=== PATIENT | female | born 1980 | race Caucasian/White ===

== ENCOUNTER 2016-08-05 11:19 | Emergency (ER) | payer OTHER ==
[2016-08-05 11:39] VITALS: BP 109/79; PULSE 95; TEMP 97.8; BMI 34.8
[2016-08-05] MEDS ORDERED: FLUORESCEIN NA 1 EA STRIP ONE (11:47)
[2016-08-05] MEDS ORDERED: TETRACAINE 0.5% OPHTH SOLN 2 ML BOTTLE ONE (11:47)
[2016-08-05] MEDS ORDERED: TETRACAINE 0.5% HCL 0.6ML DROPPER.BOTTLE OS ONE (11:48)
[2016-08-05] MEDS ORDERED: FLUORESCEIN NA 1 EA STRIP OS ONE (11:48)
--- NOTE | 2016-08-05 12:04 | PDOC ---
History of Present Illness - General Chief Complaint: Eye Problem Stated Complaint: LEFT EYELID SWELLING Time Seen by Provider: 08/05/16 11:25 History Source: Patient, Old Records Exam Limitations: No Limitations - History of Present Illness Initial Comments: 08/05/16 11:59 36 year F c/ hx of obesity and asthma presents with left eye redness since this morning The patient was recently seen for URI and asthma and started on azithromycin and steroids. Yesterday, she woke up with eye discharge, redness, photophobia, itchiness, eye grittiness sensation. Denies fevers. 08/05/16 12:01 Does not wear contacts or glasses. Past History - Past Medical History Allergies/Adverse Reactions: Allergies Allergy/AdvReac Type Severity Reaction Status Date / Time omalizumab Allergy Severe Difficulty Verified 07/31/16 10:08 Breathing Penicillins Allergy Severe Difficulty Verified 07/31/16 10:08 Breathing Home Medications: Ambulatory Orders Albuterol Sulfate Inhaler - [Ventolin HFA Inhaler -] 1 - 2 inh PO QID 07/31/16 Azithromycin 250 mg PO DAILY #7 tablet 07/31/16 Budesonide [Pulmicort 0.5 mg Nebulizer -] 1 neb NEB ONCE 07/31/16 Formoterol Fumarate [Perforomist] 20 mcg IH BID 07/31/16 Guaifenesin AC [Robitussin AC -] 1 - 2 tsp PO TID PRN #90 ml MDD 6 07/31/16 Montelukast Na [Singulair -] 10 mg PO HS 07/31/16 Prednisone [Deltasone -] 40 mg PO DAILY #40 tablet 07/31/16 Erythromycin 0.5% Eye Ointment [Erythromycin 0.5% Eye Ointment -] 1 applic OS Q4H #1 tube 08/05/16 Anemia: No Asthma: Yes (1991) Cancer: No Cardiac Disorders: No CVA: No COPD: No CHF: No Dementia: No Diabetes: No GI Disorders: Yes (GERD) Disorders: No HTN: No Hypercholesterolemia: No Liver Disease: No Psychiatric Problems: Yes (bipolar) Suicide Attempt (Hx): No Seizures: No Thyroid Disease: No - Surgical History Abdominal Surgery: Yes (TUBAL LIGATION 2007) Appendectomy: Yes (2000) Cardiac Surgery: No Cholecystectomy: Yes (2012) Lung Surgery: Yes (BRONCHIAL THERMOPLASTY 2013) Neurologic Surgery: No Orthopedic Surgery: No - Immunization History Td Vaccination: No TDAP Vaccination: No Immunization Up to Date: No - Psycho/Social/Smoking Cessation Hx Anxiety: No Suicidal Ideation: No Smoking Status: No Smoking History: Never smoked Have you smoked in the past 12 months: No Number of Cigarettes Smoked Daily: 0 Hx Alcohol Use: No Drug/Substance Use Hx: No Substance Use Type: Alcohol Hx Substance Use Treatment: No Review of Systems - Review of Systems Able to Perform ROS?: Yes Comments:: 08/05/16 12:00 GENERAL/CONSTITUTIONAL: No fever, weakness. HEAD, EYES, EARS, NOSE AND THROAT: Left eye redness and discharge. No change in vision. No ear pain or discharge. No sore throat. CARDIOVASCULAR: No chest pain or shortness of breath. RESPIRATORY: +cough from previous ED visit. No wheezing, or hemoptysis. GASTROINTESTINAL: No abdominal pain, nausea, vomiting, diarrhea, or decreased PO intolerance. GENITOURINARY: No dysuria, frequency, or change in urination. MUSCULOSKELETAL: No joint or muscle swelling or pain. No neck or back pain. SKIN: No rash NEUROLOGIC: No headache, vertigo, loss of consciousness, or change in strength/ sensation. ENDOCRINE: No increased thirst. No abnormal weight change. HEMATOLOGIC/LYMPHATIC: No anemia, easy bleeding, or history of blood clots. ALLERGIC/IMMUNOLOGIC: No hives or skin allergy. *Physical Exam - Vital Signs Last Vital Signs Temp Pulse Resp BP Pulse Ox 97.8 F 95 H 17 109/79 100 08/05/16 11:21 08/05/16 11:21 08/05/16 11:21 08/05/16 11:21 08/05/16 11:21 - Physical Exam Comments: 08/05/16 12:01 GENERAL: Awake, alert, and fully oriented, in no acute distress. HEAD: No signs of trauma EYES: PERRLA, EOMI OD: 20/50 VA OS: 20/70 VA Injected left conjunctiva. +mild discharge. fluorescein stain with NO uptake ENT: Auricles normal inspection, hearing grossly normal, nares patent, oropharynx clear without exudates. NECK: Normal ROM, supple, no lymphadenopathy, JVD, or masses LUNGS: Breath sounds equal, clear to auscultation bilaterally. No wheezes, and no crackles HEART: Regular rate and rhythm, normal S1 and S2, no murmurs, rubs or gallops ABDOMEN: Soft, nontender, normoactive bowel sounds. No guarding, no rebound. No masses EXTREMITIES: Normal range of motion, no edema. No clubbing or cyanosis. No cords, erythema, or tenderness NEUROLOGICAL: Cranial nerves II through XII grossly intact. Normal speech, normal gait SKIN: Warm, Dry, normal turgor, no rashes or lesions noted. Medical Decision Making - Medical Decision Making 08/05/16 12:03 Vital Signs Temp Pulse Resp BP Pulse Ox 97.8 F 95 H 17 109/79 100 08/05/16 11:21 08/05/16 11:21 08/05/16 11:21 08/05/16 11:21 08/05/16 11:21 Imp: conjunctivitis Erythromycin ointment Supportive care Follow up with optho. Hygiene precautions. I discussed the physical exam findings, ancillary test results and final diagnoses with the patient. I answered all of the patient's questions. The patient was satisfied with the care received and felt comfortable with the discharge plan and treatment plan. The patient will call their primary care physician within 24 hours to arrange follow-up and will return to the Emergency Department with any new, persistant or worsening symptoms. *DC/Admit/Observation/Transfer Diagnosis at time of Disposition: Conjunctivitis Qualifiers: Conjunctivitis type: unspecified Laterality: left Qualified Code(s): H10.9 - Unspecified conjunctivitis - Discharge Dispostion Disposition: HOME Condition at time of disposition: Good Admit: No - Prescriptions Prescriptions: Erythromycin 0.5% Eye Ointment [Erythromycin 0.5% Eye Ointment -] 1 applic OS Q4H #1 tube - Referrals Referrals: Christie Perez [Primary Care Provider] - Tyson Bravo MD [Staff Physician] - - Patient Instructions Printed Discharge Instructions: DI for Conjunctivitis Additional Instructions: Please use the erythromycin as prescribed 6 times a day for a week. Make an appointment and follow up with your doctor as well as an eye doctor.
== END 2016-08-05 12:18 | disposition home or self-care (01) ==
LOC: FER 11:19
DX: H10.9 Unspecified conjunctivitis (principal); J45.909 Unspecified asthma, uncomplicated; K21.9 Gastro-esophageal reflux disease without esophagitis; F31.9 Bipolar disorder, unspecified
CPT/HCPCS: 99282-25

== ENCOUNTER 2016-08-14 12:31 | Emergency (ER) | payer OTHER ==
[2016-08-14 13:04] VITALS: BP 148/90; PULSE 97; TEMP 98; BMI 34.9
--- NOTE | 2016-08-14 13:10 | PDOC ---
History of Present Illness - General Chief Complaint: Back Pain Stated Complaint: COUGH,PT RT BACK Time Seen by Provider: 08/14/16 12:38 History Source: Patient Exam Limitations: No Limitations - History of Present Illness Initial Comments: 08/14/16 13:11 Chief complaint: Cough and wheezing and shortness of breath History of present illness: This is a 36 yo F, steroid dependent asthmatic who presents to the ER with a complaint of severe cough and wheezing Pt was diagnosed at the age of 12 with asthma Her symtoms worsened over the past 3 years Over the past year, she has become steroid dependent Her current symptoms began 3 weeks ago she was seen at an urgent care 05/24 which started Azithromycin and Prednisone 40mg daily Pt then came to the ER on 05/31 where she was given another course of Azithromycin and Prednisone (in total, pt had 14 days prednisone) She states she contacted her pulmonary team at [facility] yesterday, she was instructed to increase her Dexamethasone from 1mg tid to 4mg tid Pt has done this Pt states she has had intermittent subjective fevers She feels short of breath Now has right upper back pain No recent travel Children are her ill contacts Past medical history: Severe asthma, steroid dependent. Did not take a flu shot Past surgical history: Social history: No tobacco alcohol or nonprescription drugs. Stable home and family. Others in the family with similar illness Family history: Reviewed and noncontributory GENERAL/CONSTITUTIONAL: YEs: fever, chills No: weakness, loss of appetite. HEAD, EYES, EARS, NOSE AND THROAT: No: change in vision, ear pain, discharge, sore throat, throat swelling. CARDIOVASCULAR: No: chest pain, lightheadedness, palpitations, syncope RESPIRATORY: Yes: cough, shortness of breath, wheezing, No: hemoptysis, stridor. GASTROINTESTINAL: No: nausea, vomiting, diarrhea, abdominal cramping, rectal bleeding, constipation. GENITOURINARY: No: dysuria, hematuria, frequency, urgency, flank pain. MUSCULOSKELETAL: No: back pain, neck pain, joint pain, muscle swelling or pain SKIN: No: lesions, pallor, rash or easy bruising. NEUROLOGIC: No: headache, vertigo, paresthesias, weakness ENDOCRINE: No: unexplained weight gain or loss HEMATOLOGIC/LYMPHATIC: No: anemia, easy bleeding, swelling nodes. GENERAL: The patient is in no acute distress. HEAD: Normal with no signs of trauma. EYES: PERRLA, EOMI, sclera anicteric, conjunctiva clear. ENT: Ears normal, nares patent, oropharynx clear without exudates. Moist mucous membranes. NECK: Normal range of motion, supple without lymphadenopathy, JVD, or masses. LUNGS: Diffuse inspiratory and expiratory wheezing in all lung beth HEART:Regular rate and rhythm, normal S1 and S2 without murmur, rub or gallop. ABDOMEN: Soft, nontender, normoactive bowel sounds. No guarding, no rebound. No masses palpable. EXTREMITIES: Normal range of motion, no edema. No clubbing or cyanosis. No erythema, or tenderness. NEUROLOGICAL: Cranial nerves II through XII grossly intact. Normal speech. No focal neurological deficits. MUSCULOSKELETAL: Back non-tender to palpation, no CVA tenderness SKIN: Warm, Dry, normal turgor, no rashes or lesions noted. Past History - Past Medical History Allergies/Adverse Reactions: Allergies Allergy/AdvReac Type Severity Reaction Status Date / Time omalizumab Allergy Severe Difficulty Verified 08/14/16 12:32 Breathing Penicillins Allergy Severe Difficulty Verified 08/14/16 12:32 Breathing Home Medications: Ambulatory Orders Albuterol Sulfate Inhaler - [Ventolin HFA Inhaler -] 1 - 2 inh PO QID 07/31/16 Budesonide [Pulmicort 0.5 mg Nebulizer -] 1 neb NEB ONCE 07/31/16 Formoterol Fumarate [Perforomist] 20 mcg IH BID 07/31/16 Guaifenesin AC [Robitussin AC -] 1 - 2 tsp PO TID PRN #90 ml MDD 6 07/31/16 Montelukast Na [Singulair -] 10 mg PO HS 07/31/16 Dexamethasone 4 mg PO TID 08/14/16 Anemia: No Asthma: Yes (1991) Cancer: No Cardiac Disorders: No CVA: No COPD: No CHF: No Dementia: No Diabetes: No GI Disorders: Yes (GERD) Disorders: No HTN: No Hypercholesterolemia: No Liver Disease: No Psychiatric Problems: Yes (bipolar) Suicide Attempt (Hx): No Seizures: No Thyroid Disease: No - Surgical History Abdominal Surgery: Yes (TUBAL LIGATION 2007) Appendectomy: Yes (2000) Cardiac Surgery: No Cholecystectomy: Yes (2012) Lung Surgery: Yes (BRONCHIAL THERMOPLASTY 2013) Neurologic Surgery: No Orthopedic Surgery: No - Immunization History Td Vaccination: No TDAP Vaccination: No Immunization Up to Date: No - Psycho/Social/Smoking Cessation Hx Anxiety: No Suicidal Ideation: No Smoking Status: No Smoking History: Never smoked Have you smoked in the past 12 months: No Number of Cigarettes Smoked Daily: 0 Information on smoking cessation initiated: No Hx Alcohol Use: No Drug/Substance Use Hx: No Substance Use Type: Alcohol Hx Substance Use Treatment: No *Physical Exam - Vital Signs Last Vital Signs Temp Pulse Resp BP Pulse Ox 98 F 97 H 21 148/90 96 08/14/16 12:32 08/14/16 12:32 08/14/16 12:32 08/14/16 12:32 08/14/16 12:32 Medical Decision Making - Medical Decision Making DD: Severe persistent asthma, Pneumonia, Bronchitis 08/14/16 13:27 PT would rather not be admitted despite her repeated use of abx and steroids Is interested only in obtaining CXR to see if she has pneumonia will re assess 08/14/16 14:49 CXR: nml Will Give duo nebs Will ask pt to try to get a closer follow up appointment with her Shrimp Picker Clinical Impression: severe asthma exacerbation *DC/Admit/Observation/Transfer Diagnosis at time of Disposition: Asthma exacerbation - Discharge Dispostion Disposition: HOME Condition at time of disposition: Improved Admit: No - Patient Instructions Printed Discharge Instructions: DI for Asthma -- Adult Additional Instructions: Sherri Please please call your casino host to see if they can possibly get you in to the office sooner Please take your temperature Return to the ER if your wheezing worsens OR if you are willing to stay in the hospital - Post Discharge Activity Work/School Note: Back to Work
== END 2016-08-14 14:57 | disposition home or self-care (01) ==
LOC: FER 12:31
DX: J45.901 Unspecified asthma with (acute) exacerbation (principal); K21.9 Gastro-esophageal reflux disease without esophagitis; F31.9 Bipolar disorder, unspecified
CPT/HCPCS: 71020-TC; 99282-25

== ENCOUNTER 2016-08-31 09:18 | Emergency (ER) | payer OTHER ==
[2016-08-31 09:32] VITALS: BP 126/84; PULSE 122; TEMP 99; BMI 34.9
--- NOTE | 2016-08-31 09:35 | PDOC ---
History of Present Illness - General Chief Complaint: Respiratory Stated Complaint: COUGH Time Seen by Provider: 08/31/16 09:20 History Source: Patient Exam Limitations: No Limitations - History of Present Illness Initial Comments: 08/31/16 09:32 The patient is a 36 year old female witha significant past medical history of moderate persistent asthma who presents withy 1 month of cough, which has worsened in the past three days. She has been in the ED several times in the past month. Komal cough is productive of a green sputum. She reports chest tightness, only with cough or deep inspiration. She reports intermittent subjective fever. She denies rhinorrhea, dysphagia, myalgia, arthralgia. She did receive an influenza vaccination. She has not seen her furniture cleaner and is not on her usual inhaled steroid medications. She has been using her She completed steroids 1 week ago. She denies episodic rash, episodic focal paresthesias/weakness. She did not have an influenza vaccination or a pneumonia vaccination. She has a cat in her home. The patient denies recent travel/surgeries/immobility, lower extremity edema, calf pain or tenderness, tobacco use, hormone use, personal or family history of thrombosis. 08/31/16 09:40 08/31/16 11:36 08/31/16 11:37 Past History - Past Medical History Allergies/Adverse Reactions: Allergies Allergy/AdvReac Type Severity Reaction Status Date / Time omalizumab Allergy Severe Difficulty Verified 08/14/16 12:32 Breathing Penicillins Allergy Severe Difficulty Verified 08/14/16 12:32 Breathing Home Medications: Ambulatory Orders Albuterol Sulfate Inhaler - [Ventolin HFA Inhaler -] 1 - 2 inh PO QID 07/31/16 Budesonide [Pulmicort 0.5 mg Nebulizer -] 1 neb NEB ONCE 07/31/16 Formoterol Fumarate [Perforomist] 20 mcg IH BID 07/31/16 Montelukast Na [Singulair -] 10 mg PO HS 07/31/16 Albuterol 2.5/Ipratropium 0.5 [Duoneb -] 1 neb NEB Q6H PRN #30 vial 08/14/16 Dexamethasone 4 mg PO TID 08/14/16 Benzonatate [Tessalon Pearls -] 100 mg PO TID PRN #21 capsule 08/31/16 Prednisone [Deltasone -] 20 mg PO DAILY #18 tablet 08/31/16 Anemia: No Asthma: Yes (1991) Cancer: No Cardiac Disorders: No CVA: No COPD: No CHF: No Dementia: No Diabetes: No GI Disorders: Yes (GERD) Disorders: No HTN: No Hypercholesterolemia: No Liver Disease: No Psychiatric Problems: Yes (bipolar) Suicide Attempt (Hx): No Seizures: No Thyroid Disease: No - Surgical History Abdominal Surgery: Yes (TUBAL LIGATION 2007) Appendectomy: Yes (2000) Cardiac Surgery: No Cholecystectomy: Yes (2012) Lung Surgery: Yes (BRONCHIAL THERMOPLASTY 2012) Neurologic Surgery: No Orthopedic Surgery: No - Immunization History Td Vaccination: No TDAP Vaccination: No Immunization Up to Date: No - Psycho/Social/Smoking Cessation Hx Anxiety: No Suicidal Ideation: No Smoking Status: No Smoking History: Never smoked Have you smoked in the past 12 months: No Number of Cigarettes Smoked Daily: 0 Hx Alcohol Use: No Drug/Substance Use Hx: No Substance Use Type: Alcohol Hx Substance Use Treatment: No Review of Systems - Review of Systems Comments:: 08/31/16 09:35 CONSTITUTIONAL: Absent: fever, chills, diaphoresis, generalized weakness, malaise, loss of appetite HEENT: Absent: rhinorrhea, nasal congestion, throat pain, throat swelling, difficulty swallowing, mouth swelling, ear pain, eye pain, visual Changes CARDIOVASCULAR: Absent: chest pain, loss of consciousness, palpitations, irregular heart rate, peripheral edema RESPIRATORY: Absent: cough, shortness of breath, dyspnea with exertion, orthopnea, wheezing, stridor, hemoptysis GASTROINTESTINAL: Absent: abdominal pain, abdominal distension, nausea, vomiting, diarrhea, constipation, melena, hematochezia GENITOURINARY: Absent: dysuria, frequency, urgency, hesitancy, hematuria, flank pain, genital pain MUSCULOSKELETAL: Absent: myalgia, arthralgia, joint swelling SKIN: Absent: rash, itching, pallor HEMATOLOGIC/IMMUNOLOGIC: Absent: easy bleeding, easy bruising, lymphadenopathy, frequent infections ENDOCRINE: Absent: unexplained weight gain, unexplained weight loss, heat intolerance, cold intolerance NEUROLOGIC: Absent: headache, focal weakness or paresthesias, dizziness, unsteady gait, seizure, mental status changes, bladder or bowel incontinence PSYCHIATRIC: Absent: anxiety, depression, suicidal or homicidal ideation, hallucinations. *Physical Exam - Physical Exam Comments: 08/31/16 09:36 GENERAL: The patient is coughing and is in mild respiratory distress Well developed, well nourished. Awake and alert. HEENT: Normocephalic, atraumatic. PERRLA, EOMI. No conjunctival pallor. Sclera are non- icteric. Moist mucous membranes. Oropharynx is clear. NECK: Supple. Full ROM. No JVD. Carotid pulses 2+ and symmetric, without bruits. No thyromegaly. No lymphadenopathy. CARDIOVASCULAR: Tachycardic rate and regular rhythm. No murmurs, rubs, or gallops. Distal pulses are 2+ and symmetric. PULMONARY: She is in mild respiratory distress. She has diffuse inspiratory and expiratory wheezes bilaterally. There are no focal crackles or rhonchi. ABDOMINAL: Soft. Non-tender. Non-distended. No rebound or guarding. No organomegaly. Normoactive bowel sounds. MUSCULOSKELETAL Normal range of motion at all joints. No bony deformities or tenderness. No CVA tenderness. EXTREMITIES: No cyanosis. No clubbing. No edema. No calf tenderness. SKIN: Warm and dry. Normal capillary refill. No rashes. No jaundice. NEUROLOGICAL: Alert, awake, appropriate. Cranial nerves 2-12 intact. No deficits to light touch and temperature in face, upper extremities and lower extremities. No motor deficits in the in face, upper extremities and lower extremities. Normoreflexic in the upper and lower extremities. Normal speech. Toes are down- going bilaterally. Gait is normal without ataxia. PSYCHIATRIC: Cooperative. Good eye contact. Appropriate mood and affect. ED Treatment Course - LABORATORY CBC & Chemistry Diagram: 08/31/16 10:05 08/31/16 10:05 Medical Decision Making - Medical Decision Making 08/31/16 09:37 The patient is well-appearing but in mild respiratory distress Will begin DuoNeb treatment Will administer IV Solu-Medrol and IV magnesium Will obtain PA and lateral chest x-ray Will obtain basic labs 08/31/16 10:15 Symptoms have improved, though she continues to wheeze Lung exam slightly improved Chest x-ray emergency Department interpretation: No acute cardiopulmonary disease Labs pending 08/31/16 11:33 Labs noted The patient has continued to improve, and she states that she feels "much better " and would like to go home Her significant other also feels that she is now at her baseline Lung exam with only very minimal expiratory wheezes I counseled her regarding the importance of removing the cat from her home She understands the absolute necessity of returning if she has any recurrent symptoms She also understands the absolute necessity of following up with her furniture cleaner or primary care physician tomorrow Clinical impression: Asthma exacerbation; resolved I discussed the physical exam findings, ancillary test results and final diagnoses with the patient. I answered all of the patient's questions. The patient was satisfied with the care received and felt comfortable with the discharge plan and treatment plan. The patient will call their primary care physician within 24 hours to arrange follow-up and will return to the Emergency Department with any new, persistent or worsening symptoms. *DC/Admit/Observation/Transfer Diagnosis at time of Disposition: Asthma exacerbation - Discharge Dispostion Disposition: HOME Condition at time of disposition: Good - Prescriptions Prescriptions: Prednisone [Deltasone -] 20 mg PO DAILY #18 tablet Benzonatate [Tessalon Pearls -] 100 mg PO TID PRN #21 capsule PRN Reason: Cough - Referrals Referrals: Christie Perez [Primary Care Provider] - - Patient Instructions Printed Discharge Instructions: DI for Asthma -- Adult Additional Instructions: Return to the emergency department immediately with ANY new, persistent or worsening symptoms. You MUST call and follow up with your doctor tomorrow. Please make sure your doctor reviews the results of your emergency department evaluation. - Post Discharge Activity Work/School Note: Back to Work
[2016-08-31] MEDS ORDERED: methylPREDNISolone NA SUCC 125 MG/2 ML VIAL IVPB ONE (09:37)
[2016-08-31] MEDS ORDERED: SODIUM CHLORIDE 1,000 ML IV STA (09:37)
[2016-08-31] MEDS ORDERED: ALBUTEROL SO4 2.5/IPRATROPIUM 0.5 INH SOL 3 ML VIAL.NEB. NEB ONE (09:37)
[2016-08-31] MEDS ORDERED: MAGNESIUM SULF 50% (8.12 MEQ/2 ML-1 GM VIAL) IVPB ONE (09:37)
[2016-08-31] MEDS ORDERED: methylPREDNISolone NA SUCC 125 MG/2 ML VIAL ONE (09:40)
[2016-08-31] MEDS ORDERED: ALBUTEROL SO4 0.083% IH SOL 2.5 MG/3 ML VIAL.NEB. NEB ONE ×5 (09:40→11:00)
[2016-08-31] MEDS ORDERED: MAGNESIUM SULF 50% (8.12 MEQ/2 ML-1 GM VIAL) ONE (09:40)
[2016-08-31] MEDS ORDERED: ACETAMINOPHEN 325 MG TABLET (FP) PO ONE (10:15)
[2016-08-31] MEDS ORDERED: ACETAMINOPHEN 325 MG TABLET (FP) ONE (10:17)
[2016-08-31 10:29] LABS: MCH 22.7 pg (25.7-33.7); MEAN CELL VOLUME 73.2 fl (80-96); MEAN PLT VOLUME 8.5 fl (7.5-11.1); PLATELET COUNT 199 K/MM3 (134-434); RDW 16.6 % (11.6-15.6); WHITE BLOOD COUNT 2.9 K/mm3 (4.0-10.0)
[2016-08-31 10:34] LABS: ALBUMIN 3.8 g/dl (3.5-5.0); ALK PHOS 76 U/L (32-92); ANION GAP 9 (8-16); BILIRUBIN,TOTAL 0.4 mg/dl (0.2-1.0); CALCIUM 8.6 mg/dl (8.4-10.2); CO2 27 mmol/L (22-28); CREATININE 0.8 mg/dl (0.6-1.3); GLUCOSE,RANDOM 101 mg/dl (74-106); SGOT/AST 37 U/L (10-42); SGPT/ALT 28 U/L (10-40); TOT PROT 7.4 g/dl (6.4-8.3)
[2016-08-31 11:30] LABS: HYPOCHROMIA 1+; MICROCYTOSIS FEW
== END 2016-08-31 12:13 | disposition home or self-care (01) ==
LOC: FER 09:18
PROC: 3E0F7GC Introduction of Other Therapeutic Substance into Respiratory Tract, Via Natural or Artificial Opening (ICD-10-PCS; principal; 2016-08-31)
PROC: 3E033GC Introduction of Other Therapeutic Substance into Peripheral Vein, Percutaneous Approach (ICD-10-PCS; 2016-08-31)
PROC: 3E0337Z Introduction of Electrolytic and Water Balance Substance into Peripheral Vein, Percutaneous Approach (ICD-10-PCS; 2016-08-31)
DX: J45.901 Unspecified asthma with (acute) exacerbation (principal); K21.9 Gastro-esophageal reflux disease without esophagitis; F31.9 Bipolar disorder, unspecified
CPT/HCPCS: 36415; 71020-TC; 80053; 85025; 99282-25

== ENCOUNTER 2016-12-09 20:59 | Emergency (ER) | payer OTHER ==
[2016-12-09] MEDS ORDERED: AZITHROMYCIN 250 MG TABLET (FP) PO ONE (21:02)
[2016-12-09] MEDS ORDERED: ACETAMINOPHEN 500 MG TABLET (FP) PO ONE (21:02)
--- NOTE | 2016-12-09 21:02 | PDOC ---
History of Present Illness <Rafael Denton - Last Filed: 12/09/16 21:04> - General History Source: Patient Exam Limitations: No Limitations - History of Present Illness Initial Comments: 12/09/16 21:07 The patient is a 35 year old female, with a significant past medical history of Kienbck's disease, migraines, asthma, hypothyroidism, and bipolar disorder, who presents to the emergency department with sore throat and fever. Patient states that she is steroid dependent and is taking bactrim while tapering off the steroids. Patient reports taking advil for the fever. She denies chest pain, shortness of breath, headache and dizziness. She denies nausea, vomit, diarrhea and constipation. She denies dysuria, frequency, urgency and hematuria. Allergy - omalizumab, penicillin <Maddie Mendez - Last Filed: 12/09/16 21:11> - General Chief Complaint: Pain, Acute Stated Complaint: I THINK I HAVE STREPT THROAT Past History - Past Medical History Anemia: No Asthma: Yes (1991) Cancer: No Cardiac Disorders: No CVA: No COPD: No CHF: No Dementia: No Diabetes: No GI Disorders: Yes (GERD) Disorders: No HTN: No Hypercholesterolemia: No Liver Disease: No Psychiatric Problems: Yes (bipolar) Suicide Attempt (Hx): No Seizures: No Thyroid Disease: No - Surgical History Abdominal Surgery: Yes (TUBAL LIGATION 2007) Appendectomy: Yes (2000) Cardiac Surgery: No Cholecystectomy: Yes (2012) Lung Surgery: Yes (BRONCHIAL THERMOPLASTY 2012) Neurologic Surgery: No Orthopedic Surgery: No - Immunization History Td Vaccination: No TDAP Vaccination: No Immunization Up to Date: No - Psycho/Social/Smoking Cessation Hx Anxiety: No Suicidal Ideation: No Smoking Status: No Smoking History: Never smoked Have you smoked in the past 12 months: No Number of Cigarettes Smoked Daily: 0 Hx Alcohol Use: No Drug/Substance Use Hx: No Substance Use Type: Alcohol Hx Substance Use Treatment: No <Rafael Denton - Last Filed: 12/09/16 21:04> <Maddie Mendez - Last Filed: 12/09/16 21:11> - Past Medical History Allergies/Adverse Reactions: Allergies Allergy/AdvReac Type Severity Reaction Status Date / Time omalizumab Allergy Severe Difficulty Verified 12/09/16 21:01 Breathing Penicillins Allergy Severe Difficulty Verified 12/09/16 21:01 Breathing Home Medications: Ambulatory Orders Albuterol Sulfate Inhaler - [Ventolin HFA Inhaler -] 1 - 2 inh PO QID 07/31/16 Budesonide [Pulmicort 0.5 mg Nebulizer -] 1 neb NEB ONCE 07/31/16 Formoterol Fumarate [Perforomist] 20 mcg IH BID 07/31/16 Montelukast Na [Singulair -] 10 mg PO HS 07/31/16 Albuterol 2.5/Ipratropium 0.5 [Duoneb -] 1 neb NEB Q6H PRN #30 vial 08/14/16 Dexamethasone 4 mg PO TID 08/14/16 Benzonatate [Tessalon Pearls -] 100 mg PO TID PRN #21 capsule 08/31/16 Guaifenesin AC [Robitussin AC -] 5 ml PO TID PRN #150 ml MDD 15 08/31/16 Prednisone [Deltasone -] 20 mg PO DAILY #18 tablet 08/31/16 Azithromycin [Zithromax -] 250 mg PO DAILY #5 tab 12/09/16 Review of Systems - Review of Systems Able to Perform ROS?: Yes Comments:: 12/09/16 21:08 GENERAL/CONSTITUTIONAL: (+)fever (+)chills. No weakness. HEAD, EYES, EARS, NOSE AND THROAT: (+)sore throat. No change in vision. No ear pain or discharge. CARDIOVASCULAR: No chest pain or shortness of breath. RESPIRATORY: No cough, wheezing, or hemoptysis. GASTROINTESTINAL: No nausea, vomiting, diarrhea or constipation. GENITOURINARY: No dysuria, frequency, or change in urination. MUSCULOSKELETAL: No joint or muscle swelling or pain. No neck or back pain. SKIN: No rash NEUROLOGIC: No headache, vertigo, loss of consciousness, or change in strength/ sensation. ENDOCRINE: No increased thirst. No abnormal weight change. HEMATOLOGIC/LYMPHATIC: No anemia, easy bleeding, or history of blood clots. ALLERGIC/IMMUNOLOGIC: No hives or skin allergy. <Maddie Mendez - Last Filed: 12/09/16 21:11> *Physical Exam - Vital Signs Last Vital Signs Temp Pulse Resp BP Pulse Ox 101.4 F H 133 H 16 126/82 96 12/09/16 21:02 12/09/16 21:02 12/09/16 21:02 12/09/16 21:02 12/09/16 21:02 - Physical Exam Comments: 12/09/16 21:09 GENERAL: Awake, alert, and fully oriented, in no acute distress HEAD: No signs of trauma EYES: PERRLA, EOMI, sclera anicteric, conjunctiva clear ENT: (+)oropharynx is erythematous with exudates. Auricles normal inspection, hearing grossly normal, nares patent, Moist mucosa NECK: (+)cervical lymphadenopathy. Normal ROM, supple, JVD, or masses LUNGS: Breath sounds equal, clear to auscultation bilaterally. No wheezes, and no crackles HEART: Regular rate and rhythm, normal S1 and S2, no murmurs, rubs or gallops ABDOMEN: Soft, nontender, normoactive bowel sounds. No guarding, no rebound. No masses EXTREMITIES: Normal range of motion, no edema. No clubbing or cyanosis. No cords, erythema, or tenderness NEUROLOGICAL: Cranial nerves II through XII grossly intact. Normal speech, normal gait SKIN: Warm, Dry, normal turgor, no rashes or lesions noted. <Maddie Mendez - Last Filed: 12/09/16 21:11> Medical Decision Making - Medical Decision Making 12/09/16 21:10 35 yo F with with a significant past medical history of Kienbck's disease, migraines, asthma, hypothyroidism, and bipolar disorder, who presents to the emergency department with sore throat and fever. Will prescribe a Z pack. <Maddie Mendez - Last Filed: 12/09/16 21:11> *DC/Admit/Observation/Transfer - Discharge Dispostion Admit: No - Attestations Physician Attestion: 12/09/16 21:02 I, Dr. Rafael Denton, attest that this document has been prepared under my direction and personally reviewed by me in its entirety. I further attest, that it accurately reflects all work, treatment, procedures and medical decision -making performed by me. <Rafael Denton - Last Filed: 12/09/16 21:04> - Attestations Scribe Attestion: 12/09/16 21:10 Documentation prepared by MIGUELANGEL Black, acting as medical supervisor for Rafael Denton DO. <Maddie Mendez - Last Filed: 12/09/16 21:11> Diagnosis at time of Disposition: Exudative pharyngitis - Discharge Dispostion Disposition: HOME Condition at time of disposition: Good - Prescriptions Prescriptions: Azithromycin [Zithromax -] 250 mg PO DAILY #5 tab - Patient Instructions Printed Discharge Instructions: DI for Strep Throat Additional Instructions: Sherri- Call your payroll assistant to find out about continuing bactrim three times a week. Gargle with salt water. Tylenol and Motrin for fever. Return to us if worse. Follow up with your doctor later this week. Best- Dr. Rafael Denton
[2016-12-09 21:06] VITALS: BP 126/82; PULSE 133; TEMP 101.4; BMI 33.3
[2016-12-09] MEDS ORDERED: ACETAMINOPHEN 325 MG TABLET (FP) ONE (21:07)
[2016-12-09] MEDS ORDERED: AZITHROMYCIN 250 MG TABLET (FP) ONE (21:08)
== END 2016-12-09 21:14 | disposition home or self-care (01) ==
LOC: FER 20:59
DX: J02.9 Acute pharyngitis, unspecified (principal); J45.909 Unspecified asthma, uncomplicated; E03.9 Hypothyroidism, unspecified; F31.9 Bipolar disorder, unspecified; K21.9 Gastro-esophageal reflux disease without esophagitis; M93.1 Kienbock's disease of adults
CPT/HCPCS: 99281-25

== ENCOUNTER 2017-01-18 18:15 | Emergency (ER) | payer OTHER ==
[2017-01-18 18:37] VITALS: BP 120/99; PULSE 98; TEMP 98.3; BMI 33.3
[2017-01-18] MEDS ORDERED: SODIUM CHLORIDE 1,000 ML IV STA (18:43)
--- NOTE | 2017-01-18 18:43 | PDOC ---
History of Present Illness - General Chief Complaint: Pain, Acute Stated Complaint: LEFT LOWER QUADRANT PAIN ON AND OFF FOR 1 WEEK WI Time Seen by Provider: 01/18/17 18:20 History Source: Patient Exam Limitations: No Limitations - History of Present Illness Initial Comments: 01/18/17 18:45 The patient is a 36-year-old female with a significant past medical history of moderate persistent asthma, morbid obesity, who presents to the emergency department complaining of one week of left lower quadrant pain and diarrhea. She rates the pain as moderate in intensity. It is constant. It is a dull ache. She has had nausea but no vomiting. She has had 15-20 episodes of watery/yellow stool per day. She denies seeing mucus or blood in it. No recent ingestion of river, stream or doe water. No recent ingestion of raw meat. No recent ingestion of shellfish. No antibiotic use in the past 6 months. No recent travel outside of the [facility]. No sick contacts with similar symptoms. No blood or mucous noted in the stools. She has had IV contrast before without adverse reaction. Past History - Past Medical History Allergies/Adverse Reactions: Allergies Allergy/AdvReac Type Severity Reaction Status Date / Time omalizumab Allergy Severe Difficulty Verified 01/18/17 18:17 Breathing Penicillins Allergy Severe Difficulty Verified 12/09/16 21:01 Breathing Home Medications: Ambulatory Orders Albuterol Sulfate Inhaler - [Ventolin HFA Inhaler -] 1 - 2 inh PO QID 07/31/16 Budesonide [Pulmicort 0.5 mg Nebulizer -] 1 neb NEB ONCE 07/31/16 Formoterol Fumarate [Perforomist] 20 mcg IH BID 07/31/16 Albuterol 2.5/Ipratropium 0.5 [Duoneb -] 1 neb NEB Q6H PRN #30 vial 08/14/16 Dexamethasone 4 mg PO BID 08/14/16 Anemia: No Asthma: Yes (1991) Cancer: No Cardiac Disorders: No CVA: No COPD: No CHF: No Dementia: No Diabetes: No GI Disorders: Yes (GERD) Disorders: No HTN: No Hypercholesterolemia: No Liver Disease: No Psychiatric Problems: Yes (bipolar) Suicide Attempt (Hx): No Seizures: No Thyroid Disease: No - Surgical History Abdominal Surgery: Yes (TUBAL LIGATION 2007) Appendectomy: Yes (2000) Cardiac Surgery: No Cholecystectomy: Yes (2012) Lung Surgery: Yes (BRONCHIAL THERMOPLASTY 2012) Neurologic Surgery: No Orthopedic Surgery: No - Immunization History Td Vaccination: No TDAP Vaccination: No Immunization Up to Date: No - Psycho/Social/Smoking Cessation Hx Anxiety: Yes (BIPOLAR) Suicidal Ideation: No Smoking Status: No Smoking History: Never smoked Have you smoked in the past 12 months: No Number of Cigarettes Smoked Daily: 0 Information on smoking cessation initiated: No Hx Alcohol Use: Yes Drug/Substance Use Hx: No Substance Use Type: Alcohol Hx Substance Use Treatment: No Review of Systems - Review of Systems Comments:: 01/18/17 18:47 CONSTITUTIONAL: Present: Chills, generalized weakness, malaise, loss of appetite Absent: fever, diaphoresis HEENT: Absent: rhinorrhea, nasal congestion, throat pain, throat swelling, difficulty swallowing, mouth swelling, ear pain, eye pain, visual Changes CARDIOVASCULAR: Absent: chest pain, loss of consciousness, palpitations, irregular heart rate, peripheral edema RESPIRATORY: Absent: cough, shortness of breath, dyspnea with exertion, orthopnea, wheezing, stridor, hemoptysis GASTROINTESTINAL: Present: See history of present illness Absent: abdominal distension, nausea, constipation, melena, hematochezia GENITOURINARY: Absent: dysuria, frequency, urgency, hesitancy, hematuria, flank pain, genital pain MUSCULOSKELETAL: Absent: myalgia, arthralgia, joint swelling SKIN: Absent: rash, itching, pallor HEMATOLOGIC/IMMUNOLOGIC: Absent: easy bleeding, easy bruising, lymphadenopathy, frequent infections ENDOCRINE: Absent: unexplained weight gain, unexplained weight loss, heat intolerance, cold intolerance NEUROLOGIC: Absent: headache, focal weakness or paresthesias, dizziness, unsteady gait, seizure, mental status changes, bladder or bowel incontinence PSYCHIATRIC: Absent: anxiety, depression, suicidal or homicidal ideation, hallucinations. *Physical Exam - Vital Signs Last Vital Signs Temp Pulse Resp BP Pulse Ox 98.3 F 98 H 20 120/99 96 01/18/17 18:16 01/18/17 18:16 01/18/17 18:16 01/18/17 18:16 01/18/17 18:16 - Physical Exam Comments: 01/18/17 18:47 GENERAL: Well developed, well nourished. Awake and alert. No acute distress. HEENT: Dry mucous membranes Normocephalic, atraumatic. PERRLA, EOMI. No conjunctival pallor. Sclera are non- icteric. Oropharynx is clear. NECK: Supple. Full ROM. No JVD. Carotid pulses 2+ and symmetric, without bruits. No thyromegaly. No lymphadenopathy. CARDIOVASCULAR: Regular rate and rhythm. No murmurs, rubs, or gallops. Distal pulses are 2+ and symmetric. PULMONARY: No evidence of respiratory distress. Lungs clear to auscultation bilaterally. No wheezing, rales or rhonchi. ABDOMINAL: She has mild tenderness to deep palpation in the left lower quadrant Soft. Non-distended. No rebound or guarding. No organomegaly. Normoactive bowel sounds. MUSCULOSKELETAL Normal range of motion at all joints. No bony deformities or tenderness. No CVA tenderness. EXTREMITIES: No cyanosis. No clubbing. No edema. No calf tenderness. SKIN: Warm and dry. Normal capillary refill. No rashes. No jaundice. NEUROLOGICAL: Alert, awake, appropriate. Cranial nerves 2-12 intact. No deficits to light touch and temperature in face, upper extremities and lower extremities. No motor deficits in the in face, upper extremities and lower extremities. Normoreflexic in the upper and lower extremities. Normal speech. Toes are down- going bilaterally. Gait is normal without ataxia. PSYCHIATRIC: Cooperative. Good eye contact. Appropriate mood and affect. 01/18/17 18:48 Medical Decision Making - Medical Decision Making 01/18/17 18:48 The patient is well-appearing and in no acute distress She does appear mildly dehydrated Will obtain labs Will obtain CT of the abdomen and pelvis with oral and IV contrast to rule out colitis Clinical impression: Abdominal pain with diarrhea Case discussed in detail with oncoming Emergency Physician including history, physical exam and ancillary studies. Oncoming Emergency Physician has assumed care for the patient and will complete the evaluation and treatment. *DC/Admit/Observation/Transfer Diagnosis at time of Disposition: Abdominal pain - Discharge Dispostion Condition at time of disposition: Stable
[2017-01-18] MEDS ORDERED: methylPREDNISolone NA SUCC 125 MG/2 ML VIAL IVPB ONE (18:45)
[2017-01-18] MEDS ORDERED: methylPREDNISolone NA SUCC 125 MG/2 ML VIAL ONE (19:04)
[2017-01-18 19:24] LABS: BASOPHIL 1.2 % (0-2.0); EOSINOPHIL 8.8 % (0-4.5); MCHC 32.8 g/dl (32.0-36.0); MEAN CELL VOLUME 73.2 fl (80-96); NEUTROPHILS 59.3 % (42.8-82.8); PLATELET COUNT 271 K/MM3 (134-434); RDW 16.2 % (11.6-15.6); WHITE BLOOD COUNT 6.9 K/mm3 (4.0-10.8)
--- NOTE | 2017-01-18 19:28 | PDOC ---
*Physical Exam - Vital Signs Last Vital Signs Temp Pulse Resp BP Pulse Ox 98.3 F 98 H 20 120/99 96 01/18/17 18:16 01/18/17 18:16 01/18/17 18:16 01/18/17 18:16 01/18/17 18:16 ED Treatment Course - LABORATORY CBC & Chemistry Diagram: 01/18/17 19:02 01/18/17 19:00 - Medications Given in the ED: ED Medications Discontinued Medications Generic Name Dose Route Start Last Admin Trade Name John PRN Reason Stop Dose Admin Methylprednisolone Sodium Succinate 125 mg 01/18/17 18:45 01/18/17 19:06 Solu-Medrol - IVPB 01/18/17 18:46 125 mg ONCE ONE Administration Progress Note - Progress Note Progress Note: Care of this patient received from Dr. Hunter. Abdominal/pelvic CT with IV and oral contrast showed questionable mild thickening of the transverse and descending colon interpreted by Imaging media/instructional designer as could be incidentally related to under distention versus mild colitis. Otherwise, no acute abnormalities were visualized. Results discussed with the patient. Patient states that she has been taking multiple antidiarrheal medications without significant change in her symptoms of multiple loose stools per day. She has had no nausea/vomiting and can continue to rehydrate by mouth. The patient states that she does not have a [place] studies director but will follow-up with her PMD, Dr. Perez for gastroenterology follow-up. Meanwhile, she will be started on Cipro 500 mg twice a day for 5 days. First dose given here in the emergency room. The patient should return to the emergency room if she has worsening pain/ lightheadedness/fever/black or bloody stools or develops vomiting *DC/Admit/Observation/Transfer Diagnosis at time of Disposition: Abdominal pain Qualifiers: Abdominal location: left lower quadrant Qualified Code(s): R10.32 - Left lower quadrant pain Diarrhea Qualifiers: Diarrhea type: presumed infectious Qualified Code(s): A09 - Infectious gastroenteritis and colitis, unspecified - Discharge Dispostion Disposition: HOME Condition at time of disposition: Stable - Prescriptions Prescriptions: Ciprofloxacin [Cipro (Restricted To Id)] 500 mg PO Q12H #10 tablet - Referrals Referrals: Luis Eduardo Patino MD [Staff Physician] - - Patient Instructions Printed Discharge Instructions: Diarrhea Additional Instructions: Continue drinking plenty of fluids Continue Imodium as needed after loose stools Cipro 500 mg twice a day for 5 days Return to ER if you have increasing pain/fever/bloody stools Follow-up with Dr. Patino (latin american studies director) within the next week Follow-up with your general medical doctor within 48 hours
[2017-01-18 19:34] LABS: ALBUMIN 3.6 g/dl (3.5-5.0); ALK PHOS 77 U/L (32-92); ANION GAP 8 (8-16); BILIRUBIN,TOTAL 0.7 mg/dl (0.2-1.0); CALCIUM 8.7 mg/dl (8.4-10.2); CO2 25 mmol/L (22-28); CREATININE 0.7 mg/dl (0.6-1.3); GLUCOSE,RANDOM 81 mg/dl (74-106); SGOT/AST 23 U/L (10-42); SGPT/ALT 24 U/L (10-40); TOT PROT 6.8 g/dl (6.4-8.3)
[2017-01-18 20:20] LABS: PH,URINE 5.5 (4.5-8); URINE APPEARANCE Clear; URINE BILIRUBIN Negative (NEGATIVE); URINE BLOOD Negative (NEGATIVE); URINE GLUCOSE (UA) Negative (NEGATIVE); URINE KETONE Negative (NEGATIVE); URINE LEUK ESTERASE Negative (NEGATIVE); URINE NITRITE Negative (NEGATIVE); URINE PROTEIN Negative (NEGATIVE); URINE UROBILINOGEN 0.2 E.U/dl (0.2-1.0)
[2017-01-18 20:21] LABS: URINE COLOR YELLOW
[2017-01-18] MEDS ORDERED: CIPROFLOXACIN 500 MG TABLET (RESTRICTED TO ID) PO ONE (23:20)
[2017-01-18] MEDS ORDERED: CIPROFLOXACIN 250 MG TABLET (RESTRICTED TO ID) PO ONE (23:22)
[2017-01-20 21:58] LABS: ANISOCYTOSIS 1+; MICROCYTOSIS 1+; OVALOCYTES 1+
== END 2017-01-18 23:31 | disposition home or self-care (01) ==
LOC: FER 18:15
PROC: 3E033GC Introduction of Other Therapeutic Substance into Peripheral Vein, Percutaneous Approach (ICD-10-PCS; principal; 2017-01-18)
PROC: 3E0337Z Introduction of Electrolytic and Water Balance Substance into Peripheral Vein, Percutaneous Approach (ICD-10-PCS; 2017-01-18)
DX: R10.9 Unspecified abdominal pain (principal)
CPT/HCPCS: 36415; 74177-TC; 80053; 81003; 83690; 84703; 85025; 86140; 87045; 87046; 87205; 87324; 87449; 99283-25

== ENCOUNTER 2017-01-29 19:49 | Emergency (ER) | payer OTHER ==
[2017-01-29] MEDS ORDERED: methylPREDNISolone NA SUCC 125 MG/2 ML VIAL IVPB ONE (19:52)
[2017-01-29] MEDS ORDERED: ALBUTEROL SO4 2.5/IPRATROPIUM 0.5 INH SOL 3 ML VIAL.NEB. NEB ONE ×6 (19:53→21:58)
--- NOTE | 2017-01-29 19:54 | PDOC ---
History of Present Illness - General History Source: Patient Exam Limitations: No Limitations - History of Present Illness Initial Comments: 01/29/17 20:36 The patient is a 36 year old female, with a significant past medical history of asthma, chronic coughing, GERD, anxiety, and bipolar disorder, who presents to the emergency department complaining of a cough and shortness of breath for approximately 2 days. The patient reports her symptoms began with a cough, subjective fever, headache, nasal congestion, nasal drip, and nasal discharge green in color. The patient reports her cough is productive of yellow sputum. Patient states she has a history of a chronic cough and is steroid dependent. However, her cough is usually dry. Today the patient reports associated shortness of breath with her cough. She admits using 2 nebulizer treatments for her symptoms with minimal relief. She states she typically can get her cough and shortness of breath in control, but today she experienced dyspnea on exertion even after her treatment. Patient states she has a history of recurring bronchitis and sinus infections. Patient follows up with her Iphone Developer Dr. Olivares, at [facility]; her last visit was 4 months ago. The patient reports a sore throat, but denies any ear pain, chills, or dizziness. She denies any recent travel or sick contacts. Allergies: Omalizumab, Penicillins Past Surgical History: Tubal Ligation(2007), Appendectomy(2000), Cholecystectomy (2012), Bronchial Thermoplasty(2012) Social History: Social ETOH use. Non smoker. No recreational drug use. Iphone Developer: Dr. Olivares <Andrés Corado - Last Filed: 01/29/17 20:35> <Jody Connors - Last Filed: 01/30/17 00:36> - General Chief Complaint: Asthma Stated Complaint: ASTHMA ATTACK Time Seen by Provider: 01/29/17 19:52 Past History <Andrés Corado - Last Filed: 01/29/17 20:35> - Past Medical History Anemia: No Asthma: Yes (1992) Cancer: No Cardiac Disorders: No CVA: No COPD: No CHF: No Dementia: No Diabetes: No GI Disorders: Yes (GERD) Disorders: No HTN: No Hypercholesterolemia: No Liver Disease: No Psychiatric Problems: Yes (bipolar) Suicide Attempt (Hx): No Seizures: No Thyroid Disease: No - Surgical History Abdominal Surgery: Yes (TUBAL LIGATION 2007) Appendectomy: Yes (2000) Cardiac Surgery: No Cholecystectomy: Yes (2012) Lung Surgery: Yes (BRONCHIAL THERMOPLASTY 2012) Neurologic Surgery: No Orthopedic Surgery: No - Immunization History Td Vaccination: No TDAP Vaccination: No Immunization Up to Date: No - Psycho/Social/Smoking Cessation Hx Anxiety: Yes (BIPOLAR) Suicidal Ideation: No Smoking Status: No Smoking History: Never smoked Have you smoked in the past 12 months: No Number of Cigarettes Smoked Daily: 0 Hx Alcohol Use: Yes Drug/Substance Use Hx: No Substance Use Type: Alcohol Hx Substance Use Treatment: No <Jody Connors - Last Filed: 01/30/17 00:36> - Past Medical History Allergies/Adverse Reactions: Allergies Allergy/AdvReac Type Severity Reaction Status Date / Time omalizumab Allergy Severe Difficulty Verified 01/18/17 18:17 Breathing Penicillins Allergy Severe Difficulty Verified 12/09/16 21:01 Breathing Home Medications: Ambulatory Orders Albuterol Sulfate Inhaler - [Ventolin HFA Inhaler -] 1 - 2 inh PO QID 07/31/16 Budesonide [Pulmicort 0.5 mg Nebulizer -] 1 neb NEB ONCE 07/31/16 Formoterol Fumarate [Perforomist] 20 mcg IH BID 07/31/16 Albuterol 2.5/Ipratropium 0.5 [Duoneb -] 1 neb NEB Q6H PRN #30 vial 08/14/16 Dexamethasone 4 mg PO BID 08/14/16 Ciprofloxacin [Cipro (Restricted To Id)] 500 mg PO Q12H #10 tablet 01/18/17 Albuterol 2.5/Ipratropium 0.5 [Duoneb -] 1 neb NEB Q4H PRN #30 vial 01/29/17 Azithromycin [Zithromax 250mg Tablets -] 250 mg PO UTDICT #6 tab 01/29/17 Hydrocodone Bit/Homatrop Me-Br [Hydrocodone-Homatropine Syrup] 5 ml PO QID PRN # 90 ml MDD 20 ml 01/29/17 Review of Systems - Review of Systems Able to Perform ROS?: Yes Comments:: 01/29/17 20:36 CONSTITUTIONAL: Present: +fever Absent: no chills, no fatigue EYES: Absent: visual changes ENT: Present: +sinus congestion, +sore throat. Absent: ear pain CARDIOVASCULAR: Absent: chest pain, no palpitations RESPIRATORY: Present: +cough, +SOB, +SOB with exertion Absent: Orthopnea GI: Absent: abdominal pain, no nausea, no vomiting, no constipation, no diarrhea GENITOURINARY: Absent: dysuria, no frequency, no hematuria MUSCULOSKELETAL: Absent: back pain, no arthralgia, no myalgia SKIN: Absent: rash NEURO: Present: +headache <Andrés Corado - Last Filed: 01/29/17 20:35> *Physical Exam - Vital Signs Last Vital Signs Temp Pulse Resp BP Pulse Ox 98.3 F 115 H 22 119/92 98 01/29/17 19:53 01/29/17 19:53 01/29/17 19:53 01/29/17 19:53 01/29/17 19:53 - Physical Exam Comments: 01/29/17 20:36 GENERAL: The patient is awake, alert, and fully oriented. Patient is speaking in full sentences, with mild respiratory distress HEAD: Normal with no signs of trauma. EYES: Pupils equal, round and reactive to light, extraocular movements intact, sclera anicteric, conjunctiva clear with no pallor. ENT: Mild erythema in the left TM. Otherwise ear exam was normal. Oropharnyx is nonerythematous and without exudates. Moist mucous membranes. Mild right maxillary sinus tenderness. Ears normal, nares patent. NECK: Normal range of motion, supple without lymphadenopathy, JVD, or masses. LUNGS: Diffuse expiratory wheezes with fair air exchange. No ronchi, rales, or crackles were heard. HEART: Regular rate and rhythm, normal S1 and S2 without murmur or rub. ABDOMEN: Soft/nontender/nondistended. BS wnl. No guarding or rebound. No palpable masses. No hepatosplenomegaly. EXTREMITIES: Normal range of motion, no edema. No clubbing or cyanosis. No cords, erythema, or tenderness. NEUROLOGICAL: Cranial nerves II through XII grossly intact. Normal speech, normal gait. PSYCH: Normal mood, normal affect. SKIN: Warm, Dry, normal turgor, no rashes or lesions noted. <Andrés Corado - Last Filed: 06/28/17 20:35> ED Treatment Course - Medications Given in the ED: ED Medications Discontinued Medications Generic Name Dose Route Start Last Admin Trade Name John PRN Reason Stop Dose Admin Albuterol/Ipratropium 1 amp 01/29/17 19:53 01/29/17 20:03 Duoneb - NEB 01/29/17 19:54 1 amp ONCE ONE Administration Albuterol/Ipratropium 1 amp 01/29/17 19:58 01/29/17 20:03 Duoneb - NEB 01/29/17 19:59 1 amp ONCE ONE Administration Albuterol/Ipratropium 1 amp 01/29/17 20:24 01/29/17 20:31 Duoneb - NEB 01/29/17 20:25 1 amp ONCE ONE Administration Methylprednisolone Sodium Succinate 125 mg 01/29/17 19:52 01/29/17 20:03 Solu-Medrol - IVPB 01/29/17 19:53 125 mg ONCE ONE Administration <Andrés Corado - Last Filed: 01/29/17 20:35> - LABORATORY CBC & Chemistry Diagram: 01/29/17 20:33 01/29/17 20:33 <Jody Connors - Last Filed: 01/30/17 00:36> Progress Note - Progress Note Progress Note: Documentation has been prepared under my direction and personally reviewed by me in its entirety. I attest that this documented accurately reflects all work, treatment, procedures and medical decision making performed by me. <Jody Connors - Last Filed: 01/30/17 00:36> Medical Decision Making - Medical Decision Making As noted above, this 36-year-old woman with a lifelong history of asthma presents with a several day history of persistent wheezing, productive cough and subjective fever. Patient is currently followed by pulmonologists at [facility]; states that she is not able to get an appointment with them for a few weeks. She has not been able to be weaned off of daily dexamethasone for several months.. Current exacerbation episode began as upper airway congestion with purulent nasal discharge and facial pressure/ pain. Patient states that she has acute sinusitis uncommonly. Cough productive of yellowish sputum began a few days later with subjective fever. Exam as noted. Solu-Medrol 125 mg IV/liter of normal saline administered CBC/chemistry profile performed. Other than mildly decreased potassium of 3.4, no significant abnormality seen. White blood cell count is normal at 7200 Chest x-ray, PA and lateral performed. My interpretation, comparing to previous chest x-ray performed 08/20, shows no infiltrate/effusion or other acute pathology. 3 nebulizer treatments of albuterol/ipratropium given over 90 minutes. Reassessment of lung exam showed incremental improvement in air exchange and decreased expiratory wheezing. Patient states that she feels significantly better and wants to go home. 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 Meanwhile, she should return to the ER if she has persistent wheezing or shortness of breath <Jody Connors - Last Filed: 01/30/17 00:36> *DC/Admit/Observation/Transfer - Attestations Scribe Attestion: 01/29/17 20:37 Documentation prepared by Andrés Corado, acting as medical logistics specialist for Jody Connors MD. <Andrés Corado - Last Filed: 01/29/17 20:35> <Jody Connors - Last Filed: 01/30/17 00:36> Diagnosis at time of Disposition: Asthma with acute exacerbation Qualifiers: Asthma severity: moderate persistent Qualified Code(s): J45.41 - Moderate persistent asthma with (acute) exacerbation - Discharge Dispostion Disposition: HOME Condition at time of disposition: Stable - Prescriptions Prescriptions: Albuterol 2.5/Ipratropium 0.5 [Duoneb -] 1 neb NEB Q4H PRN #30 vial PRN Reason: Wheezing Hydrocodone Bit/Homatrop Me-Br [Hydrocodone-Homatropine Syrup] 5 ml PO QID PRN # 90 ml MDD 20 ml PRN Reason: Cough Azithromycin [Zithromax 250mg Tablets -] 250 mg PO UTDICT #6 tab - Patient Instructions Printed Discharge Instructions: Asthma -- Adult Additional Instructions: drink plenty of fluids continue medications as prescribed start Azithromycin(Zpak) as directed Duoneb nebulizer treatments as needed every 4 hours Hycodan syrup, 5 ml up to 4 times a day as needed for severe cough return to ER if you have persistent severe cough/wheezing/shortness of breath Follow-up with your general doctor within 1 week Follow-up with your leather worker as scheduled
[2017-01-29] MEDS ORDERED: methylPREDNISolone NA SUCC 125 MG/2 ML VIAL ONE (19:59)
[2017-01-29 20:03] VITALS: BP 119/92; PULSE 115; TEMP 98.3; BMI 30.7
[2017-01-29 20:47] LABS: BASOPHIL 0.3 % (0-2.0); EOSINOPHIL 5.8 % (0-4.5); MCH 23.9 pg (25.7-33.7); MCHC 32.2 g/dl (32.0-36.0); MEAN CELL VOLUME 74.3 fl (80-96); NEUTROPHILS 73.1 % (42.8-82.8); PLATELET COUNT 259 K/MM3 (134-434); RDW 16.9 % (11.6-15.6); WHITE BLOOD COUNT 7.2 K/mm3 (4.0-10.8)
[2017-01-29 20:55] LABS: ALBUMIN 3.8 g/dl (3.5-5.0); ALK PHOS 76 U/L (32-92); ANION GAP 8 (8-16); BILIRUBIN,TOTAL 0.4 mg/dl (0.2-1.0); CALCIUM 8.7 mg/dl (8.4-10.2); CO2 25 mmol/L (22-28); CREATININE 0.8 mg/dl (0.6-1.3); GLUCOSE,RANDOM 111 mg/dl (74-106); SGOT/AST 20 U/L (10-42); SGPT/ALT 19 U/L (10-40)
[2017-01-29] MEDS ORDERED: POTASSIUM CHLORIDE TABS 20 MEQ TABLET.ER (FP) PO ONE (21:58)
== END 2017-01-29 22:42 | disposition home or self-care (01) ==
LOC: FER 19:49
PROC: 3E0F7GC Introduction of Other Therapeutic Substance into Respiratory Tract, Via Natural or Artificial Opening (ICD-10-PCS; principal; 2017-01-29)
PROC: 3E033GC Introduction of Other Therapeutic Substance into Peripheral Vein, Percutaneous Approach (ICD-10-PCS; 2017-01-29)
DX: J45.41 Moderate persistent asthma with (acute) exacerbation (principal); K21.9 Gastro-esophageal reflux disease without esophagitis; F31.9 Bipolar disorder, unspecified; F41.9 Anxiety disorder, unspecified
CPT/HCPCS: 36415; 71020-TC; 80053; 85025; 94640; 96374; 99282-25

== ENCOUNTER 2017-02-01 17:15 | Inpatient (IN) | payer OTHER ==
--- NOTE | 2017-02-01 17:16 | PDOC ---
History of Present Illness - General History Source: Patient, Old Records Exam Limitations: No Limitations - History of Present Illness Initial Comments: 02/01/17 17:33 The patient is a 36 year old female with a significant past medical history of moderate persistent asthma,who was seen in the emergency department on 01/29/17 for asthma exacerbation and was discharged with a prescription for Z-elena, who presents to the emergency department with cough for 2 days. The patient states that she has been completely compliant with medications but her symptoms have worsened. She has been taking 4 mg of Dexamethasone daily and reports taking azithromycin today with no relief of symptoms. The patient appears wheezy and short of breath during interview. She notes that she does not have any pets or carpets at home and denies a history of smoking. PCP: Dr. Christie Perze [phone] PAST MEDICAL HISTORY: Moderate persistent asthma, morbid obesity SOCIAL HISTORY: Denies history of smoking. Does not have carpets or pets at home ALLERGIES: Omalizumab, penicillin MEDICATIONS: Dethomexicone, Albuterol, Formoterol Fumarate, Budesonide. Z-elena ( from last visit) <Alejo Amanda - Last Filed: 02/01/17 18:07> <Gilberto Hunter - Last Filed: 02/01/17 18:37> - General Chief Complaint: Asthma Stated Complaint: COUGH & WHEEZE Time Seen by Provider: 02/01/17 17:16 Past History <Alejo Amanda - Last Filed: 02/01/17 18:07> - Past Medical History Anemia: No Asthma: Yes (1991) Cancer: No Cardiac Disorders: No CVA: No COPD: No CHF: No Dementia: No Diabetes: No GI Disorders: Yes (GERD) Disorders: No HTN: No Hypercholesterolemia: No Liver Disease: No Psychiatric Problems: Yes (bipolar) Suicide Attempt (Hx): No Seizures: No Thyroid Disease: No - Surgical History Abdominal Surgery: Yes (TUBAL LIGATION 2007) Appendectomy: Yes (2000) Cardiac Surgery: No Cholecystectomy: Yes (2012) Lung Surgery: Yes (BRONCHIAL THERMOPLASTY 2012) Neurologic Surgery: No Orthopedic Surgery: No - Immunization History Td Vaccination: No TDAP Vaccination: No Immunization Up to Date: No - Psycho/Social/Smoking Cessation Hx Anxiety: Yes (BIPOLAR) Suicidal Ideation: No Smoking Status: No Smoking History: Never smoked Have you smoked in the past 12 months: No Number of Cigarettes Smoked Daily: 0 Hx Alcohol Use: Yes Drug/Substance Use Hx: No Substance Use Type: Alcohol Hx Substance Use Treatment: No <Gilberto Hunter - Last Filed: 02/01/17 18:37> - Past Medical History Allergies/Adverse Reactions: Allergies Allergy/AdvReac Type Severity Reaction Status Date / Time omalizumab Allergy Severe Difficulty Verified 01/18/17 18:17 Breathing Penicillins Allergy Severe Difficulty Verified 12/09/16 21:01 Breathing Home Medications: Ambulatory Orders Albuterol Sulfate Inhaler - [Ventolin HFA Inhaler -] 1 - 2 inh PO QID 07/31/16 Budesonide [Pulmicort 0.5 mg Nebulizer -] 1 neb NEB ONCE 07/31/16 Formoterol Fumarate [Perforomist] 20 mcg IH BID 07/31/16 Dexamethasone 4 mg PO BID 08/14/16 Albuterol 2.5/Ipratropium 0.5 [Duoneb -] 1 neb NEB Q4H PRN #30 vial 01/29/17 Azithromycin [Zithromax 250mg Tablets -] 250 mg PO UTDICT #6 tab 01/29/17 Hydrocodone Bit/Homatrop Me-Br [Hydrocodone-Homatropine Syrup] 5 ml PO QID PRN # 90 ml MDD 20 ml 01/29/17 Review of Systems - Review of Systems Able to Perform ROS?: Yes Comments:: 02/01/17 17:34 CONSTITUTIONAL: Absent: fever, chills, diaphoresis, generalized weakness, malaise, loss of appetite HEENT: Absent: rhinorrhea, nasal congestion, throat pain, throat swelling, difficulty swallowing, mouth swelling, ear pain, eye pain, visual Changes CARDIOVASCULAR: Absent: chest pain, syncope, palpitations, irregular heart rate, lightheadedness , peripheral edema RESPIRATORY: Present: Cough, shortness of breath Absent: hemoptysis, orthopnea GASTROINTESTINAL: Absent: abdominal pain, abdominal distension, nausea, vomiting, diarrhea, constipation, melena, hematochezia GENITOURINARY: Absent: dysuria, frequency, urgency, hesitancy, hematuria, flank pain, genital pain MUSCULOSKELETAL: Absent: myalgia, arthralgia, joint swelling SKIN: Absent: rash, itching, pallor HEMATOLOGIC/IMMUNOLOGIC: Absent: easy bleeding, easy bruising, lymphadenopathy, frequent infections ENDOCRINE: Absent: unexplained weight gain, unexplained weight loss, heat intolerance, cold intolerance NEUROLOGIC: Absent: headache, focal weakness or paresthesias, dizziness, unsteady gait, seizure, mental status changes, bladder or bowel incontinence PSYCHIATRIC: Absent: anxiety, depression, suicidal or homicidal ideation, hallucinations. <Alejo Amanda - Last Filed: 02/01/17 18:07> *Physical Exam - Vital Signs Last Vital Signs Temp Pulse Resp BP Pulse Ox 98.1 F 130 H 32 H 135/96 95 02/01/17 17:16 02/01/17 17:16 02/01/17 17:16 02/01/17 17:16 02/01/17 17:16 - Physical Exam Comments: 02/01/17 17:34 GENERAL: Well developed, well nourished. Awake and alert. In no acute distress. HEENT: Normocephalic, atraumatic. PERRLA, EOMI. No conjunctival pallor. Sclera are non- icteric. Moist mucous membranes. Oropharynx is clear. NECK: Supple. Full ROM. No JVD. Carotid pulses 2+ and symmetric, without bruits. No thyromegaly. No lymphadenopathy. CARDIOVASCULAR: Regular rate and rhythm. No murmurs, rubs, or gallops. Distal pulses are 2+ and symmetric. PULMONARY: (+) Diffuse inspiratory and expiratory wheezing. Prolonged expiratory phase. Scattered rhonchi. Tachypneic. ABDOMINAL: Soft. Non-tender. Non-distended. No rebound or guarding. No organomegaly. Normoactive bowel sounds. MUSCULOSKELETAL Normal range of motion at all joints. No bony deformities or tenderness. No CVA tenderness. EXTREMITIES: No cyanosis. No clubbing. No edema. No calf tenderness. SKIN: Warm and dry. Normal capillary refill. No rashes. No jaundice. NEUROLOGICAL: Alert, awake, appropriate. Cranial nerves 2-12 intact. No deficits to light touch and temperature in face, upper extremities and lower extremities. No motor deficits in the in face, upper extremities and lower extremities. Normoreflexic in the upper and lower extremities. Normal speech. Toes are downgoing bilaterally. Gait is normal without ataxia. PSYCHIATRIC: Cooperative. Good eye contact. Appropriate mood and affect. <Alejo Amanda - Last Filed: 02/01/17 18:07> ED Treatment Course - LABORATORY CBC & Chemistry Diagram: 02/01/17 17:33 02/01/17 17:45 - Medications Given in the ED: ED Medications Discontinued Medications Generic Name Dose Route Start Last Admin Trade Name John PRN Reason Stop Dose Admin Albuterol/Ipratropium 1 amp 02/01/17 17:17 02/01/17 17:32 Duoneb - NEB 02/01/17 17:18 1 amp ONCE ONE Administration <Alejo Amanda - Last Filed: 02/01/17 18:07> - LABORATORY CBC & Chemistry Diagram: 02/01/17 17:33 02/01/17 17:45 <Gilberto Hunter - Last Filed: 02/01/17 18:37> Medical Decision Making - Medical Decision Making 02/01/17 17:24 The patient is well-appearing but in mild respiratory distress Tachycardia and tachypnea noted, meeting diagnostic criteria for SIRS She is afebrile I do not suspect infection I suspect that the tachycardia is secondary to her respiratory distress and persistent cough Lungs with diffuse wheezing, inspiratory and expiratory, diffuse rhonchi Will obtain chest x-ray, labs Will treat with Solu-Medrol, magnesium, bronchodilators I anticipate admission 02/01/17 18:29 Chemistries noted CBC pending 02/01/17 18:37 Chest x-ray emergency Department interpretation: No interval change Of note, she did take her azithromycin today Clinical impression: Status asthmaticus Case discussed in detail with admitting provider including history, physical exam and ancillary studies. Admitting physician has assumed care for the patient, will follow all pending diagnostics and will complete the evaluation and treatment. <Gilberto Hunter - Last Filed: 02/01/17 18:37> *DC/Admit/Observation/Transfer - Attestations Scribe Attestion: 02/01/17 17:34 Documentation prepared by Alejo Amanda, acting as medical screener for Gilberto Hunter MD. <Alejo Amanda - Last Filed: 02/01/17 18:07> - Discharge Dispostion Admit: Yes <Gilberto Hunter - Last Filed: 02/01/17 18:37> Diagnosis at time of Disposition: Asthma exacerbation, Asthmatic bronchitis - Discharge Dispostion Condition at time of disposition: Good - Referrals Referrals: Christie Perez [Primary Care Provider] -
[2017-02-01] MEDS ORDERED: MAGNESIUM SULFATE 2 GM in SODIUM CHLORIDE 100 ML IVPB ONE (17:17)
[2017-02-01] MEDS ORDERED: ALBUTEROL SO4 2.5/IPRATROPIUM 0.5 INH SOL 3 ML VIAL.NEB. NEB ONE ×2 (17:17→20:34)
[2017-02-01] MEDS ORDERED: ALBUTEROL SO4 0.083% IH SOL 2.5 MG/3 ML VIAL.NEB. NEB ONE ×3 (17:17→17:35)
[2017-02-01] MEDS ORDERED: methylPREDNISolone NA SUCC 125 MG/2 ML VIAL IVPB ONE (17:17)
[2017-02-01 17:29] VITALS: BMI 31.1
[2017-02-01] MEDS ORDERED: methylPREDNISolone NA SUCC 125 MG/2 ML VIAL ONE (17:35)
[2017-02-01] MEDS ORDERED: MAGNESIUM SULF 50% (8.12 MEQ/2 ML-1 GM VIAL) ONE (17:39)
[2017-02-01 18:06] LABS: MCH 23.8 pg (25.7-33.7); WHITE BLOOD COUNT 10.3 K/mm3 (4.0-10.8)
[2017-02-01 18:13] LABS: MAGNESIUM 1.9 mg/dL (1.8-2.4); PHOSPHOROUS 3.1 mg/dl (2.5-4.6)
[2017-02-01 18:17] LABS: BASOPHIL 3.6 % (0-2.0); EOSINOPHIL 5.2 % (0-4.5); MCHC 31.9 g/dl (32.0-36.0); MEAN CELL VOLUME 74.4 fl (80-96); MEAN PLT VOLUME 9.5 fl (7.5-11.1); NEUTROPHILS 70.6 % (42.8-82.8); PLATELET COUNT 303 K/MM3 (134-434); RDW 17.1 % (11.6-15.6)
[2017-02-01 18:20] LABS: ANION GAP 7 (8-16); CALCIUM 8.7 mg/dl (8.4-10.2); CO2 27 mmol/L (22-28); CREATININE 0.8 mg/dl (0.6-1.3); GLUCOSE,RANDOM 76 mg/dl (74-106)
[2017-02-01] MEDS: ALBUTEROL SO4 2.5/IPRATROPIUM 0.5 INH SOL 3 ML VIAL.NEB. NEB SCH ×2 (19:36→20:35)
--- NOTE | 2017-02-01 21:03 | HP ---
Admitting History and Physical - Admission Chief Complaint: sob, cough History of Present Illness: 36 yo f w hx of asthma on chronic steroids (Dexamethasone), DVT x 2, who presents to the er for evaluation of sob, cough. she reports she developed a cold 5 days ago which triggered her asthma flare. She reports having dark green sputum for a few days accompanied by subj fever. She reports increased use of her Nebs at home. She also reports cough associated rib, back and chest soreness. She reports increased WOB. She was seen in the ER 3 days ago and reports getting Azithromycin and cough medicine which she has been taking with little improvement. She reports her peak flow at home was less than 100. She denies sick contact, recent travel, nausea, vomiting, diarrhea, sneezing, body aches, runny nose, HERRERA. She denies syncope (true or near), heart palps, dizziness , chest pain, numbness, abdominal pain, calf pain, hormonal Rx. She reports she was in the ICU about 8months ago for a severe asthma attack. She denies prior intubations PSH/PMH- DVT, asthma, Appy, cholecystectomy, x 4, left wrist surgery, tubal ligation Social- Denies tobacco, alcohol, rec drugs. , 4 children Famhx- Dad- Heart disease, DM. 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 Physical: Gen- obese, mild distress hent- at/nc, vilma, neck supple, trachea mid-line, no lymphadenopathy, no pharyngeal erythema Resp- ronchi diffusely upper/lower lobes, no cyanosis, +cough, no accessory muscle use, no rales Cards- S1S2 heard, tachy, no JVD, no leg edema, Reg rhythm Skin- dry, no erythema, no lesions Psych- no agitation, cooperative Neuro- cn 2-12 grossly intact, no facial droop, no seizures, speech clear Musk- normal arom bue/ble Gi- soft non-tender, no guarding, no rebound, no rigidity, no masses Prob list Asthma exc PCN allergy- anaphylaxis Imaging CXR reviewed: appears clear by my eye a/p-36 yo f w hx of asthma on chronic steroids (Dexamethasone), DVT x 2, who presents to the er for evaluation of sob, cough found to be in asthma exc. 1. 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 one year ago after vomiting). No: Alzheimer's , Seizure Pulmonary: Yes: Asthma ...LMP: 05/05/13 Psych: Yes: Bipolar - Past Surgical History Past Surgical History: Yes: Appendectomy, Cholecystectomy - Smoking History Smoking history: Never smoked Have you smoked in the past 12 months: No Aproximately how many cigarettes per day: 0 - Alcohol/Substance Use Hx Alcohol Use: Yes Home Medications - Allergies Allergies/Adverse Reactions: Allergies Allergy/AdvReac Type Severity Reaction Status Date / Time omalizumab Allergy Severe Difficulty Verified 01/18/17 18:17 Breathing Penicillins Allergy Severe Difficulty Verified 12/09/16 21:01 Breathing - Home Medications Home Medications: Ambulatory Orders Albuterol Sulfate Inhaler - [Ventolin HFA Inhaler -] 1 - 2 inh PO QID 07/31/16 Budesonide [Pulmicort 0.5 mg Nebulizer -] 1 neb NEB ONCE 07/31/16 Formoterol Fumarate [Perforomist] 20 mcg IH BID 07/31/16 Dexamethasone 4 mg PO BID 08/14/16 Albuterol 2.5/Ipratropium 0.5 [Duoneb -] 1 neb NEB Q4H PRN #30 vial 01/29/17 Azithromycin [Zithromax 250mg Tablets -] 250 mg PO UTDICT #6 tab 01/29/17 Hydrocodone Bit/Homatrop Me-Br [Hydrocodone-Homatropine Syrup] 5 ml PO QID PRN # 90 ml MDD 20 ml 01/29/17 Family Disease History - Family Disease History Family Disease History: Diabetes: Mother Physical Examination Vital Signs: Vital Signs Temperature 98.1 F 02/01/17 17:16 Pulse Rate 86 02/01/17 19:30 Respiratory Rate 28 H 02/01/17 19:30 Blood Pressure 100/65 02/01/17 19:10 O2 Sat by Pulse Oximetry (%) 95 02/01/17 19:30 Visit type - Emergency Visit Emergency Visit: Yes ED Registration Date: 02/01/17 Care time: The patient presented to the Emergency Department on the above date and was hospitalized for further evaluation of their emergent condition. - New Patient This patient is new to me today: Yes Date on this admission: 02/02/17 - Critical Care Critical Care patient: No
[2017-02-01] MEDS: guaiFENesin/CODEINE 10 ML UNIT-DOSE CUPS PO PRN (21:12)
[2017-02-01] MEDS: MONTELUKAST NA 10 MG TABLET PO SCH (21:12)
[2017-02-01] MEDS: LEVOFLOXACIN 750 MG IVPB 150 ML IVPB SCH (21:13)
[2017-02-01 21:59] LABS: ANISOCYTOSIS 1+; HYPOCHROMIA 1+; MICROCYTOSIS 1+; OVALOCYTES OCC
[2017-02-01 22:37] LABS: URINE APPEARANCE CLEAR; URINE BILIRUBIN NEGATIVE (NEGATIVE); URINE BLOOD 2+ (NEGATIVE); URINE COLOR YELLOW; URINE GLUCOSE (UA) NEGATIVE (NEGATIVE); URINE KETONE NEGATIVE (NEGATIVE)
[2017-02-01 22:38] LABS: PH,URINE 7.5 (4.5-8); URINE LEUK ESTERASE NEGATIVE (NEGATIVE); URINE NITRITE NEGATIVE (NEGATIVE); URINE PROTEIN NEGATIVE (NEGATIVE); URINE UROBILINOGEN 0.2 E.U/dl (0.2-1.0)
[2017-02-01] MEDS: SODIUM CHLORIDE 1,000 ML IV SCH (23:03)
[2017-02-01 23:17] LABS: URINE WBC NONE SEEN (3-5)
[2017-02-02] MEDS: methylPREDNISolone NA SUCC 40 MG/1 ML VIAL IVPB SCH ×5 (02:13→21:31)
[2017-02-02] MEDS: ALBUTEROL SO4 2.5/IPRATROPIUM 0.5 INH SOL 3 ML VIAL.NEB. NEB SCH ×5 (02:13→23:47)
[2017-02-02 08:27] LABS: BASOPHIL 0.1 % (0-2.0); EOSINOPHIL 0.1 % (0-4.5); MCH 24.3 pg (25.7-33.7); MCHC 32.6 g/dl (32.0-36.0); MEAN CELL VOLUME 74.4 fl (80-96); MEAN PLT VOLUME 9.3 fl (7.5-11.1); NEUTROPHILS 88.5 % (42.8-82.8); PLATELET COUNT 249 K/MM3 (134-434); RDW 16.7 % (11.6-15.6); WHITE BLOOD COUNT 5.5 K/mm3 (4.0-10.8)
[2017-02-02 08:30] LABS: ALBUMIN 3.4 g/dl (3.5-5.0); ALK PHOS 62 U/L (32-92); ANION GAP 3 (8-16); BILIRUBIN,TOTAL 0.4 mg/dl (0.2-1.0); CALCIUM 8.4 mg/dl (8.4-10.2); CO2 24 mmol/L (22-28); CREATININE 0.7 mg/dl (0.6-1.3); GLUCOSE,RANDOM 139 mg/dl (74-106); SGOT/AST 15 U/L (10-42); SGPT/ALT 19 U/L (10-40)
[2017-02-02 09:15] LABS: TOT PROT 6.7 g/dl (6.4-8.3)
[2017-02-02] MEDS: LEVOFLOXACIN 750 MG IVPB 150 ML IVPB SCH (09:35)
[2017-02-02] MEDS: LACTOBACILLUS ACIDOPHILUS 1 EACH TAB (FP) PO SCH (09:35)
[2017-02-02] MEDS: HEPARIN NA (PORCINE) 5,000 UNITS/ML 1ML VIAL SQ SCH ×3 (09:35→21:31)
[2017-02-02] MEDS: guaiFENesin/CODEINE 10 ML UNIT-DOSE CUPS PO PRN (09:35)
--- NOTE | 2017-02-02 11:01 | PN ---
Physical Exam: SUBJECTIVE: Patient seen and examined at the bedside. She remains with wheezing but states she is more comfortable then yesterday. OBJECTIVE: Vital Signs Period Temp Pulse Resp BP Sys/Pate Pulse Ox Last 24 Hr 98.4 F-98.6 F 77-100 18-36 99-124/65-93 93-100 GENERAL: The patient is awake, alert, and fully oriented, in no acute distress. HEAD: Normal with no signs of trauma. NECK: Trachea midline, full range of motion, supple. LUNGS: Breath sounds equal, +wheezing throughout but in no accessory muscles. with +cough nonproductive HEART: Regular rate and rhythm, S1, S2 without murmur, rub or gallop. ABDOMEN: Soft, nontender, nondistended, normoactive bowel sounds, no guarding, no rebound, no hepatosplenomegaly, no masses. EXTREMITIES: 2+ pulses, warm, well-perfused, no edema. NEUROLOGICAL: Cranial nerves II through XII grossly intact. Normal speech, gait not observed. PSYCH: Normal mood, normal affect. SKIN: Warm, dry, normal turgor, no rashes or lesions noted Laboratory Results - last 24 hr 02/01/17 02/02/17 02/02/17 20:17 06:13 06:13 WBC 5.5 D RBC 4.71 Hgb 11.4 Hct 35.1 MCV 74.4 L MCHC 32.6 RDW 16.7 H Plt Count 249 MPV 9.3 Neutrophils % 88.5 H D Lymphocytes % 10.7 D Monocytes % 0.6 L D Eosinophils % 0.1 D Basophils % 0.1 Sodium 134 L Potassium 4.3 Chloride 107 Carbon Dioxide 24 Anion Gap 3 L BUN 11 Creatinine 0.7 Creat Clearance w eGFR > 60 Random Glucose 139 H D Calcium 8.4 Total Bilirubin 0.4 AST 15 D ALT 19 Alkaline Phosphatase 62 Total Protein 6.7 Albumin 3.4 L Urine Color Yellow Urine Appearance Clear Urine pH 7.5 D Ur Specific [place] 1.015 Urine Protein Negative Urine Glucose (UA) Negative Urine Ketones Negative Urine Blood 2+ H Urine Nitrite Negative Urine Bilirubin Negative Urine Urobilinogen 0.2 e.u/dl Ur Leukocyte Esterase Negative Urine RBC 10-15 Urine WBC None seen Ur Epithelial Cells 0-3 Active Medications Generic Name Dose Route Start Last Admin Trade Name Freq PRN Reason Stop Dose Admin Albuterol/Ipratropium 1 amp 02/02/17 00:00 02/02/17 06:26 Duoneb - NEB 1 amp QIDR CARMEN Administration Guaifenesin/Codeine Phosphate 10 ml 02/01/17 20:39 02/02/17 09:35 Robitussin Ac - PO 10 ml Q8H PRN Administration COUGH Heparin Sodium (Porcine) 5,000 unit 02/02/17 10:00 02/02/17 09:35 Heparin - SQ 5,000 unit TID CARMEN Administration Levofloxacin 150 mls @ 100 mls/hr 02/01/17 20:45 02/02/17 09:35 Levaquin 750 Mg Premixed Ivpb - IVPB 100 mls/hr DAILY CARMEN Administration Sodium Chloride 1,000 mls @ 100 mls/hr 02/01/17 22:45 02/01/17 23:03 Normal Saline - IV 100 mls/hr ASDIR CARMEN Administration Lactobacillus Acidophilus 1 tab 02/02/17 10:00 02/02/17 09:35 Bacid - PO 1 tab DAILY CARMEN Administration Methylprednisolone Sodium Succinate 40 mg 02/02/17 02:00 02/02/17 09:35 Solu-Medrol - IVPB 40 mg Q6H-IV CARMEN Administration Montelukast Sodium 10 mg 02/01/17 22:00 02/01/17 21:12 Singulair - PO 10 mg HS CARMEN Administration ASSESSMENT/PLAN: a/p-36 yo f w hx of asthma on chronic steroids (Dexamethasone), DVT x 2, who presents to the er for evaluation of sob, cough found to be in asthma exc. 1. SOB and cough likely related to Asthma exc, Ddx: Bronchitis, PNA -Tachypneic and tachycardic in ER -Given steroids, Magnesium, and nebs in the ER -continue IV steroids -CXR official neg for infiltrate -FU respiratory viral cx, urine legionella, sputum cx -Peak flow measurement -Supp O2 -Pulmn consult 2. SCD, OOB, Hep SQ --DVT prophy 3. FEN -Reg diet Dispo- Requires >2mn stay for acute asthma flare inpatient med surg admission Problem List - Problems (1) Asthma exacerbation Code(s): J45.901 - UNSPECIFIED ASTHMA WITH (ACUTE) EXACERBATION (2) Asthmatic bronchitis Code(s): J45.909 - UNSPECIFIED ASTHMA, UNCOMPLICATED Visit type - Emergency Visit Emergency Visit: Yes ED Registration Date: 02/01/17 Care time: The patient presented to the Emergency Department on the above date and was hospitalized for further evaluation of their emergent condition. - New Patient This patient is new to me today: Yes Date on this admission: 02/02/17 - Critical Care Critical Care patient: No - Discharge Referral [facility]erred to [facility] Med P.C.: No
--- NOTE | 2017-02-02 13:28 | EKG ---
Test Reason : Blood Pressure : / mmHG Vent. Rate : 104 BPM Atrial Rate : 104 BPM P-R Int : 140 ms QRS Dur : 074 ms QT Int : 346 ms P-R-T Axes : 064 076 070 degrees QTc Int : 454 ms SINUS TACHYCARDIA OTHERWISE NORMAL ECG NO PREVIOUS ECGS AVAILABLE Confirmed by PAOLA LANE MD ([id number]) on 02/02/2017 1:28:08 PM Referred By: NIKOLAY Confirmed By:PAOLA LANE MD
[2017-02-02] MEDS ORDERED: guaiFENesin/CODEINE 10 ML UNIT-DOSE CUPS PO PRN (14:56)
--- NOTE | 2017-02-02 16:30 | CON.PULM ---
Consult Consult Specialty:: PULMONARY Referred by:: ISIDRA Reason for Consultation:: ASTHMA - History of Present Illness Chief Complaint: SOB/COUGH/WHEEZE History of Present Illness: 36 B[employer]OLAR NONSMOKING STEROID DEPENDANT ASTHMATIC WITH CHRONIC PERSISTENT SYMPTOMS OVER PAST 4 YEARS. SHE ALSO HAS MULTIPLE ALLERGIES AND SEVERE GERD HAS RECENTLY HAD BRONCHIAL THERMOPLASTY WITHOUT ANY BENEFIT. SHE DOES NOT HAVE PETS OR ANY RUGS IN HER HOME. SHE WAS ADMITTED WITH WORSENING OF HER CHRONIC SYMPTOMS. - History Source History Provided By: Patient, Medical Record Limitations to Obtaining History: No Limitations - Past Medical History PIE CHEF: Yes: Syncope (one episode ? one year ago after vomiting). No: Alzheimer's , Seizure Pulmonary: Yes: Asthma Gastrointestinal: Yes: GERD ...LMP: 05/05/13 Psych: Yes: Bipolar Additional Medical History: insomnia-->Ambien 5 mg qhs - Past Surgical History Past Surgical History: Yes: Appendectomy, Cholecystectomy - Alcohol/Substance Use Hx Alcohol Use: Yes - Smoking History Smoking history: Never smoked Have you smoked in the past 12 months: No Aproximately how many cigarettes per day: 0 - Social History Usual Living Arrangement: With Child Place of : [facility] History of Recent Travel: No Home Medications - Allergies Allergies/Adverse Reactions: Allergies Allergy/AdvReac Type Severity Reaction Status Date / Time omalizumab Allergy Severe Difficulty Verified 01/18/17 18:17 Breathing Penicillins Allergy Severe Difficulty Verified 12/09/16 21:01 Breathing - Home Medications Home Medications: Ambulatory Orders Albuterol Sulfate Inhaler - [Ventolin HFA Inhaler -] 1 - 2 inh PO QID 07/31/16 Budesonide [Pulmicort 0.5 mg Nebulizer -] 1 neb NEB ONCE 07/31/16 Formoterol Fumarate [Perforomist] 20 mcg IH BID 07/31/16 Dexamethasone 4 mg PO BID 08/14/16 Albuterol 2.5/Ipratropium 0.5 [Duoneb -] 1 neb NEB Q4H PRN #30 vial 01/29/17 Azithromycin [Zithromax 250mg Tablets -] 250 mg PO UTDICT #6 tab 01/29/17 Hydrocodone Bit/Homatrop Me-Br [Hydrocodone-Homatropine Syrup] 5 ml PO QID PRN # 90 ml MDD 20 ml 01/29/17 Family Disease History - Family Disease History Family Disease History: Diabetes: Mother Review of Systems - Review of Systems Cardiovascular: reports: No Symptoms Respiratory: reports: Cough, Exercise Intolerance, SOB, Wheezing Gastrointestinal: reports: No Symptoms Physical Exam Vital Sings: Vital Signs Temperature 98.6 F 02/02/17 14:06 Pulse Rate 97 H 02/02/17 14:06 Respiratory Rate 18 02/02/17 14:06 Blood Pressure 138/90 02/02/17 14:06 O2 Sat by Pulse Oximetry (%) 94 L 02/02/17 14:05 Constitutional: Yes: Anxious Eyes: Yes: EOM Intact HENT: Yes: Normocephalic Neck: Yes: Trachea Midline Cardiovascular: Yes: Regular Rate and Rhythm Respiratory: Yes: Wheezes (BILATERALLY DIFFUSE) Gastrointestinal: Yes: Normal Bowel Sounds Renal/: Yes: WNL Musculoskeletal: Yes: WNL Extremities: Yes: WNL Edema: No Neurological: Yes: Alert ...Motor Strength: WNL Psychiatric: Yes: WNL Labs: CBC, BMP 02/02/17 06:13 02/02/17 06:13 REST REVIEWED Imaging - Results Chest X-ray: Report Reviewed, Image Reviewed Problem List - Problems (1) Asthma exacerbation Code(s): J45.901 - UNSPECIFIED ASTHMA WITH (ACUTE) EXACERBATION (2) Asthma with acute exacerbation Code(s): J45.901 - UNSPECIFIED ASTHMA WITH (ACUTE) EXACERBATION Qualifiers: Asthma severity: moderate persistent Qualified Code(s): J45.41 - Moderate persistent asthma with (acute) exacerbation (3) Bronchial asthma Code(s): J45.909 - UNSPECIFIED ASTHMA, UNCOMPLICATED Assessment/Plan STEROIDS/ANTIBIOTICS/BRONCHODILATORS/O2 SUPPLEMENTATION CHECK IGE LEVEL WILL NEED DAILY PEAK FLOW CLOSE F/U UPON DISCHARGE Sowmya DE LEON MD
[2017-02-02] MEDS: MONTELUKAST NA 10 MG TABLET PO SCH (21:31)
[2017-02-02] MEDS: SODIUM CHLORIDE 1,000 ML IV SCH (22:45)
[2017-02-03] MEDS: methylPREDNISolone NA SUCC 40 MG/1 ML VIAL IVPB SCH ×2 (02:15→08:45)
[2017-02-03 06:02] VITALS: BP 110/71; TEMP 98.6
[2017-02-03] MEDS: HEPARIN NA (PORCINE) 5,000 UNITS/ML 1ML VIAL SQ SCH (06:24)
[2017-02-03] MEDS: ALBUTEROL SO4 2.5/IPRATROPIUM 0.5 INH SOL 3 ML VIAL.NEB. NEB SCH ×2 (06:24→11:22)
--- NOTE | 2017-02-03 08:30 | PN ---
Progress Note, Physician History of Present Illness: PULMONARY FEELING BETTER,LESS DYSPNEIC - Current Medication List Current Medications: Active Medications Albuterol/Ipratropium (Duoneb -) 1 amp NEB QIDR [facility] Last Admin: 02/03/17 06:24 Dose: 1 amp Budesonide (Pulmicort 0.5 Mg Nebulizer -) 1 amp NEB BID [facility] Guaifenesin/Codeine Phosphate (Robitussin Ac -) 10 ml PO Q6H PRN PRN Reason: COUGH Last Admin: 02/03/17 01:11 Dose: 10 ml Heparin Sodium (Porcine) (Heparin -) 5,000 unit SQ TID [facility] Last Admin: 02/03/17 06:24 Dose: 5,000 unit Levofloxacin (Levaquin 750 Mg Premixed Ivpb -) 150 mls @ 100 mls/hr IVPB DAILY [facility] Last Admin: 02/02/17 09:35 Dose: 100 mls/hr Lactobacillus Acidophilus (Bacid -) 1 tab PO DAILY [facility] Last Admin: 02/02/17 09:35 Dose: 1 tab Methylprednisolone Sodium Succinate (Solu-Medrol -) 40 mg IVPB Q6H-IV [facility] Last Admin: 02/03/17 02:15 Dose: 40 mg Montelukast Sodium (Singulair -) 10 mg PO HS [facility] Last Admin: 02/02/17 21:31 Dose: 10 mg - Objective Vital Signs: Vital Signs Temperature 98.6 F 02/03/17 06:00 Pulse Rate 78 02/03/17 06:00 Respiratory Rate 18 02/03/17 06:00 Blood Pressure 110/71 02/03/17 06:00 O2 Sat by Pulse Oximetry (%) 95 02/03/17 06:00 Constitutional: Yes: Well Nourished, Calm Eyes: Yes: WNL HENT: Yes: WNL Neck: Yes: WNL Cardiovascular: Yes: Regular Rate and Rhythm, S1, S2 Respiratory: Yes: Wheezes (MG WHEEZES) Gastrointestinal: Yes: Normal Bowel Sounds, Soft Extremities: Yes: WNL Edema: No Labs: CBC, BMP 02/02/17 06:13 02/02/17 06:13 Assessment/Plan Problem List - Problems (1) Asthma exacerbation Code(s): J45.901 - UNSPECIFIED ASTHMA WITH (ACUTE) EXACERBATION (2) Asthma with acute exacerbation Code(s): J45.901 - UNSPECIFIED ASTHMA WITH (ACUTE) EXACERBATION Qualifiers: Asthma severity: moderate persistent Qualified Code(s): J45.41 - Moderate persistent asthma with (acute) exacerbation (3) Bronchial asthma Code(s): J45.909 - UNSPECIFIED ASTHMA, UNCOMPLICATED Assessment/Plan STEROIDS SAME DOSE ANTIBIOTICS BRONCHODILATORS O2 SUPPLEMENTATION IGE LEVEL WILL NEED DAILY PEAK FLOW DR ZAVALETA
[2017-02-03] MEDS: LACTOBACILLUS ACIDOPHILUS 1 EACH TAB (FP) PO SCH (09:22)
[2017-02-03] MEDS: LEVOFLOXACIN 750 MG IVPB 150 ML IVPB SCH (09:22)
[2017-02-03 09:29] LABS: MCHC 32.1 g/dl (32.0-36.0); MEAN CELL VOLUME 74.8 fl (80-96); MEAN PLT VOLUME 9.6 fl (7.5-11.1); PLATELET COUNT 262 K/MM3 (134-434); RDW 17.1 % (11.6-15.6); WHITE BLOOD COUNT 10.6 K/mm3 (4.0-10.8)
[2017-02-03 09:32] LABS: ALBUMIN 3.3 g/dl (3.5-5.0); ALK PHOS 57 U/L (32-92); CALCIUM 8.7 mg/dl (8.4-10.2); CREATININE 0.6 mg/dl (0.6-1.3); GLUCOSE,RANDOM 140 mg/dl (74-106); SGOT/AST 13 U/L (10-42); SGPT/ALT 16 U/L (10-40); TOT PROT 6.5 g/dl (6.4-8.3)
[2017-02-03] MEDS ORDERED: BUDESONIDE 0.5 MG/2 ML INH SUSP VIAL NEB SCH (10:00)
[2017-02-03 11:23] VITALS: PULSE 94
[2017-02-03 11:33] LABS: ANION GAP 9 (8-16); CO2 20 mmol/L (22-28)
[2017-02-03 11:51] LABS: BILIRUBIN,TOTAL < 0.3 mg/dl (0.2-1.0)
--- NOTE | 2017-02-03 12:41 | PN ---
Physical Exam: SUBJECTIVE: Patient seen and examined OBJECTIVE: Vital Signs Period Temp Pulse Resp BP Sys/Pate Pulse Ox Last 24 Hr 98.6 F-98.7 F 78-97 18-19 95-138/53-90 94-98 GENERAL: The patient is awake, alert, and fully oriented, in no acute distress. HEAD: Normal with no signs of trauma. EYES: PERRL, extraocular movements intact, sclera anicteric, conjunctiva clear. No ptosis. ENT: Ears normal, nares patent, oropharynx clear without exudates, moist mucous membranes. NECK: Trachea midline, full range of motion, supple. LUNGS: Breath sounds equal, clear to auscultation bilaterally, no wheezes, no crackles, no accessory muscle use. HEART: Regular rate and rhythm, S1, S2 without murmur, rub or gallop. ABDOMEN: Soft, nontender, nondistended, normoactive bowel sounds, no guarding, no rebound, no hepatosplenomegaly, no masses. EXTREMITIES: 2+ pulses, warm, well-perfused, no edema. NEUROLOGICAL: Cranial nerves II through XII grossly intact. Normal speech, gait not observed. PSYCH: Normal mood, normal affect. SKIN: Warm, dry, normal turgor, no rashes or lesions noted Laboratory Results - last 24 hr 02/02/17 02/03/17 02/03/17 16:30 07:00 07:00 WBC 10.6 D RBC 4.61 Hgb 11.0 Hct 34.4 MCV 74.8 L MCHC 32.1 RDW 17.1 H Plt Count 262 MPV 9.6 Neutrophils % Y Lymphocytes % Y Sodium 137 Potassium 4.3 Chloride 108 H Carbon Dioxide 20 L Anion Gap 9 BUN 15 D Creatinine 0.6 Creat Clearance w eGFR > 60 POC Glucometer 165 Random Glucose 140 H Calcium 8.7 Total Bilirubin < 0.3 D AST 13 ALT 16 Alkaline Phosphatase 57 Total Protein 6.5 Albumin 3.3 L Active Medications Generic Name Dose Route Start Last Admin Trade Name Freq PRN Reason Stop Dose Admin Albuterol/Ipratropium 1 amp 02/02/17 00:00 02/03/17 11:22 Duoneb - NEB 1 amp QIDR CARMEN Administration Budesonide 1 amp 02/03/17 10:00 02/03/17 09:22 Pulmicort 0.5 Mg Nebulizer - NEB 1 amp BID CARMEN Administration Guaifenesin/Codeine Phosphate 10 ml 02/02/17 14:56 02/03/17 01:11 Robitussin Ac - PO 10 ml Q6H PRN Administration COUGH Heparin Sodium (Porcine) 5,000 unit 02/02/17 10:00 02/03/17 06:24 Heparin - SQ 5,000 unit TID CARMEN Administration Levofloxacin 150 mls @ 100 mls/hr 02/01/17 20:45 02/03/17 09:22 Levaquin 750 Mg Premixed Ivpb - IVPB 100 mls/hr DAILY CARMEN Administration Lactobacillus Acidophilus 1 tab 02/02/17 10:00 02/03/17 09:22 Bacid - PO 1 tab DAILY CARMEN Administration Methylprednisolone Sodium Succinate 40 mg 02/02/17 02:00 02/03/17 08:45 Solu-Medrol - IVPB 40 mg Q6H-IV CARMEN Administration Montelukast Sodium 10 mg 02/01/17 22:00 02/02/17 21:31 Singulair - PO 10 mg HS CARMEN Administration ASSESSMENT/PLAN:
--- NOTE | 2017-02-03 13:49 | DS ---
Physical Exam: SUBJECTIVE: Patient seen and examined OBJECTIVE: 36 yo f w hx of asthma on chronic steroids (Dexamethasone), DVT x 2, who presents to the er for evaluation of sob, cough. she reports she developed a cold 5 days ago which triggered her asthma flare. She reports having dark green sputum for a few days accompanied by subj fever. She reports increased use of her Nebs at home. She also reports cough associated rib, back and chest soreness. She reports increased WOB. She was seen in the ER 3 days ago and reports getting Azithromycin and cough medicine which she has been taking with little improvement. She reports her peak flow at home was less than 100. She denies sick contact, recent travel, nausea, vomiting, diarrhea, sneezing, body aches, runny nose, HERRERA. She denies syncope (true or near), heart palps, dizziness , chest pain, numbness, abdominal pain, calf pain, hormonal Rx. She reports she was in the ICU about 8months ago for a severe asthma attack. She denies prior intubations Vital Signs Period Temp Pulse Resp BP Sys/Pate Pulse Ox Last 24 Hr 98.6 F-98.7 F 78-97 18-19 95-138/53-90 94-98 PHYSICAL EXAM GENERAL: The patient is awake, alert, and fully oriented, in no acute distress. HEAD: Normal with no signs of trauma. EYES: PERRL, extraocular movements intact, sclera anicteric, conjunctiva clear. ENT: Ears normal, nares patent, oropharynx clear without exudates, moist mucous membranes. NECK: Trachea midline, full range of motion, supple. LUNGS: Breath sounds equal, clear to auscultation bilaterally, no wheezes, no crackles, no accessory muscle use. HEART: Regular rate and rhythm, S1, S2 without murmur, rub or gallop. ABDOMEN: Soft, nontender, nondistended, normoactive bowel sounds, no guarding, no rebound, no hepatosplenomegaly, no masses. EXTREMITIES: 2+ pulses, warm, well-perfused, no edema. NEUROLOGICAL: Cranial nerves II through XII grossly intact. Normal speech, gait not observed. PSYCH: Normal mood, normal affect. SKIN: Warm, dry, normal turgor, no rashes or lesions noted. LABS Laboratory Results - last 24 hr 02/02/17 02/03/17 02/03/17 16:30 07:00 07:00 WBC 10.6 D RBC 4.61 Hgb 11.0 Hct 34.4 MCV 74.8 L MCHC 32.1 RDW 17.1 H Plt Count 262 MPV 9.6 Neutrophils % Y Lymphocytes % Y Sodium 137 Potassium 4.3 Chloride 108 H Carbon Dioxide 20 L Anion Gap 9 BUN 15 D Creatinine 0.6 Creat Clearance w eGFR > 60 POC Glucometer 165 Random Glucose 140 H Calcium 8.7 Magnesium Total Bilirubin < 0.3 D AST 13 ALT 16 Alkaline Phosphatase 57 Total Protein 6.5 Albumin 3.3 L 02/03/17 07:20 WBC RBC Hgb Hct MCV MCHC RDW Plt Count MPV Neutrophils % Lymphocytes % Sodium Potassium Chloride Carbon Dioxide Anion Gap BUN Creatinine Creat Clearance w eGFR POC Glucometer Random Glucose Calcium Magnesium 2.1 Total Bilirubin AST ALT Alkaline Phosphatase Total Protein Albumin HOSPITAL COURSE: Patient was admitted for asthma excerbation and acute bronchitis, athelactasis noted on chest xray. patient was noted to have shortness of breath, wheezing and cough. She was treated with IV solumedrol , magnesium and albuterol nebulizer. patient was noted to be on zithromax prior to arrival, she was started on levaquin due to plate like athelactasis noted on chest xray. Pulmonary, Dr Bryant and Dr [place] was consulted and followed. Patient requesting discharge home because she needs to care for her children. The patient insists on leaving the Hospital and is signing out against medical advice. The patient understands the risks and complications that may result from the refusal of medical care which may include and permanent disability. The patient has the mental capacity of understanding the risks of refusing care and is capable of making an informed decision. The patient was instructed to return to the Emergency Department should she change his/her mind regarding medical care or should his/her condition worsen. The patient signed the Against Medical Advice form. Date of Admission:02/01/17 Date of Discharge: 02/03/17 Minutes to complete discharge: 45 Discharge Summary Reason For Visit: EXACERBATION OF ASTHMA Current Active Problems Asthma exacerbation (Acute) Asthmatic bronchitis (Acute) Condition: Good - Instructions Diet, Activity, Other Instructions: . Referrals: Noel Bryant MD [Staff Physician] - Christie Perez [Primary Care Provider] - Disposition: AGAINST MEDICAL ADVICE - Home Medications Comprehensive Discharge Medication List: Ambulatory Orders Albuterol Sulfate Inhaler - [Ventolin HFA Inhaler -] 1 - 2 inh PO QID 07/31/16 Budesonide [Pulmicort 0.5 mg Nebulizer -] 1 neb NEB ONCE 07/31/16 Formoterol Fumarate [Perforomist] 20 mcg IH BID 07/31/16 Dexamethasone 4 mg PO BID 08/14/16 Albuterol 2.5/Ipratropium 0.5 [Duoneb -] 1 neb NEB Q4H PRN #30 vial 01/29/17 Azithromycin [Zithromax 250mg Tablets -] 250 mg PO UTDICT #6 tab 01/29/17 Hydrocodone Bit/Homatrop Me-Br [Hydrocodone-Homatropine Syrup] 5 ml PO QID PRN # 90 ml MDD 20 ml 01/29/17 Problem List - Problems (1) Asthma exacerbation Code(s): J45.901 - UNSPECIFIED ASTHMA WITH (ACUTE) EXACERBATION (2) Asthmatic bronchitis Code(s): J45.909 - UNSPECIFIED ASTHMA, UNCOMPLICATED (3) Asthma with acute exacerbation Code(s): J45.901 - UNSPECIFIED ASTHMA WITH (ACUTE) EXACERBATION Qualifiers: Asthma severity: moderate persistent Qualified Code(s): J45.41 - Moderate persistent asthma with (acute) exacerbation This patient is new to me today: Yes Date on this admission: 02/03/17 Emergency Visit: Yes ED Registration Date: 02/01/17 Care time: The patient presented to the Emergency Department on the above date and was hospitalized for further evaluation of their emergent condition. Critical Care patient: No - Discharge Referral Referred to [facility] Med P.C.: No
== END 2017-02-03 13:10 | disposition left against medical advice (07) | DRG 202 ==
LOC: SUPCPDRO 17:15 → FER 17:15 → FM/S 18:00 → OBSVTOIN 18:00 → INTOOBSV 19:04 → FM/S 19:04 → UNDOADMOB 19:04
PROVIDERS: ADMIT Internal Medicine; ATTEND Nurse Practitioner Family
DX: J45.41 Moderate persistent asthma with (acute) exacerbation (principal); J98.11 Atelectasis; E66.01 Morbid (severe) obesity due to excess calories; Z86.718 Personal history of other venous thrombosis and embolism; F31.9 Bipolar disorder, unspecified; Z68.31 Body mass index [BMI] 31.0-31.9, adult
CPT/HCPCS: 36415; 71010-TC; 71020-TC; 80048; 80053; 81003; 81015; 83735; 84100; 84703; 85025; 86352; 87254; 87899; 93005; 94640; 99283-25; J1644

== ENCOUNTER 2017-04-27 21:23 | Inpatient (IN) | payer OTHER ==
[2017-04-27] MEDS: ALBUTEROL SO4 2.5/IPRATROPIUM 0.5 INH SOL 3 ML VIAL.NEB. NEB SCH ×6 (21:15→22:10)
[2017-04-27] MEDS ORDERED: MAGNESIUM SULF 50% (8.12 MEQ/2 ML-1 GM VIAL) IVPB ONE (21:36)
[2017-04-27] MEDS ORDERED: methylPREDNISolone NA SUCC 125 MG/2 ML VIAL IVPB ONE (21:38)
[2017-04-27] MEDS ORDERED: ALBUTEROL SO4 2.5/IPRATROPIUM 0.5 INH SOL 3 ML VIAL.NEB. NEB ONE (21:38)
--- NOTE | 2017-04-27 21:39 | PDOC ---
History of Present Illness - General History Source: Patient Exam Limitations: Clinical Condition - History of Present Illness Initial Comments: 04/27/17 21:52 The patient is a 36 year old female, with a significant past medical history of moderate persistent asthma, morbid obesity, GERD, anxiety, and bipolar disorder who presents to the emergency room for difficulty breathing s/p asthma exacerbation. The patient reports dyspnea secondary to asthma exacerbation that began prior to arrival at the emergency room. She reports no past intubations but reports she has been admitted to the ICU s/p previous asthma exacerbations. PAST MEDICAL HISTORY: moderate persistent asthma, morbid obesity, GERD, anxiety , and bipolar disorder. PAST SURGICAL HISTORY: Tubal ligation 2007. Bronchial thermoplasty 2012. FAMILY HISTORY: no pertinent history SOCIAL HISTORY: Pt lives with family and is employed. MEDICATIONS: reviewed ALLERGIES: As per nursing notes ROS General: +Diaphoresis. No fevers or chills, no weight loss HEENT: No change in vision. No sore throat,. No ear pain CardioVascular: +Shortness of breath. No chest pain Respiratory: No cough, or wheezing. Gastrointestinal: no nausea, vomiting, diarrhea or constipation, No rectal bleeding Genitourinary: No dysuria, hematuria, or frequency Musculoskeletal: No joint or muscle pain or swelling Neurologic: No headache, vertigo, dizziness or loss of consciousness Psychiatric: nor depression Skin: No rashes or easy bruising Endocrine: no increased thirst or abnormal weight change Allergic: no skin or latex allergy All other systems reviewed and normal P/E General: +Moderately severe respiratory distress. +Diaphoretic. +Tripoding. HEENT: Throat: Normal, tonsils normal, no erythema or exudate Neck: Supple, no meningeal signs, no lymphadenopathy Eyes:Pupils equal reactive and round, extraocular motion intact Chest: +Diffuse wheezing all lung beth, however, moving a moderate amount of air. Nontender to palpation. Cardiac: +Tachycardia. S1-S2 normal, no murmurs rubs or gallops Respiratory: +Decreased air entry bilateral with expiratory phase greater than inspiratory phase. Abdomen: +Accessory use of muscle. Soft, nondistended, normal bowel sounds, nontender to palpation diffusely Extremities: No cyanosis, clubbing, or edema Skin: No rashes Neuro: Alert and oriented x3, nonfocal exam, grossly intact, normal gait Psych: Normal mood and affect <Rowdy Vásquez - Last Filed: 04/27/17 22:02> - General History Source: Patient Exam Limitations: Clinical Condition - History of Present Illness Initial Comments: 04/27/17 on arrival Patient walked into the emergency room in severe respiratory distress. Patient's O2 sat was 88 on arrival and patient was unable to speak more than one or 2 words, patient was tachypnea and profusely diaphoretic. Patient started on continuous DuoNeb's, given IV Solu-Medrol 125 mg and to 2 g of mag sulfate IV. Patient was continuously monitored. 21:45 Reevaluation patient is more comfortable at this point respiratory rate is improved air movement is improved. Patient is no longer tripoding and the able to speak in short sentences. 22:30 Patient continues to improve however still is tachypnea and diffuse wheezing with expiratory rate greater than inspiratory rate. Patient will need to be admitted to an ICU bed. Discussed admission with the ICU nurse practitioner who has agreed to the admission [place] Palacio/ <Jesus Castillo I - Last Filed: 04/27/17 23:21> - General Chief Complaint: Asthma Stated Complaint: ASTHMA Time Seen by Provider: 04/27/17 21:35 Past History <Rowdy Váqsuez - Last Filed: 04/27/17 22:02> - Past Medical History Anemia: No Asthma: Yes (1991) Cancer: No Cardiac Disorders: No CVA: No COPD: No CHF: No Dementia: No Diabetes: No GI Disorders: Yes (GERD) Disorders: No HTN: No Hypercholesterolemia: No Liver Disease: No Psychiatric Problems: Yes (bipolar) Seizures: No Thyroid Disease: No - Surgical History Abdominal Surgery: Yes (TUBAL LIGATION 2007) Appendectomy: Yes (2000) Cardiac Surgery: No Cholecystectomy: Yes (2012) Lung Surgery: Yes (BRONCHIAL THERMOPLASTY 2012) Neurologic Surgery: No Orthopedic Surgery: No - Immunization History Td Vaccination: No TDAP Vaccination: No Immunization Up to Date: No - Suicide/Smoking/Psychosocial Hx Smoking Status: No Smoking History: Never smoked Have you smoked in the past 12 months: No Number of Cigarettes Smoked Daily: 0 Hx Alcohol Use: Yes Drug/Substance Use Hx: No Substance Use Type: Alcohol Hx Substance Use Treatment: No <Jesus Castillo I - Last Filed: 04/27/17 23:21> - Past Medical History Allergies/Adverse Reactions: Allergies Allergy/AdvReac Type Severity Reaction Status Date / Time omalizumab Allergy Severe Difficulty Verified 04/27/17 21:31 Breathing Penicillins Allergy Severe Difficulty Verified 04/27/17 21:31 Breathing Home Medications: Ambulatory Orders Albuterol Sulfate Inhaler - [Ventolin HFA Inhaler -] 1 - 2 inh PO QID 07/31/16 Budesonide [Pulmicort 0.5 mg Nebulizer -] 1 neb NEB ONCE 07/31/16 Formoterol Fumarate [Perforomist] 20 mcg IH BID 07/31/16 Dexamethasone 4 mg PO BID 08/14/16 Albuterol 2.5/Ipratropium 0.5 [Duoneb -] 1 neb NEB Q4H PRN #30 vial 01/29/17 Azithromycin [Zithromax 250mg Tablets -] 250 mg PO UTDICT #6 tab 01/29/17 Hydrocodone Bit/Homatrop Me-Br [Hydrocodone-Homatropine Syrup] 5 ml PO QID PRN # 90 ml MDD 20 ml 01/29/17 ED Treatment Course - LABORATORY CBC & Chemistry Diagram: 04/27/17 21:50 04/27/17 21:50 <Rowdy Vásquez - Last Filed: 04/27/17 22:02> - LABORATORY CBC & Chemistry Diagram: 04/27/17 21:50 04/27/17 21:50 <Jesus Castillo I - Last Filed: 04/27/17 23:21> Medical Decision Making - Critical Care Time Total Critical Care Time (minutes): 60 Critical Care Statement: The care of this patient involved high complexity decision making to prevent further life threatening deterioration of the patient 's condition and/or to evaluate & treat vital organ system(s) failure or risk of failure. <Jesus Castillo I - Last Filed: 04/27/17 23:21> *DC/Admit/Observation/Transfer - Attestations Scribe Attestion: 04/27/17 21:53 Documentation prepared by Rowdy Vásquez, acting as territory sales manager medical for Jesus Castillo MD. <Rowdy Vásquez - Last Filed: 04/27/17 22:02> - Discharge Dispostion Admit: Yes <Jesus Castillo I - Last Filed: 04/27/17 23:21> Diagnosis at time of Disposition: Asthma with status asthmaticus - Referrals Referrals: Noel Bryant MD [Primary Care Provider] -
[2017-04-27 22:12] LABS: BASOPHIL 0.8 % (0-2.0); MCH 24.3 pg (25.7-33.7); MEAN PLT VOLUME 9.1 fl (7.5-11.1); NEUTROPHILS 87.7 % (42.8-82.8); PLATELET COUNT 347 K/MM3 (134-434); WHITE BLOOD COUNT 15.5 K/mm3 (4.0-10.8)
[2017-04-27 22:19] LABS: ALBUMIN 4.1 g/dl (3.5-5.0); ALK PHOS 72 U/L (32-92); ANION GAP 10 (8-16); BILIRUBIN,TOTAL 0.6 mg/dl (0.2-1.0); CALCIUM 8.7 mg/dl (8.4-10.2); CO2 22 mmol/L (22-28); CREATININE 0.8 mg/dl (0.6-1.3); GLUCOSE,RANDOM 137 mg/dl (74-106); SGOT/AST 25 U/L (10-42); SGPT/ALT 21 U/L (10-40); TOT PROT 7.4 g/dl (6.4-8.3)
[2017-04-27 22:44] LABS: PH,URINE 5.5 (4.5-8); URINE APPEARANCE Clear; URINE BILIRUBIN Negative (NEGATIVE); URINE BLOOD Negative (NEGATIVE); URINE COLOR YELLOW; URINE GLUCOSE (UA) Negative (NEGATIVE); URINE KETONE Negative (NEGATIVE); URINE LEUK ESTERASE Negative (NEGATIVE); URINE NITRITE Negative (NEGATIVE); URINE PROTEIN Trace (NEGATIVE); URINE UROBILINOGEN 0.2 (0.2-1.0)
[2017-04-27 22:48] LABS: ARTERIAL BLD GAS O2 SATURATION 98.3 % (90-98.9); ARTERIAL BLOOD GAS BASE EXCESS -3.3 meq/l (-2-2); ARTERIAL BLOOD GAS HCO3 20.2 meq/L (22-26); ARTERIAL BLOOD GAS PO2 103 mmHg (80-100); ARTERIAL BLOOD GAS pH 7.41 (7.35-7.45); METHEMOGLOBIN 0.6 % (0.4-1.5)
[2017-04-27 22:49] LABS: PT. ON O2? no
[2017-04-27] MEDS ORDERED: ACETAMINOPHEN 325 MG TABLET (FP) ONE (23:28)
[2017-04-27] MEDS ORDERED: ACETAMINOPHEN 500 MG TABLET (FP) PO ONE (23:28)
[2017-04-28] MEDS ORDERED: ALBUTEROL SO4 2.5/IPRATROPIUM 0.5 INH SOL 3 ML VIAL.NEB. NEB ONE ×2 (00:19→07:38)
--- NOTE | 2017-04-28 00:36 | HP ---
CHIEF COMPLAINT: Shortness of Breath PCP/Pulmn - Dr. Bryant HISTORY OF PRESENT ILLNESS: Pt is a 36yo F w/ PMhx of asthma (on chronic oral steroids) w/ numerous exacerbations in past (never intubated) who presented to [facility] ED w/ SOB and chest tightness. States that children just started school and have been sick recently with cold. Pt has recently felt congested with productive cough w / clear sputum. No fevers, no chills, endorses diaphoresis. Denies CP. She used 6 Duoneb treatments at home and took oral prednisone with no relief. States "everything" exacerbates her asthma, and is allergic to "everything". Denies smoking, denies new pets, denies new furniture or new habits. States all of her children also have asthma. Is a new patient of Dr. Bryant. Has been admitted to ICU for prior exacerbations ER Course: In ER, she was in moderate to severe respiratory distress w/ accessory muscle use, diaphoretic, tripoding. Unable to speak more than 1-2 words. O2 sat 88 on arrival. Started on nonrebreather, given Duonebs x2, IV solumedrol 125mg x1, and IV Mg Sulfate 2g x1 with some improvement. 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, due to chronic steroids) Social History: Lives w/ 4 children Smoking: Denies Alcohol: Denies Drugs: Denies Family History: Family hx of Asthma Allergies: omalizumab Allergy (Severe, Verified 04/27/17 21:31) Difficulty Breathing Penicillins Allergy (Severe, Verified 04/27/17 21:31) Difficulty Breathing HOME MEDICATIONS: Home Medications Medication Instructions Recorded Albuterol Sulfate Inhaler - 1 - 2 inh PO QID 07/31/16 [Ventolin HFA Inhaler -] Budesonide [Pulmicort 0.5 mg 1 neb NEB ONCE 07/31/16 Nebulizer -] Formoterol Fumarate [Perforomist] 20 mcg IH BID 07/31/16 Dexamethasone 4 mg PO BID 08/14/16 Albuterol 2.5/Ipratropium 0.5 1 neb NEB Q4H PRN #30 vial 01/29/17 [Duoneb -] Azithromycin [Zithromax 250mg 250 mg PO UTDICT #6 tab 01/29/17 Tablets -] Hydrocodone Bit/Homatrop Me-Br 5 ml PO QID PRN #90 ml MDD 20 ml 01/29/17 [Hydrocodone-Homatropine Syrup] REVIEW OF SYSTEMS CONSTITUTIONAL: Absent: fever, chills, diaphoresis, generalized weakness, malaise, loss of appetite, weight change HEENT: Absent: rhinorrhea, nasal congestion, throat pain, throat swelling, difficulty swallowing, mouth swelling, ear pain, eye pain, visual changes CARDIOVASCULAR: Absent: chest pain, syncope, palpitations, irregular heart rate, lightheadedness , peripheral edema RESPIRATORY: Absent: cough, shortness of breath, dyspnea with exertion, orthopnea, wheezing, stridor, hemoptysis Present: cough, SOB, wheezing GASTROINTESTINAL: Absent: abdominal pain, abdominal distension, nausea, vomiting, diarrhea, constipation, melena, hematochezia GENITOURINARY: Absent: dysuria, frequency, urgency, hesitancy, hematuria, flank pain, genital pain MUSCULOSKELETAL: Absent: myalgia, arthralgia, joint swelling, back pain, neck pain SKIN: Absent: rash, itching, pallor HEMATOLOGIC/IMMUNOLOGIC: Absent: easy bleeding, easy bruising, lymphadenopathy, frequent infections ENDOCRINE: Absent: unexplained weight gain, unexplained weight loss, heat intolerance, cold intolerance NEUROLOGIC: Absent: headache, focal weakness or paresthesias, dizziness, unsteady gait, seizure, mental status changes, bladder or bowel incontinence PSYCHIATRIC: Absent: anxiety, depression, suicidal or homicidal ideation, hallucinations. PHYSICAL EXAMINATION Vital Signs Temperature 98.5 F 04/28/17 01:19 Pulse Rate 117 H 04/28/17 01:19 Respiratory Rate 30 - 50s Blood Pressure 126/79 04/28/17 01:19 O2 Sat by Pulse Oximetry (%) 96 04/28/17 01:19 GEN: AAOx3, NAD, visibly tachypneic but able to speak in full sentences, pale HEENT: PERRLA, EOMi, No cervical LAD CV: S1, S2, tachycardic rate, regular rhythm LUNG: Fine inspiratory wheezes and coarse expiratory wheezes throughout ABD: Soft, NT, ND, normoactive BS MSK: No edema, no erythema NEURO: CN 2-12 intact, no sensation deficits, MSK 5/5, reflexes 2+ Laboratory Last Values WBC 15.5 K/mm3 (4.0-10.8) H D 04/27/17 21:50 RBC 5.81 M/mm3 (3.60-5.2) H D 04/27/17 21:50 Hgb 14.1 GM/dl (10.7-15.3) D 04/27/17 21:50 Hct 44.1 % (32.4-45.2) D 04/27/17 21:50 MCV 76.0 fl (80-96) L 04/27/17 21:50 MCH 24.3 pg (25.7-33.7) L 04/27/17 21:50 MCHC 32.0 g/dl (32.0-36.0) 04/27/17 21:50 RDW 16.0 % (11.6-15.6) H 04/27/17 21:50 Plt Count 347 K/MM3 (134-434) D 04/27/17 21:50 MPV 9.1 fl (7.5-11.1) 04/27/17 21:50 Neutrophils % 87.7 % (42.8-82.8) H 04/27/17 21:50 Lymphocytes % 8.7 % (8-40) D 04/27/17 21:50 Monocytes % 2.8 % (3.8-10.2) L D 04/27/17 21:50 Eosinophils % 0.0 % (0-4.5) D 04/27/17 21:50 Basophils % 0.8 % (0-2.0) D 04/27/17 21:50 Anticoagulation Therapy Y 04/27/17 21:50 Puncture Site Md puncture 04/27/17 21:50 ABG pH 7.41 (7.35-7.45) 04/27/17 21:50 ABG pCO2 at Pt Temp 32.8 mmHg (35-45) L 04/27/17 21:50 ABG pO2 at Pt Temp 103 mmHg (80-100) H 04/27/17 21:50 ABG HCO3 20.2 meq/L (22-26) L 04/27/17 21:50 ABG O2 Sat (Measured) 98.3 % (90-98.9) 04/27/17 21:50 ABG O2 Content 16.3 % vol (15-22) 04/27/17 21:50 ABG Base Excess -3.3 meq/l (-2-2) L 04/27/17 21:50 Steve Test Not applicable 04/27/17 21:50 Carboxyhemoglobin 1.4 gm% (0.5-2.0) 04/27/17 21:50 Methemoglobin 0.6 % (0.4-1.5) 04/27/17 21:50 O2 Delivery Device Y 04/27/17 21:50 Oxygen Flow Rate no 04/27/17 21:50 Vent Mode Y 04/27/17 21:50 Vent Rate Y 04/27/17 21:50 Mechanical Rate Y 04/27/17 21:50 Pressure Support Vent Y 04/27/17 21:50 Sodium 136 mmol/L (136-145) 04/27/17 21:50 Potassium 3.7 mmol/L (3.5-5.1) 04/27/17 21:50 Chloride 104 mmol/L (98-107) 04/27/17 21:50 Carbon Dioxide 22 mmol/L (22-28) 04/27/17 21:50 Anion Gap 10 (8-16) 04/27/17 21:50 BUN 14 mg/dl (7-18) 04/27/17 21:50 Creatinine 0.8 mg/dl (0.6-1.3) D 04/27/17 21:50 Creat Clearance w eGFR > 60 (>60) 04/27/17 21:50 Random Glucose 137 mg/dl (74-106) H 04/27/17 21:50 Lactic Acid 2.8 mmol/L (0.4-2.0) H* 04/27/17 21:50 Calcium 8.7 mg/dl (8.4-10.2) 04/27/17 21:50 Total Bilirubin 0.6 mg/dl (0.2-1.0) D 04/27/17 21:50 AST 25 U/L (10-42) D 04/27/17 21:50 ALT 21 U/L (10-40) D 04/27/17 21:50 Alkaline Phosphatase 72 U/L (32-92) D 04/27/17 21:50 Total Protein 7.4 g/dl (6.4-8.3) 04/27/17 21:50 Albumin 4.1 g/dl (3.5-5.0) D 04/27/17 21:50 Urine Color Yellow 04/27/17 22:30 Urine Appearance Clear 04/27/17 22:30 Urine pH 5.5 (4.5-8) D 04/27/17 22:30 Ur Specific [place] >= 1.030 (1.005-1.025) H 04/27/17 22:30 Urine Protein Trace (NEGATIVE) 04/27/17 22:30 Urine Glucose (UA) Negative (NEGATIVE) 04/27/17 22:30 Urine Ketones Negative (NEGATIVE) 04/27/17 22:30 Urine Blood Negative (NEGATIVE) 04/27/17 22:30 Urine Nitrite Negative (NEGATIVE) 04/27/17 22:30 Urine Bilirubin Negative (NEGATIVE) 04/27/17 22:30 Urine Urobilinogen 0.2 (0.2-1.0) 04/27/17 22:30 Urine HCG, Qual Negative 04/27/17 22:30 Home Medication List Medication Instructions Recorded Confirmed Type Albuterol Sulfate Inhaler - 1 - 2 inh PO QID 07/31/16 04/27/17 History [Ventolin HFA Inhaler -] Budesonide [Pulmicort 0.5 mg 1 neb NEB ONCE 07/31/16 04/27/17 History Nebulizer -] Formoterol Fumarate [Perforomist] 20 mcg IH BID 07/31/16 04/27/17 History Dexamethasone 4 mg PO BID 08/14/16 04/27/17 History Active Medications Generic Name Dose Route Start Last Admin Trade Name Freq PRN Reason Stop Dose Admin Albuterol/Ipratropium 1 amp 04/28/17 01:50 Duoneb - NEB Q4H PRN SHORTNESS OF BREATH Albuterol/Ipratropium 1 amp 04/28/17 06:00 Duoneb - NEB QIDR CARMEN Budesonide 1 amp 04/28/17 09:00 Pulmicort 0.5 Mg Nebulizer - NEB 04/28/17 09:01 ONCE ONE Chlorhexidine Gluconate 1 applic 04/28/17 22:00 Hibiclens For Decolonization - TP HS [facility] Heparin Sodium (Porcine) 5,000 unit 04/28/17 06:00 Heparin - SQ TID [facility] Methylprednisolone Sodium Succinate 40 mg 04/28/17 09:00 Solu-Medrol - IVPB Q8H-IV CARMEN Mupirocin 1 applic 04/28/17 10:00 Bactroban Ointment (For Decolonization) - NS 05/03/17 09:59 BID [facility] Non-Formulary Medication 20 mcg 04/28/17 02:00 Formoterol Fumarate [Perforomist] IH BID [facility]AG[facility] - CXR (my read) - No acute CP pathology, hyperinflation ASSESSMENT/PLAN: Pt is a 36yo F w/ PMHx of asthma (oral steroid dependent) who presented with SOB and chest tightness, admitted for acute resp failure due to asthma exacerbation # Acute Respiratory Failure - secondary to asthma exacerbation - Now on 3L NC, O2 sat 94-96 - s/p IV Solumedrol 125mg x1, Duonebs x3, IV Mg 2g x1 - Continue IV Solumedrol 40mg Q8H - Continue Duonebs standing + PRN - Continue home Budesonide + Performist - Respiratory viral panel + Flu swab - O2 as needed - Peak flow daily # Tachycardia + Tachypnea - likely 2/2 asthma exac + multiple duoneb tx - +SIRS, infectious is less likely, but will r/o infectious process with Blood Cx, Urine Cx, Urine Ag # Lactic Acidosis - rising, likely 2/2 hypoxia, less likely infectious - 2.8 --> 5.1 --> continue to trend - Continue O2 PRN # FEN - Fluids: Not needed - Electrolytes: WNL - Nutrition: Regular Diet # Prophylaxis - DVT: Heparin SQ TID - GI: Not indicated - Deconditioning: PT not needed, patient is ambulatory # Dispo - ICU admission for HLOC Case d/w Dr. Pena and Dr. Kervin Fraser MD - PGY1 Internal Medicine Visit type - Emergency Visit Emergency Visit: No - New Patient This patient is new to me today: Yes Date on this admission: 04/28/17 - Critical Care Critical Care patient: Yes Total Critical Care Time (in minutes): 55 Critical Care Statement: The care of this patient involved high complexity decision making to prevent further life threatening deterioration of the patient 's condition and/or to evaluate & treat vital organ system(s) failure or risk of failure.
--- NOTE | 2017-04-28 01:07 | PN ---
Teaching Attending Note Name of Resident: Abdirashid Fraser ATTENDING PHYSICIAN STATEMENT I saw and evaluated the patient. I reviewed the resident's note and discussed the case with the resident. I agree with the resident's findings and plan as documented. SUBJECTIVE: 36 yo F with pmhx of mod-persistant asthma, morbid obesity, GERD, anxiety, Bipolar Do, who presents with shortness of breath. States she has never been intubated in the past. States her child had a upper respiratory virus earlier. Denies any fevers or chills. OBJECTIVE: Physical Exam: VS: Initial Vital Signs Pulse Resp BP Pulse Ox 138 H 28 H 138/100 88 L 04/27/17 21:28 04/27/17 21:28 04/27/17 21:28 04/27/17 21:28 GEN: Nad, able to speak full sentences HEENT: NCAT, PERRL, Throat without erythema or exudates CARD: RRR S1, S2 RESP: Coarse Expiratory Wheezing all beth, ronchi ABD: BSx4, NTD to palpation EXT: - C/C/E CBCD WBC 15.5 K/mm3 (4.0-10.8) H D 04/27/17 21:50 RBC 5.81 M/mm3 (3.60-5.2) H D 04/27/17 21:50 Hgb 14.1 GM/dl (10.7-15.3) D 04/27/17 21:50 Hct 44.1 % (32.4-45.2) D 04/27/17 21:50 MCV 76.0 fl (80-96) L 04/27/17 21:50 MCHC 32.0 g/dl (32.0-36.0) 04/27/17 21:50 RDW 16.0 % (11.6-15.6) H 04/27/17 21:50 Plt Count 347 K/MM3 (134-434) D 04/27/17 21:50 MPV 9.1 fl (7.5-11.1) 04/27/17 21:50 CMP Sodium 136 mmol/L (136-145) 04/27/17 21:50 Potassium 3.7 mmol/L (3.5-5.1) 04/27/17 21:50 Chloride 104 mmol/L (98-107) 04/27/17 21:50 Carbon Dioxide 22 mmol/L (22-28) 04/27/17 21:50 Anion Gap 10 (8-16) 04/27/17 21:50 BUN 14 mg/dl (7-18) 04/27/17 21:50 Creatinine 0.8 mg/dl (0.6-1.3) D 04/27/17 21:50 Creat Clearance w eGFR > 60 (>60) 04/27/17 21:50 Random Glucose 137 mg/dl (74-106) H 04/27/17 21:50 Calcium 8.7 mg/dl (8.4-10.2) 04/27/17 21:50 Total Bilirubin 0.6 mg/dl (0.2-1.0) D 04/27/17 21:50 AST 25 U/L (10-42) D 04/27/17 21:50 ALT 21 U/L (10-40) D 04/27/17 21:50 Alkaline Phosphatase 72 U/L (32-92) D 04/27/17 21:50 Total Protein 7.4 g/dl (6.4-8.3) 04/27/17 21:50 Albumin 4.1 g/dl (3.5-5.0) D 04/27/17 21:50 Home Medications Medication Instructions Recorded Albuterol Sulfate Inhaler - 1 - 2 inh PO QID 07/31/16 [Ventolin HFA Inhaler -] Budesonide [Pulmicort 0.5 mg 1 neb NEB ONCE 07/31/16 Nebulizer -] Formoterol Fumarate [Perforomist] 20 mcg IH BID 07/31/16 Dexamethasone 4 mg PO BID 08/14/16 Albuterol 2.5/Ipratropium 0.5 1 neb NEB Q4H PRN #30 vial 01/29/17 [Duoneb -] Azithromycin [Zithromax 250mg 250 mg PO UTDICT #6 tab 01/29/17 Tablets -] Hydrocodone Bit/Homatrop Me-Br 5 ml PO QID PRN #90 ml MDD 20 ml 01/29/17 [Hydrocodone-Homatropine Syrup] EKG: S tach CXR: No acute process ASSESSMENT AND PLAN: 36 yo F with pmhx of mod-persitant asthma, morbid obesity, GERD, anxiety and bipolar Do who presents with asthma Exacerbation 1.) Sepsis (Tachy/Inc. RR) - Lactic Acidosis could be from Hypoxia- Repeat - Jensen Cx - IVF - Resp. Viral Panel - Urine Ag - Abx- currently on Azithro, can consider broadening as pt. is on chronic steriods 2.) Acute respiratory failure due to Acute Exacerbation of Asthma - Nebs prn/atc - c/w Solumedrol - s/p Mg2+ in ED - STAT ABG - Peak Flow - C/W Budesonide/Performist - Flu Swab - Resp. viral panel - Abx 3.) Dvt PPx - Low Risk - Heparin 5000 q8 Admit to ICU CC Time: 40 Minutes
--- NOTE | 2017-04-28 01:21 | CONSULT ---
Consult - text type - Consultation Consultation Note: PULM/CCM Pt seen and examined in the ICU CC: shortness of breath HPI:Briefly Ms Waddell is a 36 year old woman with past medical history significant for moderate persistent asthma, morbid obesity, GERD, anxiety, and bipolar disorder who presented to the ER last evening for difficulty breathing c /w previous asthma exacerbations. States no intubations but multiple hospital/ including ICU admissions. She relates this is not her worst exacerbation. Most recently she is seeing Dr Bryant here in [place]. She states she has numerous triggers but today feels may be 2/2 URI symptoms that may be due to exposure to sick kids. She has not had seasonal flu shot. In ED at [facility] pt was aferbrile, normotensive, tachypneic, significant WOB, with tripoding and accessory muscle use. Peak flow meter was not recorded. She received medrol 125, stacked nebs, and mag. She improved with above therapy. She was transferred to [facility] for further care. On arrival here she relates significant improvement. Able to sit back, dyspnea lessening, Saturations 93 on 2Lpm PAST MEDICAL HISTORY: moderate persistent asthma, morbid obesity, GERD, anxiety , and bipolar disorder. PAST SURGICAL HISTORY: Tubal ligation 2007. Bronchial thermoplasty 2012. FAMILY HISTORY: no pertinent history SOCIAL HISTORY: Pt lives with family and is employed. MEDICATIONS: reviewed ALLERGIES: omalizmab, PCN ROS General: +Diaphoresis. No fevers or chills, no weight loss HEENT: No change in vision. No sore throat,. No ear pain CardioVascular: +Shortness of breath. No chest pain Respiratory: No cough, or wheezing. Gastrointestinal: no nausea, vomiting, diarrhea or constipation, No rectal bleeding Genitourinary: No dysuria, hematuria, or frequency Musculoskeletal: No joint or muscle pain or swelling Neurologic: No headache, vertigo, dizziness or loss of consciousness Psychiatric: nor depression Skin: No rashes or easy bruising Endocrine: no increased thirst or abnormal weight change Allergic: no skin or latex allergy All other systems reviewed and normal P/E General:Non toxic, mildly dyspneic, coughing young woman HEENT: Throat: Normal, tonsils normal, no erythema or exudate Neck: Supple, trach midline, no LAD Eyes:PERRL, EOMI Chest: diffuse wheezing, non-productive cough Cardiac: +Tachycardia. S1-S2 normal, no murmurs rubs or gallops Abdomen: soft, obese, NT Extremities: No cyanosis, clubbing, or edema Skin: No rashes Neuro: awake, Psych: Normal mood and affect Past History - Past Medical History Anemia: No Asthma: Yes (1991) Cancer: No Cardiac Disorders: No CVA: No COPD: No CHF: No Dementia: No Diabetes: No GI Disorders: Yes (GERD) Disorders: No HTN: No Hypercholesterolemia: No Liver Disease: No Psychiatric Problems: Yes (bipolar) Seizures: No Thyroid Disease: No - Surgical History Abdominal Surgery: Yes (TUBAL LIGATION 2007) Appendectomy: Yes (2000) Cardiac Surgery: No Cholecystectomy: Yes (2012) Lung Surgery: Yes (BRONCHIAL THERMOPLASTY 2012) Neurologic Surgery: No Orthopedic Surgery: No - Immunization History Td Vaccination: No TDAP Vaccination: No Immunization Up to Date: No - Suicide/Smoking/Psychosocial Hx Smoking Status: No Smoking History: Never smoked Have you smoked in the past 12 months: No Number of Cigarettes Smoked Daily: 0 Hx Alcohol Use: Yes Drug/Substance Use Hx: No Substance Use Type: Alcohol Hx Substance Use Treatment: No - Past Medical History Allergies/Adverse Reactions: Allergies Allergy/AdvReac Type Severity Reaction Status Date / Time omalizumab Allergy Severe Difficulty Verified 04/27/17 21:31 Breathing Penicillins Allergy Severe Difficulty Verified 04/27/17 21:31 Breathing Home Medications: Ambulatory Orders Albuterol Sulfate Inhaler - [Ventolin HFA Inhaler -] 1 - 2 inh PO QID 07/31/16 Budesonide [Pulmicort 0.5 mg Nebulizer -] 1 neb NEB ONCE 07/31/16 Formoterol Fumarate [Perforomist] 20 mcg IH BID 07/31/16 Dexamethasone 4 mg PO BID 08/14/16 Albuterol 2.5/Ipratropium 0.5 [Duoneb -] 1 neb NEB Q4H PRN #30 vial 01/29/17 Azithromycin [Zithromax 250mg Tablets -] 250 mg PO UTDICT #6 tab 01/29/17 Hydrocodone Bit/Homatrop Me-Br [Hydrocodone-Homatropine Syrup] 5 ml PO QID PRN # 90 ml MDD 20 ml 01/29/17 CBC, BMP 04/27/17 21:50 04/27/17 21:50 ABG Results ABG pH 7.41 (7.35-7.45) 04/27/17 21:50 ABG pCO2 at Pt Temp 32.8 mmHg (35-45) L 04/27/17 21:50 ABG pO2 at Pt Temp 103 mmHg (80-100) H 04/27/17 21:50 ABG HCO3 20.2 meq/L (22-26) L 04/27/17 21:50 ABG O2 Sat (Measured) 98.3 % (90-98.9) 04/27/17 21:50 ABG O2 Content 16.3 % vol (15-22) 04/27/17 21:50 ABG Base Excess -3.3 meq/l (-2-2) L 04/27/17 21:50 CXR: some hyperinflation, no discrete consolidation A/ 36 yo woman with moderate persistent asthma now with exacerbation possibly due to viral (less likely bacteria) URI P/ -duo nebs q2 -cont steroids, can decrease to 60 of medrol with quick taper if cont to improve -Z-pack -check viral resp swab -follow peak flow -hydration -fio2 as need, wean as tolerated - regular diet -OOB to chair -monitor in ICU -if not ambulatory in am then SQH, no indication for GI prophy -flu shot on D/c [place] Palacio ACNP [id number] 35cct
[2017-04-28 01:29] VITALS: BMI 32.2
[2017-04-28] MEDS ORDERED: AZITHROMYCIN 250 MG TABLET PO SCH (02:00)
[2017-04-28] MEDS ORDERED: FORMOTEROL FUMARATE 20 MCG IH SCH (02:00)
[2017-04-28] MEDS: HEPARIN NA (PORCINE) 5,000 UNITS/ML 1ML VIAL SQ SCH ×3 (06:05→22:06)
[2017-04-28 06:06] LABS: MCH 23.7 pg (25.7-33.7); MCHC 31.8 g/dl (32.0-36.0); MEAN CELL VOLUME 74.7 fl (80-96); MEAN PLT VOLUME 8.6 fl (7.5-11.1); PLATELET COUNT 280 K/MM3 (134-434); RDW 17.2 % (11.6-15.6); WHITE BLOOD COUNT 12.4 K/mm3 (4.0-10.0)
[2017-04-28] MEDS: ALBUTEROL SO4 2.5/IPRATROPIUM 0.5 INH SOL 3 ML VIAL.NEB. NEB SCH ×2 (06:25→11:09)
[2017-04-28 06:47] LABS: ANION GAP 14 (8-16); CALCIUM 8.9 mg/dL (8.5-10.1); CO2 22 mmol/L (21-32); CREATININE 0.9 mg/dL (0.55-1.02); GLUCOSE,RANDOM 148 mg/dL (74-106)
[2017-04-28] MEDS ORDERED: methylPREDNISolone NA SUCC 125 MG/2 ML VIAL ONE (07:23)
--- NOTE | 2017-04-28 08:14 | PN ---
Physical Exam: SUBJECTIVE: Pt is a 36yo F w/ PMhx of asthma (on chronic oral steroids) w/ multiple acute exacerbations in past (never intubated) who presented to [place] ED w/ SOB and chest tightness. States that had a cold recently associated with productive cough and clear sputum. No fevers, no chills, endorses diaphoresis. Denies CP. She used 6 Duoneb treatments at home and took oral prednisone with no relief. States "everything" exacerbates her asthma, and is allergic to multiple substances. Denies smoking, denies new pets, denies new furniture or new habits. States all of her children also have asthma. Is a new patient of Dr. Bryant. Has been admitted to ICU for prior exacerbations. OBJECTIVE: Vital Signs Period Temp Pulse Resp BP Sys/Pate Pulse Ox Last 24 Hr 98.5 F-98.6 F 101-117 18-32 96-126/59-79 94-96 GENERAL: The patient is awake, alert, and fully oriented, in moderate respiratory distress distress. not able to speak with full sentences without being dyspneic HEAD: Normal with no signs of trauma. EYES: sclera anicteric, conjunctiva clear. ENT: moist mucous membranes. LUNGS: diffuse inspiratory and expiratory wheeze, accessory muscle use. HEART: tachycardia, S1, S2 without murmur, rub or gallop. ABDOMEN: Soft, nontender, nondistended, normoactive bowel sounds, no guarding, no rebound tenderness. EXTREMITIES: 2+ pulses, warm, well-perfused, no edema. NEUROLOGICAL: with good mentation PSYCH: Normal mood, normal affect. SKIN: Warm, dry, no rashes or lesions noted Laboratory Results - last 24 hr 04/28/17 04/28/17 04/28/17 02:45 02:45 05:40 WBC 12.4 H D RBC 5.19 Hgb 12.3 D Hct 38.8 D MCV 74.7 L MCH 23.7 L MCHC 31.8 L RDW 17.2 H Plt Count 280 D MPV 8.6 Sodium Potassium Chloride Carbon Dioxide Anion Gap BUN Creatinine Random Glucose Lactic Acid 5.1 H* Calcium Urine HCG, Qual Negative 04/28/17 04/28/17 05:40 05:40 WBC RBC Hgb Hct MCV MCH MCHC RDW Plt Count MPV Sodium 140 Potassium 3.8 Chloride 104 Carbon Dioxide 22 Anion Gap 14 BUN 12 D Creatinine 0.9 D Random Glucose 148 H D Lactic Acid 5.3 H* Calcium 8.9 Urine HCG, Qual Active Medications Generic Name Dose Route Start Last Admin Trade Name Freq PRN Reason Stop Dose Admin Albuterol/Ipratropium 1 amp 04/28/17 01:50 Duoneb - NEB Q4H PRN SHORTNESS OF BREATH Albuterol/Ipratropium 1 amp 04/28/17 06:00 04/28/17 06:25 Duoneb - NEB 1 amp QIDR CARMEN Administration Budesonide 1 amp 04/28/17 09:00 Pulmicort 0.5 Mg Nebulizer - NEB 04/28/17 09:01 ONCE ONE Chlorhexidine Gluconate 1 applic 04/28/17 22:00 Hibiclens For Decolonization - TP HS [facility] Heparin Sodium (Porcine) 5,000 unit 04/28/17 06:00 Heparin - SQ TID [facility] Methylprednisolone Sodium Succinate 40 mg 04/28/17 09:00 Solu-Medrol - IVPB Q8H-IV [facility] Mupirocin 1 applic 04/28/17 10:00 Bactroban Ointment (For Decolonization) - NS 05/03/17 09:59 BID [facility] Non-Formulary Medication 20 mcg 04/28/17 02:00 04/28/17 03:13 Formoterol Fumarate [Perforomist] IH Not Given BID [facility] CBC, BMP 04/28/17 05:40 04/28/17 05:40 Hepatic Panel Total Bilirubin 0.6 mg/dl (0.2-1.0) D 04/27/17 21:50 AST 25 U/L (10-42) D 04/27/17 21:50 ALT 21 U/L (10-40) D 04/27/17 21:50 Alkaline Phosphatase 72 U/L (32-92) D 04/27/17 21:50 Albumin 4.1 g/dl (3.5-5.0) D 04/27/17 21:50 Microbiology 04/28/17 02:45 Legionella Antigen - Final Urine For Antigen Detection Streptococcus pneumoniae Antigen (M - Final 04/28/17 01:30 Respiratory Virus (PCR) - Preliminary Nasopharyngeal Swab 04/28/17 01:30 Influenza Types A,B Antigen (PHILLIP) - Final Nasopharyngeal Swab - Final IMAGING 04/28/2017 CXR : No acute pathology ASSESSMENT/PLAN: Pt is a 36yo F w/ PMHx of asthma (oral steroid dependent) who presented with SOB and chest tightness, admitted for acute respiratory distress due to acute asthma exacerbation # Acute Respiratory distress likely 2/2 to acute asthma exacerbation - Tachypneic , tachycardic with accessory muscle use - Now on 3L NC, O2 sat 94-96 - s/p IV Solumedrol 125mg x1, Duonebs x3, IV Mg 2g x1 - Continue IV Solumedrol 40mg Q8H - Continue Duonebs standing + PRN - Continue home Budesonide + Performist - Respiratory viral panel - Flu swab is negative - O2 as needed - Peak flow daily - started BIPAP, explained risk of intubation - has failed omalizumab therapy and bronchial thermoplasty. # Sinus Tachycardia / Tachypnea - likely 2/2 asthma exac + multiple duoneb tx - +SIRS, infectious is less likely, but will r/o infectious process with Blood Cx, Urine Cx, Urine Ag -switch duonebs to ipatroprium. -cardiac monitoring # Lactic Acidosis, resolved - rising, likely 2/2 hypoxia, less likely infectious - 2.8 --> 5.3 --> 2.2 ...1.5 - Continue O2 PRN #Hyperglycemia -BGM ACHS - ISS ACHS while on steroids #GERD -40mg protonix PO BID # H/O Bipolar, - not on any medication , confirmed with pharmacy # FEN - Fluids: on no fluids - Electrolytes: WNL - Nutrition: Regular Diet # Prophylaxis - DVT: Heparin SQ TID - GI: Not indicated - Deconditioning: PT not needed, patient is ambulatory # Dispo - ICU admission due to tenuous respiratory status - Full code Visit type - Emergency Visit Emergency Visit: Yes ED Registration Date: 04/28/17 Care time: The patient presented to the Emergency Department on the above date and was hospitalized for further evaluation of their emergent condition. - New Patient This patient is new to me today: Yes Date on this admission: 04/29/17 - Critical Care Critical Care patient: Yes Total Critical Care Time (in minutes): 40 Critical Care Statement: The care of this patient involved high complexity decision making to prevent further life threatening deterioration of the patient 's condition and/or to evaluate & treat vital organ system(s) failure or risk of failure.
[2017-04-28] MEDS: methylPREDNISolone NA SUCC 40 MG/1 ML VIAL IVPB SCH ×3 (08:38→17:03)
--- NOTE | 2017-04-28 08:46 | PN ---
Physical Exam: SUBJECTIVE: Patient seen and examined in ICU. Continues to feel SOB and chest tightness with non-productive cough. No fever or chills. OBJECTIVE: Vital Signs Period Temp Pulse Resp BP Sys/Pate Pulse Ox Last 24 Hr 98.5 F-98.6 F 101-117 18-32 96-126/59-79 94-96 Intake & Output 04/25/17 04/26/17 04/27/17 04/28/17 23:59 23:59 23:59 23:59 Intake Total 400 Balance 400 Weight 90.718 kg 87.798 kg GENERAL: AAOx3, difficulty completing full sentence without becoming dyspneic EYES: sclera anicteric, conjunctiva clear ENT: moist mucous membranes LUNGS: Bilateral expiratory wheezing, +accessory muscle use HEART: tachycardic, regular rhythm, normal S1/S2, no murmur, rub or gallop ABDOMEN: obese, soft, ntnd LOWER EXTREMITIES: 2+ pulses, warm, well-perfused, no edema. CBC, BMP 04/28/17 05:40 04/28/17 05:40 Ca- 8.9 04/27/17 04/28/17 04/28/17 21:50 02:45 05:40 Lactic Acid 2.8 H* 5.1 H* 5.3 H* Hepatic Panel Total Bilirubin 0.6 mg/dl (0.2-1.0) D 04/27/17 21:50 AST 25 U/L (10-42) D 04/27/17 21:50 ALT 21 U/L (10-40) D 04/27/17 21:50 Alkaline Phosphatase 72 U/L (32-92) D 04/27/17 21:50 Albumin 4.1 g/dl (3.5-5.0) D 04/27/17 21:50 Microbiology -Influenza Types A,B Antigen (PHILLIP) - Negative -Respiratory viral panel pending Active Medications Albuterol/Ipratropium (Duoneb -) 1 amp NEB Q4H PRN PRN Reason: SHORTNESS OF BREATH Albuterol/Ipratropium (Duoneb -) 1 amp NEB QIDR CARMEN Last Admin: 04/28/17 06:25 Dose: 1 amp Budesonide (Pulmicort 0.5 Mg Nebulizer -) 1 amp NEB ONCE ONE Stop: 04/28/17 09:01 Chlorhexidine Gluconate (Hibiclens For Decolonization -) 1 applic TP HS [facility] Heparin Sodium (Porcine) (Heparin -) 5,000 unit SQ TID [facility] Methylprednisolone Sodium Succinate (Solu-Medrol -) 40 mg IVPB Q8H-IV [facility] Last Admin: 04/28/17 08:38 Dose: 40 mg Mupirocin (Bactroban Ointment (For Decolonization) -) 1 applic NS BID [facility] Stop: 05/03/17 09:59 Non-Formulary Medication (Formoterol Fumarate [Perforomist]) 20 mcg IH BID [facility] Last Admin: 04/28/17 03:13 Dose: Not Given ASSESSMENT/PLAN: 36yo obese woman with PMH of moderate persistent asthma s/p bronchial thermoplasty (2012), on chronic home steroids, and GERD who presented to ED last night with asthma exacerbation. Questionable recent URI sympoms as child at home recently had "sniffles". She is negative for flu, pending respiratory viral PCR panel. #asthma exacerbation -O2 therapy to maintain pSaO2 > 90% -duo nebs q4h PRN + QIDR CARMEN -Budesonide -Solumedrol 40mg IVPB q8h -respiratory viral PCR pending #Hyperglycemia -BGM ACHS and ISS ACHS while on steroids #GERD -40mg protonix PO BID #Lactic acidosis A: likely 2/2 from beta-2 agonists -Trend lactate #FEN -Hold IVF -Electrolytes wnl -Regular diet #DVT ppx -scd's -Heparin 5000U sq tid #GI ppx -On protonix bid #Dispo: continue ICU monitoring FULL code d/w Dr. Javi Humphries MD PGY-1 Visit type - Emergency Visit Emergency Visit: No - New Patient This patient is new to me today: Yes Date on this admission: 04/28/17 - Critical Care Critical Care patient: Yes Total Critical Care Time (in minutes): 35 Critical Care Statement: The care of this patient involved high complexity decision making to prevent further life threatening deterioration of the patient 's condition and/or to evaluate & treat vital organ system(s) failure or risk of failure.
[2017-04-28] MEDS ORDERED: BUDESONIDE 0.5 MG/2 ML INH SUSP VIAL NEB ONE ×3 (09:00→18:19)
[2017-04-28] MEDS ORDERED: FLU VACCINE QUAD 60 MCG/0.5 ML (MDV 17-18) IM ONE (09:00)
[2017-04-28] MEDS: ALBUTEROL SO4 2.5/IPRATROPIUM 0.5 INH SOL 3 ML VIAL.NEB. NEB PRN ×3 (09:30→21:42)
[2017-04-28] MEDS: PANTOPRAZOLE 40 MG TABLET (FP) PO SCH ×2 (09:49→22:05)
[2017-04-28] MEDS: MUPIROCIN 2% TOPICAL OINTMENT FOR DECOLONIZATION NS SCH ×2 (09:51→22:00)
[2017-04-28] MEDS ORDERED: ACETAMINOPHEN 325 MG TABLET (FP) PO ONE (11:55)
--- NOTE | 2017-04-28 13:00 | PN ---
Teaching Attending Note Name of Resident: Norm Kaufman ATTENDING PHYSICIAN STATEMENT I saw and evaluated the patient. I reviewed the resident's note and discussed the case with the resident. I agree with the resident's findings and plan as documented. SUBJECTIVE: states her breathing is slightly improved. however pt is unable to speak more than 3-4 words at a time and is tachpynic and using accessory muscles. + non-productive cough. several weeks ago decreased dexamethasone dose to 4mg BID from 8mg. denies CP, fever, chills, N/V/C/D. has had multiple hospitalizations and ER visit but never been intubated. OBJECTIVE: Last Vital Signs Temp Pulse Resp BP Pulse Ox 98.6 F 112 H 20 131/82 99 04/28/17 08:41 04/28/17 10:05 04/28/17 10:05 04/28/17 10:05 04/28/17 11:42 General +tachypnic, +accessory muscle use CV S1 S2 tachycardic Lungs diffuse wheezing Extremities no pedal edema ASSESSMENT AND PLAN: 36yo F with PMH asthma, bipolar, obesity presented to the ER with acute hypoxic respiratory distress 1. Acute hypoxic respiratory distress- likely due to acute asthma exacerbation currently using accessory muscles and tachypnic. place on bipap. pt hesitant but explained risks that high risk of intubation. cont steroids for now. may increase, will defer to pulmonary who knows this pt very well. currently on medrol 40mg Q8h. has failed omalizumab therapy and bronchial thermoplasty. nebs RTC, supplemental oxygen as needed. low threshold for intubation. F/u cx. flu is negative. 2. Lactic acidosis- improved without hydration 3. Sinus tachycardia- likely due to difficulty breathing vs neb treatment. switch duonebs to ipatroprium. cardiac monitoring 4. bipolar- not on medications. call pharmacy to confirm medication list 5. DVT ppx- Hep sq 6. MICU monitoring due to tenuous respiratory status The care of this patient involved high complexity decision making to prevent further life threatening deterioration of the patient's condition and/or to evaluate & treat vital organ system(s) failure or risk of failure. 45 minutes
[2017-04-28] MEDS: INSULIN SLIDING SCALE (NOVOLOG) 1 VIAL SQ SCH ×2 (16:09→21:58)
[2017-04-28] MEDS ORDERED: MONTELUKAST NA 5 MG TAB.CHEW PO ONE ×2 (17:30→17:50)
[2017-04-28] MEDS ORDERED: methylPREDNISolone NA SUCC 40 MG/1 ML VIAL IVPB ONE (17:31)
[2017-04-28] MEDS ORDERED: methylPREDNISolone NA SUCC 40 MG/1 ML VIAL IVPB SCH ×3 (17:32→21:00)
[2017-04-28] MEDS ORDERED: BUDESONIDE/FORMETEROL FUMARATE 80/4.5 mcg INHALER IH ONE ×2 (17:36→18:16)
[2017-04-28] MEDS ORDERED: ALBUTEROL SO4 0.083% IH SOL 2.5 MG/3 ML VIAL.NEB. NEB PRN (17:38)
[2017-04-28] MEDS ORDERED: ACETYLCYSTEINE 20% 200MG/ML 30 ML VIAL *FOR ORAL / INH USE ONLY PO SCH (17:45)
[2017-04-28] MEDS ORDERED: IPRATROPIUM BR 0.02% 0.5 MG/2.5 ML VIAL.NEB. NEB SCH (18:00)
[2017-04-28] MEDS ORDERED: ACETYLCYSTEINE 20% 200MG/ML 30 ML VIAL *FOR ORAL / INH USE ONLY NEB SCH (18:00)
[2017-04-28] MEDS ORDERED: ALBUTEROL SO4 0.083% IH SOL 2.5 MG/3 ML VIAL.NEB. NEB ONE (18:21)
[2017-04-28] MEDS ORDERED: ACETYLCYSTEINE 20% 200MG/ML 30 ML VIAL *FOR ORAL / INH USE ONLY NEB ONE (18:22)
[2017-04-28] MEDS ORDERED: ACETYLCYSTEINE 20% 200MG/ML 30 ML VIAL *FOR ORAL / INH USE ONLY PO ONE (18:22)
[2017-04-28] MEDS ORDERED: ACETYLCYSTEINE 20% 200MG/ML 4 ML VIAL *FOR ORAL / INH USE ONLY ONE (18:24)
[2017-04-28] MEDS ORDERED: PT OWN MED DRAWER 7, Y5N ONE (18:35)
[2017-04-28] MEDS ORDERED: ALBUTEROL SO4 2.5/IPRATROPIUM 0.5 INH SOL 3 ML VIAL.NEB. NEB PRN (18:39)
--- NOTE | 2017-04-28 20:30 | HOSP ---
Subjective - Review of Symptoms Events since last encounter: Attempted to start mucomyst w/ ventolin neb in PM given pt complaints of chest congestion. Pt unable to tolerate w/ N/V. Mucomyst/ventolin d/c'ed. Pt given pulmicort/singulair once. Solumedrol increased to 60mg Q8h. Now back on duonebs. Atrovent d/c'ed given desiccant effect on pulmonary mucous. Physical Examination Vital Signs: Vital Signs Temperature 98.2 F 04/28/17 14:15 Pulse Rate 115 H 04/28/17 20:00 Respiratory Rate 22 04/28/17 20:15 Blood Pressure 112/84 04/28/17 20:00 O2 Sat by Pulse Oximetry (%) 98 04/28/17 20:15 Labs: CBC, BMP 04/28/17 05:40 04/28/17 05:40 Visit type - Emergency Visit Emergency Visit: No - New Patient This patient is new to me today: Yes Date on this admission: 04/28/17 - Critical Care Critical Care patient: Yes Total Critical Care Time (in minutes): 25
[2017-04-28] MEDS ORDERED: guaiFENesin/CODEINE 10 ML UNIT-DOSE CUPS PO PRN (21:27)
[2017-04-28] MEDS: CHLORHEXIDINE GLUCONATE 4% CLEANSER FOR DECOLONIZATION TP SCH (21:59)
[2017-04-28] MEDS ORDERED: HEMOQUE TEST 1 EACH EACH ONE (22:02)
[2017-04-28] MEDS ORDERED: ALBUTEROL SO4 2.5/IPRATROPIUM 0.5 INH SOL 3 ML VIAL.NEB. NEB SCH (23:00)
[2017-04-29] MEDS ORDERED: ACETAMINOPHEN 325 MG TABLET (FP) PO ONE (01:02)
[2017-04-29] MEDS ORDERED: PT OWN MED DRAWER 7, Y5N ONE ×3 (01:09→21:39)
[2017-04-29] MEDS: methylPREDNISolone NA SUCC 125 MG/2 ML VIAL IVPB SCH ×3 (01:13→17:09)
[2017-04-29] MEDS: ALBUTEROL SO4 2.5/IPRATROPIUM 0.5 INH SOL 3 ML VIAL.NEB. NEB PRN ×3 (02:00→10:09)
[2017-04-29 06:04] LABS: MCHC 31.8 g/dl (32.0-36.0); MEAN CELL VOLUME 75.5 fl (80-96); MEAN PLT VOLUME 8.8 fl (7.5-11.1); PLATELET COUNT 304 K/MM3 (134-434); RDW 17.4 % (11.6-15.6); WHITE BLOOD COUNT 20.1 K/mm3 (4.0-10.0)
[2017-04-29] MEDS: HEPARIN NA (PORCINE) 5,000 UNITS/ML 1ML VIAL SQ SCH ×3 (06:28→21:33)
[2017-04-29] MEDS: INSULIN SLIDING SCALE (NOVOLOG) 1 VIAL SQ SCH ×4 (06:36→21:47)
--- NOTE | 2017-04-29 06:44 | PN ---
Physical Exam: SUBJECTIVE: Patient seen and examined at bedside. Patient on Bipap. C/o of HERRERA and sinus pressure. Continues to have cough, now with sputum. No fever or chills. yesterday was given mucomyst, Solumedrol increased 40 to 60mg q8h. Could not tolerated Bipap 2/2 coughing. OBJECTIVE: Vital Signs Period Temp Pulse Resp BP Sys/Pate Pulse Ox Last 24 Hr 97.6 F-98.6 F 71-116 16-32 102-131/67-92 94-100 GENERAL: The patient is awake, alert, and fully oriented, in moderate respiratory distress distress. not able to speak with full sentences without being dyspneic HEAD: Normal with no signs of trauma. EYES: sclera anicteric, conjunctiva clear. ENT: moist mucous membranes. LUNGS: diffuse inspiratory and expiratory wheeze, accessory muscle use. HEART: tachycardia, S1, S2 without murmur, rub or gallop. ABDOMEN: Soft, nontender, nondistended, normoactive bowel sounds, no guarding, no rebound tenderness. EXTREMITIES: 2+ pulses, warm, well-perfused, no edema. NEUROLOGICAL: with good mentation PSYCH: Normal mood, normal affect. SKIN: Warm, dry, no rashes or lesions noted Laboratory Results - last 24 hr 04/28/17 04/28/17 04/28/17 05:40 05:40 10:38 WBC RBC Hgb Hct MCV MCH MCHC RDW Plt Count MPV Neutrophils % Lymphocytes % Sodium 140 Potassium 3.8 Chloride 104 Carbon Dioxide 22 Anion Gap 14 BUN 12 D Creatinine 0.9 D POC Glucometer Random Glucose 148 H D Lactic Acid 5.3 H* 2.7 H* Calcium 8.9 04/28/17 04/28/17 04/28/17 11:57 14:20 16:04 WBC RBC Hgb Hct MCV MCH MCHC RDW Plt Count MPV Neutrophils % Lymphocytes % Sodium Potassium Chloride Carbon Dioxide Anion Gap BUN Creatinine POC Glucometer 145.49190 167.22518 Random Glucose Lactic Acid 2.2 H* Calcium 04/28/17 04/29/17 17:30 05:00 WBC 20.1 H D RBC 5.19 Hgb 12.5 Hct 39.2 MCV 75.5 L MCH 24.0 L MCHC 31.8 L RDW 17.4 H Plt Count 304 MPV 8.8 Neutrophils % No Result Required. Lymphocytes % No Result Required. Sodium Potassium Chloride Carbon Dioxide Anion Gap BUN Creatinine POC Glucometer Random Glucose Lactic Acid 1.5 Calcium Active Medications Generic Name Dose Route Start Last Admin Trade Name Freq PRN Reason Stop Dose Admin Acetaminophen 650 mg 04/29/17 06:37 Tylenol - PO Q6H PRN FEVER OR PAIN Albuterol Sulfate 1 amp 04/28/17 20:42 Ventolin 0.083% Nebulizer Soln - NEB Q6H PRN SHORT OF BREATH/WHEEZING Albuterol/Ipratropium 1 amp 04/28/17 21:06 04/29/17 05:42 Duoneb - NEB 1 amp Q4H PRN Administration ASTHMA Budesonide 1 amp 04/29/17 10:00 Pulmicort 0.5 Mg Nebulizer - NEB BID [facility] Chlorhexidine Gluconate 1 applic 04/28/17 22:00 04/28/17 21:59 Hibiclens For Decolonization - TP 1 applic HS [facility] Administration Guaifenesin/Codeine Phosphate 10 ml 04/28/17 21:27 Robitussin Ac - PO Q8H PRN COUGH Heparin Sodium (Porcine) 5,000 unit 04/28/17 06:00 04/29/17 06:28 Heparin - SQ 5,000 unit TID CARMEN Administration Insulin Aspart 1 vial 04/28/17 16:30 04/29/17 06:36 Novolog Vial Sliding Scale - SQ Not Given ACHS [facility] Protocol Methylprednisolone Sodium Succinate 60 mg 04/28/17 18:40 04/29/17 01:13 Solu-Medrol - IVPB 60 mg Q8H-IV [facility] Administration Montelukast Sodium 10 mg 04/29/17 22:00 Singulair - PO HS [facility] Mupirocin 1 applic 04/28/17 10:00 04/28/17 22:00 Bactroban Ointment (For Decolonization) - NS 05/03/17 09:59 1 applic BID [facility] Administration Pantoprazole Sodium 40 mg 04/28/17 10:00 04/28/17 22:05 Protonix - PO 40 mg BID CAR[facility] Administration CBC, BMP 04/29/17 05:00 04/29/17 05:00 ASSESSMENT/PLAN: Pt is a 36yo F w/ PMHx of asthma (oral steroid dependent) who presented with SOB and chest tightness, admitted for acute respiratory distress due to acute asthma exacerbation # Acute hypoxic Respiratory distress likely 2/2 to acute asthma exacerbation - Tachypneic , tachycardic with accessory muscle use - Now on 3L NC, O2 sat 94-96 - s/p IV Solumedrol 125mg x1, Duonebs x3, IV Mg 2g x1 - Continue IV Solumedrol 40mg Q8H - Continue Duonebs standing + PRN - Continue home Budesonide + Performist - Respiratory viral panel - Flu swab is negative - O2 as needed - Peak flow daily - started BIPAP, explained risk of intubation - has failed omalizumab therapy and bronchial thermoplasty. - F/U chest X-ray is negative - # Sinus Tachycardia / Tachypnea - likely 2/2 asthma exac + multiple duoneb tx - +SIRS, infectious is less likely, but will r/o infectious process with Blood Cx, Urine Cx, Urine Ag -switch duonebs to ipatroprium. -cardiac monitoring # Lactic Acidosis, resolved - rising, likely 2/2 hypoxia, less likely infectious - 2.8 --> 5.3 --> 2.2 ...1.5 - Continue O2 PRN #Hyperglycemia -BGM ACHS - ISS ACHS while on steroids #GERD -40mg protonix PO BID # H/O Bipolar, - not on any medication , confirmed with pharmacy # FEN - Fluids: on no fluids - Electrolytes: WNL - Nutrition: Regular Diet # Prophylaxis - DVT: Heparin SQ TID - GI: Not indicated - Deconditioning: PT not needed, patient is ambulatory # Dispo - ICU admission due to tenuous respiratory status - Full code Visit type - Emergency Visit Emergency Visit: Yes ED Registration Date: 04/28/17 Care time: The patient presented to the Emergency Department on the above date and was hospitalized for further evaluation of their emergent condition. - New Patient This patient is new to me today: Yes Date on this admission: 04/29/17 - Critical Care Critical Care patient: Yes Total Critical Care Time (in minutes): 40 Critical Care Statement: The care of this patient involved high complexity decision making to prevent further life threatening deterioration of the patient 's condition and/or to evaluate & treat vital organ system(s) failure or risk of failure.
[2017-04-29 06:49] LABS: PLATELET ESTIMATE ADEQUATE (NORMAL); TOTAL CELLS COUNTED 100
[2017-04-29 07:44] LABS: ANION GAP 10 (8-16); CALCIUM 9.4 mg/dL (8.5-10.1); CO2 26 mmol/L (21-32); CREATININE 0.8 mg/dL (0.55-1.02); GLUCOSE,RANDOM 139 mg/dL (74-106); MAGNESIUM 2.3 mg/dL (1.8-2.4)
--- NOTE | 2017-04-29 08:22 | PN ---
Physical Exam: 24H Events: yesterday - given mucomyst, Solumedrol increased 40 to 60mg q8h O/N: could not tolerated Bipap 2/2 coughing SUBJECTIVE: Patient seen and examined in ICU. Patient on Bipap. C/o of HERRERA and sinus pressure. Continues to have cough, now with sputum. No fever or chills. OBJECTIVE: Vital Signs Period Temp Pulse Resp BP Sys/Pate Pulse Ox Last 24 Hr 97.6 F-98.6 F 71-116 16-28 102-131/69-92 96-100 Intake & Output 04/26/17 04/27/17 04/28/17 04/29/17 23:59 23:59 23:59 23:59 Intake Total 400 300 Balance 400 300 Weight 90.718 kg 87.798 kg GENERAL: AAOx3, becomes dyspneic after speaking a few words EYES: sclera anicteric, conjunctiva clear ENT: moist mucous membranes LUNGS: Bilateral expiratory wheezing, +accessory muscle use HEART: tachycardic, regular rhythm, normal S1/S2, no murmur, rub or gallop ABDOMEN: obese, soft, ntnd LOWER EXTREMITIES: 2+ pulses, warm, well-perfused, no edema. CBC, BMP 04/29/17 05:00 04/29/17 05:00 04/28/17 02:45 Urine - Urine Clean Catch Urine Culture - Final 04/28/17 05:45 Blood - Peripheral Venous Blood Culture - Preliminary NO GROWTH OBTAINED AFTER 24 HOURS, INCUBATION TO CONTINUE FOR 4 DAYS. 04/28/17 05:40 Blood - Peripheral Venous Blood Culture - Preliminary NO GROWTH OBTAINED AFTER 24 HOURS, INCUBATION TO CONTINUE FOR 4 DAYS. Current Medications Acetaminophen (Tylenol -) 650 mg PO Q6H PRN PRN Reason: FEVER OR PAIN Last Admin: 04/29/17 13:13 Dose: 650 mg Albuterol Sulfate (Ventolin 0.083% Nebulizer Soln -) 1 amp NEB Q6H PRN PRN Reason: SHORT OF BREATH/WHEEZING Albuterol/Ipratropium (Duoneb -) 1 amp NEB Q4HWA [facility] Last Admin: 04/29/17 14:49 Dose: Not Given Budesonide (Pulmicort 0.5 Mg Nebulizer -) 1 amp NEB BID [facility] Last Admin: 09/26/17 10:16 Dose: 1 amp Chlorhexidine Gluconate (Hibiclens For Decolonization -) 1 applic TP HS [facility] Last Admin: 04/28/17 21:59 Dose: 1 applic Guaifenesin/Codeine Phosphate (Robitussin Ac -) 10 ml PO Q6H PRN PRN Reason: COUGH Last Admin: 04/29/17 15:24 Dose: 10 ml Heparin Sodium (Porcine) (Heparin -) 5,000 unit SQ TID [facility] Last Admin: 04/29/17 14:00 Dose: 5,000 unit Azithromycin 500 mg/ Dextrose 250 mls @ 250 mls/hr IVPB DAILY [facility] Last Admin: 04/29/17 16:28 Dose: 250 mls/hr Insulin Aspart (Novolog Vial Sliding Scale -) 1 vial SQ ACHS [facility] PRN Reason: Protocol Last Admin: 04/29/17 16:49 Dose: Not Given Methylprednisolone Sodium Succinate (Solu-Medrol -) 60 mg IVPB Q8H-IV [facility] Last Admin: 04/29/17 17:09 Dose: 60 mg Montelukast Sodium (Singulair -) 10 mg PO [facility] Mupirocin (Bactroban Ointment (For Decolonization) -) 1 applic NS BID [facility] Stop: 05/03/17 09:59 Last Admin: 04/29/17 10:20 Dose: 1 applic Pantoprazole Sodium (Protonix -) 40 mg PO BID [facility] Last Admin: 04/29/17 10:19 Dose: 40 mg ASSESSMENT/PLAN: 36yo obese woman with PMH of moderate persistent asthma s/p bronchial thermoplasty (2012), on chronic home steroids, and GERD who has asthma exacerbation and possible URI. No improvement with breathing today, worsening cough and congestion. Treated with 0.5mg SQ terbutaline and 0.3mg IM epinephrine today. Restarted Azithromycin 500mg IVPB daily. #status asthmaticus s/p -O2 therapy to maintain pSaO2 > 90% -duo nebs QIDR CARMEN -Albuterol neb q6h prn -Budesonide bid -Montelukast 10mg PO HS -Methylprednisolone 60 mg IVPB Q8H-IV [facility] -Guaifenesin/Codeine 10ml PO q6h PRN -respiratory viral PCR pending - #Hyperglycemia -BGM ACHS and ISS ACHS while on steroids #GERD -40mg protonix PO BID #Lactic acidosis #FEN -Hold IVF -Electrolytes wnl -Regular diet #DVT ppx -scd's -Heparin 5000U sq tid #GI ppx -On protonix bid #Dispo: continue ICU monitoring FULL code d/w Dr. Javi Humphreis MD PGY-1 Visit type - Emergency Visit Emergency Visit: No - New Patient This patient is new to me today: No - Critical Care Critical Care patient: Yes Total Critical Care Time (in minutes): 35 Critical Care Statement: The care of this patient involved high complexity decision making to prevent further life threatening deterioration of the patient 's condition and/or to evaluate & treat vital organ system(s) failure or risk of failure.
[2017-04-29] MEDS: BUDESONIDE 0.5 MG/2 ML INH SUSP VIAL NEB SCH ×2 (10:16→22:00)
[2017-04-29] MEDS: PANTOPRAZOLE 40 MG TABLET (FP) PO SCH ×2 (10:19→21:33)
[2017-04-29] MEDS: MUPIROCIN 2% TOPICAL OINTMENT FOR DECOLONIZATION NS SCH ×2 (10:20→21:33)
[2017-04-29] MEDS ORDERED: TERBUTALINE SULFATE 1 MG/1 ML VIAL SQ ONE (11:47)
[2017-04-29] MEDS: ACETAMINOPHEN 325 MG TABLET (FP) PO PRN (13:13)
--- NOTE | 2017-04-29 13:15 | PN ---
Teaching Attending Note Name of Resident: Cee Humphries ATTENDING PHYSICIAN STATEMENT I saw and evaluated the patient. I reviewed the resident's note and discussed the case with the resident. I agree with the resident's findings and plan as documented. SUBJECTIVE: Pt seen and examined in the ICU. Remains tight, dependent on BiPAP. Does not feel like her exacerbation is breaking. OBJECTIVE: Last Vital Signs Temp Pulse Resp BP Pulse Ox 98.2 F 103 H 26 H 126/86 97 04/29/17 12:00 04/29/17 12:51 04/29/17 12:00 04/29/17 12:00 04/29/17 10:00 Intake & Output 04/26/17 04/27/17 04/28/17 04/29/17 23:59 23:59 23:59 23:59 Intake Total 400 300 Balance 400 300 Weight 200 lb 193 lb 9 oz Gen: tachypneic on BiPAP Heart: tachycardic, regular Lung: diffuse wheezes, rhonchi Abd: soft, nontender Ext: no edema CBC, BMP 04/29/17 05:00 04/29/17 05:00 Active Medications Acetaminophen (Tylenol -) 650 mg PO Q6H PRN PRN Reason: FEVER OR PAIN Albuterol Sulfate (Ventolin 0.083% Nebulizer Soln -) 1 amp NEB Q6H PRN PRN Reason: SHORT OF BREATH/WHEEZING Albuterol/Ipratropium (Duoneb -) 1 amp NEB Q4HWA [facility] Budesonide (Pulmicort 0.5 Mg Nebulizer -) 1 amp NEB BID [facility] Last Admin: 04/29/17 10:16 Dose: 1 amp Chlorhexidine Gluconate (Hibiclens For Decolonization -) 1 applic TP HS [facility] Last Admin: 04/28/17 21:59 Dose: 1 applic Guaifenesin/Codeine Phosphate (Robitussin Ac -) 10 ml PO Q6H PRN PRN Reason: COUGH Heparin Sodium (Porcine) (Heparin -) 5,000 unit SQ TID [facility] Last Admin: 04/29/17 06:28 Dose: 5,000 unit Insulin Aspart (Novolog Vial Sliding Scale -) 1 vial SQ ACHS [facility] PRN Reason: Protocol Last Admin: 04/29/17 06:36 Dose: Not Given Methylprednisolone Sodium Succinate (Solu-Medrol -) 60 mg IVPB Q8H-IV [facility] Last Admin: 04/29/17 10:19 Dose: 60 mg Montelukast Sodium (Singulair -) 10 mg PO HS [facility] Mupirocin (Bactroban Ointment (For Decolonization) -) 1 applic NS BID [facility] Stop: 05/03/17 09:59 Last Admin: 04/29/17 10:20 Dose: 1 applic Pantoprazole Sodium (Protonix -) 40 mg PO BID [facility] Last Admin: 04/29/17 10:19 Dose: 40 mg ASSESSMENT AND PLAN: Status Asthmaticus URI - continue medrol - inhaled bronchodilators standing and PRN - subcutaneous terbutaline, epinephrine as needed - cough suppressants - BiPAP to assist in work of breathing - DVT prophylaxis - continue ICU monitoring for tenuous respiratory status
[2017-04-29] MEDS: ALBUTEROL SO4 2.5/IPRATROPIUM 0.5 INH SOL 3 ML VIAL.NEB. NEB SCH ×4 (14:00→22:00)
[2017-04-29] MEDS: guaiFENesin/CODEINE 10 ML UNIT-DOSE CUPS PO PRN ×2 (15:24→23:25)
[2017-04-29] MEDS ORDERED: EPINEPHrine 1:1,000 0.3 MG/0.3 ML SYR IM ONE (15:28)
[2017-04-29] MEDS ORDERED: DEXTROSE 5% IVPB SCH (15:30)
[2017-04-29] MEDS ORDERED: WATER IVPB SCH (15:30)
[2017-04-29] MEDS ORDERED: AZITHROMYCIN IVPB SCH (15:30)
[2017-04-29] MEDS ORDERED: EPINEPHrine/PF 1 MG/1 ML (1:1,000) AMPULE ONE (15:58)
[2017-04-29] MEDS ORDERED: EPINEPHrine/PF 1 MG/1 ML (1:1,000) AMPULE IM ONE (16:00)
[2017-04-29] MEDS: AZITHROMYCIN IVPB 500 MG in DEXTROSE 5%-WATER - 250 ML IVPB SCH (16:28)
--- NOTE | 2017-04-29 17:28 | PN ---
Teaching Attending Note Name of Resident: Norm Kaufman ATTENDING PHYSICIAN STATEMENT I saw and evaluated the patient. I reviewed the resident's note and discussed the case with the resident. I agree with the resident's findings and plan as documented. SUBJECTIVE: Patient felt more SOB this morning and was placed on BiPAP with improvement. OBJECTIVE: Vital Signs Period Temp Pulse Resp BP Sys/Pate Pulse Ox Last 24 Hr 97.6 F-98.2 F 71-126 16-28 102-129/63-92 96-100 HEART: S1S2, tachycardic LUNGS: Bilateral rhonchi and wheezes ABDOMEN: Obese, soft, non-tender, non-distended, normal BS EXTREMITIES: No edema Current Medications Generic Name Dose Route Start Last Admin Trade Name Freq PRN Reason Stop Dose Admin Acetaminophen 650 mg 04/29/17 06:37 04/29/17 13:13 Tylenol - PO 650 mg Q6H PRN Administration FEVER OR PAIN Albuterol Sulfate 1 amp 04/28/17 20:42 Ventolin 0.083% Nebulizer Soln - NEB Q6H PRN SHORT OF BREATH/WHEEZING Albuterol/Ipratropium 1 amp 04/29/17 12:00 04/29/17 14:49 Duoneb - NEB Not Given Q4HWA [facility] Budesonide 1 amp 04/29/17 10:00 04/29/17 10:16 Pulmicort 0.5 Mg Nebulizer - NEB 1 amp BID [facility] Administration Chlorhexidine Gluconate 1 applic 04/28/17 22:00 04/28/17 21:59 Hibiclens For Decolonization - TP 1 applic HS [facility] Administration Guaifenesin/Codeine Phosphate 10 ml 04/29/17 11:49 04/29/17 15:24 Robitussin Ac - PO 10 ml Q6H PRN Administration COUGH Heparin Sodium (Porcine) 5,000 unit 04/28/17 06:00 04/29/17 14:00 Heparin - SQ 5,000 unit TID [facility] Administration Azithromycin 500 mg/ Dextrose 250 mls @ 250 mls/hr 04/29/17 16:00 04/29/17 16: 28 IVPB 250 mls/hr DAILY [facility] Administration Insulin Aspart 1 vial 04/28/17 16:30 04/29/17 16:49 Novolog Vial Sliding Scale - SQ Not Given ACHS [facility] Protocol Methylprednisolone Sodium Succinate 60 mg 04/28/17 18:40 04/29/17 17:09 Solu-Medrol - IVPB 60 mg Q8H-IV [facility] Administration Montelukast Sodium 10 mg 04/29/17 22:00 Singulair - PO HS [facility] Mupirocin 1 applic 04/28/17 10:00 04/29/17 10:20 Bactroban Ointment (For Decolonization) - NS 05/03/17 09:59 1 applic BID [facility] Administration Pantoprazole Sodium 40 mg 04/28/17 10:00 04/29/17 10:19 Protonix - PO 40 mg BID [facility] Administration ASSESSMENT AND PLAN: This is a 36 year old woman with a history of asthma, bipolar disorder, obesity who presented to the ER with SOB. 1. Acute hypoxic respiratory failure secondary to status asthmaticus with URI - Continue oxygen, BiPAP as needed - Continue SoluMedrol, Singulair, albuterol as needed - DuoNeb, Pulmicort, Zithromax started - Robitussin AC as needed - Failed Xolair and bronchial thermoplasty 2. Lactic acidosis - Resolved 3. Bipolar disorder - Not on medication 4. DVT prophylaxis - Continue heparin subq 5. Stress ulcer prophylaxis - Continue Protonix
--- NOTE | 2017-04-29 20:45 | EKG ---
Test Reason : Blood Pressure : / mmHG Vent. Rate : 115 BPM Atrial Rate : 115 BPM P-R Int : 140 ms QRS Dur : 078 ms QT Int : 334 ms P-R-T Axes : 059 068 038 degrees QTc Int : 462 ms SINUS TACHYCARDIA LOW VOLTAGE QRS RSR' INV1-V2 ATRIAL ABNORMALITY BORDERLINE ECG WHEN COMPARED WITH ECG OF 01-FEB-2017 18:43, NO SIGNIFICANT CHANGE WAS FOUND NO CLINICAL INFORMATION IS AVAILABLE REPEAT EKG IF CLINICALLY INDICATED Confirmed by VASYL DEXTER MD ([id number]) on 04/29/2017 8:44:45 PM Referred By: MD QUARLES Confirmed By:VASYL DEXTER MD
[2017-04-29] MEDS: CHLORHEXIDINE GLUCONATE 4% CLEANSER FOR DECOLONIZATION TP SCH (21:33)
[2017-04-29] MEDS: MONTELUKAST NA 10 MG TABLET PO SCH (21:33)
[2017-04-30] MEDS: methylPREDNISolone NA SUCC 125 MG/2 ML VIAL IVPB SCH ×3 (01:43→19:02)
[2017-04-30] MEDS ORDERED: HEMOQUE CONTROL SOLUTION ONE ×2 (02:17→02:24)
[2017-04-30] MEDS: ALBUTEROL SO4 0.083% IH SOL 2.5 MG/3 ML VIAL.NEB. NEB PRN (03:42)
[2017-04-30] MEDS: INSULIN SLIDING SCALE (NOVOLOG) 1 VIAL SQ SCH ×3 (06:19→19:02)
[2017-04-30] MEDS: HEPARIN NA (PORCINE) 5,000 UNITS/ML 1ML VIAL SQ SCH ×3 (06:19→21:18)
[2017-04-30 06:23] LABS: BASOPHIL 0.1 % (0-2.0); MCH 23.8 pg (25.7-33.7); MCHC 31.8 g/dl (32.0-36.0); MEAN PLT VOLUME 8.8 fl (7.5-11.1); NEUTROPHILS 93.8 % (42.8-82.8); PLATELET COUNT 261 K/MM3 (134-434); RDW 17.3 % (11.6-15.6); WHITE BLOOD COUNT 16.7 K/mm3 (4.0-10.0)
[2017-04-30 06:53] LABS: ANION GAP 8 (8-16); CALCIUM 8.7 mg/dL (8.5-10.1); CO2 30 mmol/L (21-32); CREATININE 0.7 mg/dL (0.55-1.02); GLUCOSE,RANDOM 138 mg/dL (74-106); MAGNESIUM 2.2 mg/dL (1.8-2.4); PHOSPHOROUS 2.8 mg/dL (2.5-4.9)
[2017-04-30] MEDS: ALBUTEROL SO4 2.5/IPRATROPIUM 0.5 INH SOL 3 ML VIAL.NEB. NEB SCH ×5 (07:10→22:40)
[2017-04-30] MEDS ORDERED: PT OWN MED DRAWER 7, Y5N ONE ×4 (08:19→21:17)
[2017-04-30] MEDS: PANTOPRAZOLE 40 MG TABLET (FP) PO SCH ×2 (09:09→21:18)
[2017-04-30] MEDS: guaiFENesin/CODEINE 10 ML UNIT-DOSE CUPS PO PRN ×3 (09:12→23:48)
--- NOTE | 2017-04-30 09:30 | PN ---
Physical Exam: 24H Events: yesterday - started azithromycin, received 1xdose each of epi and terbutaline with some improvement AM - +Rhinovirus culture, CXR stable SUBJECTIVE: Patient seen and examined in ICU. Feels slightly better. Continues to have wheezing and productive cough with greenish sputum. C/o of odynophagia. Denies fever, chills, nausea or vomiting. OBJECTIVE: Vital Signs Period Temp Pulse Resp BP Sys/Pate Pulse Ox Last 24 Hr 97 F-98.8 F 87-126 20-26 90-134/59-89 93-100 Intake & Output 04/27/17 04/28/17 04/29/17 04/30/17 23:59 23:59 23:59 23:59 Intake Total 400 1190 200 Balance 400 1190 200 Weight 90.718 kg 87.798 kg 88.133 kg GENERAL: AAOx3, completing full sentences w/o dyspnea EYES: sclera anicteric, conjunctiva clear ENT: moist mucous membranes LUNGS: Bilateral expiratory wheezing HEART: tachycardic, regular rhythm, normal S1/S2, no murmur, rub or gallop ABDOMEN: obese, soft, ntnd LOWER EXTREMITIES: 2+ pulses, warm, well-perfused, no edema. CBC, BMP 04/30/17 05:10 04/30/17 05:10 Hepatic Panel Total Bilirubin 0.6 mg/dl (0.2-1.0) D 04/27/17 21:50 AST 25 U/L (10-42) D 04/27/17 21:50 ALT 21 U/L (10-40) D 04/27/17 21:50 Alkaline Phosphatase 72 U/L (32-92) D 04/27/17 21:50 Albumin 4.1 g/dl (3.5-5.0) D 04/27/17 21:50 Microbiology 04/28/17 01:30 Nasopharyngeal Swab Respiratory Virus (PCR) - Preliminary 04/28/17 05:45 Blood - Peripheral Venous Blood Culture - Preliminary NO GROWTH OBTAINED AFTER 48 HOURS, INCUBATION TO CONTINUE FOR 3 DAYS. 04/28/17 05:40 Blood - Peripheral Venous Blood Culture - Preliminary NO GROWTH OBTAINED AFTER 48 HOURS, INCUBATION TO CONTINUE FOR 3 DAYS. 04/28/17 02:45 Urine - Urine Clean Catch Urine Culture - Final 04/28/17 02:45 Urine For Antigen Detection Legionella Antigen - Final 04/28/17 02:45 Urine For Antigen Detection Streptococcus pneumoniae Antigen (M - Final 04/28/17 01:30 Nasopharyngeal Swab Influenza Types A,B Antigen ([facility]) - Final 04/28/17 01:30 Nasopharyngeal Swab - Final Active Medications Acetaminophen (Tylenol -) 650 mg PO Q6H PRN PRN Reason: FEVER OR PAIN Last Admin: 04/29/17 13:13 Dose: 650 mg Albuterol Sulfate (Ventolin 0.083% Nebulizer Soln -) 1 amp NEB Q6H PRN PRN Reason: SHORT OF BREATH/WHEEZING Last Admin: 04/30/17 03:42 Dose: 1 amp Albuterol/Ipratropium (Duoneb -) 1 amp NEB Q4HWA [facility] Last Admin: 04/30/17 14:00 Dose: 1 amp Budesonide (Pulmicort 0.5 Mg Nebulizer -) 1 amp NEB BID [facility] Last Admin: 04/30/17 10:15 Dose: 1 amp Chlorhexidine Gluconate (Hibiclens For Decolonization -) 1 applic TP HS [facility] Last Admin: 04/29/17 21:33 Dose: 1 applic Epinephrine HCl (Epinephrine 1:1000 P/F -) 300 mcg IM Q6HPO [facility] Stop: 05/01/17 06:01 Last Admin: 04/30/17 12:04 Dose: 300 mcg Guaifenesin/Codeine Phosphate (Robitussin Ac -) 10 ml PO Q6H PRN PRN Reason: COUGH Last Admin: 04/30/17 09:12 Dose: 10 ml Heparin Sodium (Porcine) (Heparin -) 5,000 unit SQ TID [facility] Last Admin: 04/30/17 14:09 Dose: 5,000 unit Azithromycin 500 mg/ Dextrose 250 mls @ 250 mls/hr IVPB DAILY [facility] Last Admin: 04/30/17 11:39 Dose: 250 mls/hr Insulin Aspart (Novolog Vial Sliding Scale -) 1 vial SQ ACHS [facility] PRN Reason: Protocol Last Admin: 04/30/17 11:40 Dose: Not Given Methylprednisolone Sodium Succinate (Solu-Medrol -) 60 mg IVPB Q8H-IV [facility] Last Admin: 04/30/17 09:08 Dose: 60 mg Montelukast Sodium (Singulair -) 10 mg PO HS [facility] Last Admin: 04/29/17 21:33 Dose: 10 mg Mupirocin (Bactroban Ointment (For Decolonization) -) 1 applic NS BID [facility] Stop: 05/03/17 09:59 Last Admin: 04/30/17 11:39 Dose: 1 applic Pantoprazole Sodium (Protonix -) 40 mg PO BID [facility] Last Admin: 04/30/17 09:09 Dose: 40 mg Terbutaline Sulfate (Brethine Injection -) 0.5 mg SQ Q4HPO [facility] Stop: 05/01/17 10:01 Last Admin: 04/30/17 12:05 Dose: 0.5 mg ASSESSMENT/PLAN: 36yo obese woman with PMH of moderate persistent asthma s/p bronchial thermoplasty (2012), on chronic home steroids, and GERD who is status asthamaticus with URI (+Rhinovirus culture) #asthma exacerbation -O2 therapy to maintain pSaO2 > 90% -duo nebs q4h PRN + QIDR CARMEN -Budesonide -Solumedrol 40mg IVPB q8h -Epinephrine 0.3mg IM Q6H standing -Terbutaline 0.5mg SQ Q4H standing #Hyperglycemia -BGM ACHS and ISS ACHS while on steroids #GERD -40mg protonix PO BID #Lactic acidosis, resolved #FEN -Hold IVF -Electrolytes wnl -Regular diet #DVT ppx -Heparin 5000U sq tid #GI ppx -On protonix bid #Dispo: continue ICU monitoring FULL code d/w Dr. Caldwell Visit type - Emergency Visit Emergency Visit: No - New Patient This patient is new to me today: No - Critical Care Critical Care patient: Yes Total Critical Care Time (in minutes): 35 Critical Care Statement: The care of this patient involved high complexity decision making to prevent further life threatening deterioration of the patient 's condition and/or to evaluate & treat vital organ system(s) failure or risk of failure.
--- NOTE | 2017-04-30 10:10 | PN ---
Physical Exam: SUBJECTIVE: Patient seen and examined at bedside. Patient on Bipap. C/o of HERRERA and sinus pressure. Continues to have cough, now with greenish sputum. No fever or chills. Could not tolerated Bipap 2/2 coughing. She was given Azithromycin, Terbutaline and epi last night. OBJECTIVE: Vital Signs Period Temp Pulse Resp BP Sys/Pate Pulse Ox Last 24 Hr 97 F-98.8 F 87-126 20-26 90-134/59-89 93-100 GENERAL: The patient is awake, alert, and fully oriented, in moderate respiratory distress distress. not able to speak with full sentences without being dyspneic HEAD: Normal with no signs of trauma. EYES: sclera anicteric, conjunctiva clear. ENT: moist mucous membranes. LUNGS: diffuse expiratory wheeze, accessory muscle use. HEART: tachycardia, S1, S2 without murmur, rub or gallop. ABDOMEN: Soft, nontender, nondistended, normoactive bowel sounds, no guarding, no rebound tenderness. EXTREMITIES: 2+ pulses, warm, well-perfused, no edema. NEUROLOGICAL: with good mentation PSYCH: Normal mood, normal affect. SKIN: Warm, dry, no rashes or lesions noted Laboratory Results - last 24 hr 04/28/17 04/29/17 04/29/17 21:54 06:33 11:00 WBC RBC Hgb Hct MCV MCH MCHC RDW Plt Count MPV Neutrophils % Lymphocytes % Monocytes % Eosinophils % Basophils % Sodium Potassium Chloride Carbon Dioxide Anion Gap BUN Creatinine POC Glucometer 134.56810 162.35924 144.29219 Random Glucose Calcium Phosphorus Magnesium 04/29/17 04/29/17 04/30/17 16:48 21:46 05:10 WBC 16.7 H RBC 4.87 Hgb 11.6 Hct 36.5 MCV 75.0 L MCH 23.8 L MCHC 31.8 L RDW 17.3 H Plt Count 261 MPV 8.8 Neutrophils % 93.8 H Lymphocytes % 4.2 L Monocytes % 1.9 L Eosinophils % 0.0 Basophils % 0.1 Sodium Potassium Chloride Carbon Dioxide Anion Gap BUN Creatinine POC Glucometer 163.06327 [phone] Random Glucose Calcium Phosphorus Magnesium 04/30/17 04/30/17 05:10 05:54 WBC RBC Hgb Hct MCV MCH MCHC RDW Plt Count MPV Neutrophils % Lymphocytes % Monocytes % Eosinophils % Basophils % Sodium 138 Potassium 4.6 Chloride 100 Carbon Dioxide 30 Anion Gap 8 BUN 17 Creatinine 0.7 POC Glucometer [phone] Random Glucose 138 H Calcium 8.7 Phosphorus 2.8 Magnesium 2.2 Active Medications Generic Name Dose Route Start Last Admin Trade Name Freq PRN Reason Stop Dose Admin Acetaminophen 650 mg 04/29/17 06:37 04/29/17 13:13 Tylenol - PO 650 mg Q6H PRN Administration FEVER OR PAIN Albuterol Sulfate 1 amp 04/28/17 20:42 04/30/17 03:42 Ventolin 0.083% Nebulizer Soln - NEB 1 amp Q6H PRN Administration SHORT OF BREATH/WHEEZING Albuterol/Ipratropium 1 amp 04/29/17 12:00 04/30/17 07:10 Duoneb - NEB 1 amp Q4HWA [facility] Administration Budesonide 1 amp 04/29/17 10:00 04/29/17 22:00 Pulmicort 0.5 Mg Nebulizer - NEB 1 amp BID [facility] Administration Chlorhexidine Gluconate 1 applic 04/28/17 22:00 04/29/17 21:33 Hibiclens For Decolonization - TP 1 applic HS [facility] Administration Guaifenesin/Codeine Phosphate 10 ml 04/29/17 11:49 04/30/17 09:12 Robitussin Ac - PO 10 ml Q6H PRN Administration COUGH Heparin Sodium (Porcine) 5,000 unit 04/28/17 06:00 04/30/17 06:19 Heparin - SQ 5,000 unit TID [facility] Administration Azithromycin 500 mg/ Dextrose 250 mls @ 250 mls/hr 04/29/17 16:00 04/29/17 16: 28 IVPB 250 mls/hr DAILY [facility] Administration Insulin Aspart 1 vial 04/28/17 16:30 04/30/17 06:19 Novolog Vial Sliding Scale - SQ Not Given ACHS [facility] Protocol Methylprednisolone Sodium Succinate 60 mg 04/28/17 18:40 04/30/17 09:08 Solu-Medrol - IVPB 60 mg Q8H-IV [facility] Administration Montelukast Sodium 10 mg 04/29/17 22:00 04/29/17 21:33 Singulair - PO 10 mg HS [facility] Administration Mupirocin 1 applic 04/28/17 10:00 04/29/17 21:33 Bactroban Ointment (For Decolonization) - NS 05/03/17 09:59 1 applic BID [facility] Administration Pantoprazole Sodium 40 mg 04/28/17 10:00 04/30/17 09:09 Protonix - PO 40 mg BID [facility] Administration Microbiology 04/28/17 01:30 Nasopharyngeal Swab Respiratory Virus (PCR) - Preliminary 04/28/17 05:45 Blood - Peripheral Venous Blood Culture - Preliminary NO GROWTH OBTAINED AFTER 48 HOURS, INCUBATION TO CONTINUE FOR 3 DAYS. 04/28/17 05:40 Blood - Peripheral Venous Blood Culture - Preliminary NO GROWTH OBTAINED AFTER 48 HOURS, INCUBATION TO CONTINUE FOR 3 DAYS. 04/28/17 02:45 Urine - Urine Clean Catch Urine Culture - Final 04/28/17 02:45 Urine For Antigen Detection Legionella Antigen - Final 04/28/17 02:45 Urine For Antigen Detection Streptococcus pneumoniae Antigen (M - Final 04/28/17 01:30 Nasopharyngeal Swab Influenza Types A,B Antigen ([facility]) - Final 04/28/17 01:30 Nasopharyngeal Swab - Final CBC, BMP 04/30/17 05:10 04/30/17 05:10 ASSESSMENT/PLAN: Pt is a 36yo F w/ PMHx of asthma (oral steroid dependent) who presented with SOB and chest tightness, admitted for acute respiratory distress due to acute asthma exacerbation # Acute hypoxic Respiratory distress likely 2/2 to acute asthma exacerbation- Status Asmaticus - Tachypneic , tachycardic with accessory muscle use - Now on 3L NC, O2 sat 94-96 - s/p IV Solumedrol 125mg x1, Duonebs x3, IV Mg 2g x1 - Continue IV Solumedrol 60mg Q8H - switch Duonebs to Ipratropium PRN - Continue home Budesonide + Performist - Respiratory viral panel - Flu swab is negative - O2 as needed - Peak flow daily -cardiac monitoring - started BIPAP to help with work of breathing, explained risk of intubation - has failed omalizumab therapy and bronchial thermoplasty. - F/U chest X-ray is negative - started on Azithromcine 500 mg PO daily - Terbutaline 0.5 mg SQ and Epi 300 micg IM, PRN - cough suppressant #URI , Rhinovirus , -continue same treatment # Sinus Tachycardia / Tachypnea - likely 2/2 asthma exac + multiple duoneb tx - +SIRS, infectious is less likely, but will r/o infectious process with Blood Cx, Urine Cx, Urine Ag -switch duonebs to ipatroprium. -cardiac monitoring # Lactic Acidosis, resolved - rising, likely 2/2 hypoxia, less likely infectious - 2.8 --> 5.3 --> 2.2 ...1.5 - Continue O2 PRN # Leukocytosis, Likely 2/2 steroid use vs viral infection - continue monitoring - will taper steroid when stable #Hyperglycemia -BGM ACHS - ISS ACHS while on steroids #GERD -40mg protonix PO BID # H/O Bipolar, - not on any medication , confirmed with pharmacy # FEN - Fluids: on no fluids - Electrolytes: WNL - Nutrition: Regular Diet # Prophylaxis - DVT: Heparin SQ TID - GI: Not indicated - Deconditioning: PT not needed, patient is ambulatory # Dispo - ICU admission due to tenuous respiratory status - Full code Visit type - Emergency Visit Emergency Visit: Yes ED Registration Date: 04/28/17 Care time: The patient presented to the Emergency Department on the above date and was hospitalized for further evaluation of their emergent condition. - New Patient This patient is new to me today: No - Critical Care Critical Care patient: Yes Total Critical Care Time (in minutes): 40 Critical Care Statement: The care of this patient involved high complexity decision making to prevent further life threatening deterioration of the patient 's condition and/or to evaluate & treat vital organ system(s) failure or risk of failure. - Discharge Referral Referred to [facility] Med [facility].C[facility] No
[2017-04-30] MEDS: BUDESONIDE 0.5 MG/2 ML INH SUSP VIAL NEB SCH ×2 (10:15→22:40)
[2017-04-30] MEDS: MUPIROCIN 2% TOPICAL OINTMENT FOR DECOLONIZATION NS SCH ×2 (11:39→21:07)
[2017-04-30] MEDS: AZITHROMYCIN IVPB 500 MG in DEXTROSE 5%-WATER - 250 ML IVPB SCH (11:39)
[2017-04-30] MEDS ORDERED: EPINEPHrine/PF 1 MG/1 ML (1:1,000) AMPULE ONE (11:48)
[2017-04-30] MEDS: EPINEPHrine/PF 1 MG/1 ML (1:1,000) AMPULE IM SCH ×3 (12:04→23:43)
[2017-04-30] MEDS: TERBUTALINE SULFATE 1 MG/1 ML VIAL SQ SCH ×3 (12:05→21:55)
--- NOTE | 2017-04-30 13:36 | PN ---
Teaching Attending Note Name of Resident: Cee Humphries ATTENDING PHYSICIAN STATEMENT I saw and evaluated the patient. I reviewed the resident's note and discussed the case with the resident. I agree with the resident's findings and plan as documented. SUBJECTIVE: Pt seen and examined in the ICU. Feels minimally improved. Still with chest tightness, cough and wheezing. OBJECTIVE: Last Vital Signs Temp Pulse Resp BP Pulse Ox 98.5 F 101 H 20 114/83 94 L 04/30/17 10:00 04/30/17 12:05 04/30/17 12:00 04/30/17 12:00 04/30/17 12:19 Intake & Output 04/27/17 04/28/17 04/29/17 04/30/17 23:59 23:59 23:59 23:59 Intake Total 400 1190 200 Balance 400 1190 200 Weight 200 lb 193 lb 9 oz 194 lb 4.8 oz Gen: tachypneic at rest Heart: tachycardic, regular Lung: diffuse rhonchi, wheezes Abd: soft, nontender Ext: no edema CBC, BMP 04/30/17 05:10 04/30/17 05:10 Active Medications Acetaminophen (Tylenol -) 650 mg PO Q6H PRN PRN Reason: FEVER OR PAIN Last Admin: 04/29/17 13:13 Dose: 650 mg Albuterol Sulfate (Ventolin 0.083% Nebulizer Soln -) 1 amp NEB Q6H PRN PRN Reason: SHORT OF BREATH/WHEEZING Last Admin: 04/30/17 03:42 Dose: 1 amp Albuterol/Ipratropium (Duoneb -) 1 amp NEB Q4HWA [facility] Last Admin: 04/30/17 10:00 Dose: 1 amp Budesonide (Pulmicort 0.5 Mg Nebulizer -) 1 amp NEB BID [facility] Last Admin: 04/30/17 10:15 Dose: 1 amp Chlorhexidine Gluconate (Hibiclens For Decolonization -) 1 applic TP HS [facility] Last Admin: 04/29/17 21:33 Dose: 1 applic Epinephrine HCl (Epinephrine 1:1000 P/F -) 300 mcg IM Q6HPO [facility] Stop: 05/01/17 06:01 Last Admin: 04/30/17 12:04 Dose: 300 mcg Guaifenesin/Codeine Phosphate (Robitussin Ac -) 10 ml PO Q6H PRN PRN Reason: COUGH Last Admin: 04/30/17 09:12 Dose: 10 ml Heparin Sodium (Porcine) (Heparin -) 5,000 unit SQ TID [facility] Last Admin: 04/30/17 06:19 Dose: 5,000 unit Azithromycin 500 mg/ Dextrose 250 mls @ 250 mls/hr IVPB DAILY [facility] Last Admin: 04/30/17 11:39 Dose: 250 mls/hr Insulin Aspart (Novolog Vial Sliding Scale -) 1 vial SQ ACHS [facility] PRN Reason: Protocol Last Admin: 04/30/17 11:40 Dose: Not Given Methylprednisolone Sodium Succinate (Solu-Medrol -) 60 mg IVPB Q8H-IV [facility] Last Admin: 04/30/17 09:08 Dose: 60 mg Montelukast Sodium (Singulair -) 10 mg PO HS [facility] Last Admin: 04/29/17 21:33 Dose: 10 mg Mupirocin (Bactroban Ointment (For Decolonization) -) 1 applic NS BID [facility] Stop: 05/03/17 09:59 Last Admin: 04/30/17 11:39 Dose: 1 applic Pantoprazole Sodium (Protonix -) 40 mg PO BID [facility] Last Admin: 04/30/17 09:09 Dose: 40 mg Terbutaline Sulfate (Brethine Injection -) 0.5 mg SQ Q4HPO [facility] Stop: 05/01/17 10:01 Last Admin: 04/30/17 12:05 Dose: 0.5 mg ASSESSMENT AND PLAN: Status Asthmaticus URI +Rhinovirus - continue medrol - inhaled bronchodilators standing and PRN - subcutaneous terbutaline, epinephrine - cough suppressants - BiPAP to assist in work of breathing - DVT prophylaxis - continue ICU monitoring for tenuous respiratory status critical care time spent in reviewing chart, evaluating patient and formulating plan 35 min
[2017-04-30] MEDS: ACETAMINOPHEN 325 MG TABLET (FP) PO PRN (15:39)
--- NOTE | 2017-04-30 18:03 | PN ---
Teaching Attending Note Name of Resident: Norm Kaufman ATTENDING PHYSICIAN STATEMENT I saw and evaluated the patient. I reviewed the resident's note and discussed the case with the resident. I agree with the resident's findings and plan as documented. SUBJECTIVE: Patient feels only slightly better. No new complaints. OBJECTIVE: Vital Signs Period Temp Pulse Resp BP Sys/Pate Pulse Ox Last 24 Hr 97 F-98.8 F 87-118 20-24 90-134/59-89 93-100 HEART: S1S2, tachycardic LUNGS: Bilateral rhonchi and wheezes ABDOMEN: Obese, soft, non-tender, non-distended, normal BS EXTREMITIES: No edema Current Medications Generic Name Dose Route Start Last Admin Trade Name Freq PRN Reason Stop Dose Admin Acetaminophen 650 mg 04/29/17 06:37 04/30/17 15:39 Tylenol - PO 650 mg Q6H PRN Administration FEVER OR PAIN Albuterol Sulfate 1 amp 04/28/17 20:42 04/30/17 03:42 Ventolin 0.083% Nebulizer Soln - NEB 1 amp Q6H PRN Administration SHORT OF BREATH/WHEEZING Albuterol/Ipratropium 1 amp 04/29/17 12:00 04/30/17 14:00 Duoneb - NEB 1 amp Q4HWA [facility] Administration Budesonide 1 amp 04/29/17 10:00 04/30/17 10:15 Pulmicort 0.5 Mg Nebulizer - NEB 1 amp BID [facility] Administration Chlorhexidine Gluconate 1 applic 04/28/17 22:00 04/29/17 21:33 Hibiclens For Decolonization - TP 1 applic HS [facility] Administration Epinephrine HCl 300 mcg 04/30/17 12:15 04/30/17 12:04 Epinephrine 1:1000 P/F - IM 05/01/17 06:01 300 mcg Q6HPO [facility] Administration Guaifenesin/Codeine Phosphate 10 ml 04/29/17 11:49 04/30/17 15:37 Robitussin Ac - PO 10 ml Q6H PRN Administration COUGH Heparin Sodium (Porcine) 5,000 unit 04/28/17 06:00 04/30/17 14:09 Heparin - SQ 5,000 unit TID [facility] Administration Azithromycin 500 mg/ Dextrose 250 mls @ 250 mls/hr 04/29/17 16:00 04/30/17 11: 39 IVPB 250 mls/hr DAILY [facility] Administration Insulin Aspart 1 vial 04/28/17 16:30 04/30/17 11:40 Novolog Vial Sliding Scale - SQ Not Given [facility]CHS [facility] Protocol Methylprednisolone Sodium Succinate 60 mg 04/28/17 18:40 04/30/17 09:08 Solu-Medrol - IVPB 60 mg Q8H-IV [facility] Administration Montelukast Sodium 10 mg 04/29/17 22:00 04/29/17 21:33 Singulair - PO 10 mg HS [facility] Administration Mupirocin 1 applic 04/28/17 10:00 04/30/17 11:39 Bactroban Ointment (For Decolonization) - NS 05/03/17 09:59 1 applic BID [facility] Administration Pantoprazole Sodium 40 mg 04/28/17 10:00 04/30/17 09:09 Protonix - PO 40 mg BID [facility] Administration Terbutaline Sulfate 0.5 mg 04/30/17 12:00 04/30/17 12:05 Brethine Injection - SQ 05/01/17 10:01 0.5 mg Q4HPO [facility] Administration ASSESSMENT AND PLAN: This is a 36 year old woman with a history of asthma, bipolar disorder, obesity who presented to the ER with SOB. 1. Acute hypoxic respiratory failure secondary to status asthmaticus with URI - Continue oxygen, BiPAP as needed - Continue SoluMedrol, Singulair, Pulmicort, DuoNeb, Zithromax, Robitussin AC as needed, albuterol as needed - IM epinephrine, SQ Terbutaline started - Failed Xolair and bronchial thermoplasty 2. Lactic acidosis - Resolved 3. Bipolar disorder - Not on medication 4. DVT prophylaxis - Continue heparin subq 5. Stress ulcer prophylaxis - Continue Protonix
[2017-04-30] MEDS: CHLORHEXIDINE GLUCONATE 4% CLEANSER FOR DECOLONIZATION TP SCH (21:07)
[2017-04-30] MEDS: MONTELUKAST NA 10 MG TABLET PO SCH (21:18)
[2017-05-01] MEDS: TERBUTALINE SULFATE 1 MG/1 ML VIAL SQ SCH ×3 (01:38→11:58)
[2017-05-01] MEDS: methylPREDNISolone NA SUCC 125 MG/2 ML VIAL IVPB SCH ×3 (01:47→17:56)
[2017-05-01] MEDS: ALBUTEROL SO4 0.083% IH SOL 2.5 MG/3 ML VIAL.NEB. NEB PRN (04:47)
[2017-05-01 06:21] LABS: BASOPHIL 0.1 % (0-2.0); MCHC 31.8 g/dl (32.0-36.0); MEAN CELL VOLUME 75.3 fl (80-96); NEUTROPHILS 91.6 % (42.8-82.8); PLATELET COUNT 283 K/MM3 (134-434); RDW 17.4 % (11.6-15.6)
[2017-05-01] MEDS: EPINEPHrine/PF 1 MG/1 ML (1:1,000) AMPULE IM SCH (06:30)
[2017-05-01] MEDS: HEPARIN NA (PORCINE) 5,000 UNITS/ML 1ML VIAL SQ SCH ×3 (06:30→22:17)
[2017-05-01] MEDS: ALBUTEROL SO4 2.5/IPRATROPIUM 0.5 INH SOL 3 ML VIAL.NEB. NEB SCH ×5 (06:38→21:24)
[2017-05-01] MEDS: INSULIN SLIDING SCALE (NOVOLOG) 1 VIAL SQ SCH ×2 (06:43→16:41)
[2017-05-01] MEDS ORDERED: INSULIN SLIDING SCALE (NOVOLOG) 1 VIAL SQ SCH (07:00)
[2017-05-01 07:09] LABS: ALBUMIN 3.2 g/dl (3.4-5.0); ANION GAP 10 (8-16); CALCIUM 8.8 mg/dL (8.5-10.1); CO2 29 mmol/L (21-32); GLUCOSE,RANDOM 145 mg/dL (74-106); MAGNESIUM 2.3 mg/dL (1.8-2.4); SGOT/AST 15 U/L (15-37)
[2017-05-01 07:11] LABS: ALK PHOS 68 U/L (45-117); BILIRUBIN,TOTAL 0.3 mg/dL (0.2-1.0); CREATININE 0.7 mg/dL (0.55-1.02); PHOSPHOROUS 3.3 mg/dL (2.5-4.9); SGPT/ALT 34 U/L (12-78); TOT PROT 6.4 g/dl (6.4-8.2)
--- NOTE | 2017-05-01 08:22 | PN ---
Physical Exam: 24H Events: yesterday - epi q6h + terbutaline q4h standing ON and AM: no events, intermittently using BiPAP SUBJECTIVE: Patient seen and examined in ICU. Feels breathing slightly improved. Continues wheezing and having productive cough. Some flushing and chest palpitations from epinephrine yesterday. Denies fever or chills. No BM, but +flatus. OBJECTIVE: Vital Signs Period Temp Pulse Resp BP Sys/Pate Pulse Ox Last 24 Hr 98.5 F-98.8 F 82-122 20-30 103-131/58-85 93-97 Intake & Output 04/28/17 04/29/17 04/30/17 05/01/17 23:59 23:59 23:59 23:59 Intake Total 400 1190 700 260 Balance 400 1190 700 260 Weight 87.798 kg 88.133 kg GENERAL: AAOx3, completing full sentences w/o dyspnea EYES: sclera anicteric, conjunctiva clear ENT: moist mucous membranes LUNGS: Bilateral expiratory wheezing HEART: rrr normal S1/S2, no murmur, rub or gallop ABDOMEN: obese, soft, ntnd LOWER EXTREMITIES: 2+ pulses, warm, well-perfused, no edema. CBC, BMP 05/01/17 05:10 05/01/17 05:10 Ca - 8.8 Phos - 3.3 Mg 2.3 Hepatic Panel Total Bilirubin 0.3 mg/dL (0.2-1.0) D 05/01/17 05:10 AST 15 U/L (15-37) D 05/01/17 05:10 ALT 34 U/L (12-78) D 05/01/17 05:10 Alkaline Phosphatase 68 U/L (45-117) 05/01/17 05:10 Albumin 3.2 g/dl (3.4-5.0) L 05/01/17 05:10 Active Medications Acetaminophen (Tylenol -) 650 mg PO Q6H PRN PRN Reason: FEVER OR PAIN Last Admin: 04/30/17 15:39 Dose: 650 mg Albuterol Sulfate (Ventolin 0.083% Nebulizer Soln -) 1 amp NEB Q6H PRN PRN Reason: SHORT OF BREATH/WHEEZING Last Admin: 05/01/17 04:47 Dose: 1 amp Albuterol/Ipratropium (Duoneb -) 1 amp NEB Q4HWA [facility] Last Admin: 05/01/17 14:13 Dose: 1 amp Budesonide (Pulmicort 0.5 Mg Nebulizer -) 1 amp NEB BID [facility] Last Admin: 05/01/17 10:09 Dose: 1 amp Chlorhexidine Gluconate (Hibiclens For Decolonization -) 1 applic TP HS [facility] Last Admin: 04/30/17 21:07 Dose: 1 applic Guaifenesin/Codeine Phosphate (Robitussin Ac -) 10 ml PO Q6H PRN PRN Reason: COUGH Last Admin: 05/01/17 10:31 Dose: 10 ml Heparin Sodium (Porcine) (Heparin -) 5,000 unit SQ TID [facility] Last Admin: 05/01/17 14:51 Dose: 5,000 unit Azithromycin 500 mg/ Dextrose 250 mls @ 250 mls/hr IVPB DAILY [facility] Last Admin: 05/01/17 10:29 Dose: 250 mls/hr Insulin Aspart (Novolog Vial Sliding Scale -) 1 vial SQ BIDAC [facility] PRN Reason: Protocol Last Admin: 05/01/17 06:43 Dose: Not Given Methylprednisolone Sodium Succinate (Solu-Medrol -) 60 mg IVPB Q8H-IV [facility] Last Admin: 05/01/17 10:30 Dose: 60 mg Montelukast Sodium (Singulair -) 10 mg PO HS [facility] Last Admin: 04/30/17 21:18 Dose: 10 mg Mupirocin (Bactroban Ointment (For Decolonization) -) 1 applic NS BID [facility] Stop: 05/03/17 09:59 Last Admin: 05/01/17 10:23 Dose: 1 applic Pantoprazole Sodium (Protonix -) 40 mg PO BID [facility] Last Admin: 05/01/17 10:30 Dose: 40 mg Terbutaline Sulfate (Brethine Injection -) 0.5 mg SQ Q4H PRN PRN Reason: ASTHMA ASSESSMENT/PLAN: 36yo obese woman with PMH of moderate persistent asthma s/p bronchial thermoplasty (2012), on chronic home steroids, and GERD who is status asthamaticus with URI (+Rhinovirus culture). #asthma exacerbation -O2 therapy to maintain pSaO2 > 90% -duo nebs q4h PRN + QIDR [facility] -Budesonide -Solumedrol 40mg IVPB q8h -Terbutaline 0.5mg SQ Q4H PRN #Hyperglycemia -BGM ACHS and ISS ACHS while on steroids #GERD -40mg protonix PO BID #Lactic acidosis, resolved #FEN -Hold IVF -Electrolytes wnl -Regular diet #DVT ppx -Heparin 5000U sq tid #GI ppx -On protonix 40mg PO BID #Dispo: continue ICU monitoring FULL code d/w Dr. Javi Humphries MD PGY-1 Visit type - Emergency Visit Emergency Visit: No - New Patient This patient is new to me today: No - Critical Care Critical Care patient: Yes Total Critical Care Time (in minutes): 35 Critical Care Statement: The care of this patient involved high complexity decision making to prevent further life threatening deterioration of the patient 's condition and/or to evaluate & treat vital organ system(s) failure or risk of failure.
[2017-05-01] MEDS: BUDESONIDE 0.5 MG/2 ML INH SUSP VIAL NEB SCH ×2 (10:09→21:38)
[2017-05-01] MEDS: MUPIROCIN 2% TOPICAL OINTMENT FOR DECOLONIZATION NS SCH ×2 (10:23→22:18)
[2017-05-01] MEDS ORDERED: PT OWN MED DRAWER 7, Y5N ONE (10:28)
[2017-05-01] MEDS: AZITHROMYCIN IVPB 500 MG in DEXTROSE 5%-WATER - 250 ML IVPB SCH (10:29)
[2017-05-01] MEDS: PANTOPRAZOLE 40 MG TABLET (FP) PO SCH ×2 (10:30→22:18)
[2017-05-01] MEDS: guaiFENesin/CODEINE 10 ML UNIT-DOSE CUPS PO PRN ×2 (10:31→22:18)
--- NOTE | 2017-05-01 11:26 | PN ---
Teaching Attending Note Name of Resident: Norm Kaufman ATTENDING PHYSICIAN STATEMENT I saw and evaluated the patient. I reviewed the resident's note and discussed the case with the resident. I agree with the resident's findings and plan as documented. SUBJECTIVE: Patient is coughing. She feels like she is improving. Off BiPAP. OBJECTIVE: Vital Signs Period Temp Pulse Resp BP Sys/Pate Pulse Ox Last 24 Hr 98.6 F-98.8 F 82-122 20-30 103-129/58-85 93-97 HEART: S1S2, tachycardic LUNGS: Bilateral rhonchi ABDOMEN: Obese, soft, non-tender, non-distended, normal BS EXTREMITIES: No edema Current Medications Generic Name Dose Route Start Last Admin Trade Name Freq PRN Reason Stop Dose Admin Acetaminophen 650 mg 04/29/17 06:37 04/30/17 15:39 Tylenol - PO 650 mg Q6H PRN Administration FEVER OR PAIN Albuterol Sulfate 1 amp 04/28/17 20:42 05/01/17 04:47 Ventolin 0.083% Nebulizer Soln - NEB 1 amp Q6H PRN Administration SHORT OF BREATH/WHEEZING Albuterol/Ipratropium 1 amp 04/29/17 12:00 05/01/17 10:10 Duoneb - NEB 1 amp Q4HWA [facility] Administration Budesonide 1 amp 04/29/17 10:00 05/01/17 10:09 Pulmicort 0.5 Mg Nebulizer - NEB 1 amp BID [facility] Administration Chlorhexidine Gluconate 1 applic 04/28/17 22:00 04/30/17 21:07 Hibiclens For Decolonization - TP 1 applic HS [facility] Administration Guaifenesin/Codeine Phosphate 10 ml 04/29/17 11:49 05/01/17 10:31 Robitussin Ac - PO 10 ml Q6H PRN Administration COUGH Heparin Sodium (Porcine) 5,000 unit 04/28/17 06:00 05/01/17 06:30 Heparin - SQ 5,000 unit TID [facility] Administration Azithromycin 500 mg/ Dextrose 250 mls @ 250 mls/hr 04/29/17 16:00 05/01/17 10: 29 IVPB 250 mls/hr DAILY [facility] Administration Insulin Aspart 1 vial 05/01/17 07:00 05/01/17 06:43 Novolog Vial Sliding Scale - SQ Not Given BIDAC [facility] Protocol Methylprednisolone Sodium Succinate 60 mg 04/28/17 18:40 05/01/17 10:30 Solu-Medrol - IVPB 60 mg Q8H-IV [facility] Administration Montelukast Sodium 10 mg 04/29/17 22:00 04/30/17 21:18 Singulair - PO 10 mg HS [facility] Administration Mupirocin 1 applic 04/28/17 10:00 05/01/17 10:23 Bactroban Ointment (For Decolonization) - NS 05/03/17 09:59 1 applic BID [facility] Administration Pantoprazole Sodium 40 mg 04/28/17 10:00 05/01/17 10:30 Protonix - PO 40 mg BID [facility] Administration ASSESSMENT AND PLAN: This is a 36 year old woman with a history of asthma, bipolar disorder, obesity who presented to the ER with SOB. 1. Acute hypoxic respiratory failure secondary to status asthmaticus with URI - Continue oxygen, BiPAP as needed - Continue SoluMedrol, Singulair, Pulmicort, DuoNeb, Zithromax, Robitussin AC as needed, albuterol as needed - Failed Xolair and bronchial thermoplasty 2. Lactic acidosis - Resolved 3. Bipolar disorder - Not on medication 4. DVT prophylaxis - Continue heparin subq 5. Stress ulcer prophylaxis - Continue Protonix
[2017-05-01] MEDS ORDERED: TERBUTALINE SULFATE 1 MG/1 ML VIAL SQ PRN (11:58)
--- NOTE | 2017-05-01 12:48 | PN ---
Teaching Attending Note Name of Resident: Cee Humphries ATTENDING PHYSICIAN STATEMENT I saw and evaluated the patient. I reviewed the resident's note and discussed the case with the resident. I agree with the resident's findings and plan as documented. SUBJECTIVE: Pt seen and examined in the ICU. Slightly better today. Still with cough, wheezing, intermittent BiPAP. OBJECTIVE: Last Vital Signs Temp Pulse Resp BP Pulse Ox 98.6 F 112 H 24 122/75 94 L 05/01/17 09:57 05/01/17 11:58 05/01/17 09:57 05/01/17 09:57 05/01/17 10:09 Intake & Output 04/28/17 04/29/17 04/30/17 05/01/17 23:59 23:59 23:59 23:59 Intake Total 400 1190 700 260 Balance 400 1190 700 260 Weight 193 lb 9 oz 194 lb 4.8 oz Gen: tachypneic at rest Heart: tachycardic, regular Lung: diffuse rhonchi, wheezes Abd: soft, nontender Ext: no edema CBC, BMP 05/01/17 05:10 05/01/17 05:10 Active Medications Acetaminophen (Tylenol -) 650 mg PO Q6H PRN PRN Reason: FEVER OR PAIN Last Admin: 04/30/17 15:39 Dose: 650 mg Albuterol Sulfate (Ventolin 0.083% Nebulizer Soln -) 1 amp NEB Q6H PRN PRN Reason: SHORT OF BREATH/WHEEZING Last Admin: 05/01/17 04:47 Dose: 1 amp Albuterol/Ipratropium (Duoneb -) 1 amp NEB Q4HWA [facility] Last Admin: 05/01/17 10:10 Dose: 1 amp Budesonide (Pulmicort 0.5 Mg Nebulizer -) 1 amp NEB BID [facility] Last Admin: 05/01/17 10:09 Dose: 1 amp Chlorhexidine Gluconate (Hibiclens For Decolonization -) 1 applic TP HS [facility] Last Admin: 04/30/17 21:07 Dose: 1 applic Guaifenesin/Codeine Phosphate (Robitussin Ac -) 10 ml PO Q6H PRN PRN Reason: COUGH Last Admin: 05/01/17 10:31 Dose: 10 ml Heparin Sodium (Porcine) (Heparin -) 5,000 unit SQ TID [facility] Last Admin: 05/01/17 06:30 Dose: 5,000 unit Azithromycin 500 mg/ Dextrose 250 mls @ 250 mls/hr IVPB DAILY [facility] Last Admin: 05/01/17 10:29 Dose: 250 mls/hr Insulin Aspart (Novolog Vial Sliding Scale -) 1 vial SQ BIDAC [facility] PRN Reason: Protocol Last Admin: 05/01/17 06:43 Dose: Not Given Methylprednisolone Sodium Succinate (Solu-Medrol -) 60 mg IVPB Q8H-IV [facility] Last Admin: 05/01/17 10:30 Dose: 60 mg Montelukast Sodium (Singulair -) 10 mg PO HS [facility] Last Admin: 04/30/17 21:18 Dose: 10 mg Mupirocin (Bactroban Ointment (For Decolonization) -) 1 applic NS BID [facility] Stop: 05/03/17 09:59 Last Admin: 05/01/17 10:23 Dose: 1 applic Pantoprazole Sodium (Protonix -) 40 mg PO BID [facility] Last Admin: 05/01/17 10:30 Dose: 40 mg Terbutaline Sulfate (Brethine Injection -) 0.5 mg SQ Q4H PRN PRN Reason: ASTHMA ASSESSMENT AND PLAN: Status Asthmaticus URI +Rhinovirus - continue medrol at same dose - inhaled bronchodilators standing and PRN - subcutaneous terbutaline, epinephrine PRN - cough suppressants - BiPAP to assist in work of breathing - DVT prophylaxis - continue ICU monitoring for tenuous respiratory status critical care time spent in reviewing chart, evaluating patient and formulating plan 35 min
[2017-05-01] MEDS: ACETAMINOPHEN 325 MG TABLET (FP) PO PRN ×2 (14:59→22:18)
--- NOTE | 2017-05-01 15:57 | PN ---
Physical Exam: SUBJECTIVE: Patient seen and examined at bedside. Patient on Bipap. C/o of HERRERA and sinus pressure. Continues to have cough, now with greenish sputum. No fever or chills. Could not tolerated Bipap 2/2 coughing. She was given Azithromycin, Terbutaline and epi last night. OBJECTIVE: Vital Signs Period Temp Pulse Resp BP Sys/Pate Pulse Ox Last 24 Hr 98.6 F-98.8 F 82-122 20-30 103-129/58-85 94-97 GENERAL: The patient is awake, alert, and fully oriented, in moderate respiratory distress distress. not able to speak with full sentences without being dyspneic HEAD: Normal with no signs of trauma. EYES: sclera anicteric, conjunctiva clear. ENT: moist mucous membranes. LUNGS: diffuse expiratory wheeze, accessory muscle use. HEART: tachycardia, S1, S2 without murmur, rub or gallop. ABDOMEN: Soft, nontender, nondistended, normoactive bowel sounds, no guarding, no rebound tenderness. EXTREMITIES: 2+ pulses, warm, well-perfused, no edema. NEUROLOGICAL: with good mentation PSYCH: Normal mood, normal affect. SKIN: Warm, dry, no rashes or lesions noted Laboratory Results - last 24 hr 04/30/17 04/30/17 05/01/17 11:37 16:30 05:10 WBC 12.0 H RBC 4.81 Hgb 11.5 Hct 36.2 MCV 75.3 L MCH 24.0 L MCHC 31.8 L RDW 17.4 H Plt Count 283 MPV 9.0 Neutrophils % 91.6 H Lymphocytes % 6.3 L D Monocytes % 2.0 L Eosinophils % 0.0 Basophils % 0.1 Sodium Potassium Chloride Carbon Dioxide Anion Gap BUN Creatinine Creat Clearance w eGFR POC Glucometer [phone] Random Glucose Calcium Phosphorus Magnesium Total Bilirubin AST ALT Alkaline Phosphatase Total Protein Albumin 05/01/17 05:10 WBC RBC Hgb Hct MCV MCH MCHC RDW Plt Count MPV Neutrophils % Lymphocytes % Monocytes % Eosinophils % Basophils % Sodium 138 Potassium 4.5 Chloride 99 Carbon Dioxide 29 Anion Gap 10 BUN 19 H Creatinine 0.7 Creat Clearance w eGFR > 60 POC Glucometer Random Glucose 145 H Calcium 8.8 Phosphorus 3.3 Magnesium 2.3 Total Bilirubin 0.3 D AST 15 D ALT 34 D Alkaline Phosphatase 68 Total Protein 6.4 Albumin 3.2 L Active Medications Generic Name Dose Route Start Last Admin Trade Name Freq PRN Reason Stop Dose Admin Acetaminophen 650 mg 04/29/17 06:37 05/01/17 14:59 Tylenol - PO 650 mg Q6H PRN Administration FEVER OR PAIN Albuterol Sulfate 1 amp 04/28/17 20:42 05/01/17 04:47 Ventolin 0.083% Nebulizer Soln - NEB 1 amp Q6H PRN Administration SHORT OF BREATH/WHEEZING Albuterol/Ipratropium 1 amp 04/29/17 12:00 05/01/17 14:13 Duoneb - NEB 1 amp Q4HWA [facility] Administration Budesonide 1 amp 04/29/17 10:00 05/01/17 10:09 Pulmicort 0.5 Mg Nebulizer - NEB 1 amp BID [facility] Administration Chlorhexidine Gluconate 1 applic 04/28/17 22:00 04/30/17 21:07 Hibiclens For Decolonization - TP 1 applic HS [facility] Administration Guaifenesin/Codeine Phosphate 10 ml 04/29/17 11:49 05/01/17 10:31 Robitussin Ac - PO 10 ml Q6H PRN Administration COUGH Heparin Sodium (Porcine) 5,000 unit 04/28/17 06:00 05/01/17 14:51 Heparin - SQ 5,000 unit TID [facility] Administration Azithromycin 500 mg/ Dextrose 250 mls @ 250 mls/hr 04/29/17 16:00 05/01/17 10: 29 IVPB 250 mls/hr DAILY [facility] Administration Insulin Aspart 1 vial 05/01/17 07:00 05/01/17 06:43 Novolog Vial Sliding Scale - SQ Not Given BIDAC [facility] Protocol Methylprednisolone Sodium Succinate 60 mg 04/28/17 18:40 05/01/17 10:30 Solu-Medrol - IVPB 60 mg Q8H-IV [facility] Administration Montelukast Sodium 10 mg 04/29/17 22:00 04/30/17 21:18 Singulair - PO 10 mg HS [facility] Administration Mupirocin 1 applic 04/28/17 10:00 05/01/17 10:23 Bactroban Ointment (For Decolonization) - NS 05/03/17 09:59 1 applic BID [facility] Administration Pantoprazole Sodium 40 mg 04/28/17 10:00 05/01/17 10:30 Protonix - PO 40 mg BID [facility] Administration Terbutaline Sulfate 0.5 mg 05/01/17 11:58 Brethine Injection - SQ Q4H PRN ASTHMA CBC, BMP 05/01/17 05:10 05/01/17 05:10 ASSESSMENT/PLAN: Pt is a 36yo F w/ PMHx of asthma (oral steroid dependent) who presented with SOB and chest tightness, admitted for acute respiratory distress due to acute asthma exacerbation # Acute hypoxic Respiratory distress likely 2/2 to acute asthma exacerbation- Status Asmaticus - Tachypneic , tachycardic with accessory muscle use - Now on 3L NC, O2 sat 94-96 - s/p IV Solumedrol 125mg x1, Duonebs x3, IV Mg 2g x1 - Continue IV Solumedrol 60mg Q8H - switch Duonebs to Ipratropium PRN - Continue home Budesonide + Performist - Respiratory viral panel - Flu swab is negative - O2 as needed - Peak flow daily -cardiac monitoring - started BIPAP to help with work of breathing, explained risk of intubation - has failed omalizumab therapy and bronchial thermoplasty. - F/U chest X-ray is negative - started on Azithromcine 500 mg PO daily - Terbutaline 0.5 mg SQ and Epi 300 micg IM, PRN - cough suppressant #URI , Rhinovirus , -continue same treatment # Sinus Tachycardia / Tachypnea - likely 2/2 asthma exac + multiple duoneb tx - +SIRS, infectious is less likely, but will r/o infectious process with Blood Cx, Urine Cx, Urine Ag -switch duonebs to ipatroprium. -cardiac monitoring # Lactic Acidosis, resolved - rising, likely 2/2 hypoxia, less likely infectious - 2.8 --> 5.3 --> 2.2 ...1.5 - Continue O2 PRN # Leukocytosis, Likely 2/2 steroid use vs viral infection - continue monitoring - will taper steroid when stable #Hyperglycemia -BGM ACHS - ISS ACHS while on steroids #GERD -40mg protonix PO BID # H/O Bipolar, - not on any medication , confirmed with pharmacy # FEN - Fluids: on no fluids - Electrolytes: WNL - Nutrition: Regular Diet # Prophylaxis - DVT: Heparin SQ TID - GI: Not indicated - Deconditioning: PT not needed, patient is ambulatory # Dispo - ICU admission due to tenuous respiratory status - Full code Visit type - Emergency Visit Emergency Visit: Yes ED Registration Date: 04/28/17 Care time: The patient presented to the Emergency Department on the above date and was hospitalized for further evaluation of their emergent condition. - New Patient This patient is new to me today: No - Critical Care Critical Care patient: Yes Total Critical Care Time (in minutes): 40 Critical Care Statement: The care of this patient involved high complexity decision making to prevent further life threatening deterioration of the patient 's condition and/or to evaluate & treat vital organ system(s) failure or risk of failure.
[2017-05-01] MEDS: MONTELUKAST NA 10 MG TABLET PO SCH (22:18)
[2017-05-01] MEDS: CHLORHEXIDINE GLUCONATE 4% CLEANSER FOR DECOLONIZATION TP SCH (22:18)
[2017-05-02] MEDS: methylPREDNISolone NA SUCC 125 MG/2 ML VIAL IVPB SCH ×4 (01:06→19:23)
[2017-05-02] MEDS: ALBUTEROL SO4 0.083% IH SOL 2.5 MG/3 ML VIAL.NEB. NEB PRN (04:35)
[2017-05-02] MEDS: HEPARIN NA (PORCINE) 5,000 UNITS/ML 1ML VIAL SQ SCH ×3 (06:15→21:25)
[2017-05-02] MEDS: INSULIN SLIDING SCALE (NOVOLOG) 1 VIAL SQ SCH (06:16)
[2017-05-02] MEDS: ALBUTEROL SO4 2.5/IPRATROPIUM 0.5 INH SOL 3 ML VIAL.NEB. NEB SCH ×4 (06:48→22:44)
[2017-05-02 06:58] LABS: BASOPHIL 0.5 % (0-2.0); MCH 23.5 pg (25.7-33.7); MCHC 31.1 g/dl (32.0-36.0); MEAN CELL VOLUME 75.6 fl (80-96); MEAN PLT VOLUME 8.9 fl (7.5-11.1); PLATELET COUNT 264 K/MM3 (134-434); RDW 16.8 % (11.6-15.6); WHITE BLOOD COUNT 9.4 K/mm3 (4.0-10.0)
[2017-05-02 08:00] LABS: ANION GAP 4 (8-16); CALCIUM 8.7 mg/dL (8.5-10.1); CO2 33 mmol/L (21-32); CREATININE 0.7 mg/dL (0.55-1.02); GLUCOSE,RANDOM 139 mg/dL (74-106); MAGNESIUM 2.2 mg/dL (1.8-2.4); PHOSPHOROUS 3.7 mg/dL (2.5-4.9)
--- NOTE | 2017-05-02 09:01 | PN ---
Physical Exam: SUBJECTIVE: Patient seen and examined in ICU. Feeling better. Tolerated BiPAP for most of the evening. Continues to have have wheezing and cough, though less productive. No BM, +flatus. No fever, chills, nausea or vomiting. OBJECTIVE: Vital Signs Period Temp Pulse Resp BP Sys/Pate Pulse Ox Last 24 Hr 97.9 F-98.9 F 72-112 14-24 99-135/71-96 64-96 Intake & Output 04/29/17 04/30/17 05/01/17 05/02/17 23:59 23:59 23:59 23:59 Intake Total 0201 377 6324 50 Balance 9344 280 0871 50 Weight 88.133 kg 88.133 kg 87.362 kg GENERAL: AAOx3, completing full sentences w/o dyspnea EYES: sclera anicteric, conjunctiva clear ENT: moist mucous membranes LUNGS: Bilateral expiratory wheezing HEART: rrr normal S1/S2, no murmur, rub or gallop ABDOMEN: obese, soft, ntnd LOWER EXTREMITIES: 2+ pulses, warm, well-perfused, no edema. CBC, BMP 05/02/17 05:30 05/02/17 05:30 Ca - 8.7 Phos - 3.7 Mg - 2.2 Microbiology 04/28/17 05:45 Blood - Peripheral Venous Blood Culture - Preliminary NO GROWTH OBTAINED AFTER 96 HOURS, INCUBATION TO CONTINUE FOR 1 DAYS. 04/28/17 05:40 Blood - Peripheral Venous Blood Culture - Preliminary NO GROWTH OBTAINED AFTER 96 HOURS, INCUBATION TO CONTINUE FOR 1 DAYS. 04/28/17 19:30 Sputum - Expectorated Gram Stain - Final 04/28/17 19:30 Sputum - Expectorated Sputum Culture - Final NORMAL RESPIRATORY CLAUDIA 04/28/17 01:30 Nasopharyngeal Swab Respiratory Virus (PCR) - Final 04/28/17 02:45 Urine - Urine Clean Catch Urine Culture - Final 04/28/17 02:45 Urine For Antigen Detection Legionella Antigen - Final 04/28/17 02:45 Urine For Antigen Detection Streptococcus pneumoniae Antigen (M - Final 04/28/17 01:30 Nasopharyngeal Swab Influenza Types A,B Antigen (PHILLIP) - Final 04/28/17 01:30 Nasopharyngeal Swab - Final Active Medications Acetaminophen (Tylenol -) 650 mg PO Q6H PRN PRN Reason: FEVER OR PAIN Last Admin: 05/01/17 22:18 Dose: 650 mg Albuterol Sulfate (Ventolin 0.083% Nebulizer Soln -) 1 amp NEB Q6H PRN PRN Reason: SHORT OF BREATH/WHEEZING Last Admin: 05/02/17 04:35 Dose: 1 amp Albuterol/Ipratropium (Duoneb -) 1 amp NEB Q4HWA [facility] Last Admin: 05/02/17 10:40 Dose: 1 amp Budesonide (Pulmicort 0.5 Mg Nebulizer -) 1 amp NEB BID [facility] Last Admin: 05/02/17 10:40 Dose: 1 amp Chlorhexidine Gluconate (Hibiclens For Decolonization -) 1 applic TP HS [facility] Last Admin: 05/01/17 22:18 Dose: 1 applic Guaifenesin/Codeine Phosphate (Robitussin Ac -) 10 ml PO Q6H PRN PRN Reason: COUGH Last Admin: 05/02/17 12:19 Dose: 10 ml Heparin Sodium (Porcine) (Heparin -) 5,000 unit SQ TID [facility] Last Admin: 05/02/17 06:15 Dose: 5,000 unit Azithromycin 500 mg/ Dextrose 250 mls @ 250 mls/hr IVPB DAILY [facility] Last Admin: 05/02/17 11:26 Dose: 250 mls/hr Insulin Aspart (Novolog Vial Sliding Scale -) 1 vial SQ BIDAC [facility] PRN Reason: Protocol Last Admin: 05/02/17 06:16 Dose: Not Given Methylprednisolone Sodium Succinate (Solu-Medrol -) 60 mg IVPB Q8H-IV [facility] Last Admin: 05/02/17 10:14 Dose: 60 mg Montelukast Sodium (Singulair -) 10 mg PO HS [facility] Last Admin: 05/01/17 22:18 Dose: 10 mg Mupirocin (Bactroban Ointment (For Decolonization) -) 1 applic NS BID [facility] Stop: 05/03/17 09:59 Last Admin: 05/02/17 10:16 Dose: 1 applic Pantoprazole Sodium (Protonix -) 40 mg PO BID [facility] Last Admin: 05/02/17 10:14 Dose: 40 mg Terbutaline Sulfate (Brethine Injection -) 0.5 mg SQ Q4H PRN PRN Reason: ASTHMA ASSESSMENT/PLAN: 36yo obese woman with PMH of moderate persistent asthma s/p bronchial thermoplasty (2011), on chronic home steroids, and GERD who is status asthamaticus with URI (+Rhinovirus culture). Improving dyspnea and congestion today. Patient tolerated BIPAP last night, but stated intermittent desaturation possibly 2/2 to LENNIE. Will do in-patient screen for sleep apnea. #asthma exacerbation -O2 therapy to maintain pSaO2 > 90% -duo nebs q4h PRN + QIDR CARMEN -Budesonide 1 amp BID -Solumedrol 40mg IVPB q8h -Terbutaline 0.5mg SQ Q4H PRN -f/u sleep apnea screening #Hyperglycemia -BGM ACHS and ISS ACHS while on steroids #GERD -40mg protonix PO BID #Lactic acidosis, resolved #FEN -Hold IVF -Electrolytes wnl -Regular diet #DVT ppx -Heparin 5000U sq tid #GI ppx -On protonix 40mg PO BID #Dispo: transfer to for continuous oximetry monitoring FULL code d/w Dr. Marian Humphries MD PGY-1 Visit type - Emergency Visit Emergency Visit: No - New Patient This patient is new to me today: No - Critical Care Critical Care patient: Yes Total Critical Care Time (in minutes): 35 Critical Care Statement: The care of this patient involved high complexity decision making to prevent further life threatening deterioration of the patient 's condition and/or to evaluate & treat vital organ system(s) failure or risk of failure.
--- NOTE | 2017-05-02 09:21 | PN ---
Physical Exam: SUBJECTIVE: Patient seen and examined at bedside. She is improving compare to admission but still coughing and wheezing with minimal movement. Still using PIBAB as needed. OBJECTIVE: Vital Signs Period Temp Pulse Resp BP Sys/Pate Pulse Ox Last 24 Hr 97.9 F-98.9 F 72-112 14-24 99-135/71-96 64-96 GENERAL: The patient is awake, alert, and fully oriented, in moderate respiratory distress distress. not able to speak with full sentences without being dyspneic HEAD: Normal with no signs of trauma. EYES: sclera anicteric, conjunctiva clear. ENT: moist mucous membranes. LUNGS: diffuse expiratory wheeze, accessory muscle use. HEART: tachycardia, S1, S2 without murmur, rub or gallop. ABDOMEN: Soft, nontender, nondistended, normoactive bowel sounds, no guarding, no rebound tenderness. EXTREMITIES: 2+ pulses, warm, well-perfused, no edema. NEUROLOGICAL: with good mentation PSYCH: Normal mood, normal affect. SKIN: Warm, dry, no rashes or lesions noted Laboratory Results - last 24 hr 05/02/17 05/02/17 05:30 05:30 WBC 9.4 RBC 4.96 Hgb 11.6 Hct 37.5 MCV 75.6 L MCH 23.5 L MCHC 31.1 L RDW 16.8 H Plt Count 264 MPV 8.9 Neutrophils % 86.0 H Lymphocytes % 11.1 D Monocytes % 2.4 L Eosinophils % 0.0 Basophils % 0.5 D Sodium 136 Potassium 4.5 Chloride 99 Carbon Dioxide 33 H Anion Gap 4 L BUN 19 H Creatinine 0.7 Random Glucose 139 H Calcium 8.7 Phosphorus 3.7 Magnesium 2.2 Active Medications Generic Name Dose Route Start Last Admin Trade Name Freq PRN Reason Stop Dose Admin Acetaminophen 650 mg 04/29/17 06:37 05/01/17 22:18 Tylenol - PO 650 mg Q6H PRN Administration FEVER OR PAIN Albuterol Sulfate 1 amp 04/28/17 20:42 05/02/17 04:35 Ventolin 0.083% Nebulizer Soln - NEB 1 amp Q6H PRN Administration SHORT OF BREATH/WHEEZING Albuterol/Ipratropium 1 amp 04/29/17 12:00 05/02/17 06:48 Duoneb - NEB 1 amp Q4HWA [facility] Administration Budesonide 1 amp 04/29/17 10:00 05/01/17 21:38 Pulmicort 0.5 Mg Nebulizer - NEB 1 amp BID [facility] Administration Chlorhexidine Gluconate 1 applic 04/28/17 22:00 05/01/17 22:18 Hibiclens For Decolonization - TP 1 applic HS [facility] Administration Guaifenesin/Codeine Phosphate 10 ml 04/29/17 11:49 05/01/17 22:18 Robitussin Ac - PO 10 ml Q6H PRN Administration COUGH Heparin Sodium (Porcine) 5,000 unit 04/28/17 06:00 05/02/17 06:15 Heparin - SQ 5,000 unit TID [facility] Administration Azithromycin 500 mg/ Dextrose 250 mls @ 250 mls/hr 04/29/17 16:00 05/01/17 10: 29 IVPB 250 mls/hr DAILY [facility] Administration Insulin Aspart 1 vial 05/01/17 07:00 05/02/17 06:16 Novolog Vial Sliding Scale - SQ Not Given BIDAC [facility] Protocol Methylprednisolone Sodium Succinate 60 mg 04/28/17 18:40 05/02/17 01:06 Solu-Medrol - IVPB 60 mg Q8H-IV [facility] Administration Montelukast Sodium 10 mg 04/29/17 22:00 05/01/17 22:18 Singulair - PO 10 mg HS [facility] Administration Mupirocin 1 applic 04/28/17 10:00 05/01/17 22:18 Bactroban Ointment (For Decolonization) - NS 05/03/17 09:59 1 applic BID [facility] Administration Pantoprazole Sodium 40 mg 04/28/17 10:00 05/01/17 22:18 Protonix - PO 40 mg BID [facility] Administration Terbutaline Sulfate 0.5 mg 05/01/17 11:58 Brethine Injection - SQ Q4H PRN ASTHMA ASSESSMENT/PLAN: Pt is a 36yo F w/ PMHx of asthma (oral steroid dependent) who presented with SOB and chest tightness, admitted for acute respiratory distress due to acute asthma exacerbation # Acute hypoxic Respiratory distress likely 2/2 to acute asthma exacerbation- Status Asmaticus - Tachypneic , tachycardic with accessory muscle use - Now on 3L NC, O2 sat 94-96 - s/p IV Solumedrol 125mg x1, Duonebs x3, IV Mg 2g x1 - Continue IV Solu-medrol 60mg Q8H - switch Duonebs to Ipratropium PRN - Continue home Budesonide + Performist - Respiratory viral panel - Flu swab is negative - O2 as needed - Peak flow daily -cardiac monitoring - started BIPAP to help with work of breathing, explained risk of intubation - has failed omalizumab therapy and bronchial thermoplasty. - F/U chest X-ray is negative - started on Azithromcine 500 mg PO daily - Terbutaline 0.5 mg SQ and Epi 300 micg IM, PRN - cough suppressant #URI , Rhinovirus , -continue same treatment # Sinus Tachycardia / Tachypnea - likely 2/2 asthma exac + multiple duoneb tx - +SIRS, infectious is less likely, but will r/o infectious process with Blood Cx, Urine Cx, Urine Ag -switch duonebs to ipatroprium. -cardiac monitoring # Lactic Acidosis, resolved - rising, likely 2/2 hypoxia, less likely infectious - 2.8 --> 5.3 --> 2.2 ...1.5 - Continue O2 PRN # Leukocytosis, Likely 2/2 steroid use vs viral infection - continue monitoring - will taper steroid when stable #Hyperglycemia -BGM ACHS - ISS ACHS while on steroids #GERD -40mg protonix PO BID # H/O Bipolar, - not on any medication , confirmed with pharmacy # FEN - Fluids: on no fluids - Electrolytes: WNL - Nutrition: Regular Diet # Prophylaxis - DVT: Heparin SQ TID - GI: Not indicated - Deconditioning: PT not needed, patient is ambulatory # Dispo - ICU admission due to tenuous respiratory status - Full code - consider transfer to the floor when stable Visit type - Emergency Visit Emergency Visit: Yes ED Registration Date: 04/28/17 Care time: The patient presented to the Emergency Department on the above date and was hospitalized for further evaluation of their emergent condition. - New Patient This patient is new to me today: No - Critical Care Critical Care patient: Yes Total Critical Care Time (in minutes): 40 Critical Care Statement: The care of this patient involved high complexity decision making to prevent further life threatening deterioration of the patient 's condition and/or to evaluate & treat vital organ system(s) failure or risk of failure. - Discharge Referral Referred to [facility] No
[2017-05-02] MEDS ORDERED: PT OWN MED DRAWER 7, Y5N ONE ×2 (10:00→11:22)
[2017-05-02] MEDS: PANTOPRAZOLE 40 MG TABLET (FP) PO SCH ×2 (10:14→21:25)
[2017-05-02] MEDS: MUPIROCIN 2% TOPICAL OINTMENT FOR DECOLONIZATION NS SCH (10:16)
[2017-05-02] MEDS: BUDESONIDE 0.5 MG/2 ML INH SUSP VIAL NEB SCH ×2 (10:40→22:44)
[2017-05-02] MEDS: AZITHROMYCIN IVPB 500 MG in DEXTROSE 5%-WATER - 250 ML IVPB SCH (11:26)
[2017-05-02] MEDS: guaiFENesin/CODEINE 10 ML UNIT-DOSE CUPS PO PRN (12:19)
--- NOTE | 2017-05-02 15:16 | PN ---
Teaching Attending Note Name of Resident: Norm Kaufman ATTENDING PHYSICIAN STATEMENT I saw and evaluated the patient. I reviewed the resident's note and discussed the case with the resident. I agree with the resident's findings and plan as documented. SUBJECTIVE: Patient starts coughing with movement and when eating. She is using BiPAP overnight and sometimes during the day. OBJECTIVE: Vital Signs Period Temp Pulse Resp BP Sys/Pate Pulse Ox Last 24 Hr 97.9 F-98.9 F 72-100 14-24 99-135/57-96 64-96 HEART: S1S2, tachycardic LUNGS: Bilateral rhonchi and wheezes ABDOMEN: Obese, soft, non-tender, non-distended, normal BS EXTREMITIES: No edema Current Medications Generic Name Dose Route Start Last Admin Trade Name Freq PRN Reason Stop Dose Admin Acetaminophen 650 mg 04/29/17 06:37 05/01/17 22:18 Tylenol - PO 650 mg Q6H PRN Administration FEVER OR PAIN Albuterol Sulfate 1 amp 04/28/17 20:42 05/02/17 04:35 Ventolin 0.083% Nebulizer Soln - NEB 1 amp Q6H PRN Administration SHORT OF BREATH/WHEEZING Albuterol/Ipratropium 1 amp 04/29/17 12:00 05/02/17 10:40 Duoneb - NEB 1 amp Q4HWA [facility] Administration Budesonide 1 amp 04/29/17 10:00 05/02/17 10:40 Pulmicort 0.5 Mg Nebulizer - NEB 1 amp BID [facility] Administration Chlorhexidine Gluconate 1 applic 04/28/17 22:00 05/01/17 22:18 Hibiclens For Decolonization - TP 1 applic HS [facility] Administration Guaifenesin/Codeine Phosphate 10 ml 04/29/17 11:49 05/02/17 12:19 Robitussin Ac - PO 10 ml Q6H PRN Administration COUGH Heparin Sodium (Porcine) 5,000 unit 04/28/17 06:00 05/02/17 06:15 Heparin - SQ 5,000 unit TID [facility] Administration Azithromycin 500 mg/ Dextrose 250 mls @ 250 mls/hr 04/29/17 16:00 05/02/17 11: 26 IVPB 250 mls/hr DAILY [facility] Administration Insulin Aspart 1 vial 05/01/17 07:00 05/02/17 06:16 Novolog Vial Sliding Scale - SQ Not Given BIDAC [facility] Protocol Methylprednisolone Sodium Succinate 60 mg 04/28/17 18:40 05/02/17 10:14 Solu-Medrol - IVPB 60 mg Q8H-IV [facility] Administration Montelukast Sodium 10 mg 04/29/17 22:00 05/01/17 22:18 Singulair - PO 10 mg HS [facility] Administration Mupirocin 1 applic 04/28/17 10:00 05/02/17 10:16 Bactroban Ointment (For Decolonization) - NS 05/03/17 09:59 1 applic BID [facility] Administration Pantoprazole Sodium 40 mg 04/28/17 10:00 05/02/17 10:14 Protonix - PO 40 mg BID [facility] Administration Terbutaline Sulfate 0.5 mg 05/01/17 11:58 Brethine Injection - SQ Q4H PRN ASTHMA ASSESSMENT AND PLAN: This is a 36 year old woman with a history of asthma, bipolar disorder, obesity who presented to the ER with SOB. 1. Acute hypoxic respiratory failure secondary to status asthmaticus with URI - Continue oxygen, BiPAP as needed - Continue SoluMedrol, Singulair, Pulmicort, Terbutaline, DuoNeb, Zithromax, Robitussin AC as needed, albuterol as needed - Failed Xolair and bronchial thermoplasty 2. Lactic acidosis - Resolved 3. Bipolar disorder - Not on medication 4. DVT prophylaxis - Continue heparin subq 5. Stress ulcer prophylaxis - Continue Protonix
--- NOTE | 2017-05-02 15:30 | PN ---
Teaching Attending Note Name of Resident: Cee Humphries ATTENDING PHYSICIAN STATEMENT I saw and evaluated the patient. I reviewed the resident's note and discussed the case with the resident. I agree with the resident's findings and plan as documented. SUBJECTIVE: Patient seen and examined in the ICU. Breathing feels slightly better today. Still with cough, wheezing. Garrett better with NIPPV overnight with good subjective response. CXR : Clear OBJECTIVE: Intake & Output 04/29/17 04/30/17 05/01/17 05/02/17 23:59 23:59 23:59 23:59 Intake Total 6923 808 1623 300 Balance 2354 570 2610 300 Weight 194 lb 4.8 oz 194 lb 4.8 oz 192 lb 9.6 oz Last Vital Signs Temp Pulse Resp BP Pulse Ox 98.7 F 96 H 18 125/81 95 05/02/17 14:30 05/02/17 14:30 05/02/17 14:30 05/02/17 14:30 05/02/17 09:59 Active Medications Acetaminophen (Tylenol -) 650 mg PO Q6H PRN PRN Reason: FEVER OR PAIN Last Admin: 05/01/17 22:18 Dose: 650 mg Albuterol Sulfate (Ventolin 0.083% Nebulizer Soln -) 1 amp NEB Q6H PRN PRN Reason: SHORT OF BREATH/WHEEZING Last Admin: 05/02/17 04:35 Dose: 1 amp Albuterol/Ipratropium (Duoneb -) 1 amp NEB Q4HWA [facility] Last Admin: 05/02/17 10:40 Dose: 1 amp Budesonide (Pulmicort 0.5 Mg Nebulizer -) 1 amp NEB BID [facility] Last Admin: 05/02/17 10:40 Dose: 1 amp Chlorhexidine Gluconate (Hibiclens For Decolonization -) 1 applic TP HS [facility] Last Admin: 05/01/17 22:18 Dose: 1 applic Guaifenesin/Codeine Phosphate (Robitussin Ac -) 10 ml PO Q6H PRN PRN Reason: COUGH Last Admin: 05/02/17 12:19 Dose: 10 ml Heparin Sodium (Porcine) (Heparin -) 5,000 unit SQ TID [facility] Last Admin: 05/02/17 15:12 Dose: 5,000 unit Azithromycin 500 mg/ Dextrose 250 mls @ 250 mls/hr IVPB DAILY [facility] Last Admin: 05/02/17 11:26 Dose: 250 mls/hr Insulin Aspart (Novolog Vial Sliding Scale -) 1 vial SQ BIDAC [facility] PRN Reason: Protocol Last Admin: 05/02/17 06:16 Dose: Not Given Methylprednisolone Sodium Succinate (Solu-Medrol -) 60 mg IVPB Q8H-IV [facility] Last Admin: 05/02/17 10:14 Dose: 60 mg Montelukast Sodium (Singulair -) 10 mg PO HS [facility] Last Admin: 05/01/17 22:18 Dose: 10 mg Mupirocin (Bactroban Ointment (For Decolonization) -) 1 applic NS BID [facility] Stop: 05/03/17 09:59 Last Admin: 05/02/17 10:16 Dose: 1 applic Pantoprazole Sodium (Protonix -) 40 mg PO BID [facility] Last Admin: 05/02/17 10:14 Dose: 40 mg Terbutaline Sulfate (Brethine Injection -) 0.5 mg SQ Q4H PRN PRN Reason: ASTHMA Gen: Mildly tachypneic at rest Heart: tachycardic, regular Lung: diffuse rhonchi, mild expiratory wheeze Abd: soft, nontender Ext: no edema Laboratory Results - last 24 hr 05/02/17 05/02/17 05:30 05:30 WBC 9.4 RBC 4.96 Hgb 11.6 Hct 37.5 MCV 75.6 L MCH 23.5 L MCHC 31.1 L RDW 16.8 H Plt Count 264 MPV 8.9 Neutrophils % 86.0 H Lymphocytes % 11.1 D Monocytes % 2.4 L Eosinophils % 0.0 Basophils % 0.5 D Sodium 136 Potassium 4.5 Chloride 99 Carbon Dioxide 33 H Anion Gap 4 L BUN 19 H Creatinine 0.7 Random Glucose 139 H Calcium 8.7 Phosphorus 3.7 Magnesium 2.2 ASSESSMENT AND PLAN: Status Asthmaticus URI +Rhinovirus - continue medrol at same dose - inhaled bronchodilators standing and PRN - subcutaneous terbutaline, epinephrine PRN - cough suppressants - NIPPV to assist in work of breathing - DVT prophylaxis - continue ICU monitoring for tenuous respiratory status Dr Fonseca critical care time spent in reviewing chart, evaluating patient and formulating plan 35 min
[2017-05-02] MEDS ORDERED: TERBUTALINE SULFATE 1 MG/1 ML VIAL SQ PRN (17:24)
[2017-05-02] MEDS ORDERED: ACETAMINOPHEN 325 MG TABLET (FP) PO PRN (17:24)
[2017-05-02] MEDS ORDERED: ALBUTEROL SO4 0.083% IH SOL 2.5 MG/3 ML VIAL.NEB. NEB PRN (17:24)
[2017-05-02] MEDS: MONTELUKAST NA 10 MG TABLET PO SCH (21:27)
[2017-05-02] MEDS ORDERED: MUPIROCIN 2% TOPICAL OINTMENT FOR DECOLONIZATION NS SCH (22:00)
[2017-05-02] MEDS ORDERED: CHLORHEXIDINE GLUCONATE 4% CLEANSER FOR DECOLONIZATION TP SCH (22:00)
[2017-05-03] MEDS: methylPREDNISolone NA SUCC 125 MG/2 ML VIAL IVPB SCH ×4 (03:40→21:24)
[2017-05-03] MEDS: INSULIN SLIDING SCALE (NOVOLOG) 1 VIAL SQ SCH ×2 (06:40→16:29)
[2017-05-03] MEDS: HEPARIN NA (PORCINE) 5,000 UNITS/ML 1ML VIAL SQ SCH ×3 (06:40→21:25)
[2017-05-03] MEDS: ALBUTEROL SO4 2.5/IPRATROPIUM 0.5 INH SOL 3 ML VIAL.NEB. NEB SCH ×5 (06:57→22:32)
--- NOTE | 2017-05-03 07:32 | PN ---
Physical Exam: SUBJECTIVE: Patient seen and examined at bedside. She is feeling better but still sob with minimal emersion.Still cough and wheezing.asking to go home. OBJECTIVE: Vital Signs Period Temp Pulse Resp BP Sys/Pate Pulse Ox Last 24 Hr 97.9 F-98.8 F 84-100 18-22 105-125/57-84 90-95 GENERAL: The patient is awake, alert, and fully oriented, in no acute distress. HEAD: Normal with no signs of trauma. EYES: sclera anicteric, conjunctiva clear. No ptosis. ENT: moist mucous membranes. NECK: Trachea midline, full range of motion, supple. LUNGS: B/L rhonchi, expiratory wheezing ,no accessory muscle use. HEART: Regular rate and rhythm, S1, S2 without murmur, rub or gallop. ABDOMEN: Obese,Soft, nontender, nondistended, normoactive bowel sounds, no guarding, no rebound. EXTREMITIES: warm, well-perfused, no edema. NEUROLOGICAL: good mentation SKIN: Warm, dry, no rashes or lesions noted Laboratory Results - last 24 hr 05/02/17 05/03/17 05:30 06:11 Sodium 136 Potassium 4.5 Chloride 99 Carbon Dioxide 33 H Anion Gap 4 L BUN 19 H Creatinine 0.7 POC Glucometer 134 Random Glucose 139 H Calcium 8.7 Phosphorus 3.7 Magnesium 2.2 Active Medications Generic Name Dose Route Start Last Admin Trade Name Freq PRN Reason Stop Dose Admin Acetaminophen 650 mg 05/02/17 17:24 Tylenol - PO Q6H PRN FEVER OR PAIN Albuterol Sulfate 1 amp 05/02/17 17:24 Ventolin 0.083% Nebulizer Soln - NEB Q6H PRN SHORT OF BREATH/WHEEZING Albuterol/Ipratropium 1 amp 05/02/17 18:00 05/03/17 06:57 Duoneb - NEB 1 amp Q4HWA [facility] Administration Budesonide 1 amp 05/02/17 22:00 05/02/17 22:44 Pulmicort 0.5 Mg Nebulizer - NEB 1 amp BID [facility] Administration Chlorhexidine Gluconate 1 applic 05/02/17 22:00 05/02/17 21:18 Hibiclens For Decolonization - TP Not Given HS [facility] Guaifenesin/Codeine Phosphate 10 ml 05/02/17 17:24 Robitussin Ac - PO Q6H PRN COUGH Heparin Sodium (Porcine) 5,000 unit 05/02/17 22:00 05/03/17 06:40 Heparin - SQ Not Given TID [facility] Azithromycin 500 mg/ Sodium 250 mls @ 250 mls/hr 05/03/17 10:00 Chloride IVPB DAILY [facility] Insulin Aspart 1 vial 05/03/17 07:00 05/03/17 06:40 Novolog Vial Sliding Scale - SQ Not Given BIDAC [facility] Protocol Methylprednisolone Sodium Succinate 60 mg 05/02/17 18:00 05/03/17 03:40 Solu-Medrol - IVPB 60 mg Q8H-IV [facility] Administration Montelukast Sodium 10 mg 05/02/17 22:00 05/02/17 21:27 Singulair - PO 10 mg HS [facility] Administration Mupirocin 1 applic 05/02/17 22:00 05/02/17 21:18 Bactroban Ointment (For Decolonization) - NS 05/03/17 09:59 Not Given BID [facility] Pantoprazole Sodium 40 mg 05/02/17 22:00 05/02/17 21:25 Protonix - PO 40 mg BID [facility] Administration Terbutaline Sulfate 0.5 mg 05/02/17 17:24 Brethine Injection - SQ Q4H PRN ASTHMA ASSESSMENT/PLAN: Pt is a 36yo F w/ PMHx of asthma (oral steroid dependent) who presented with SOB and chest tightness, admitted for acute respiratory distress due to acute asthma exacerbation # Acute hypoxic Respiratory distress likely 2/2 to acute asthma exacerbation- Status Asmaticus - -continue o2 as needed - Continue IV Solumedrol 60mg Q8H - switch Duonebs to Ipratropium PRN - Continue home Budesonide + Performist - Respiratory viral panel - Flu swab is negative - Peak flow daily -cardiac monitoring - started BIPAP to help with work of breathing, explained risk of intubation - has failed omalizumab therapy and bronchial thermoplasty. - F/U chest X-ray is negative - continue Azithromcine 500 mg PO daily - Terbutaline 0.5 mg SQ and Epi 300 micg IM, PRN - cough suppressant Guaifenesin/Codeine Phosphate 10 ml Po Q 6 hr PRN #URI , Rhinovirus , -continue same treatment # Sinus Tachycardia / Tachypnea - JR up to 150 when walk to the bath room without oxygen - likely 2/2 asthma exac + multiple duoneb tx - +SIRS, infectious is less likely, Blood Cx, Urine Cx, Urine Ag are negative -switch duonebs to ipatroprium. -cardiac monitoring # Lactic Acidosis, resolved - rising, likely 2/2 hypoxia, less likely infectious - 2.8 --> 5.3 --> 2.2 ...1.5 - Continue O2 PRN # Leukocytosis, Likely 2/2 steroid use vs viral infection - continue monitoring - will taper steroid when stable #Hyperglycemia -BGM ACHS - ISS ACHS while on steroids #GERD -40mg protonix PO BID # H/O Bipolar, - not on any medication , confirmed with pharmacy # FEN - Fluids: on no fluids - Electrolytes: WNL - Nutrition: Regular Diet # Prophylaxis - DVT: Heparin 5000,SQ TID - GI: Not indicated - Deconditioning: PT not needed, patient is ambulatory # Dispo - ICU admission due to tenuous respiratory status , transferred to tele 4w - Full code Visit type - Emergency Visit Emergency Visit: Yes ED Registration Date: 04/28/17 Care time: The patient presented to the Emergency Department on the above date and was hospitalized for further evaluation of their emergent condition. - New Patient This patient is new to me today: No - Critical Care Critical Care patient: Yes Total Critical Care Time (in minutes): 40 Critical Care Statement: The care of this patient involved high complexity decision making to prevent further life threatening deterioration of the patient 's condition and/or to evaluate & treat vital organ system(s) failure or risk of failure.
[2017-05-03 07:54] LABS: BASOPHIL 0.6 % (0-2.0); MCH 23.5 pg (25.7-33.7); MCHC 31.3 g/dl (32.0-36.0); MEAN CELL VOLUME 75.2 fl (80-96); MEAN PLT VOLUME 8.8 fl (7.5-11.1); NEUTROPHILS 88.5 % (42.8-82.8); PLATELET COUNT 276 K/MM3 (134-434); RDW 16.9 % (11.6-15.6); WHITE BLOOD COUNT 11.5 K/mm3 (4.0-10.0)
[2017-05-03 08:16] LABS: ANION GAP 7 (8-16); CALCIUM 8.8 mg/dL (8.5-10.1); CO2 29 mmol/L (21-32); CREATININE 0.8 mg/dL (0.55-1.02); GLUCOSE,RANDOM 143 mg/dL (74-106); MAGNESIUM 2.2 mg/dL (1.8-2.4); PHOSPHOROUS 4.1 mg/dL (2.5-4.9)
[2017-05-03] MEDS: PANTOPRAZOLE 40 MG TABLET (FP) PO SCH ×2 (09:29→21:25)
[2017-05-03] MEDS: guaiFENesin/CODEINE 10 ML UNIT-DOSE CUPS PO PRN ×2 (09:30→17:24)
[2017-05-03] MEDS: AZITHROMYCIN IVPB 500 MG in SODIUM CHLORIDE 250 ML IVPB SCH (09:30)
[2017-05-03] MEDS: BUDESONIDE 0.5 MG/2 ML INH SUSP VIAL NEB SCH ×2 (09:55→22:32)
--- NOTE | 2017-05-03 10:53 | PN ---
Teaching Attending Note Name of Resident: Norm Kaufman ATTENDING PHYSICIAN STATEMENT I saw and evaluated the patient. I reviewed the resident's note and discussed the case with the resident. I agree with the resident's findings and plan as documented. SUBJECTIVE: Patient is feeling better. She is coughing less, but still SOB with minimal exertion. She wants to go home. OBJECTIVE: Vital Signs Period Temp Pulse Resp BP Sys/Pate Pulse Ox Last 24 Hr 98.2 F-98.8 F 84-100 18-22 111-160/57-90 88-90 HEART: S1S2, RRR LUNGS: Bilateral rhonchi ABDOMEN: Obese, soft, non-tender, non-distended, normal BS EXTREMITIES: No edema Current Medications Generic Name Dose Route Start Last Admin Trade Name Freq PRN Reason Stop Dose Admin Acetaminophen 650 mg 05/02/17 17:24 Tylenol - PO Q6H PRN FEVER OR PAIN Albuterol Sulfate 1 amp 05/02/17 17:24 Ventolin 0.083% Nebulizer Soln - NEB Q6H PRN SHORT OF BREATH/WHEEZING Albuterol/Ipratropium 1 amp 05/02/17 18:00 05/03/17 06:57 Duoneb - NEB 1 amp Q4HWA CARMEN Administration Budesonide 1 amp 05/02/17 22:00 05/02/17 22:44 Pulmicort 0.5 Mg Nebulizer - NEB 1 amp BID CARMEN Administration Chlorhexidine Gluconate 1 applic 05/02/17 22:00 05/02/17 21:18 Hibiclens For Decolonization - TP Not Given HS CARMEN Guaifenesin/Codeine Phosphate 10 ml 05/02/17 17:24 05/03/17 09:30 Robitussin Ac - PO 10 ml Q6H PRN Administration COUGH Heparin Sodium (Porcine) 5,000 unit 05/02/17 22:00 05/03/17 06:40 Heparin - SQ Not Given TID CARMEN Azithromycin 500 mg/ Sodium 250 mls @ 250 mls/hr 05/03/17 10:00 05/03/17 09:30 Chloride IVPB 250 mls/hr DAILY CARMEN Administration Insulin Aspart 1 vial 05/03/17 07:00 05/03/17 06:40 Novolog Vial Sliding Scale - SQ Not Given BIDAC [facility] Protocol Methylprednisolone Sodium Succinate 60 mg 05/02/17 18:00 05/03/17 09:30 Solu-Medrol - IVPB 60 mg Q8H-IV CARMEN Administration Montelukast Sodium 10 mg 05/02/17 22:00 05/02/17 21:27 Singulair - PO 10 mg HS CARMEN Administration Pantoprazole Sodium 40 mg 05/02/17 22:00 05/03/17 09:29 Protonix - PO 40 mg BID CARMEN Administration Terbutaline Sulfate 0.5 mg 05/02/17 17:24 Brethine Injection - SQ Q4H PRN ASTHMA ASSESSMENT AND PLAN: This is a 36 year old woman with a history of asthma, bipolar disorder, obesity who presented to the ER with SOB. 1. Acute hypoxic respiratory failure secondary to status asthmaticus with URI - Still requiring oxygen - Continue BiPAP as needed - Continue SoluMedrol, Singulair, Pulmicort, DuoNeb, Terbutaline as needed, Zithromax, Robitussin AC as needed, albuterol as needed - Failed Xolair and bronchial thermoplasty 2. Lactic acidosis - Resolved 3. Bipolar disorder - Not on medication 4. DVT prophylaxis - Continue heparin subq 5. Stress ulcer prophylaxis - Continue Protonix
--- NOTE | 2017-05-03 11:06 | PN ---
Progress Note (short form) - Note Progress Note: PULMONARY WANTS TO BE DISCHARGED COUGH/WHEEZE PERSIST HR 150'S OFF O2 WHEN AMBULATING TO BATHROOM SPO2 DROPPED BELOW 90% ANICTERIC B/L ANT/POST DIFFUSE INSP/EXP WHEEZE S1S2 BS+ SOFT NONTENDER NO EDEMA LABS/MEDS/NOTES/IMAGES REVIEWED Status Asthmaticus URI +Rhinovirus - continue medrol at same dose - inhaled bronchodilators standing and PRN - subcutaneous terbutaline, epinephrine PRN - cough suppressants - NIPPV to assist in work of breathing - DVT prophylaxis - close monitoring on tele - can not be discharged Sowmya DE LEON MD
[2017-05-03] MEDS: MONTELUKAST NA 10 MG TABLET PO SCH (21:25)
[2017-05-03] MEDS ORDERED: MELATONIN 1 MG TABLET PO ONE (21:34)
[2017-05-04] MEDS: methylPREDNISolone NA SUCC 125 MG/2 ML VIAL IVPB SCH ×4 (03:39→21:14)
[2017-05-04] MEDS: ALBUTEROL SO4 2.5/IPRATROPIUM 0.5 INH SOL 3 ML VIAL.NEB. NEB SCH ×5 (06:06→22:12)
[2017-05-04] MEDS: HEPARIN NA (PORCINE) 5,000 UNITS/ML 1ML VIAL SQ SCH ×3 (06:28→21:16)
[2017-05-04] MEDS: INSULIN SLIDING SCALE (NOVOLOG) 1 VIAL SQ SCH ×2 (06:28→17:20)
[2017-05-04 07:10] LABS: MCH 23.8 pg (25.7-33.7); MEAN CELL VOLUME 74.5 fl (80-96); MEAN PLT VOLUME 8.5 fl (7.5-11.1); PLATELET COUNT 271 K/MM3 (134-434)
[2017-05-04 07:35] LABS: ALBUMIN 2.9 g/dl (3.4-5.0); ANION GAP 6 (8-16); CALCIUM 8.8 mg/dL (8.5-10.1); CO2 29 mmol/L (21-32); CREATININE 0.7 mg/dL (0.55-1.02); GLUCOSE,RANDOM 138 mg/dL (74-106); MAGNESIUM 2.2 mg/dL (1.8-2.4)
[2017-05-04] MEDS: guaiFENesin/CODEINE 10 ML UNIT-DOSE CUPS PO PRN ×2 (08:05→20:08)
[2017-05-04 08:58] LABS: PLATELET ESTIMATE ADEQUATE (NORMAL)
[2017-05-04] MEDS: PANTOPRAZOLE 40 MG TABLET (FP) PO SCH ×2 (09:15→21:15)
[2017-05-04] MEDS: AZITHROMYCIN IVPB 500 MG in SODIUM CHLORIDE 250 ML IVPB SCH (09:16)
[2017-05-04] MEDS: BUDESONIDE 0.5 MG/2 ML INH SUSP VIAL NEB SCH ×2 (10:42→22:12)
--- NOTE | 2017-05-04 11:09 | PN ---
Progress Note (short form) - Note Progress Note: PULMONARY PEAK FLOW 200L/M COUGH/WHEEZE PERSIST VSS/AFEBRILE ANICTERIC B/L ANT/POST DIFFUSE INSP/EXP WHEEZE IMPROVING S1S2 BS+ SOFT NONTENDER NO EDEMA LABS/MEDS/NOTES/IMAGES REVIEWED Status Asthmaticus URI +Rhinovirus - continue medrol at same dose - inhaled bronchodilators standing and PRN - subcutaneous terbutaline, epinephrine PRN - cough suppressants - NIPPV to assist in work of breathing - DVT prophylaxis - close monitoring on tele - can not be discharged Sowmya DE LEON MD
--- NOTE | 2017-05-04 11:44 | PN ---
Physical Exam: SUBJECTIVE: Patient seen and examined. She still feels SOB with exertion. Cough persists but is less. OBJECTIVE: Vital Signs Period Temp Pulse Resp BP Sys/Pate Pulse Ox Last 24 Hr 98 F-98.7 F 83-104 16-20 120-152/69-81 89-97 GENERAL: The patient is awake, alert, and fully oriented, in mild respiratory distress. LUNGS: Bilateral wheezes, scattered rhonchi. HEART: Tachycardic, S1, S2 without murmur, rub or gallop. ABDOMEN: Obese, soft, nontender, nondistended, normoactive bowel sounds, no guarding, no rebound, no hepatosplenomegaly, no masses. EXTREMITIES: 2+ pulses, warm, well-perfused, no edema. Laboratory Results - last 24 hr 05/03/17 05/04/17 05/04/17 16:28 05:25 05:25 WBC 13.0 H RBC 5.07 Hgb 12.1 Hct 37.8 MCV 74.5 L MCH 23.8 L MCHC 32.0 RDW 17.0 H Plt Count 271 MPV 8.5 Neutrophils % 92.0 H Lymphocytes % 5.0 L D Monocytes % 2.0 L Platelet Estimate Adequate Platelet Comment No clumping noted Sodium 136 Potassium 4.2 Chloride 101 Carbon Dioxide 29 Anion Gap 6 L BUN 25 H Creatinine 0.7 POC Glucometer 198 Random Glucose 138 H Calcium 8.8 Magnesium 2.2 Albumin 2.9 L 05/04/17 06:20 WBC RBC Hgb Hct MCV MCH MCHC RDW Plt Count MPV Neutrophils % Lymphocytes % Monocytes % Platelet Estimate Platelet Comment Sodium Potassium Chloride Carbon Dioxide Anion Gap BUN Creatinine POC Glucometer 141 Random Glucose Calcium Magnesium Albumin Active Medications Generic Name Dose Route Start Last Admin Trade Name Freq PRN Reason Stop Dose Admin Acetaminophen 650 mg 05/02/17 17:24 Tylenol - PO Q6H PRN FEVER OR PAIN Albuterol Sulfate 1 amp 05/02/17 17:24 Ventolin 0.083% Nebulizer Soln - NEB Q6H PRN SHORT OF BREATH/WHEEZING Albuterol/Ipratropium 1 amp 05/02/17 18:00 05/04/17 10:41 Duoneb - NEB 1 amp Q4HWA CARMEN Administration Budesonide 1 amp 05/02/17 22:00 05/04/17 10:42 Pulmicort 0.5 Mg Nebulizer - NEB 1 amp BID CARMEN Administration Guaifenesin/Codeine Phosphate 10 ml 05/02/17 17:24 05/04/17 08:05 Robitussin Ac - PO 10 ml Q6H PRN Administration COUGH Heparin Sodium (Porcine) 5,000 unit 05/02/17 22:00 05/04/17 06:28 Heparin - SQ Not Given TID CARMEN Azithromycin 500 mg/ Sodium 250 mls @ 250 mls/hr 05/03/17 10:00 05/04/17 09:16 Chloride IVPB 250 mls/hr DAILY CARMEN Administration Insulin Aspart 1 vial 05/03/17 07:00 05/04/17 06:28 Novolog Vial Sliding Scale - SQ Not Given BIDAC [facility] Protocol Methylprednisolone Sodium Succinate 60 mg 05/03/17 15:00 05/04/17 09:15 Solu-Medrol - IVPB 60 mg Q6H-IV CARMEN Administration Montelukast Sodium 10 mg 05/02/17 22:00 05/03/17 21:25 Singulair - PO 10 mg HS CARMEN Administration Pantoprazole Sodium 40 mg 05/02/17 22:00 05/04/17 09:15 Protonix - PO 40 mg BID CARMEN Administration Terbutaline Sulfate 0.5 mg 05/02/17 17:24 Brethine Injection - SQ Q4H PRN ASTHMA ASSESSMENT/PLAN: This is a 36 year old woman with a history of asthma, bipolar disorder, obesity who presented to the ER with SOB. 1. Acute hypoxic respiratory failure secondary to status asthmaticus with URI - Still requiring oxygen - Continue BiPAP as needed - Continue SoluMedrol, Singulair, Pulmicort, DuoNeb, Terbutaline as needed, Zithromax, Robitussin AC as needed, albuterol as needed - Failed Xolair and bronchial thermoplasty 2. Lactic acidosis - Resolved 3. Bipolar disorder - Not on medication 4. DVT prophylaxis - Continue heparin subq 5. Stress ulcer prophylaxis - Continue Protonix Visit type - Emergency Visit Emergency Visit: Yes ED Registration Date: 04/28/17 Care time: The patient presented to the Emergency Department on the above date and was hospitalized for further evaluation of their emergent condition. - New Patient This patient is new to me today: No - Critical Care Critical Care patient: No - Discharge Referral Referred to [facility] Med P.C.: No
[2017-05-04] MEDS: MONTELUKAST NA 10 MG TABLET PO SCH (21:15)
[2017-05-04] MEDS ORDERED: PT OWN MED DRAWER 7, Y5N ONE (22:09)
[2017-05-05] MEDS: methylPREDNISolone NA SUCC 125 MG/2 ML VIAL IVPB SCH ×2 (02:27→09:23)
[2017-05-05] MEDS: INSULIN SLIDING SCALE (NOVOLOG) 1 VIAL SQ SCH (06:04)
[2017-05-05] MEDS: HEPARIN NA (PORCINE) 5,000 UNITS/ML 1ML VIAL SQ SCH (06:04)
--- NOTE | 2017-05-05 06:46 | PN ---
Physical Exam: SUBJECTIVE: Patient seen and examined OBJECTIVE: Vital Signs Period Temp Pulse Resp BP Sys/Pate Pulse Ox Last 24 Hr 98 F-98.3 F 77-101 18-22 125-136/73-85 94-97 GENERAL: The patient is awake, alert, and fully oriented, in no acute distress. HEAD: Normal with no signs of trauma. EYES: sclera anicteric, conjunctiva clear. No ptosis. ENT: moist mucous membranes. NECK: Trachea midline, full range of motion, supple. LUNGS: B/L rhonchi, expiratory wheezing ,no accessory muscle use. HEART: Regular rate and rhythm, S1, S2 without murmur, rub or gallop. ABDOMEN: Obese,Soft, nontender, nondistended, normoactive bowel sounds, no guarding, no rebound. EXTREMITIES: warm, well-perfused, no edema. NEUROLOGICAL: good mentation SKIN: Warm, dry, no rashes or lesions noted Laboratory Results - last 24 hr 05/04/17 05/04/17 05/04/17 05:25 05:25 17:20 WBC 13.0 H RBC 5.07 Hgb 12.1 Hct 37.8 MCV 74.5 L MCH 23.8 L MCHC 32.0 RDW 17.0 H Plt Count 271 MPV 8.5 Neutrophils % 92.0 H Lymphocytes % 5.0 L D Monocytes % 2.0 L Platelet Estimate Adequate Platelet Comment No clumping noted Sodium 136 Potassium 4.2 Chloride 101 Carbon Dioxide 29 Anion Gap 6 L BUN 25 H Creatinine 0.7 POC Glucometer 186 Random Glucose 138 H Calcium 8.8 Magnesium 2.2 Albumin 2.9 L 05/05/17 05:40 WBC RBC Hgb Hct MCV MCH MCHC RDW Plt Count MPV Neutrophils % Lymphocytes % Monocytes % Platelet Estimate Platelet Comment Sodium Potassium Chloride Carbon Dioxide Anion Gap BUN Creatinine POC Glucometer 146 Random Glucose Calcium Magnesium Albumin Active Medications Generic Name Dose Route Start Last Admin Trade Name Freq PRN Reason Stop Dose Admin Acetaminophen 650 mg 05/02/17 17:24 Tylenol - PO Q6H PRN FEVER OR PAIN Albuterol Sulfate 1 amp 05/02/17 17:24 Ventolin 0.083% Nebulizer Soln - NEB Q6H PRN SHORT OF BREATH/WHEEZING Albuterol/Ipratropium 1 amp 05/02/17 18:00 05/04/17 22:12 Duoneb - NEB 1 amp Q4HWA CARMEN Administration Budesonide 1 amp 05/02/17 22:00 05/04/17 22:12 Pulmicort 0.5 Mg Nebulizer - NEB 1 amp BID CARMEN Administration Guaifenesin/Codeine Phosphate 10 ml 05/02/17 17:24 05/04/17 20:08 Robitussin Ac - PO 10 ml Q6H PRN Administration COUGH Heparin Sodium (Porcine) 5,000 unit 05/02/17 22:00 05/05/17 06:04 Heparin - SQ Not Given TID CARMEN Azithromycin 500 mg/ Sodium 250 mls @ 250 mls/hr 05/03/17 10:00 05/04/17 09:16 Chloride IVPB 250 mls/hr DAILY CARMEN Administration Insulin Aspart 1 vial 05/03/17 07:00 05/05/17 06:04 Novolog Vial Sliding Scale - SQ Not Given BIDAC [facility] Protocol Methylprednisolone Sodium Succinate 60 mg 05/03/17 15:00 05/05/17 02:27 Solu-Medrol - IVPB 60 mg Q6H-IV CARMEN Administration Montelukast Sodium 10 mg 05/02/17 22:00 05/04/17 21:15 Singulair - PO 10 mg HS CARMEN Administration Pantoprazole Sodium 40 mg 05/02/17 22:00 05/04/17 21:15 Protonix - PO 40 mg BID CARMEN Administration Terbutaline Sulfate 0.5 mg 05/02/17 17:24 Brethine Injection - SQ Q4H PRN ASTHMA ASSESSMENT/PLAN: Pt is a 36yo F w/ PMHx of asthma (oral steroid dependent) who presented with SOB and chest tightness, admitted for acute respiratory distress due to acute asthma exacerbation # Acute hypoxic Respiratory distress likely 2/2 to acute asthma exacerbation- Status Asmaticus - -continue o2 as needed - Continue IV Solumedrol 60mg Q8H - switch Duonebs to Ipratropium PRN - Continue home Budesonide + Performist - Respiratory viral panel - Flu swab is negative - Peak flow daily -cardiac monitoring - started BIPAP to help with work of breathing, explained risk of intubation - has failed omalizumab therapy and bronchial thermoplasty. - F/U chest X-ray is negative - continue Azithromcine 500 mg PO daily - Terbutaline 0.5 mg SQ and Epi 300 micg IM, PRN - cough suppressant Guaifenesin/Codeine Phosphate 10 ml Po Q 6 hr PRN #URI , Rhinovirus , -continue same treatment # Sinus Tachycardia / Tachypnea - JR up to 150 when walk to the bath room without oxygen - likely 2/2 asthma exac + multiple duoneb tx - +SIRS, infectious is less likely, Blood Cx, Urine Cx, Urine Ag are negative -switch duonebs to ipatroprium. -cardiac monitoring # Lactic Acidosis, resolved - rising, likely 2/2 hypoxia, less likely infectious - 2.8 --> 5.3 --> 2.2 ...1.5 - Continue O2 PRN # Leukocytosis, Likely 2/2 steroid use vs viral infection - continue monitoring - will taper steroid when stable #Hyperglycemia -BGM ACHS - ISS ACHS while on steroids #GERD -40mg protonix PO BID # H/O Bipolar, - not on any medication , confirmed with pharmacy # FEN - Fluids: on no fluids - Electrolytes: WNL - Nutrition: Regular Diet # Prophylaxis - DVT: Heparin 5000,SQ TID - GI: Not indicated - Deconditioning: PT not needed, patient is ambulatory # Dispo - ICU admission due to tenuous respiratory status , transferred to tele 4w - Full code
[2017-05-05] MEDS: ALBUTEROL SO4 2.5/IPRATROPIUM 0.5 INH SOL 3 ML VIAL.NEB. NEB SCH ×2 (06:54→10:35)
[2017-05-05] MEDS: guaiFENesin/CODEINE 10 ML UNIT-DOSE CUPS PO PRN (07:03)
[2017-05-05] MEDS: AZITHROMYCIN IVPB 500 MG in SODIUM CHLORIDE 250 ML IVPB SCH (09:24)
[2017-05-05] MEDS: PANTOPRAZOLE 40 MG TABLET (FP) PO SCH (09:24)
[2017-05-05 10:17] VITALS: PULSE 73
[2017-05-05 10:19] VITALS: BP 131/86; TEMP 98.4
[2017-05-05] MEDS: BUDESONIDE 0.5 MG/2 ML INH SUSP VIAL NEB SCH (10:35)
--- NOTE | 2017-05-05 10:37 | PN ---
Progress Note, Physician History of Present Illness: PULMONARY ALERT,STILL DYSPNEIC,+COUGH - Current Medication List Current Medications: Active Medications Acetaminophen (Tylenol -) 650 mg PO Q6H PRN PRN Reason: FEVER OR PAIN Last Admin: 05/05/17 07:05 Dose: 650 mg Albuterol Sulfate (Ventolin 0.083% Nebulizer Soln -) 1 amp NEB Q6H PRN PRN Reason: SHORT OF BREATH/WHEEZING Albuterol/Ipratropium (Duoneb -) 1 amp NEB Q4HWA CARMEN Last Admin: 05/05/17 06:54 Dose: 1 amp Budesonide (Pulmicort 0.5 Mg Nebulizer -) 1 amp NEB BID CARMEN Last Admin: 05/04/17 22:12 Dose: 1 amp Guaifenesin/Codeine Phosphate (Robitussin Ac -) 10 ml PO Q6H PRN PRN Reason: COUGH Last Admin: 05/05/17 07:03 Dose: 10 ml Heparin Sodium (Porcine) (Heparin -) 5,000 unit SQ TID [facility] Last Admin: 05/05/17 06:04 Dose: Not Given Azithromycin 500 mg/ Sodium (Chloride) 250 mls @ 250 mls/hr IVPB DAILY [facility] Last Admin: 05/05/17 09:24 Dose: Not Given Insulin Aspart (Novolog Vial Sliding Scale -) 1 vial SQ BIDAC CARMEN PRN Reason: Protocol Last Admin: 05/05/17 06:04 Dose: Not Given Methylprednisolone Sodium Succinate (Solu-Medrol -) 60 mg IVPB Q6H-IV CARMEN Last Admin: 05/05/17 09:23 Dose: 60 mg Montelukast Sodium (Singulair -) 10 mg PO HS CARMEN Last Admin: 05/04/17 21:15 Dose: 10 mg Pantoprazole Sodium (Protonix -) 40 mg PO BID CARMEN Last Admin: 05/05/17 09:24 Dose: 40 mg Terbutaline Sulfate (Brethine Injection -) 0.5 mg SQ Q4H PRN PRN Reason: ASTHMA - Objective Vital Signs: Vital Signs Temperature 98.4 F 05/05/17 09:00 Pulse Rate 73 05/05/17 10:16 Respiratory Rate 20 05/05/17 09:00 Blood Pressure 131/86 05/05/17 09:00 O2 Sat by Pulse Oximetry (%) 97 05/05/17 10:17 Constitutional: Yes: Well Nourished, Calm, Anxious Eyes: Yes: WNL HENT: Yes: WNL Neck: Yes: WNL Cardiovascular: Yes: Regular Rate and Rhythm, S1, S2 Respiratory: Yes: Wheezes (SCATTERED MG WHEEZES) Gastrointestinal: Yes: Normal Bowel Sounds, Soft Extremities: Yes: WNL Edema: No Labs: Problem List - Problems (1) Status asthmaticus Code(s): J45.902 - UNSPECIFIED ASTHMA WITH STATUS ASTHMATICUS (2) Asthma with acute exacerbation Code(s): J45.901 - UNSPECIFIED ASTHMA WITH (ACUTE) EXACERBATION Qualifiers: Asthma severity: moderate persistent Qualified Code(s): J45.41 - Moderate persistent asthma with (acute) exacerbation; J45.41 - Moderate persistent asthma with (acute) exacerbation; J45.41 - Moderate persistent asthma with (acute) exacerbation (3) URI (upper respiratory infection) Code(s): J06.9 - ACUTE UPPER RESPIRATORY INFECTION, UNSPECIFIED Assessment/Plan ASSESSMENT AND PLAN: Status Asthmaticus URI +Rhinovirus - prednisone if pt refuses iv - inhaled bronchodilators standing and PRN - cough suppressants - NIPPV to assist in work of breathing - DVT prophylaxis DR ZAVALETA
--- NOTE | 2017-05-05 11:34 | PN ---
Teaching Attending Note Name of Resident: Norm Kaufman ATTENDING PHYSICIAN STATEMENT I saw and evaluated the patient. I reviewed the resident's note and discussed the case with the resident. I agree with the resident's findings and plan as documented. SUBJECTIVE: Patient says she feels better and wants to go home. OBJECTIVE: Vital Signs Period Temp Pulse Resp BP Sys/Pate Pulse Ox Last 24 Hr 98.2 F-98.4 F 73-101 18-22 125-136/78-86 94-97 HEART: S1S2, tachycardic LUNGS: Decreased BS with expiratory wheezes bilaterally ABDOMEN: Obese, soft, non-tender, non-distended, normal BS EXTREMITIES: No edema Current Medications Generic Name Dose Route Start Last Admin Trade Name Freq PRN Reason Stop Dose Admin Acetaminophen 650 mg 05/02/17 17:24 05/05/17 07:05 Tylenol - PO 650 mg Q6H PRN Administration FEVER OR PAIN Albuterol Sulfate 1 amp 05/02/17 17:24 Ventolin 0.083% Nebulizer Soln - NEB Q6H PRN SHORT OF BREATH/WHEEZING Albuterol/Ipratropium 1 amp 05/02/17 18:00 05/05/17 06:54 Duoneb - NEB 1 amp Q4HWA CARMEN Administration Budesonide 1 amp 05/02/17 22:00 05/04/17 22:12 Pulmicort 0.5 Mg Nebulizer - NEB 1 amp BID CARMEN Administration Guaifenesin/Codeine Phosphate 10 ml 05/02/17 17:24 05/05/17 07:03 Robitussin Ac - PO 10 ml Q6H PRN Administration COUGH Heparin Sodium (Porcine) 5,000 unit 05/02/17 22:00 05/05/17 06:04 Heparin - SQ Not Given TID CARMEN Azithromycin 500 mg/ Sodium 250 mls @ 250 mls/hr 05/03/17 10:00 05/05/17 09:24 Chloride IVPB Not Given DAILY CARMEN Insulin Aspart 1 vial 05/03/17 07:00 05/05/17 06:04 Novolog Vial Sliding Scale - SQ Not Given BIDAC CARMEN Protocol Methylprednisolone Sodium Succinate 60 mg 05/03/17 15:00 05/05/17 09:23 Solu-Medrol - IVPB 60 mg Q6H-IV CARMEN Administration Montelukast Sodium 10 mg 05/02/17 22:00 05/04/17 21:15 Singulair - PO 10 mg HS CARMEN Administration Pantoprazole Sodium 40 mg 05/02/17 22:00 05/05/17 09:24 Protonix - PO 40 mg BID CARMEN Administration Terbutaline Sulfate 0.5 mg 05/02/17 17:24 Brethine Injection - SQ Q4H PRN ASTHMA ASSESSMENT AND PLAN: This is a 36 year old woman with a history of asthma, bipolar disorder, obesity who presented to the ER with SOB. 1. Acute hypoxic respiratory failure secondary to status asthmaticus with URI - Continue BiPAP as needed - Continue SoluMedrol, Singulair, Pulmicort, DuoNeb, Terbutaline as needed, Zithromax, Robitussin AC as needed, albuterol as needed - Failed Xolair and bronchial thermoplasty - Advised patient against going home on oral steroids at this time. She understands the risks of worsening asthma, intubation, and wishes to sign out against medical advice. 2. Lactic acidosis - Resolved 3. Bipolar disorder - Not on medication 4. DVT prophylaxis - Continue heparin subq 5. Stress ulcer prophylaxis - Continue Protonix
--- NOTE | 2017-05-05 13:52 | DS ---
Physical Exam: SUBJECTIVE: Patient seen and examined at bedside. She is improving but she is still wheezing, coughing with movement. Her prednisone dose has been increased to 60 mg 4 times daily. Patient is asking to go home against medical advice. OBJECTIVE: Vital Signs Period Temp Pulse Resp BP Sys/Pate Pulse Ox Last 24 Hr 98.2 F-98.4 F 73-101 18-22 125-136/78-86 94-97 PHYSICAL EXAM GENERAL: The patient is awake, alert, and fully oriented, in moderate respiratory distress. HEAD: Normal with no signs of trauma. EYES: sclera anicteric, conjunctiva clear. ENT: moist mucous membranes. NECK: Trachea midline, full range of motion, supple. LUNGS: diffuse expirartory wheezing , no crackles, no accessory muscle use. HEART: Regular rate and rhythm, S1, S2 without murmur, rub or gallop. ABDOMEN: Soft, nontender, nondistended, normoactive bowel sounds, no guarding, no rebound. EXTREMITIES: 2+ pulses, warm, well-perfused, no edema. NEUROLOGICAL: good mentation PSYCH: Normal mood, normal affect. SKIN: Warm, dry, normal turgor, no rashes or lesions noted. LABS Laboratory Results - last 24 hr 05/04/17 05/05/17 17:20 05:40 POC Glucometer 186 146 CBC, BMP 05/04/17 05:25 05/04/17 05:25 HOSPITAL COURSE: Date of Admission:04/28/17 Date of Discharge: 05/05/17 This is a 36 year old woman with a history of asthma, bipolar disorder, obesity who presented to the ER with SOB. she had ccute hypoxic respiratory failure secondary to status asthmaticus with URItreated with BiPAP as needed, SoluMedrol, Singulair, Pulmicort, DuoNeb, Terbutaline as needed, Zithromax, Robitussin AC as needed, albuterol as needed she had Lactic acidosis at admission which resolved without fluids. In term of Bipolar disorder she can follow up as out patient . patient was advised against going home on oral steroids at this time. She understands the risks of worsening asthma, intubation, and wishes to sign out against medical advice. Prednison 80 mg PO daily was sent to patient pharmacy and recommend her to follow up with DR.Brill SIMMS. Minutes to complete discharge: 30 Discharge Summary Reason For Visit: ASTHMA Condition: Guarded - Instructions Diet, Activity, Other Instructions: You have been admitted for hospital ICU due to Asthma staticus . You were transferred to telemetry. You still on medications an not ready to be discharged. You decide to leave AMA . I explained to you the risk of leaving without finishing treatment including but not limited to Worsen symptoms, persistent cough, asthma exacerbation , Arrhythmia , and . You can come to the emergency department if you develop fever, chills or your symptoms worsen. Referrals: Noel Bryant MD [Primary Care Provider] - 1 Week Disposition: AGAINST MEDICAL ADVICE - Home Medications Comprehensive Discharge Medication List: Ambulatory Orders Albuterol Sulfate Inhaler - [Ventolin HFA Inhaler -] 1 - 2 inh PO QID 07/31/16 Budesonide [Pulmicort 0.5 mg Nebulizer -] 1 neb NEB ONCE 07/31/16 Formoterol Fumarate [Perforomist] 20 mcg IH BID 07/31/16 Dexamethasone 4 mg PO BID 08/14/16 Albuterol 2.5/Ipratropium 0.5 [Duoneb -] 1 neb NEB Q4H PRN #30 vial 01/29/17 Azithromycin [Zithromax 250mg Tablets -] 250 mg PO UTDICT #6 tab 01/29/17 Hydrocodone Bit/Homatrop Me-Br [Hydrocodone-Homatropine Syrup] 5 ml PO QID PRN # 90 ml MDD 20 ml 01/29/17 Prednisone [Deltasone -] 80 mg PO DAILY #28 tablet 05/05/17 This patient is new to me today: No Emergency Visit: Yes ED Registration Date: 04/28/17 Care time: The patient presented to the Emergency Department on the above date and was hospitalized for further evaluation of their emergent condition. Critical Care patient: Yes Total Critical Care Time (in minutes): 40 Critical Care Statement: The care of this patient involved high complexity decision making to prevent further life threatening deterioration of the patient 's condition and/or to evaluate & treat vital organ system(s) failure or risk of failure. - Discharge Referral Referred to [facility] Med P.C.: No
== END 2017-05-05 13:10 | disposition left against medical advice (07) | DRG 189 ==
LOC: FER 21:23 → JICU 04-28 01:00 → J4W 05-02 17:36
PROVIDERS: ADMIT Internal Medicine; ATTEND Internal Medicine
PROC: 5A09557 Assistance with Respiratory Ventilation, Greater than 96 Consecutive Hours, Continuous Positive Airway Pressure (ICD-10-PCS; principal; 2017-04-28)
DX: J96.01 Acute respiratory failure with hypoxia (principal); J45.42 Moderate persistent asthma with status asthmaticus; E87.2 Acidosis; R00.0 Tachycardia, unspecified; J06.9 Acute upper respiratory infection, unspecified; F31.9 Bipolar disorder, unspecified; K21.9 Gastro-esophageal reflux disease without esophagitis; D72.829 Elevated white blood cell count, unspecified; E66.01 Morbid (severe) obesity due to excess calories; Z68.32 Body mass index [BMI] 32.0-32.9, adult
CPT/HCPCS: 36415; 36600; 71010-TC; 80048; 80053; 81003; 82040; 82375; 82803; 83050; 83605; 83735; 84100; 84703; 85025; 85027; 87040; 87070; 87086; 87205; 87633; 87804; 87899; 90688; 93005; 93010; 94010; 94150; 94640; 94660; 99282-25; G0008; J1644

== ENCOUNTER 2017-12-26 22:09 | Inpatient (IN) | payer OTHER ==
[2017-12-26] MEDS ORDERED: ALBUTEROL SO4 2.5/IPRATROPIUM 0.5 INH SOL 3 ML VIAL.NEB. NEB ONE ×2 (22:59→23:44)
[2017-12-26] MEDS ORDERED: MAGNESIUM SULF 50% (8.12 MEQ/2 ML-1 GM VIAL) IVPB ONE (23:11)
[2017-12-26] MEDS ORDERED: methylPREDNISolone NA SUCC 125 MG/2 ML VIAL IVPB ONE (23:11)
--- NOTE | 2017-12-26 23:15 | PDOC ---
History of Present Illness - General History Source: Patient Exam Limitations: No Limitations - History of Present Illness Initial Comments: 12/27/17 02:02 The patient is a 37 year old female with a significant PMH of moderate persistent asthma, on multiple steroid therapy, numerous admission including admission for asthma exacerbation on 09/21, no prior intubations, anxiety, bipolar, and GERD who presents to the emergency department with an asthma exacerbation today. The patient endorses associated cough and chills. The patient states she is compliant with medications for her asthma but states her asthma exacerbation today is worse than usual. She has been taking 4 mg of Dexamethasone daily, her albuterol, and Xolair injection at home with no relief of her symptoms. The patient is speaking in partial sentences and is in a tripod position during presentation. The patient denies chest pain, headache and dizziness. Denies fever, nausea, vomit, diarrhea and constipation. Denies dysuria, frequency, urgency and hematuria. PAST MEDICAL HISTORY: Moderate persistent asthma, morbid obesity SOCIAL HISTORY: Denies history of smoking. Does not have carpets or pets at home ALLERGIES: Omalizumab, penicillin MEDICATIONS: Dethomexicone, Albuterol, Formoterol Fumarate, Budesonide. Xolair injection <Halie Rasmussen - Last Filed: 12/27/17 05:53> <Michelle Greenberg - Last Filed: 12/27/17 05:56> - General Chief Complaint: Shortness of Breath Stated Complaint: DIFF BREATHING Time Seen by Provider: 12/26/17 22:59 Past History <Halie Rasmussen - Last Filed: 12/27/17 05:53> - Past Medical History Anemia: No Asthma: Yes (1991) Cancer: No Cardiac Disorders: No CVA: No COPD: No CHF: No Dementia: No Diabetes: No GI Disorders: Yes (GERD) Disorders: No HTN: No Hypercholesterolemia: No Liver Disease: No Psychiatric Problems: Yes (bipolar) Seizures: No Thyroid Disease: No - Surgical History Abdominal Surgery: Yes (TUBAL LIGATION 2007) Appendectomy: Yes (2000) Cardiac Surgery: No Cholecystectomy: Yes (2012) Lung Surgery: Yes (BRONCHIAL THERMOPLASTY 2012) Neurologic Surgery: No Orthopedic Surgery: No - Immunization History Td Vaccination: No TDAP Vaccination: No Immunization Up to Date: No - Suicide/Smoking/Psychosocial Hx Smoking Status: No Smoking History: Never smoked Have you smoked in the past 12 months: No Number of Cigarettes Smoked Daily: 0 Information on smoking cessation initiated: No Hx Alcohol Use: No Drug/Substance Use Hx: No Substance Use Type: Alcohol Hx Substance Use Treatment: No <Michelle Greenberg - Last Filed: 12/27/17 05:56> - Past Medical History Allergies/Adverse Reactions: Allergies Allergy/AdvReac Type Severity Reaction Status Date / Time omalizumab Allergy Severe Difficulty Verified 09/19/17 16:04 Breathing Penicillins Allergy Severe Difficulty Verified 09/19/17 16:04 Breathing Home Medications: Ambulatory Orders Albuterol Sulfate Inhaler - [Ventolin HFA Inhaler -] 1 - 2 inh PO QID 07/31/16 Budesonide [Pulmicort 0.5 mg Nebulizer -] 1 neb NEB BID 07/31/16 Formoterol Fumarate [Perforomist] 20 mcg IH BID 07/31/16 Dexamethasone 4 mg PO BID 08/14/16 Albuterol 2.5/Ipratropium 0.5 [Duoneb -] 1 neb NEB Q4H PRN #30 vial 01/29/17 Azithromycin [Zithromax 250mg Tablets -] 250 mg PO UTDICT #6 tab 01/29/17 Montelukast Sodium [Singulair] 10 mg PO HS 09/19/17 Guaifenesin AC [Robitussin AC -] 5 ml PO TID PRN #60 liquid MDD 15 09/21/17 Oseltamivir Phosphate [Tamiflu -] 75 mg PO BID #6 capsule 09/21/17 Theophylline Anhydrous [Imtiaz-24] 200 mg PO BID@0800,1700 #30 cap.er.24h predniSONE [Deltasone -] 60 mg PO DAILY #15 tablet 09/21/17 Review of Systems - Review of Systems Able to Perform ROS?: Yes Comments:: 12/27/17 02:03 See HPI. All other systems reviewed and unremarkable <Halie Rasmussen - Last Filed: 12/27/17 05:53> *Physical Exam - Vital Signs Last Vital Signs Temp Pulse Resp BP Pulse Ox 100.1 F H 145 H 20 116/67 98 12/26/17 22:11 12/26/17 23:12 12/26/17 22:11 12/26/17 22:11 12/27/17 00:11 - Physical Exam Comments: 12/27/17 02:03 " General Physical Exam: (+) Speaking in partial sentences. (+) Tripoding. NAD EOMI, LISANDRO MMM, OP WNL NCAT, no midline cervical tenderness RRR, nl s1/s2, no m/r/g (+) Tachypneic. (+) Diffuse expiratory wheezing but good air movement.. no r/r Soft, NTND No edema, WWP, no rash Neuro grossly intact, gait WNL, moving all 4 A&O x 3, mood/affect WNL. " <Halie Rasmussen - Last Filed: 12/27/17 05:53> - Vital Signs Last Vital Signs Temp Pulse Resp BP Pulse Ox 100.1 F H 150 H 20 116/67 93 L 12/26/17 22:11 12/26/17 22:11 12/26/17 22:11 12/26/17 22:11 12/26/17 22:11 <Michelle Greenberg - Last Filed: 12/27/17 05:56> Procedures - Intubation Time of Intubation: 05:40 Intubation Method: orotracheal Blade used: Mac Tube Size (Fr): 7.5 Medications: Ketamine, Rocuronium Tube position @ lip (cm): 22 Tube position confirmed by: Direct visualization, CO2 detector, Chest x-ray, Breath sounds Breath Sounds after Intubation: equal Intubation Complications: no complications Post Intubation Xray: Yes <Michelle Greenberg - Last Filed: 12/27/17 05:56> ED Treatment Course - LABORATORY CBC & Chemistry Diagram: 12/26/17 23:15 12/26/17 23:15 - ADDITIONAL ORDERS Additional order review: Laboratory Results 12/26/17 12/26/17 12/26/17 23:30 23:15 23:15 VBG pH 7.36 POC VBG pCO2 41.4 POC VBG pO2 27.6 L Mixed VBG HCO3 23.1 Sodium 141 Potassium 4.0 Chloride 105 Carbon Dioxide 24 Anion Gap 12 BUN 12 Creatinine 0.9 Random Glucose 118 H Lactic Acid 2.6 H* Calcium 9.3 12/27/17 00:07 Influenza Types A,B Antigen - Final Nasopharyngeal Swab - Final 12/26/17 23:15 RBC 5.45 H MCV 74.3 L MCHC 31.0 L RDW 17.0 H MPV 8.6 Neutrophils % 91.5 H D Lymphocytes % 4.9 L D Monocytes % 3.1 L Eosinophils % 0.0 D Basophils % 0.5 - Medications Given in the ED: ED Medications Discontinued Medications Generic Name Dose Route Start Last Admin Trade Name Griffinq PRN Reason Stop Dose Admin Albuterol Sulfate 1 amp 12/26/17 23:15 12/27/17 00:45 Ventolin 0.083% Nebulizer Soln - NEB 12/27/17 00:46 1 amp Q10M CARMEN Administration Ipratropium Allison 1 amp 12/26/17 23:15 12/27/17 00:01 Atrovent 0.02% Nebulizer - NEB 12/26/17 23:36 1 amp Q10M CARMEN Administration Magnesium Sulfate 2 gm 12/26/17 23:11 12/27/17 00:01 Magnesium Sulfate IVPB 12/26/17 23:12 2 gm ONCE ONE Administration Methylprednisolone Sodium Succinate 125 mg 12/26/17 23:11 12/27/17 00:01 Solu-Medrol - IVPB 12/26/17 23:12 125 mg ONCE ONE Administration <Halie Rasmussen - Last Filed: 12/27/17 05:53> - LABORATORY CBC & Chemistry Diagram: 12/26/17 23:15 12/26/17 23:15 <Michelle Greenberg - Last Filed: 12/27/17 05:56> Medical Decision Making - Medical Decision Making 12/27/17 01:52 ICU accepted the patient. Hospitalist paged, no response. 12/27/17 03:07 Hospitalist paged a second time. 12/27/17 05:53 Patient has been intubated. <Halie Rasmussen - Last Filed: 12/27/17 05:53> - Critical Care Time Total Critical Care Time (minutes): 60 Critical Care Statement: The care of this patient involved high complexity decision making to prevent further life threatening deterioration of the patient 's condition and/or to evaluate & treat vital organ system(s) failure or risk of failure. - Medical Decision Making 12/27/17 01:52 37yoF w/hx of severe chronic asthma presnets w/ 2d of progressive asthma exacerbation likely in setting of URI. cont nebs bipap mag solu-medrol admit ICU. <Michelle Greenberg - Last Filed: 12/27/17 05:56> *DC/Admit/Observation/Transfer - Attestations Scribe Attestion: 12/27/17 02:03 Documentation prepared by Halie Rasmussen, acting as medical billing and coding specialist for Michelle Greenberg MD. <Halie Rasmussen - Last Filed: 12/27/17 05:53> - Discharge Dispostion Decision to Admit order: Yes <Michelle Greenberg - Last Filed: 12/27/17 05:56> - Discharge Dispostion Condition at time of disposition: Critical
[2017-12-26 23:44] LABS: BASO % 0.5 % (0-2.0); HEMATOCRIT 40.5 % (32.4-45.2); HEMOGLOBIN 12.5 GM/dL (10.7-15.3); LYMPH % 4.9 % (8-40); MEAN CELL VOLUME 74.3 fl (80-96); MEAN PLT VOLUME 8.6 fl (7.5-11.1); MONO % 3.1 % (3.8-10.2); NEUT % 91.5 % (42.8-82.8); PLATELET COUNT 338 K/MM3 (134-434); RBC 5.45 M/mm3 (3.60-5.2); WHITE BLOOD COUNT 15.8 K/mm3 (4.0-10.0)
[2017-12-26 23:45] LABS: VENOUS PH 7.36 (7.32-7.42)
[2017-12-26 23:46] LABS: VENOUS PC02 41.4 mmHg (38-52); VENOUS PO2 27.6 mmHg (28-48)
[2017-12-26] MEDS ORDERED: MAGNESIUM SULF 50% (8.12 MEQ/2 ML-1 GM VIAL) ONE ×2 (23:49→23:50)
[2017-12-26] MEDS ORDERED: methylPREDNISolone NA SUCC 125 MG/2 ML VIAL ONE (23:49)
[2017-12-26] MEDS ORDERED: ALBUTEROL SO4 0.083% IH SOL 2.5 MG/3 ML VIAL.NEB. NEB ONE (23:49)
[2017-12-27] MEDS ORDERED: ACETAMINOPHEN 325 MG TABLET (FP) ONE
[2017-12-27] MEDS: ALBUTEROL SO4 0.083% IH SOL 2.5 MG/3 ML VIAL.NEB. NEB SCH ×17 (00:01→23:55)
[2017-12-27] MEDS: IPRATROPIUM BR 0.02% 0.5 MG/2.5 ML VIAL.NEB. NEB SCH (00:01)
[2017-12-27 00:05] LABS: ANION GAP 12 (8-16); BLOOD UREA NITROGEN 12 mg/dL (7-18); CALCIUM 9.3 mg/dL (8.5-10.1); CHLORIDE 105 mmol/L (98-107); CO2 24 mmol/L (21-32); CREATININE 0.9 mg/dL (0.55-1.02); GLUCOSE,RANDOM 118 mg/dL (74-106); SODIUM 141 mmol/L (136-145)
[2017-12-27 00:58] LABS: ACANTHOCYTES 0; ANISOCYTOSIS 0; HELMET CELLS 0; HOWELL-JOLLY BODIES 0; MACROCYTOSIS 0; OVALOCYTE 0; PLATELET ESTIMATE INCREASED; ROULEAU 0; SICKELED CELLS 0; TARGET CELLS 0; TEAR DROP CELLS 0; TOXIC GRANULATION 0
[2017-12-27] MEDS ORDERED: EPINEPHrine/PF 1 MG/1 ML (1:1,000) AMPULE IM ONE ×2 (01:44→05:05)
[2017-12-27] MEDS ORDERED: MAGNESIUM SULF 50% (8.12 MEQ/2 ML-1 GM VIAL) IVPB ONE (01:44)
[2017-12-27] MEDS ORDERED: AZITHROMYCIN IVPB 500 MG in DEXTROSE 5%-WATER - 250 ML IVPB ONE (01:44)
[2017-12-27] MEDS ORDERED: MAGNESIUM SULF 50% (8.12 MEQ/2 ML-1 GM VIAL) ONE (01:49)
[2017-12-27] MEDS ORDERED: AZITHROMYCIN IVPB 250 ML IVPB ONE (01:49)
[2017-12-27] MEDS ORDERED: EPINEPHrine/PF 1 MG/1 ML (1:1,000) AMPULE ONE (01:49)
[2017-12-27] MEDS ORDERED: ALBUTEROL SO4 0.083% IH SOL 2.5 MG/3 ML VIAL.NEB. NEB ONE ×3 (04:39→06:30)
[2017-12-27] MEDS ORDERED: IPRATROPIUM BR 0.02% 0.5 MG/2.5 ML VIAL.NEB. NEB ONE (04:40)
[2017-12-27] MEDS ORDERED: ROCURONIUM BROMIDE 50 MG/5 ML VIAL IVPUSH ONE (05:05)
[2017-12-27] MEDS ORDERED: KETAMINE HCL 200 MG/20 ML VIAL IVPUSH ONE (05:05)
[2017-12-27] MEDS ORDERED: RAPID SEQUENCE INTUBATION KIT NR ONE ×3 (05:15→05:43)
[2017-12-27] MEDS ORDERED: PROPOFOL 1,000,000 MCG/100 ML VIAL ONE ×3 (05:20→07:40)
[2017-12-27] MEDS ORDERED: KETAMINE HCL 500 MG/10 ML VIAL ONE (05:20)
--- NOTE | 2017-12-27 05:44 | HP ---
CHIEF COMPLAINT: Shortness of breath PCP: Not on staff HISTORY OF PRESENT ILLNESS: Patient is a 37 year old female with a PMHx of Severe persistent asthma (on chronic oral steroids) with several episodes of exacerbations in the past but never intubated who presented for shortness of breath that started yesterday. Patient states she started feeling weak and sick yesterday afternoon with increasing productive cough associated with chills. The cough and shortness of breath became so severe she required Nebulizer treatments Q2H throughout the day with no relief of symptoms, which prompted this hospital visit. Patient denies new habits, new pets, smoking, or sick contacts. Never been intubated before but states she almost did several times. Has had several asthma exacerbations requiring ICU admission the past year. Patient states she has been placed on several medications with failed therapy. She had a bronchial thermoplasty done in he past. Otherwise, patient denies abdominal pain, chest pin, headache, nausea, vomiting, fever, night sweats, dysuria, hematuria, frequency, urgency. ER course was notable for: (1) Resp distress with accessory muscle use requiring over 6 nebulizer treatments and 4mg magnesium, solumedrol x1. Patient unable to speak. Medicine team and ED team decided patient should be intubated and patient gave consent for. 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, due to chronic steroids) Social History: Lives w/ 4 children Smoking: Denies Alcohol: Denies Drugs: Denies Allergies: omalizumab Allergy (Severe, Verified 09/19/17 16:04) Difficulty Breathing Penicillins Allergy (Severe, Verified 09/19/17 16:04) Difficulty Breathing HOME MEDICATIONS: Home Medications Medication Instructions Recorded Albuterol Sulfate Inhaler - 1 - 2 inh PO QID 07/31/16 [Ventolin HFA Inhaler -] Budesonide [Pulmicort 0.5 mg 1 neb NEB BID 07/31/16 Nebulizer -] Formoterol Fumarate [Perforomist] 20 mcg IH BID 07/31/16 Dexamethasone 4 mg PO BID 08/14/16 Albuterol 2.5/Ipratropium 0.5 1 neb NEB Q4H PRN #30 vial 01/29/17 [Duoneb -] Azithromycin [Zithromax 250mg 250 mg PO UTDICT #6 tab 01/29/17 Tablets -] Montelukast Sodium [Singulair] 10 mg PO HS 09/19/17 Guaifenesin AC [Robitussin AC -] 5 ml PO TID PRN #60 liquid MDD 15 09/21/17 Oseltamivir Phosphate [Tamiflu -] 75 mg PO BID #6 capsule 09/21/17 Theophylline Anhydrous [Imtiaz-24] 200 mg PO BID@0800,1700 #30 09/21/17 cap.er.24h predniSONE [Deltasone -] 60 mg PO DAILY #15 tablet 09/21/17 REVIEW OF SYSTEMS CONSTITUTIONAL: Absent: fever, chills, diaphoresis, generalized weakness, malaise, loss of appetite, weight change HEENT: Absent: rhinorrhea, nasal congestion, throat pain, throat swelling, difficulty swallowing, mouth swelling, ear pain, eye pain, visual changes CARDIOVASCULAR: Absent: chest pain, syncope, palpitations, irregular heart rate, lightheadedness , peripheral edema RESPIRATORY: cough, shortness of breath, dyspnea with exertion, orthopnea, wheezing Absent: stridor, hemoptysis GASTROINTESTINAL: Absent: abdominal pain, abdominal distension, nausea, vomiting, diarrhea, constipation, melena, hematochezia GENITOURINARY: Absent: dysuria, frequency, urgency, hesitancy, hematuria, flank pain, genital pain MUSCULOSKELETAL: Absent: myalgia, arthralgia, joint swelling, back pain, neck pain SKIN: Absent: rash, itching, pallor HEMATOLOGIC/IMMUNOLOGIC: Absent: easy bleeding, easy bruising, lymphadenopathy, frequent infections ENDOCRINE: Absent: unexplained weight gain, unexplained weight loss, heat intolerance, cold intolerance NEUROLOGIC: Absent: headache, focal weakness or paresthesias, dizziness, unsteady gait, seizure, mental status changes, bladder or bowel incontinence PSYCHIATRIC: Absent: anxiety, depression, suicidal or homicidal ideation, hallucinations. PHYSICAL EXAMINATION Vital Signs - 24 hr 12/26/17 12/26/17 12/26/17 22:11 23:09 23:12 Temperature 100.1 F H Pulse Rate 150 H 145 H Pulse Rate [ 123 H Apical] Respiratory 20 26 H Rate Blood Pressure 116/67 Blood Pressure 119/61 [Right Arm] O2 Sat by Pulse 93 L 94 L Oximetry (%) 12/27/17 00:11 Temperature Pulse Rate Pulse Rate [ Apical] Respiratory Rate Blood Pressure Blood Pressure [Right Arm] O2 Sat by Pulse 98 Oximetry (%) GENERAL: Awake, alert, and fully oriented. In severe respiratory distress, speaking in partial sentences HEAD: Normal with no signs of trauma. EYES: Pupils equal, round and reactive to light, extraocular movements intact, sclera anicteric, conjunctiva clear. No lid lag. ENT: Nebulizer treatment in place NECK: No JVD LUNGS: Tachypneic, Diffuse audible expiratory wheezing with accessory muscle use HEART: Tachycardic with regular rhythm, normal S1 and S2 without murmur, rub or gallop. ABDOMEN: Soft, nontender, not distended, normoactive bowel sounds EXTREMITIES: No peripheral edema. NEUROLOGICAL: Cranial nerves II-XII intact. Motor strength 5/5 bilaterally with sensory intact PSYCHIATRIC: Cooperative. Good eye contact. Appropriate mood and affect. SKIN: Warm, dry, normal turgor, no rashes or lesions noted, normal capillary refill. Laboratory Results - last 24 hr CBC, BMP 12/26/17 23:15 12/26/17 23:15 12/26/17 12/27/17 23:15 02:10 Lactic Acid 2.6 H* Urine HCG, Qual Negative ASSESSMENT/PLAN: Patient is a 37 year old female who presented for severe dyspnea and was found to be in Acute asthma exacerbation. Patient admitted for further monitoring and management. Acute Hypoxic Respiratory Failure -Secondary to Severe persistent asthma exacerbation -Patient tachypneic, tachycardic, requiring several rounds of Duoneb -Solumedrol 80mg IV TID -Duo-Neb Q4H QID -Albuterol Q2H PRN -IV Abx with Levaqui 750mg daily -Flu swab negative -Chest X-ray to rule out PNA -ICU Admission for intubation. -Protonix 40mg IVP daily -Continue home medications Budesonide and Performist after extubation Lactic Acidosis -2.6 Likely secondary to Hypoxia -Repeat another lactic in the am -Continue to monitor Anxiety/Bipolar -On no medications on chart. Will need med rec F/E/N -On no fluids -Electrolytes wnl -NPO Prophylaxis -Moderate risk. Heparin 5000 units sq TID -Protonix 40mg IVP Disposition -Full code -Intubated in the ICU Visit type - Emergency Visit Emergency Visit: Yes ED Registration Date: 12/27/17 Care time: The patient presented to the Emergency Department on the above date and was hospitalized for further evaluation of their emergent condition. - New Patient This patient is new to me today: Yes Date on this admission: 12/27/17 - Critical Care Critical Care patient: Yes Total Critical Care Time (in minutes): 45 Critical Care Statement: The care of this patient involved high complexity decision making to prevent further life threatening deterioration of the patient 's condition and/or to evaluate & treat vital organ system(s) failure or risk of failure. Hospitalist Screening - Colonoscopy Questionnaire Colonoscopy Questionnaire: Colonoscopy Questionnaire - Patient: 50 - 75 years old and never had a screening colonoscopy: No History of colon or rectal polyps, or CA: No History of IBD, Crohn's disease or UC: No History of abdominal radiation therapy as a child: No - Relative: 1 with colon or rectal CA, or polyps at age 60 or younger: No Colon or rectal CA diagnosed at age 45 or younger: No Multiple relatives with colon or rectal CA: No - Outcome: Screening Result: Negative Screen
[2017-12-27] MEDS ORDERED: ALBUTEROL SO4 0.083% IH SOL 2.5 MG/3 ML VIAL.NEB. NEB PRN (05:58)
[2017-12-27] MEDS ORDERED: EPINEPHrine 1:1,000 - 30,000 MCG in DEXTROSE 5%-WATER - 220 ML IVPB SCH (06:00)
--- NOTE | 2017-12-27 06:04 | PN ---
Teaching Attending Note Name of Resident: Michelle Hankins ATTENDING PHYSICIAN STATEMENT I saw and evaluated the patient. I reviewed the resident's note and discussed the case with the resident. I agree with the resident's findings and plan as documented. SUBJECTIVE: OBJECTIVE: ASSESSMENT AND PLAN: this is a 37 y/o female patient with history severe persistent asthma without any history of intubation, presented to the Hospital for worsening respiratory symptoms, according to the patient her symptoms started yesterday, for which the patient took albuterol, and ipratropium, 4mg of dexamethasone and albuterol HFA without relief, patient decided to come to the ER. plan: admit the patient to the ICU for acute hypoxemic respiratory failure 2/2 to asthma exacerbation - intubate - c/w albuterol - c/w ipratropium bromide - pulmonary evaluation - ABG - CXR - methyprednisone 80mg q8hrs - fentanyl drip - levofloxacin 750mg daily
[2017-12-27] MEDS: PROPOFOL 1,000,000 MCG/100 ML VIAL IVPB SCH ×3 (06:18→17:05)
[2017-12-27] MEDS: methylPREDNISolone NA SUCC 40 MG/1 ML VIAL IVPB SCH ×3 (07:40→21:45)
[2017-12-27] MEDS ORDERED: methylPREDNISolone NA SUCC 40 MG/1 ML VIAL ONE (07:40)
[2017-12-27] MEDS ORDERED: HEPARIN NA (PORCINE) 5,000 UNITS/ML 1ML VIAL ONE (07:40)
[2017-12-27] MEDS: HEPARIN NA (PORCINE) 5,000 UNITS/ML 1ML VIAL SQ SCH ×3 (07:45→21:45)
[2017-12-27] MEDS: INSULIN SLIDING SCALE (NOVOLOG) 1 VIAL SQ SCH ×4 (07:58→22:00)
[2017-12-27] MEDS ORDERED: ALBUTEROL SO4 2.5/IPRATROPIUM 0.5 INH SOL 3 ML VIAL.NEB. NEB SCH (08:00)
[2017-12-27] MEDS ORDERED: ALBUTEROL SO4 2.5/IPRATROPIUM 0.5 INH SOL 3 ML VIAL.NEB. NEB ONE (08:02)
[2017-12-27 08:59] LABS: ARTERIAL BLD GAS O2 SATURATION 96.2 % (90-98.9); ARTERIAL BLOOD GAS BASE EXCESS -8.7 meq/l (-2-2)
[2017-12-27 09:28] LABS: ALLENS TEST POSITIVE
[2017-12-27 09:35] LABS: ARTERIAL BLOOD GAS pH 7.18 (7.35-7.45)
[2017-12-27 10:13] LABS: ALBUMIN 3.5 g/dl (3.4-5.0); ANION GAP 8 (8-16); BILIRUBIN,TOTAL 0.2 mg/dL (0.2-1.0); BLOOD UREA NITROGEN 10 mg/dL (7-18); CALCIUM 7.4 mg/dL (8.5-10.1); CHLORIDE 108 mmol/L (98-107); CO2 25 mmol/L (21-32); CREATININE 1.2 mg/dL (0.55-1.02); GLUCOSE,RANDOM 223 mg/dL (74-106); MAGNESIUM 2.8 mg/dL (1.8-2.4); PHOSPHOROUS 3.6 mg/dL (2.5-4.9); POTASSIUM 4.1 mmol/L (3.5-5.1); SGOT/AST 14 U/L (15-37); SGPT/ALT 20 U/L (12-78); SODIUM 141 mmol/L (136-145); TOT PROT 7.2 g/dl (6.4-8.2)
[2017-12-27 10:14] LABS: ALK PHOS 90 U/L (45-117)
[2017-12-27 10:37] LABS: EOS % 0.1 % (0-4.5); HEMATOCRIT 37.9 % (32.4-45.2); HEMOGLOBIN 11.6 GM/dL (10.7-15.3); LYMPH % 3.5 % (8-40); MCH 23.3 pg (25.7-33.7); MCHC 30.5 g/dl (32.0-36.0); MEAN CELL VOLUME 76.3 fl (80-96); MEAN PLT VOLUME 8.5 fl (7.5-11.1); MONO % 1.1 % (3.8-10.2); NEUT % 95.3 % (42.8-82.8); PLATELET COUNT 292 K/MM3 (134-434); RBC 4.98 M/mm3 (3.60-5.2); RDW 17.4 % (11.6-15.6); WHITE BLOOD COUNT 18.1 K/mm3 (4.0-10.0)
[2017-12-27] MEDS: PANTOPRAZOLE SODIUM 40 MG VIAL IVPUSH SCH (10:46)
[2017-12-27 11:28] LABS: ARTERIAL BLD GAS O2 SATURATION 98.6 % (90-98.9); ARTERIAL BLOOD GAS BASE EXCESS -4.2 meq/l (-2-2); ARTERIAL BLOOD GAS pH 7.34 (7.35-7.45)
[2017-12-27 11:38] LABS: ALLENS TEST POSITIVE
--- NOTE | 2017-12-27 13:44 | CONSULT ---
Consult - text type - Consultation Consultation Note: PULM/CCM Pt seen and examined in ICU CC: asthma exacerbation HPI: (Information obtained from Medical Record/Intubated) Briefly Pt is a 37 y/ o woman with difficult to control severe asthma with numerous exacerbations/ hospital admissions but no intubations, who presented with acute exacerbation that was not responsive to home dosed steroids, nebs, etc. There was no other acute complaints and no significant sick prodrome. In ED pt was in extremis, failed NIV, IV steroids, nebs, mag and SQ epi. She was intubated without incident. ABG 7.2/56/100s. Started on Stacked nebs, and dose of LVQ given. Pt transferred to ICU. On arrival pt vent adjusted. repeat abg improved 7.37/ 41. Pt cont on deep sedation without need for paralysis . Low grade temp noted. Ambulatory Orders Albuterol Sulfate Inhaler - [Ventolin HFA Inhaler -] 1 - 2 inh PO QID 07/31/16 Budesonide [Pulmicort 0.5 mg Nebulizer -] 1 neb NEB BID 07/31/16 Formoterol Fumarate [Perforomist] 20 mcg IH BID 07/31/16 Dexamethasone 4 mg PO BID 08/14/16 Albuterol 2.5/Ipratropium 0.5 [Duoneb -] 1 neb NEB Q4H PRN #30 vial 01/29/17 Azithromycin [Zithromax 250mg Tablets -] 250 mg PO UTDICT #6 tab 01/29/17 Montelukast Sodium [Singulair] 10 mg PO HS 09/19/17 Guaifenesin AC [Robitussin AC -] 5 ml PO TID PRN #60 liquid MDD 15 09/21/17 Oseltamivir Phosphate [Tamiflu -] 75 mg PO BID #6 capsule 09/21/17 Theophylline Anhydrous [Imtiaz-24] 200 mg PO BID@0800,1700 #30 cap.er.24h predniSONE [Deltasone -] 60 mg PO DAILY #15 tablet 09/21/17 Current Medications Albuterol Sulfate (Ventolin 0.083% Nebulizer Soln -) 1 amp NEB Q1H CARMEN Last Admin: 12/27/17 12:21 Dose: 1 amp Chlorhexidine Gluconate (Hibiclens For Decolonization -) 1 applic TP HS CARMEN Heparin Sodium (Porcine) (Heparin -) 5,000 unit SQ TID [facility] Last Admin: 12/27/17 07:45 Dose: 5,000 unit Propofol (Diprivan -) 1,000,000 mcg in 100 mls @ 16.329 mls/hr IVPB TITR [facility]; Protocol Last Admin: 12/27/17 10:00 Dose: 75 mcg/kg/min, 40.823 mls/hr Epinephrine 30,000 mcg/ (Dextrose) 250 mls @ 0.49 mls/hr IVPB TITR [facility]; Protocol Last Admin: 12/27/17 06:25 Dose: 1 mcg/min, 0.49 mls/hr Levofloxacin (Levaquin 750 Mg Premixed Ivpb -) 750 mg in 150 mls @ 150 mls/hr IVPB DAILY [facility]; Protocol Last Admin: 12/27/17 11:23 Dose: 150 mls/hr Insulin Aspart (Novolog Vial Sliding Scale -) 1 vial SQ ACHS [facility]; Protocol Last Admin: 12/27/17 11:28 Dose: 4 units Methylprednisolone Sodium Succinate (Solu-Medrol -) 80 mg IVPB TID [facility] Last Admin: 12/27/17 07:40 Dose: 80 mg Mupirocin (Bactroban Ointment (For Decolonization) -) 1 applic NS BID [facility] Stop: 01/01/18 12:29 Pantoprazole Sodium (Protonix Iv) 40 mg IVPUSH DAILY [facility] Last Admin: 12/27/17 10:46 Dose: 40 mg Past Medical History [employer] Syncope Pulmonary Asthma Gastrointestinal GERD Psych Bipolar Additional Medical History insomnia-->Ambien 5 mg qhs Past Surgical History Past Surgical History Appendectomy,Cholecystectomy Smoking History Smoking history Never smoked Aproximately how many 0 cigarettes per day Alcohol/Substance Use Hx Alcohol Use No Social History Usual Living Arrangement With Child History of Recent Travel No Vital Signs Temp 99.1 F 12/27/17 09:50 Pulse 112 H 12/27/17 09:50 Resp 17 12/27/17 11:10 BP 112/60 12/27/17 09:50 Pulse Ox 100 12/27/17 09:45 Intake & Output 12/26/17 12/27/17 12/27/17 23:59 11:59 23:59 Weight 90.718 kg 94.1 g Other: Voiding Method Indwelling Catheter Height 5 ft 5 in 5 ft 5 in Body Mass Index (BMI) 33.3 0.0 Weight Measurement Method Built in [facility] Weight Measurement Method Est/Stated by Patient EKG: reviewed CXR: Reviewed< Somewhat hyperinflated with flat diaphrams, ETT moved from R mainstem with well above eliana, no obvious infiltrate. ROS: unable due to pt condion PE: Gen:sedated intubated HEENT: NCAT, PERRL PULM: diffuse wheezes, poor air movement CV: tachy, regular. no mr/g/ appreciate ABD: obese, soft, NT EXT: no edema, KLEIN x 4 to noxious stimuli Neuro: deeply sedated A/ 37 y/o acute azthma exacerbation' P/ -full vent support, monitor autoPEEP, keep flow high, low rate -stack nebs, taper to q2 as improves -sedate for vent synchrony, RASS -4 -cont steroids at current level, taper once improved -wean off epi gtt -no sick prodrome, can stop abx if remains afebrile and cxl negative -PPI, SQH -ICU monitoring Pia HOLLAND [id number] 35min CCT Critical Care Total Critical Care Time (in minutes): 35 Critical Care Statement: The care of this patient involved high complexity decision making to prevent further life threatening deterioration of the patient 's condition and/or to evaluate & treat vital organ system(s) failure or risk of failure.
[2017-12-27] MEDS: MUPIROCIN 2% TOPICAL OINTMENT FOR DECOLONIZATION NS SCH ×2 (14:04→22:00)
[2017-12-27] MEDS ORDERED: FENTANYL INJECTION 500 MCG in DEXTROSE 5%-WATER - 90 ML IVPB SCH (20:00)
[2017-12-27] MEDS ORDERED: fentaNYL CITRATE 250 MCG/5 ML VIAL ONE (20:25)
[2017-12-27] MEDS: FENTANYL INJECTION 500 MCG in DEXTROSE 5%-WATER - 90 ML IVPB SCH (20:29)
[2017-12-27] MEDS: CHLORHEXIDINE GLUCONATE 4% CLEANSER FOR DECOLONIZATION TP SCH (21:46)
[2017-12-28] MEDS: ALBUTEROL SO4 0.083% IH SOL 2.5 MG/3 ML VIAL.NEB. NEB SCH ×15 (01:05→22:01)
[2017-12-28] MEDS ORDERED: fentaNYL CITRATE 250 MCG/5 ML VIAL ONE ×2 (03:20→13:02)
[2017-12-28] MEDS: methylPREDNISolone NA SUCC 40 MG/1 ML VIAL IVPB SCH ×3 (05:24→21:55)
[2017-12-28] MEDS: HEPARIN NA (PORCINE) 5,000 UNITS/ML 1ML VIAL SQ SCH ×3 (05:47→21:56)
[2017-12-28 06:30] LABS: HEMATOCRIT 33.8 % (32.4-45.2); HEMOGLOBIN 10.4 GM/dL (10.7-15.3); MCH 23.4 pg (25.7-33.7); MCHC 30.8 g/dl (32.0-36.0); PLATELET COUNT 263 K/MM3 (134-434); RBC 4.44 M/mm3 (3.60-5.2); RDW 17.4 % (11.6-15.6); WHITE BLOOD COUNT 29.4 K/mm3 (4.0-10.0)
[2017-12-28 06:51] LABS: ALBUMIN 3.3 g/dl (3.4-5.0); ANION GAP 6 (8-16); BLOOD UREA NITROGEN 15 mg/dL (7-18); CALCIUM 8.1 mg/dL (8.5-10.1); CHLORIDE 108 mmol/L (98-107); CO2 26 mmol/L (21-32); GLUCOSE,RANDOM 148 mg/dL (74-106); POTASSIUM 4.7 mmol/L (3.5-5.1); SODIUM 140 mmol/L (136-145)
[2017-12-28 06:56] LABS: ALK PHOS 74 U/L (45-117); BILIRUBIN,TOTAL 0.3 mg/dL (0.2-1.0); CREATININE 0.8 mg/dL (0.55-1.02); SGOT/AST 18 U/L (15-37); SGPT/ALT 21 U/L (12-78); TOT PROT 6.6 g/dl (6.4-8.2)
[2017-12-28] MEDS: INSULIN SLIDING SCALE (NOVOLOG) 1 VIAL SQ SCH ×4 (07:18→21:57)
--- NOTE | 2017-12-28 07:48 | PN ---
Teaching Attending Note Name of Resident: Anahi Mark ATTENDING PHYSICIAN STATEMENT I saw and evaluated the patient. I reviewed the resident's note and discussed the case with the resident. I agree with the resident's findings and plan as documented. SUBJECTIVE:intubated/sedated OBJECTIVE: Last Vital Signs Temp Pulse Resp BP Pulse Ox 99.3 F 102 H 16 102/57 99 12/28/17 06:00 12/28/17 06:00 12/28/17 06:07 12/28/17 06:00 12/27/17 22:00 General opens eyes to verbal stimuli CV S1 S2 RRR no murmur/rub/gallop Lungs coarse breath sounds. mild wheezing Abdomen soft NT/ND Extremities no pedal edema ASSESSMENT AND PLAN: 37yo F wtih PMH GERD, anxiety, bipolar disorder and asthma never been intubated in the past presented with dyspnea and cough was found to be hypoxic not improving with medical management and was intubated in the ER 1. Acute hypoxic respiratory failure due to asthma exacerbation- s/p intubated. on medrol 80mg Q8H. cpap trial today. wean vent as tolerated. slow steroid taper. antibiotics, nebs. further vent management pe ICU team 2. Sepsis due to likely acute bronchitis- afebrile. leukocytosis trending up, on levaquin day 2. will continue to monitor, check UA to r/o alternate source of infection 3. Lactic acidosis- can be from sepsis but more likely due to hypoxia. repeat 4. bipolar- will need to confirm home medications 5. anxiety 6. DVT/GI ppx- hep sq and protonix IV The care of this patient involved high complexity decision making to prevent further life threatening deterioration of the patient's condition and/or to evaluate & treat vital organ system(s) failure or risk of failure. Critical care time spent in reviewing chart, evaluating patient and formulating plan - 38 minutes.
--- NOTE | 2017-12-28 09:28 | PN ---
Progress Note (short form) - Note Progress Note: PULMONARY/CCM Pt seen and examined in the ICU. Remains intubated, sedated. Peak pressures high 20s. Off epinephrine gtt. Vital Signs Period Temp Pulse Resp BP Sys/Pate Pulse Ox Last 24 Hr 99.0 F-99.7 F 96-127 11-22 102-124/57-78 99-100 Intake & Output 12/25/17 12/26/17 12/27/17 12/28/17 23:59 23:59 23:59 23:59 Intake Total 712.1 Output Total 1200 Balance -487.9 Weight 90.718 kg 94.1 g 94.9 kg Gen: intubated, sedated Heart: RRR Lung: poor air entry, scattered wheezes Abd: soft, nontender Ext: no edema CBC, BMP 12/28/17 05:30 12/28/17 05:30 ABG Results ABG pH 7.34 (7.35-7.45) L D 12/27/17 11:20 ABG pCO2 at Pt Temp 39.0 mmHg (35-45) D 12/27/17 11:20 ABG pO2 at Pt Temp 117.0 mmHg (80-100) H 12/27/17 11:20 ABG HCO3 20.6 meq/L (22-26) L 12/27/17 11:20 ABG O2 Sat (Measured) 98.6 % (90-98.9) 12/27/17 11:20 ABG O2 Content 15.4 % vol (15-22) 12/27/17 11:20 ABG Base Excess -4.2 meq/l (-2-2) L 12/27/17 11:20 Active Medications Albuterol Sulfate (Ventolin 0.083% Nebulizer Soln -) 1 amp NEB Q1H [facility] Last Admin: 12/28/17 08:57 Dose: 1 amp Chlorhexidine Gluconate (Hibiclens For Decolonization -) 1 applic TP HS [facility] Last Admin: 12/27/17 21:46 Dose: 1 applic Fentanyl (Sublimaze Injection -) 100 mcg IVPUSH Q1H PRN PRN Reason: PAIN Stop: 12/28/17 15:13 Last Admin: 12/27/17 20:15 Dose: 100 mcg Heparin Sodium (Porcine) (Heparin -) 5,000 unit SQ TID [facility] Last Admin: 12/28/17 05:47 Dose: 5,000 unit Propofol (Diprivan -) 1,000,000 mcg in 100 mls @ 16.329 mls/hr IVPB TITR [facility]; Protocol Last Admin: 12/28/17 00:00 Dose: 50 mcg/kg/min, 27.215 mls/hr Levofloxacin (Levaquin 750 Mg Premixed Ivpb -) 750 mg in 150 mls @ 150 mls/hr IVPB DAILY [facility]; Protocol Last Admin: 12/27/17 11:23 Dose: 150 mls/hr Fentanyl 500 mcg/ Dextrose 100 mls @ 5 mls/hr IVPB TITR [facility]; Protocol Last Admin: 12/28/17 00:00 Dose: 10 mls/hr Insulin Aspart (Novolog Vial Sliding Scale -) 1 vial SQ ACHS [facility]; Protocol Last Admin: 12/28/17 07:18 Dose: 2 units Methylprednisolone Sodium Succinate (Solu-Medrol -) 80 mg IVPB TID [facility] Last Admin: 12/28/17 05:24 Dose: 80 mg Mupirocin (Bactroban Ointment (For Decolonization) -) 1 applic NS BID [facility] Stop: 01/01/18 12:29 Last Admin: 12/27/17 22:00 Dose: 1 applic Pantoprazole Sodium (Protonix Iv) 40 mg IVPUSH DAILY [facility] Last Admin: 12/27/17 10:46 Dose: 40 mg A/P Acute Respiratory Failure Status Asthmaticus - continue medrol - inhaled bronchodilators standing and PRN - monitor peak/plateau pressures - sedate for vent synchrony, still with obstructed loops on vent - on empiric antibiotics - lighten sedation in AM for spontaneous breathing trials - DVT/GI prophylaxis critical care time spent in reviewing chart, evaluating patient and formulating plan 35 min
[2017-12-28] MEDS: MUPIROCIN 2% TOPICAL OINTMENT FOR DECOLONIZATION NS SCH ×2 (09:53→22:51)
[2017-12-28] MEDS: PANTOPRAZOLE SODIUM 40 MG VIAL IVPUSH SCH (09:53)
[2017-12-28] MEDS ORDERED: MIDAZOLAM HCL 2 MG/2 ML SINGLE DOSE VIAL ONE (13:03)
--- NOTE | 2017-12-28 13:09 | PN ---
Physical Exam: SUBJECTIVE: Patient seen and examined at bedside. This AM, pt on fentanyl gtt 50 mcg/hr, propofol 50 mcg/hr. As per nursing, has been receiving breathing tx every hour. Upon exam, pt awake but drowsy. When asked if in pain, pt nodding. On A/C TV 450, PEEP 5, 45% Fi02. OBJECTIVE: Vital Signs Period Temp Pulse Resp BP Sys/Pate Pulse Ox Last 24 Hr 99.2 F-99.7 F 96-127 11-23 102-124/57-78 99-100 GENERAL: The patient is sedated and intubated HEAD: Normal with no signs of trauma. EYES: PERRL, extraocular movements intact, sclera anicteric, conjunctiva clear. ENT: Ears normal, nares patent. +ETT in place NECK: Trachea midline, supple. LUNGS: +decreased breath sounds. +coarse, with wheezing. without rhonchi or crackles. HEART: Regular rate and rhythm, S1, S2 without murmur, rub or gallop. ABDOMEN: Soft, nontender, nondistended, normoactive bowel sounds EXTREMITIES: 2+ dp pulses, warm, well-perfused, no edema. NEUROLOGICAL: Cranial nerves II through XII grossly intact. Nods to questions PSYCH: Normal mood, normal affect. Laboratory Results - last 24 hr 12/27/17 12/27/17 12/28/17 11:28 16:55 05:30 WBC 29.4 H D RBC 4.44 Hgb 10.4 L D Hct 33.8 MCV 76.0 L MCH 23.4 L MCHC 30.8 L RDW 17.4 H Plt Count 263 MPV 9.0 Neutrophils % Denial Resolution Specialist Lymphocytes % Denial Resolution Specialist Monocytes % Denial Resolution Specialist Eosinophils % Denial Resolution Specialist Basophils % Denial Resolution Specialist Nucleated RBC % 0 BUN Creat Clearance w eGFR POC Glucometer 221.50525 159.05004 Random Glucose 12/28/17 12/28/17 12/28/17 05:30 05:41 08:40 Hgb Nucleated RBC % Sodium 140 Potassium 4.7 Chloride 108 H Carbon Dioxide 26 Anion Gap 6 L BUN 15 Creatinine 0.8 Creat Clearance w eGFR > 60 POC Glucometer 189.64013 Random Glucose 148 H Lactic Acid 1.1 Calcium 8.1 L Total Bilirubin 0.3 D AST 18 ALT 21 Alkaline Phosphatase 74 Total Protein 6.6 Albumin 3.3 L Active Medications Generic Name Dose Route Start Last Admin Trade Name Freq PRN Reason Stop Dose Admin Albuterol Sulfate 1 amp 12/28/17 10:15 12/28/17 09:40 Ventolin 0.083% Nebulizer Soln - NEB 1 amp Q4HWA [facility] Administration Chlorhexidine Gluconate 1 applic 12/27/17 22:00 12/27/17 21:46 Hibiclens For Decolonization - TP 1 applic HS [facility] Administration Fentanyl 100 mcg 12/27/17 15:14 12/27/17 20:15 Sublimaze Injection - IVPUSH 12/28/17 15:13 100 mcg Q1H PRN Administration PAIN Heparin Sodium (Porcine) 5,000 unit 12/27/17 06:00 12/28/17 05:47 Heparin - SQ 5,000 unit TID [facility] Administration Propofol 1,000,000 mcg in 100 mls @ 16.329 mls/hr 12/27/17 05:15 12/28/17 00: 00 Diprivan - IVPB 50 mcg/kg/min TITR [facility] 27.215 mls/hr Protocol 30 MCG/KG/MIN Levofloxacin 750 mg in 150 mls @ 150 mls/hr 12/27/17 10:00 12/28/17 09:53 Levaquin 750 Mg Premixed Ivpb - IVPB 150 mls/hr DAILY [facility] Administration Protocol Fentanyl 500 mcg/ Dextrose 100 mls @ 5 mls/hr 12/27/17 20:15 12/28/17 00:00 IVPB 10 mls/hr TITR [facility] Administration Protocol 25 MCG/HR Insulin Aspart 1 vial 12/27/17 07:00 12/28/17 07:18 Novolog Vial Sliding Scale - SQ 2 units ACHS [facility] Administration Protocol Methylprednisolone Sodium Succinate 80 mg 12/27/17 06:00 12/28/17 05:24 Solu-Medrol - IVPB 80 mg TID [facility] Administration Mupirocin 1 applic 12/27/17 12:30 12/28/17 09:53 Bactroban Ointment (For Decolonization) - NS 01/01/18 12:29 1 applic BID [facility] Administration Pantoprazole Sodium 40 mg 12/27/17 10:00 12/28/17 09:53 Protonix Iv IVPUSH 40 mg DAILY [facility] Administration IMAGING 12/27/17: Since prior CXR, ETT has been retraced from R mainstem bronchus and well above eliana at the level of the clavicular heads. Large heart. Lungs are clear. Microbiology 12/27/17 00:07 Nasopharyngeal Swab Influenza Types A,B Antigen - Final 12/27/17 00:07 Nasopharyngeal Swab - Final ASSESSMENT/PLAN: 37 y/o F with PMH GERD, anxiety, bipolar disorder, asthma (without hx intubation ), who presented with dyspnea and cough and was intubated in the ER. #Acute hypoxic resp failure 2/2 asthma exacerbation -intubated, and sedated. on propofol (50 mcg/hr), fentanyl gtt (50 mcg/hr) -allow for AM sedation vacations, for spont breathing trials -continue medrol 80mg IVPB TID -albuterol neb 1 amp q4h -at home on: dexamethasone 2mg 1 tab 4x/day, theophylline 80mg /50ml solution 4x /day, ventolin 2 puffs q4h PRN, + singulair 10mg - only filled in October 2017 for 30 day supply #Sepsis 2/2 acute bronchitis -afebrile, currently with elevated white count - drastic increase, less likely from steroids -levaquin 750mg IVPB qd (Day 3) -F/u UA to r/o urinary source infection #hx anxiety #hx bipolar disorder -verified with pharmacy: abilify 15mg PO qd, lithium carbonate 600mg PO qd ( last filled 11/20/17- 30 day supply) #GERD -Continue protonix 40mg IVP qd #F/E/N -currently not on IVF -Continue to follow lytes -NPO #PPX Hep 5000 SQ TID GI: protonix 40mg IVP qd ; as on steroids #Dispo cont'd ICU monitoring; sedation vacations in AM for spont breathing trials Visit type - Emergency Visit Emergency Visit: Yes ED Registration Date: 12/27/17 Care time: The patient presented to the Emergency Department on the above date and was hospitalized for further evaluation of their emergent condition. - New Patient This patient is new to me today: Yes Date on this admission: 12/28/17 - Critical Care Critical Care patient: Yes Total Critical Care Time (in minutes): 45 Critical Care Statement: The care of this patient involved high complexity decision making to prevent further life threatening deterioration of the patient 's condition and/or to evaluate & treat vital organ system(s) failure or risk of failure.
[2017-12-28] MEDS: FENTANYL INJECTION 500 MCG in DEXTROSE 5%-WATER - 90 ML IVPB SCH ×2 (13:17)
[2017-12-28] MEDS ORDERED: MIDAZOLAM HCL 2 MG/2 ML SINGLE DOSE VIAL IVPUSH PRN (13:19)
[2017-12-28] MEDS ORDERED: FENTANYL INJECTION 500 MCG in DEXTROSE 5%-WATER - 90 ML IVPB SCH (14:06)
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
[2017-12-28] MEDS: PROPOFOL 1,000,000 MCG/100 ML VIAL IVPB SCH ×3 (16:33→22:52)
[2017-12-28] MEDS ORDERED: HEMOQUE TEST 1 EACH EACH ONE (21:42)
[2017-12-28] MEDS: CHLORHEXIDINE GLUCONATE 4% CLEANSER FOR DECOLONIZATION TP SCH (22:52)
[2017-12-29] MEDS ORDERED: fentaNYL CITRATE 250 MCG/5 ML VIAL ONE (00:57)
[2017-12-29] MEDS: PROPOFOL 1,000,000 MCG/100 ML VIAL IVPB SCH (05:36)
[2017-12-29] MEDS: HEPARIN NA (PORCINE) 5,000 UNITS/ML 1ML VIAL SQ SCH ×3 (05:47→21:08)
[2017-12-29] MEDS: methylPREDNISolone NA SUCC 40 MG/1 ML VIAL IVPB SCH ×3 (05:47→21:08)
[2017-12-29] MEDS: ALBUTEROL SO4 0.083% IH SOL 2.5 MG/3 ML VIAL.NEB. NEB SCH ×5 (06:00→21:27)
[2017-12-29 06:40] LABS: BASO % 0.1 % (0-2.0); HEMOGLOBIN 10.3 GM/dL (10.7-15.3); LYMPH % 2.8 % (8-40); MCH 23.7 pg (25.7-33.7); MCHC 31.3 g/dl (32.0-36.0); MEAN CELL VOLUME 75.8 fl (80-96); MEAN PLT VOLUME 8.8 fl (7.5-11.1); MONO % 1.8 % (3.8-10.2); NEUT % 95.3 % (42.8-82.8); PLATELET COUNT 233 K/MM3 (134-434); RBC 4.36 M/mm3 (3.60-5.2); RDW 17.7 % (11.6-15.6); WHITE BLOOD COUNT 21.2 K/mm3 (4.0-10.0)
[2017-12-29 07:09] LABS: ALBUMIN 3.2 g/dl (3.4-5.0); ANION GAP 3 (8-16); BLOOD UREA NITROGEN 20 mg/dL (7-18); CALCIUM 7.9 mg/dL (8.5-10.1); CHLORIDE 107 mmol/L (98-107); CO2 31 mmol/L (21-32); CREATININE 0.7 mg/dL (0.55-1.02); GLUCOSE,RANDOM 130 mg/dL (74-106); PHOSPHOROUS 3.5 mg/dL (2.5-4.9); SGPT/ALT 26 U/L (12-78); SODIUM 141 mmol/L (136-145)
[2017-12-29 07:11] LABS: ALK PHOS 63 U/L (45-117); BILIRUBIN,TOTAL 0.1 mg/dL (0.2-1.0); TOT PROT 6.6 g/dl (6.4-8.2)
--- NOTE | 2017-12-29 07:15 | PN ---
Progress Note (short form) - Note Progress Note: intubated/sedated Current Medications Generic Name Dose Route Start Last Admin Trade Name Freq PRN Reason Stop Dose Admin Albuterol Sulfate 1 amp 12/28/17 10:15 12/28/17 22:01 Ventolin 0.083% Nebulizer Soln - NEB 1 amp Q4HWA [facility] Administration Chlorhexidine Gluconate 1 applic 12/27/17 22:00 12/28/17 22:52 Hibiclens For Decolonization - TP 1 applic HS [facility] Administration Heparin Sodium (Porcine) 5,000 unit 12/27/17 06:00 12/29/17 05:47 Heparin - SQ 5,000 unit TID [facility] Administration Propofol 1,000,000 mcg in 100 mls @ 16.329 mls/hr 12/27/17 05:15 12/29/17 05: 36 Diprivan - IVPB 40 mcg/kg/min TITR [facility] 21.772 mls/hr Administration Protocol 30 MCG/KG/MIN Levofloxacin 750 mg in 150 mls @ 150 mls/hr 12/27/17 10:00 12/28/17 09:53 Levaquin 750 Mg Premixed Ivpb - IVPB 150 mls/hr DAILY [facility] Administration Protocol Fentanyl 500 mcg/ Dextrose 100 mls @ 10 mls/hr 12/28/17 14:06 12/28/17 16:34 IVPB 10 mls/hr TITR [facility] Administration Protocol 50 MCG/HR Insulin Aspart 1 vial 12/27/17 07:00 12/28/17 21:57 Novolog Vial Sliding Scale - SQ 2 units ACHS [facility] Administration Protocol Methylprednisolone Sodium Succinate 80 mg 12/27/17 06:00 12/29/17 05:47 Solu-Medrol - IVPB 80 mg TID [facility] Administration Midazolam HCl 2 mg 12/28/17 13:19 12/28/17 17:46 Versed - IVPUSH 2 mg Q2H PRN Administration AGITATION Mupirocin 1 applic 12/27/17 12:30 12/28/17 22:51 Bactroban Ointment (For Decolonization) - NS 01/01/18 12:29 1 applic BID [facility] Administration Pantoprazole Sodium 40 mg 12/27/17 10:00 12/28/17 09:53 Protonix Iv IVPUSH 40 mg DAILY [facility] Administration Last Vital Signs Temp Pulse Resp BP Pulse Ox 99.3 F 89 13 118/77 99 12/29/17 06:00 12/29/17 06:00 12/29/17 06:00 12/29/17 06:00 12/28/17 22:00 General opens eyes to verbal stimuli, able to lift head off pillow. CV S1 S2 RRR no murmur/rub/gallop Lungs coarse breath sounds. diffuse wheezing Abdomen soft NT/ND Extremities no pedal edema CBCD WBC 21.2 K/mm3 (4.0-10.0) H 12/29/17 05:20 RBC 4.36 M/mm3 (3.60-5.2) 12/29/17 05:20 Hgb 10.3 GM/dL (10.7-15.3) L 12/29/17 05:20 Hct 33.0 % (32.4-45.2) 12/29/17 05:20 MCV 75.8 fl (80-96) L 12/29/17 05:20 MCHC 31.3 g/dl (32.0-36.0) L 12/29/17 05:20 RDW 17.7 % (11.6-15.6) H 12/29/17 05:20 Plt Count 233 K/MM3 (134-434) 12/29/17 05:20 MPV 8.8 fl (7.5-11.1) 12/29/17 05:20 CMP Sodium 141 mmol/L (136-145) 12/29/17 05:20 Potassium mmol/L (3.5-5.1) 12/29/17 05:20 Chloride 107 mmol/L (98-107) 12/29/17 05:20 Carbon Dioxide 31 mmol/L (21-32) 12/29/17 05:20 Anion Gap 3 (8-16) L 12/29/17 05:20 BUN 20 mg/dL (7-18) H 12/29/17 05:20 Creatinine 0.7 mg/dL (0.55-1.02) 12/29/17 05:20 Creat Clearance w eGFR > 60 (>60) 12/29/17 05:20 Calcium 7.9 mg/dL (8.5-10.1) L 12/29/17 05:20 Total Bilirubin 0.1 mg/dL (0.2-1.0) L D 12/29/17 05:20 AST U/L (15-37) 12/29/17 05:20 ALT 26 U/L (12-78) 12/29/17 05:20 Alkaline Phosphatase 63 U/L (45-117) 12/29/17 05:20 Total Protein 6.6 g/dl (6.4-8.2) 12/29/17 05:20 Albumin 3.2 g/dl (3.4-5.0) L 12/29/17 05:20 Microbiology 12/27/17 16:43 Gram Stain - Final Sputum - Endotrachea Suction/Ventilator ASSESSMENT AND PLAN: 37yo F wtih PMH GERD, anxiety, bipolar disorder and severe persistent asthma that failed bronchial thermoplasty never been intubated in the past presented with dyspnea and cough was found to be hypoxic not improving with medical management and was intubated in the ER 1. Acute hypoxic respiratory failure due to asthma exacerbation- s/p intubated. did not tolerate cpap trial yesterday. cont daily cpap trials daily titrate steroids per ICU team. cont nebs. further vent management pe ICU team 2. Sepsis due to likely acute bronchitis- afebrile. leukocytosis trending down, on levaquin day 3. will continue to monitor, check UA to r/o alternate source of infection 3. Lactic acidosis- can be from sepsis but more likely due to hypoxia. now resolved 4. Hallucinations- likely induced from steroids/sedation medications. no reports of more hallucinations. 5. bipolar- need to verify if taking medications at home 6. anxiety 7. DVT/GI ppx- hep sq and protonix IV 8. spoke with mother present at bedside. all questions answered. verbalized understanding and agreement with plan The care of this patient involved high complexity decision making to prevent further life threatening deterioration of the patient's condition and/or to evaluate & treat vital organ system(s) failure or risk of failure. Critical care time spent in reviewing chart, evaluating patient and formulating plan - 35 minutes. Visit type - Emergency Visit Emergency Visit: Yes ED Registration Date: 12/27/17 Care time: The patient presented to the Emergency Department on the above date and was hospitalized for further evaluation of their emergent condition. - New Patient This patient is new to me today: No - Critical Care Critical Care patient: Yes Total Critical Care Time (in minutes): 35 Critical Care Statement: The care of this patient involved high complexity decision making to prevent further life threatening deterioration of the patient 's condition and/or to evaluate & treat vital organ system(s) failure or risk of failure. - Discharge Referral Referred to [facility] Med [facility].: No
[2017-12-29] MEDS: INSULIN SLIDING SCALE (NOVOLOG) 1 VIAL SQ SCH ×4 (07:36→21:09)
[2017-12-29 07:37] LABS: ARTERIAL BLD GAS O2 SATURATION 97.1 % (90-98.9); ARTERIAL BLOOD GAS BASE EXCESS 4.3 meq/l (-2-2); ARTERIAL BLOOD GAS PCO2 61.3 mmHg (35-45); ARTERIAL BLOOD GAS PO2 91.2 mmHg (80-100); ARTERIAL BLOOD GAS pH 7.33 (7.35-7.45)
[2017-12-29 07:41] LABS: ALLENS TEST POSITIVE
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
[2017-12-29] MEDS: ACETAMINOPHEN 1000 MG/100 ML VIAL (NON FORMULARY) IVPB ONE ×2 (09:48→10:09)
[2017-12-29] MEDS: PANTOPRAZOLE SODIUM 40 MG VIAL IVPUSH SCH (09:48)
[2017-12-29] MEDS: MUPIROCIN 2% TOPICAL OINTMENT FOR DECOLONIZATION NS SCH ×2 (09:49→21:09)
[2017-12-29 10:12] LABS: ALBUMIN 3.4 g/dl (3.4-5.0); ANION GAP 4 (8-16); BLOOD UREA NITROGEN 20 mg/dL (7-18); CALCIUM 8.4 mg/dL (8.5-10.1); CHLORIDE 106 mmol/L (98-107); CO2 33 mmol/L (21-32); CREATININE 0.7 mg/dL (0.55-1.02); GLUCOSE,RANDOM 123 mg/dL (74-106); SGOT/AST 21 U/L (15-37); SGPT/ALT 25 U/L (12-78); SODIUM 143 mmol/L (136-145)
[2017-12-29 10:15] LABS: ALK PHOS 73 U/L (45-117); BILIRUBIN,TOTAL 0.3 mg/dL (0.2-1.0); TOT PROT 6.8 g/dl (6.4-8.2)
[2017-12-29] MEDS: ACETAMINOPHEN 1000 MG/100 ML VIAL (NON FORMULARY) IVPB PRN (20:04)
[2017-12-29] MEDS: CHLORHEXIDINE GLUCONATE 4% CLEANSER FOR DECOLONIZATION TP SCH (21:10)
[2017-12-30] MEDS: ALBUTEROL SO4 0.083% IH SOL 2.5 MG/3 ML VIAL.NEB. NEB SCH (06:25)
[2017-12-30 06:40] LABS: HEMATOCRIT 36.5 % (32.4-45.2); HEMOGLOBIN 11.4 GM/dL (10.7-15.3); MCH 23.4 pg (25.7-33.7); MCHC 31.2 g/dl (32.0-36.0); MEAN CELL VOLUME 75.2 fl (80-96); MEAN PLT VOLUME 8.7 fl (7.5-11.1); PLATELET COUNT 256 K/MM3 (134-434); RBC 4.85 M/mm3 (3.60-5.2); RDW 17.1 % (11.6-15.6); WHITE BLOOD COUNT 16.2 K/mm3 (4.0-10.0)
[2017-12-30] MEDS ORDERED: HEMOQUE TEST 1 EACH EACH ONE (06:44)
[2017-12-30 06:45] LABS: ALBUMIN 3.2 g/dl (3.4-5.0); ANION GAP 5 (8-16); BLOOD UREA NITROGEN 17 mg/dL (7-18); CALCIUM 8.4 mg/dL (8.5-10.1); CHLORIDE 101 mmol/L (98-107); CO2 35 mmol/L (21-32); GLUCOSE,RANDOM 130 mg/dL (74-106); POTASSIUM 4.6 mmol/L (3.5-5.1); SGOT/AST 30 U/L (15-37); SGPT/ALT 37 U/L (12-78); SODIUM 141 mmol/L (136-145)
[2017-12-30 06:47] LABS: ALK PHOS 69 U/L (45-117); BILIRUBIN,TOTAL 0.3 mg/dL (0.2-1.0); CREATININE 0.6 mg/dL (0.55-1.02); TOT PROT 6.9 g/dl (6.4-8.2)
[2017-12-30] MEDS: methylPREDNISolone NA SUCC 40 MG/1 ML VIAL IVPB SCH ×3 (06:52→22:00)
[2017-12-30] MEDS: INSULIN SLIDING SCALE (NOVOLOG) 1 VIAL SQ SCH ×4 (06:52→22:27)
[2017-12-30] MEDS: HEPARIN NA (PORCINE) 5,000 UNITS/ML 1ML VIAL SQ SCH ×3 (06:52→22:00)
--- NOTE | 2017-12-30 09:26 | PN ---
Physical Exam: SUBJECTIVE: Patient seen and examined at bedside. Overnight, pt alternating with BiPAP and ventimask. Received one dose of IV Tylenolx1 for pain and HERRERA. Today, pt with BiPAP, sat well into high 90's. Still with SOB. States that she does not want to be started back on her abilify and lithium meds d/t her current respiratory state. Denies HERRERA, fever, chills, chest pain or pressure, or changes in urinary or bowel function. OBJECTIVE: Vital Signs Period Temp Pulse Resp BP Sys/Pate Pulse Ox Last 24 Hr 97.8 F-99.4 F 80-105 17-28 125-147/81-117 96-100 GENERAL: The patient is awake, alert, and fully oriented, in mild distress. +On BiPAP HEAD: Normal with no signs of trauma. EYES: PERRL, extraocular movements intact, sclera anicteric, conjunctiva clear. ENT: Ears normal, nares patent NECK: Trachea midline, supple. LUNGS: +wheezing and coarse breath sounds appreciated b/l. Without rhonchi or crackles. +mild accessory m usage. On BiPAP HEART: tachycardic rate and rhythm, S1, S2 without murmur, rub or gallop. ABDOMEN: Soft, obese nontender, nondistended, normoactive bowel sounds, no guarding EXTREMITIES: 2+ dp pulses, warm, well-perfused, no edema. NEUROLOGICAL: Cranial nerves II through XII grossly intact. Normal speech PSYCH: Normal mood, normal affect. SKIN: Warm, dry, normal turgor Laboratory Results - last 24 hr 12/29/17 12/29/17 12/29/17 08:54 11:50 17:53 MCHC MPV Sodium 143 Potassium 5.0 Chloride 106 Carbon Dioxide 33 H Anion Gap 4 L BUN 20 H Creatinine 0.7 Creat Clearance w eGFR > 60 POC Glucometer 170.17476 128.03951 Random Glucose 123 H Calcium 8.4 L Total Bilirubin 0.3 D AST 21 ALT 25 Alkaline Phosphatase 73 Total Protein 6.8 Albumin 3.4 12/29/17 12/30/17 12/30/17 20:36 05:25 05:25 WBC 16.2 H RBC 4.85 Hgb 11.4 D Hct 36.5 MCV 75.2 L MCH 23.4 L MCHC 31.2 L RDW 17.1 H Plt Count 256 MPV 8.7 Sodium 141 Potassium 4.6 Chloride 101 Carbon Dioxide 35 H Anion Gap 5 L BUN 17 Creatinine 0.6 Creat Clearance w eGFR > 60 POC Glucometer 142.34199 Random Glucose 130 H Calcium 8.4 L Total Bilirubin 0.3 AST 30 ALT 37 Alkaline Phosphatase 69 Total Protein 6.9 Albumin 3.2 L Active Medications Generic Name Dose Route Start Last Admin Trade Name Freq PRN Reason Stop Dose Admin Acetaminophen 1,000 mg 12/29/17 19:43 12/29/17 20:04 Ofirmev Injection - IVPB 1,000 mg Q6H PRN Administration FEVER Albuterol Sulfate 1 amp 12/28/17 10:15 12/30/17 06:25 Ventolin 0.083% Nebulizer Soln - NEB 1 amp Q4HWA CARMEN Administration Chlorhexidine Gluconate 1 applic 12/27/17 22:00 12/29/17 21:10 Hibiclens For Decolonization - TP 1 applic HS [facility] Administration Heparin Sodium (Porcine) 5,000 unit 12/27/17 06:00 12/30/17 06:52 Heparin - SQ 5,000 unit TID [facility] Administration Levofloxacin 750 mg in 150 mls @ 150 mls/hr 12/27/17 10:00 12/29/17 09:48 Levaquin 750 Mg Premixed Ivpb - IVPB 150 mls/hr DAILY [facility] Administration Protocol Insulin Aspart 1 vial 12/27/17 07:00 12/30/17 06:52 Novolog Vial Sliding Scale - SQ Not Given ACHS [facility] Protocol Methylprednisolone Sodium Succinate 80 mg 12/27/17 06:00 12/30/17 06:52 Solu-Medrol - IVPB 80 mg TID [facility] Administration Mupirocin 1 applic 12/27/17 12:30 12/29/17 21:09 Bactroban Ointment (For Decolonization) - NS 01/01/18 12:29 1 applic BID [facility] Administration Pantoprazole Sodium 40 mg 12/27/17 10:00 12/29/17 09:48 Protonix Iv IVPUSH 40 mg DAILY [facility] Administration IMAGING 12/27/17: CXR: Since prior CXR, ETT has been retraced from R mainstem bronchus and well above eliana at the level of the clavicular heads. Large heart. Lungs are clear. 12/29/17: CXR: since prior study of 12/27/17, the patient is rotated to the right with motion artifact and ET tube with tip well above the eliana. The mediastinum is not widened. the bones and soft tissues are intact. no acute pathology. Microbiology 12/27/17 16:43 Sputum - Endotrachea Suction/Ventilator Gram Stain - Final 12/27/17 00:07 Nasopharyngeal Swab Influenza Types A,B Antigen - Final 12/27/17 00:07 Nasopharyngeal Swab - Final 12/27/17 16:43 Sputum - Endotrachea Suction/Ventilator Sputum Culture - Preliminary NORMAL RESPIRATORY CLAUDIA 12/27/17 00:07 Nasopharyngeal Swab Respiratory Virus (PCR) - Preliminary ASSESSMENT/PLAN: 37 y/o F with PMH GERD, anxiety, bipolar disorder, asthma (without hx intubation ), who presented with dyspnea and cough and was intubated in the ER. #Acute hypoxic resp failure 2/2 asthma exacerbation -s/p extubation (12/29/17 AM) - currently on 40% Fi02 venti mask, sat into high 90's -continue medrol 80mg IVPB TID -albuterol 1 amp neb RQID -albuterol neb 1 amp q4h PRN for additional SOB -Robitussin 10ml PO q6h PRN for cough -Singulair 10mg PO HS -at home on: dexamethasone 2mg 1 tab 4x/day, theophylline 80mg /50ml solution 4x /day, ventolin 2 puffs q4h PRN, + singulair 10mg - only filled in October 2017 for 30 day supply -case d/w Dr. Cristhian Oliavres[facility] (pt pulm). Pt had attempted thermoplasty to decrease smooth m. in airway. Due to severe asthma, was sent to [place] [facility] and referred to start Nucalla- new biologic. Takes time to set up. Pt with baseline end expiratory wheezing. Responds better to dexamethasone over prednisone, recommended further follow up at [place] after d/ c. #Sepsis 2/2 acute bronchitis -afebrile, white count improving (16.2 from 21.2) -levaquin 750mg IVPB qd (Day 4) -F/u UA to r/o urinary source infection - pending #hx anxiety #hx bipolar disorder -verified with pharmacy: abilify 15mg PO qd, lithium carbonate 600mg PO qd ( last filled 11/20/17- 30 day supply) -as per pt, she does not want to take these medications during her stay #Hallucinations -currently without complaint -will continue to monitor #?STI -without current complaint; team had discussed with [facility] -rape kit has been sent- results pending #GERD -Continue protonix 40mg IVP qd #F/E/N -currently not on IVF -Continue to follow lytes -regular diet #PPX Hep 5000 SQ TID GI: protonix 40mg IVP qd ; as on steroids #Dispo cont'd ICU monitoring; continue to wean from venti mask as permitted still with wheezing, coarse breath sounds Visit type - Emergency Visit Emergency Visit: No - New Patient This patient is new to me today: No - Critical Care Critical Care patient: Yes Total Critical Care Time (in minutes): 45 Critical Care Statement: The care of this patient involved high complexity decision making to prevent further life threatening deterioration of the patient 's condition and/or to evaluate & treat vital organ system(s) failure or risk of failure.
[2017-12-30] MEDS ORDERED: ALBUTEROL SO4 0.083% IH SOL 2.5 MG/3 ML VIAL.NEB. NEB PRN (09:42)
[2017-12-30] MEDS: PANTOPRAZOLE SODIUM 40 MG VIAL IVPUSH SCH (10:00)
--- NOTE | 2017-12-30 11:07 | PN ---
Teaching Attending Note Name of Resident: Jake Hankins ATTENDING PHYSICIAN STATEMENT I saw and evaluated the patient. I reviewed the resident's note and discussed the case with the resident. I agree with the resident's findings and plan as documented. SUBJECTIVE: Pt seen and examined in the ICU. Extubated yesterday. BiPAP overnight, currently on ventimask. Still some labored breathing. OBJECTIVE: Vital Signs Period Temp Pulse Resp BP Sys/Pate Pulse Ox Last 24 Hr 97.8 F-99.4 F 80-105 17-23 129-147/81-117 96-100 Intake & Output 12/27/17 12/28/17 12/29/17 12/30/17 23:59 23:59 23:59 23:59 Intake Total 712.1 436 836 Output Total 7316 708 8392 700 Balance -487.9 -364 -914 -700 Weight 94.1 g 94.9 kg 92.533 kg 90.265 kg Gen: tachypneic with speaking Heart: RRR Lung: bilateral wheezes, rhonchi Abd: soft, nontender Ext: no edema CBC, BMP 12/30/17 05:25 12/30/17 05:25 Active Medications Acetaminophen (Ofirmev Injection -) 1,000 mg IVPB Q6H PRN PRN Reason: FEVER Last Admin: 12/29/17 20:04 Dose: 1,000 mg Albuterol Sulfate (Ventolin 0.083% Nebulizer Soln -) 1 amp NEB Q4H PRN PRN Reason: WHEEZING Albuterol/Ipratropium (Duoneb -) 1 amp NEB RQID [facility] Chlorhexidine Gluconate (Hibiclens For Decolonization -) 1 applic TP HS [facility] Last Admin: 12/29/17 21:10 Dose: 1 applic Guaifenesin (Robitussin -) 10 ml PO Q6H PRN PRN Reason: COUGH Heparin Sodium (Porcine) (Heparin -) 5,000 unit SQ TID [facility] Last Admin: 12/30/17 06:52 Dose: 5,000 unit Levofloxacin (Levaquin 750 Mg Premixed Ivpb -) 750 mg in 150 mls @ 150 mls/hr IVPB DAILY [facility]; Protocol Last Admin: 12/30/17 10:00 Dose: 150 mls/hr Insulin Aspart (Novolog Vial Sliding Scale -) 1 vial SQ ACHS [facility]; Protocol Last Admin: 12/30/17 06:52 Dose: Not Given Methylprednisolone Sodium Succinate (Solu-Medrol -) 80 mg IVPB TID [facility] Last Admin: 12/30/17 06:52 Dose: 80 mg Montelukast Sodium (Singulair -) 10 mg PO HS [facility] Mupirocin (Bactroban Ointment (For Decolonization) -) 1 applic NS BID [facility] Stop: 01/01/18 12:29 Last Admin: 12/29/17 21:09 Dose: 1 applic Pantoprazole Sodium (Protonix Iv) 40 mg IVPUSH DAILY [facility] Last Admin: 12/30/17 10:00 Dose: 40 mg ASSESSMENT AND PLAN: Acute Respiratory Failure Status Asthmaticus - continue medrol - inhaled bronchodilators standing and PRN - monitor peak flow - on empiric antibiotics - singulair - DVT/GI prophylaxis critical care time spent in reviewing chart, evaluating patient and formulating plan 35 min
[2017-12-30] MEDS: ALBUTEROL SO4 2.5/IPRATROPIUM 0.5 INH SOL 3 ML VIAL.NEB. NEB SCH ×3 (11:50→20:50)
--- NOTE | 2017-12-30 11:51 | PN ---
Physical Exam: SUBJECTIVE: Patient seen and examined. Extubated yesterday. Currently on Venti mask. Labored breathing still. Says her breathing is a little better but no significant change from yesterday. OBJECTIVE: Vital Signs Period Temp Pulse Resp BP Sys/Pate Pulse Ox Last 24 Hr 97.8 F-99.4 F 80-105 17-23 129-147/81-117 96-100 GENERAL: tachypneic EYES: PERRL, conjunctiva clear. ENT: oropharynx clear without exudates, moist mucous membranes. NECK: supple. LUNGS: scattered wheezing throughout b/l HEART: tachy, regular rhythm, no murmurs appreciated ABDOMEN: Soft, nontender, nondistended, normoactive bowel sounds, no guarding, no rebound EXTREMITIES: 2+ pulses, warm, well-perfused, no edema. SKIN: Warm, dry, normal turgor, no rashes or lesions noted Laboratory Results - last 24 hr 12/29/17 12/29/17 12/29/17 11:50 17:53 20:36 WBC RBC Hgb Hct MCV MCH MCHC RDW Plt Count MPV Sodium Potassium Chloride Carbon Dioxide Anion Gap BUN Creatinine Creat Clearance w eGFR POC Glucometer 170.69919 128.40656 142.90850 Random Glucose Calcium Total Bilirubin AST ALT Alkaline Phosphatase Total Protein Albumin 12/30/17 12/30/17 12/30/17 05:25 05:25 06:50 WBC 16.2 H RBC 4.85 Hgb 11.4 D Hct 36.5 MCV 75.2 L MCH 23.4 L MCHC 31.2 L RDW 17.1 H Plt Count 256 MPV 8.7 Sodium 141 Potassium 4.6 Chloride 101 Carbon Dioxide 35 H Anion Gap 5 L BUN 17 Creatinine 0.6 Creat Clearance w eGFR > 60 POC Glucometer 137.57723 Random Glucose 130 H Calcium 8.4 L Total Bilirubin 0.3 AST 30 ALT 37 Alkaline Phosphatase 69 Total Protein 6.9 Albumin 3.2 L Active Medications Generic Name Dose Route Start Last Admin Trade Name Freq PRN Reason Stop Dose Admin Acetaminophen 1,000 mg 12/29/17 19:43 12/29/17 20:04 Ofirmev Injection - IVPB 1,000 mg Q6H PRN Administration FEVER Albuterol Sulfate 1 amp 12/30/17 09:42 Ventolin 0.083% Nebulizer Soln - NEB Q4H PRN WHEEZING Albuterol/Ipratropium 1 amp 12/30/17 12:00 Duoneb - NEB RQID CARMEN Chlorhexidine Gluconate 1 applic 12/27/17 22:00 12/29/17 21:10 Hibiclens For Decolonization - TP 1 applic HS [facility] Administration Guaifenesin 10 ml 12/30/17 10:42 Robitussin - PO Q6H PRN COUGH Heparin Sodium (Porcine) 5,000 unit 12/27/17 06:00 12/30/17 06:52 Heparin - SQ 5,000 unit TID [facility] Administration Levofloxacin 750 mg in 150 mls @ 150 mls/hr 12/27/17 10:00 12/30/17 10:00 Levaquin 750 Mg Premixed Ivpb - IVPB 150 mls/hr DAILY [facility] Administration Protocol Insulin Aspart 1 vial 12/27/17 07:00 12/30/17 06:52 Novolog Vial Sliding Scale - SQ Not Given ACHS [facility] Protocol Methylprednisolone Sodium Succinate 80 mg 12/27/17 06:00 12/30/17 06:52 Solu-Medrol - IVPB 80 mg TID [facility] Administration Montelukast Sodium 10 mg 12/30/17 22:00 Singulair - PO [facility] Mupirocin 1 applic 12/27/17 12:30 12/29/17 21:09 Bactroban Ointment (For Decolonization) - NS 01/01/18 12:29 1 applic BID [facility] Administration Pantoprazole Sodium 40 mg 12/27/17 10:00 12/30/17 10:00 Protonix Iv IVPUSH 40 mg DAILY [facility] Administration ASSESSMENT/PLAN: 37 y/o F with PMH GERD, anxiety, bipolar disorder, asthma (without hx intubation ), who presented with dyspnea and cough and was intubated in the ER. #PULM -Acute hypoxic respiratory failure due to asthma exacerbation- extubated yesterday -Sepsis due to likely acute bronchitis- currently afebrile, wbc trending down -IV medrol 80mg TID -Duonebs q4h QID -Albuterol q4h PRN -Singulair -Keep O2 >90% -O2 supplementation -Bipap if needed -IV abx: Levaquin day 4 -Robitussin for cough #Neuro -headaches -tylenol PRN #Endo -BGM -ISS #PPx -Protonix IV -Hep SQ #FEN -no iv fluids -wnl -regular diet Visit type - Emergency Visit Emergency Visit: Yes ED Registration Date: 12/27/17 Care time: The patient presented to the Emergency Department on the above date and was hospitalized for further evaluation of their emergent condition. - New Patient This patient is new to me today: Yes Date on this admission: 12/30/17 - Critical Care Critical Care patient: Yes Total Critical Care Time (in minutes): 40 Critical Care Statement: The care of this patient involved high complexity decision making to prevent further life threatening deterioration of the patient 's condition and/or to evaluate & treat vital organ system(s) failure or risk of failure.
[2017-12-30] MEDS: MUPIROCIN 2% TOPICAL OINTMENT FOR DECOLONIZATION NS SCH ×2 (12:00→22:01)
[2017-12-30] MEDS: guaiFENesin 200 MG/10 ML 10 ML UNIT-DOSE CUPS PO PRN ×2 (13:54→19:50)
[2017-12-30] MEDS: ACETAMINOPHEN 1000 MG/100 ML VIAL (NON FORMULARY) IVPB PRN (15:13)
--- NOTE | 2017-12-30 17:17 | PN ---
Teaching Attending Note Name of Resident: Anahi Mark ATTENDING PHYSICIAN STATEMENT I saw and evaluated the patient. I reviewed the resident's note and discussed the case with the resident. I agree with the resident's findings and plan as documented. SUBJECTIVE: Patient complains of SOB and wheezing. OBJECTIVE: Vital Signs Period Temp Pulse Resp BP Sys/Pate Pulse Ox Last 24 Hr 97.8 F-99.4 F 80-105 16-22 98-147/9-117 96-100 HEART: S1S2, RRR LUNGS: Diminished BS with wheezes bilaterally ABDOMEN: Obese, soft, non-tender, non-distended, normal BS EXTREMITIES: No edema Laboratory Results - last 24 hr 12/29/17 12/29/17 12/30/17 17:53 20:36 05:25 WBC 16.2 H RBC 4.85 Hgb 11.4 D Hct 36.5 MCV 75.2 L MCH 23.4 L MCHC 31.2 L RDW 17.1 H Plt Count 256 MPV 8.7 Sodium Potassium Chloride Carbon Dioxide Anion Gap BUN Creatinine Creat Clearance w eGFR POC Glucometer 128.47275 142.31323 Random Glucose Calcium Total Bilirubin AST ALT Alkaline Phosphatase Total Protein Albumin 12/30/17 12/30/17 12/30/17 05:25 06:50 12:08 WBC RBC Hgb Hct MCV MCH MCHC RDW Plt Count MPV Sodium 141 Potassium 4.6 Chloride 101 Carbon Dioxide 35 H Anion Gap 5 L BUN 17 Creatinine 0.6 Creat Clearance w eGFR > 60 POC Glucometer 137.27663 151.43560 Random Glucose 130 H Calcium 8.4 L Total Bilirubin 0.3 AST 30 ALT 37 Alkaline Phosphatase 69 Total Protein 6.9 Albumin 3.2 L Current Medications Generic Name Dose Route Start Last Admin Trade Name Freq PRN Reason Stop Dose Admin Albuterol Sulfate 1 amp 12/30/17 09:42 Ventolin 0.083% Nebulizer Soln - NEB Q4H PRN WHEEZING Albuterol/Ipratropium 1 amp 12/30/17 12:00 12/30/17 11:50 Duoneb - NEB 1 amp RQID CARMEN Administration Chlorhexidine Gluconate 1 applic 12/27/17 22:00 12/29/17 21:10 Hibiclens For Decolonization - TP 1 applic HS CARMEN Administration Guaifenesin 10 ml 12/30/17 10:42 12/30/17 13:54 Robitussin - PO 10 ml Q6H PRN Administration COUGH Heparin Sodium (Porcine) 5,000 unit 12/27/17 06:00 12/30/17 13:54 Heparin - SQ 5,000 unit TID CARMEN Administration Levofloxacin 750 mg in 150 mls @ 150 mls/hr 12/27/17 10:00 12/30/17 10:00 Levaquin 750 Mg Premixed Ivpb - IVPB 150 mls/hr DAILY [facility] Administration Protocol Insulin Aspart 1 vial 12/27/17 07:00 12/30/17 12:00 Novolog Vial Sliding Scale - SQ Not Given ACHS [facility] Protocol Methylprednisolone Sodium Succinate 80 mg 12/27/17 06:00 12/30/17 13:54 Solu-Medrol - IVPB 80 mg TID CARMEN Administration Montelukast Sodium 10 mg 12/30/17 22:00 Singulair - PO HS [facility] Mupirocin 1 applic 12/27/17 12:30 12/30/17 12:00 Bactroban Ointment (For Decolonization) - NS 01/01/18 12:29 1 applic BID CARMEN Administration Pantoprazole Sodium 40 mg 12/27/17 10:00 12/30/17 10:00 Protonix Iv IVPUSH 40 mg DAILY [facility] Administration ASSESSMENT AND PLAN: This is a 37 year old woman with a history of severe persistent asthma, GERD, anxiety, bipolar disorder who presented to the ED with cough and SOB. 1. Acute hypoxic respiratory failure secondary to asthma exacerbation/status asthmaticus - Extubated 12/29 - Continue SoluMedrol, Singulair, DuoNeb, Levaquin - Failed bronchial thermoplasty in past 2. Sepsis secondary to acute bronchitis - Afebrile, WBC improving - Continue Levaquin 3. Lactic acidosis - Secondary to hypoxia and sepsis - Resolved 4. Acute psychosis with hallucinations - Likely medication-induced - Resolved 5. Bipolar disorder 6. Anxiety 7. DVT prophylaxis - Continue heparin subq 8. Stress ulcer prophylaxis - Continue Protonix
[2017-12-30] MEDS ORDERED: ACETAMINOPHEN 1000 MG/100 ML VIAL (NON FORMULARY) IVPB ONE (20:00)
[2017-12-30] MEDS: CHLORHEXIDINE GLUCONATE 4% CLEANSER FOR DECOLONIZATION TP SCH (22:01)
[2017-12-30] MEDS: MONTELUKAST NA 10 MG TABLET PO SCH (22:01)
[2017-12-31] MEDS: guaiFENesin 200 MG/10 ML 10 ML UNIT-DOSE CUPS PO PRN ×3 (02:50→19:46)
[2017-12-31 06:32] LABS: HEMATOCRIT 35.6 % (32.4-45.2); HEMOGLOBIN 11.4 GM/dL (10.7-15.3); MCH 23.7 pg (25.7-33.7); MCHC 31.9 g/dl (32.0-36.0); MEAN CELL VOLUME 74.3 fl (80-96); MEAN PLT VOLUME 8.2 fl (7.5-11.1); PLATELET COUNT 271 K/MM3 (134-434); RBC 4.79 M/mm3 (3.60-5.2); RDW 16.8 % (11.6-15.6); WHITE BLOOD COUNT 9.8 K/mm3 (4.0-10.0)
[2017-12-31] MEDS: INSULIN SLIDING SCALE (NOVOLOG) 1 VIAL SQ SCH ×4 (06:45→23:28)
[2017-12-31] MEDS: HEPARIN NA (PORCINE) 5,000 UNITS/ML 1ML VIAL SQ SCH ×3 (06:48→21:40)
[2017-12-31] MEDS: methylPREDNISolone NA SUCC 40 MG/1 ML VIAL IVPB SCH (06:48)
[2017-12-31 06:49] LABS: CHLORIDE 100 mmol/L (98-107); POTASSIUM 4.6 mmol/L (3.5-5.1); SODIUM 138 mmol/L (136-145)
[2017-12-31 06:54] LABS: ALBUMIN 3.1 g/dl (3.4-5.0); ALK PHOS 64 U/L (45-117); ANION GAP 4 (8-16); BILIRUBIN,TOTAL 0.4 mg/dL (0.2-1.0); BLOOD UREA NITROGEN 17 mg/dL (7-18); CALCIUM 8.5 mg/dL (8.5-10.1); CO2 34 mmol/L (21-32); CREATININE 0.5 mg/dL (0.55-1.02); GLUCOSE,RANDOM 130 mg/dL (74-106); MAGNESIUM 2.8 mg/dL (1.8-2.4); PHOSPHOROUS 3.5 mg/dL (2.5-4.9); SGOT/AST 20 U/L (15-37); SGPT/ALT 39 U/L (12-78); TOT PROT 6.6 g/dl (6.4-8.2)
[2017-12-31] MEDS: ALBUTEROL SO4 2.5/IPRATROPIUM 0.5 INH SOL 3 ML VIAL.NEB. NEB SCH ×6 (08:25→21:30)
[2017-12-31] MEDS: MUPIROCIN 2% TOPICAL OINTMENT FOR DECOLONIZATION NS SCH ×2 (10:06→21:35)
[2017-12-31] MEDS: PANTOPRAZOLE SODIUM 40 MG VIAL IVPUSH SCH (10:09)
--- NOTE | 2017-12-31 11:33 | PN ---
Teaching Attending Note Name of Resident: Jake Hankins ATTENDING PHYSICIAN STATEMENT I saw and evaluated the patient. I reviewed the resident's note and discussed the case with the resident. I agree with the resident's findings and plan as documented. SUBJECTIVE: Pt seen and examined in the ICU. Still with dyspnea, cough, wheezing but feels slightly better than yesterday. Peak flow done at bedside 120. OBJECTIVE: Vital Signs Period Temp Pulse Resp BP Sys/Pate Pulse Ox Last 24 Hr 98.5 F-99.2 F 68-97 16-22 98-140/9-96 96-100 Intake & Output 12/28/17 12/29/17 12/30/17 12/31/17 23:59 23:59 23:59 23:59 Intake Total 436 836 500 Output Total 800 1750 1200 Balance -521 -914 -700 Weight 94.9 kg 92.533 kg 90.265 kg 92.079 kg Gen: less tachypneic but still with accessory muscle use Heart: RRR Lung: bilateral wheezes, rhonchi Abd: soft, nontender Ext: no edema CBC, BMP 12/31/17 06:00 12/31/17 06:00 Active Medications Albuterol Sulfate (Ventolin 0.083% Nebulizer Soln -) 1 amp NEB Q4H PRN PRN Reason: WHEEZING Last Admin: 12/30/17 10:55 Dose: 1 amp Albuterol/Ipratropium (Duoneb -) 1 amp NEB RQID CARMEN Last Admin: 12/31/17 08:25 Dose: 1 amp Chlorhexidine Gluconate (Hibiclens For Decolonization -) 1 applic TP HS [facility] Last Admin: 12/30/17 22:01 Dose: 1 applic Guaifenesin (Robitussin -) 10 ml PO Q6H PRN PRN Reason: COUGH Last Admin: 12/31/17 10:16 Dose: 10 ml Heparin Sodium (Porcine) (Heparin -) 5,000 unit SQ TID [facility] Last Admin: 12/31/17 06:48 Dose: 5,000 unit Levofloxacin (Levaquin 750 Mg Premixed Ivpb -) 750 mg in 150 mls @ 150 mls/hr IVPB DAILY [facility]; Protocol Last Admin: 12/31/17 10:09 Dose: 150 mls/hr Insulin Aspart (Novolog Vial Sliding Scale -) 1 vial SQ ACHS [facility]; Protocol Last Admin: 12/31/17 11:11 Dose: Not Given Methylprednisolone Sodium Succinate (Solu-Medrol -) 80 mg IVPB TID [facility] Last Admin: 12/31/17 06:48 Dose: 80 mg Montelukast Sodium (Singulair -) 10 mg PO HS [facility] Last Admin: 12/30/17 22:01 Dose: 10 mg Mupirocin (Bactroban Ointment (For Decolonization) -) 1 applic NS BID [facility] Stop: 01/01/18 12:29 Last Admin: 12/30/17 22:01 Dose: 1 applic Pantoprazole Sodium (Protonix Iv) 40 mg IVPUSH DAILY [facility] Last Admin: 12/31/17 10:09 Dose: 40 mg ASSESSMENT AND PLAN: Acute Hypercapneic Respiratory Failure Status Asthmaticus - continue medrol at current dose - inhaled bronchodilators standing and PRN - terbutaline trial today - monitor peak flow - on empiric antibiotics - singulair - DVT/GI prophylaxis critical care time spent in reviewing chart, evaluating patient and formulating plan 35 min
[2017-12-31] MEDS ORDERED: ALBUTEROL SO4 0.083% IH SOL 2.5 MG/3 ML VIAL.NEB. NEB PRN (11:41)
[2017-12-31] MEDS: TERBUTALINE SULFATE 2.5 MG TABLET PO SCH ×2 (13:00→21:57)
--- NOTE | 2017-12-31 13:12 | PN ---
Physical Exam: SUBJECTIVE: Patient seen and examined; still c/o productive cough with blood tinged sputum; used venti all night; sating mid 90s on 50% fio2. Eating well OBJECTIVE: Vital Signs Period Temp Pulse Resp BP Sys/Pate Pulse Ox Last 24 Hr 98.5 F-99 F 68-96 16-22 105-140/9-96 96-100 GENERAL: obese female; sitting up in bed with venti mask; non labored breathing LUNGS: bilateral wheezing HEART: Regular rate and rhythm, S1, S2 without murmur, rub or gallop. ABDOMEN: Soft, nontender, nondistended, normoactive bowel sounds, no guarding, no rebound, no hepatosplenomegaly, no masses. EXTREMITIES: 2+ pulses, warm, well-perfused, no edema. Laboratory Results - last 24 hr 12/30/17 12/30/17 12/31/17 18:23 22:04 05:44 WBC RBC Hgb Hct MCV MCH MCHC RDW Plt Count MPV Sodium Potassium Chloride Carbon Dioxide Anion Gap BUN Creatinine Creat Clearance w eGFR POC Glucometer [phone] Random Glucose Calcium Phosphorus Magnesium Total Bilirubin AST ALT Alkaline Phosphatase Total Protein Albumin 12/31/17 12/31/17 06:00 06:00 WBC 9.8 D RBC 4.79 Hgb 11.4 Hct 35.6 MCV 74.3 L MCH 23.7 L MCHC 31.9 L RDW 16.8 H Plt Count 271 MPV 8.2 Sodium 138 Potassium 4.6 Chloride 100 Carbon Dioxide 34 H Anion Gap 4 L BUN 17 Creatinine 0.5 L Creat Clearance w eGFR > 60 POC Glucometer Random Glucose 130 H Calcium 8.5 Phosphorus 3.5 Magnesium 2.8 H Total Bilirubin 0.4 D AST 20 ALT 39 Alkaline Phosphatase 64 Total Protein 6.6 Albumin 3.1 L Active Medications Generic Name Dose Route Start Last Admin Trade Name Freq PRN Reason Stop Dose Admin Albuterol Sulfate 1 amp 12/31/17 11:41 Ventolin 0.083% Nebulizer Soln - NEB Q1H PRN WHEEZING Albuterol/Ipratropium 1 amp 12/31/17 11:45 Duoneb - NEB Q4HWA CAR[facility] Chlorhexidine Gluconate 1 applic 12/27/17 22:00 12/30/17 22:01 Hibiclens For Decolonization - TP 1 applic HS [facility] Administration Guaifenesin 10 ml 12/30/17 10:42 12/31/17 10:16 Robitussin - PO 10 ml Q6H PRN Administration COUGH Heparin Sodium (Porcine) 5,000 unit 12/27/17 06:00 12/31/17 06:48 Heparin - SQ 5,000 unit TID [facility] Administration Levofloxacin 750 mg in 150 mls @ 150 mls/hr 12/27/17 10:00 12/31/17 10:09 Levaquin 750 Mg Premixed Ivpb - IVPB 150 mls/hr DAILY [facility] Administration Protocol Insulin Aspart 1 vial 12/30/17 22:00 12/31/17 11:11 Novolog Vial Sliding Scale - SQ Not Given ACHS [facility] Protocol Methylprednisolone Sodium Succinate 80 mg 12/31/17 18:00 Solu-Medrol - IVPUSH Q8H-IV [facility] Montelukast Sodium 10 mg 12/30/17 22:00 12/30/17 22:01 Singulair - PO 10 mg HS [facility] Administration Mupirocin 1 applic 12/27/17 12:30 12/31/17 10:06 Bactroban Ointment (For Decolonization) - NS 01/01/18 12:29 1 applic BID [facility] Administration Pantoprazole Sodium 40 mg 12/27/17 10:00 12/31/17 10:09 Protonix Iv IVPUSH 40 mg DAILY [facility] Administration Terbutaline Sulfate 2.5 mg 12/31/17 12:00 Brethine - PO BID [facility] ASSESSMENT/PLAN: This is a 37 year old female, asthmatic who presented short of breath in acute hypoxic respiratory failure. #Status asthmatic #acute hypoxic respiratory failure #hypermagnesiemia -sating 95% on venti mask 50% -with cough; cont anti tussive -cont broncodilators; increased duonebs to q4h standing; albuterol q1h prn -cont currently steroid dosage; 80mg IVP q8h -singulair -trial of terbutaline today -d/c ortiz -OOB to chair -PT -dvt ppl; -GI ppl; Cont to monitor overnight in ICU Visit type - Emergency Visit Emergency Visit: Yes ED Registration Date: 12/27/17 Care time: The patient presented to the Emergency Department on the above date and was hospitalized for further evaluation of their emergent condition. - New Patient This patient is new to me today: Yes Date on this admission: 12/31/17 - Critical Care Critical Care patient: Yes Total Critical Care Time (in minutes): 40 Critical Care Statement: The care of this patient involved high complexity decision making to prevent further life threatening deterioration of the patient 's condition and/or to evaluate & treat vital organ system(s) failure or risk of failure.
--- NOTE | 2017-12-31 13:19 | EKG ---
Test Reason : Blood Pressure : / mmHG Vent. Rate : 144 BPM Atrial Rate : 144 BPM P-R Int : 134 ms QRS Dur : 070 ms QT Int : 356 ms P-R-T Axes : 072 095 056 degrees QTc Int : 551 ms SINUS TACHYCARDIA RIGHTWARD AXIS BORDERLINE ECG WHEN COMPARED WITH ECG OF 19-SEP-2017 15:04, ST NO LONGER ELEVATED IN INFERIOR LEADS NON-SPECIFIC CHANGE IN ST SEGMENT IN LATERAL LEADS Confirmed by HANNA SOUTH, RICO ([id number]) on 12/31/2017 1:19:41 PM Referred By: Confirmed By:RICO FERREIRA MD
[2017-12-31 14:03] VITALS: BMI 33.7
--- NOTE | 2017-12-31 14:45 | PN ---
Teaching Attending Note Name of Resident: Anahi Mark ATTENDING PHYSICIAN STATEMENT I saw and evaluated the patient. I reviewed the resident's note and discussed the case with the resident. I agree with the resident's findings and plan as documented. SUBJECTIVE: SOB is slightly better today. No fever or chills. denies any pain. OBJECTIVE: NAd CV: RRR. Lugs: generalized wheezing . prolonged exp phase. good air entry Ext: no edema . ASSESSMENT AND PLAN: 37 y/o lady with h/o severe Asthma, GED, Anxiety and bipolar who presented with SOB and was found to have acute hypoxic resp failure requiring intubation 1- Acute hypoxic resp failure , 2/2 asthma exacerbation. now improved - cont Nebs - cont singular - add symbicort - cont steroids - Terbutaline aded today. 2- Acute bronchitis :received levaqin. will dc as QTC 551. repeat EKG today 3- DVT PX ( heparin ) and GI px ( PPI )
--- NOTE | 2017-12-31 15:07 | PN ---
Physical Exam: SUBJECTIVE: Patient seen and examined at bedside. Overnight, pt on 50% ventimask , sat in high 90's. C/o productive yellow sputum with mild hemoptysis. Afebrile. Today, pt c/o continued cough and diffuse HERRERA, however states that she is feeling improved. Denies chills, chest pain or pressure or changes in urinary or bowel function. OBJECTIVE: Vital Signs Period Temp Pulse Resp BP Sys/Pate Pulse Ox Last 24 Hr 98.5 F-99 F 68-100 16-22 105-140/68-96 96-100 GENERAL: The patient is resting comfortably in bed. Family at bedside. awake, alert, and fully oriented, in no acute distress. +50% Ventimask HEAD: Normal with no signs of trauma. EYES: PERRL, extraocular movements intact, sclera anicteric, conjunctiva clear. ENT: Ears normal, nares patent, oropharynx clear without exudates, moist mucous membranes. NECK: Trachea midline, supple. LUNGS: +improved air entry, scattered wheezes. without rhonchi or crackles.+ mild accessory m usage HEART: Regular rate and rhythm, S1, S2 without murmur, rub or gallop. ABDOMEN: Soft, obese, nontender, nondistended, normoactive bowel sounds, no guarding, no rebound EXTREMITIES: 2+ pt pulses, warm, well-perfused, no edema. NEUROLOGICAL: Cranial nerves II through XII grossly intact. Normal speech, gait not observed. PSYCH: Normal mood, normal affect. SKIN: Warm, dry, normal turgor Laboratory Results - last 24 hr 12/31/17 12/31/17 06:00 06:00 WBC 9.8 D RBC 4.79 Hgb 11.4 Hct 35.6 MCV 74.3 L MCH 23.7 L MCHC 31.9 L RDW 16.8 H Plt Count 271 MPV 8.2 Sodium 138 Potassium 4.6 Chloride 100 Carbon Dioxide 34 H Anion Gap 4 L BUN 17 Creatinine 0.5 L Creat Clearance w eGFR > 60 POC Glucometer Random Glucose 130 H Calcium 8.5 Phosphorus 3.5 Magnesium 2.8 H Total Bilirubin 0.4 D AST 20 ALT 39 Alkaline Phosphatase 64 Total Protein 6.6 Albumin 3.1 L Active Medications Generic Name Dose Route Start Last Admin Trade Name Freq PRN Reason Stop Dose Admin Albuterol Sulfate 1 amp 12/31/17 11:41 Ventolin 0.083% Nebulizer Soln - NEB Q1H PRN WHEEZING Albuterol/Ipratropium 1 amp 12/31/17 11:45 Duoneb - NEB Q4HWA CARMEN Budesonide/Formoterol Fumarate 2 puff 12/31/17 22:00 Symbicort 160/4.5mcg - IH BID [facility] Chlorhexidine Gluconate 1 applic 12/27/17 22:00 12/30/17 22:01 Hibiclens For Decolonization - TP 1 applic HS [facility] Administration Guaifenesin 10 ml 12/30/17 10:42 12/31/17 10:16 Robitussin - PO 10 ml Q6H PRN Administration COUGH Heparin Sodium (Porcine) 5,000 unit 12/27/17 06:00 12/31/17 14:29 Heparin - SQ 5,000 unit TID [facility] Administration Insulin Aspart 1 vial 12/30/17 22:00 12/31/17 11:11 Novolog Vial Sliding Scale - SQ Not Given ACHS [facility] Protocol Methylprednisolone Sodium Succinate 80 mg 12/31/17 18:00 Solu-Medrol - IVPUSH Q8H-IV [facility] Montelukast Sodium 10 mg 12/30/17 22:00 12/30/17 22:01 Singulair - PO 10 mg HS [facility] Administration Mupirocin 1 applic 12/27/17 12:30 12/31/17 10:06 Bactroban Ointment (For Decolonization) - NS 01/01/18 12:29 1 applic BID [facility] Administration Pantoprazole Sodium 40 mg 12/27/17 10:00 12/31/17 10:09 Protonix Iv IVPUSH 40 mg DAILY [facility] Administration Terbutaline Sulfate 2.5 mg 12/31/17 12:00 12/31/17 13:00 Brethine - PO 2.5 mg BID [facility] Administration IMAGING 12/27/17: CXR: Since prior CXR, ETT has been retraced from R mainstem bronchus and well above eliana at the level of the clavicular heads. Large heart. Lungs are clear. 12/29/17: CXR: since prior study of 12/27/17, the patient is rotated to the right with motion artifact and ET tube with tip well above the eliana. The mediastinum is not widened. the bones and soft tissues are intact. no acute pathology. Microbiology 12/27/17 16:43 Sputum - Endotrachea Suction/Ventilator Gram Stain - Final 12/27/17 00:07 Nasopharyngeal Swab Influenza Types A,B Antigen - Final 12/27/17 00:07 Nasopharyngeal Swab - Final 12/27/17 16:43 Sputum - Endotrachea Suction/Ventilator Sputum Culture - Preliminary [facility]ORMAL RESPIRATORY [facility]UD[facility] 12/27/17 00:07 Nasopharyngeal Swab Respiratory Virus (PCR) - Preliminary ASSESSMENT/PLAN: 37 y/o F with PMH GERD, anxiety, bipolar disorder, asthma (without hx intubation ), who presented with dyspnea and cough and was intubated in the ER. #Acute hypoxic resp failure 2/2 asthma exacerbation -s/p extubation (12/29/17 AM) - currently on 50% Fi02 venti mask, sat into high 90's -continue medrol 80mg IVPB TID -albuterol 1 amp neb RQID -albuterol neb 1 amp q1h PRN for additional SOB -Robitussin 10ml PO q6h PRN for cough -Singulair 10mg PO HS -Started on symbicort 2 puff IH BID, terbutaline 2.5 mg PO BID -F/u CXR tomorrow AM -at home on: dexamethasone 2mg 1 tab 4x/day, theophylline 80mg /50ml solution 4x /day, ventolin 2 puffs q4h PRN, + singulair 10mg - only filled in October 2017 for 30 day supply -case d/w Dr. Cristhian [facility]ares[facility] (pt pulm). Pt had attempted thermoplasty to decrease smooth m. in airway. Due to severe asthma, was sent to [place] [facility] and referred to start Nucalla- new biologic. Takes time to set up. Pt with baseline end expiratory wheezing. Responds better to dexamethasone over prednisone, recommended further follow up at [place] after d/ c. #Sepsis 2/2 acute bronchitis -afebrile, white count improving (9.8 today) -levaquin 750mg IVPB qd (Day 5)- has been d/c d/t prolonged Qtc (in 500's) -Repeat EKms #hx anxiety #hx bipolar disorder -verified with pharmacy: abilify 15mg PO qd, lithium carbonate 600mg PO qd ( last filled 11/20/17- 30 day supply) -as per pt, she does not want to take these medications during her stay #Hallucinations -currently without complaint -will continue to monitor #?STI -without current complaint; team had discussed with YPD -rape kit has been sent- results pending #GERD -Continue protonix 40mg IVP qd #F/E/N -currently not on IVF; ortiz removal -Continue to follow lytes -regular diet #PPX Hep 5000 SQ TID GI: protonix 40mg IVP qd ; as on steroids #Dispo cont'd ICU monitoring; improved air entry OOB to chair when able, PT Visit type - Emergency Visit Emergency Visit: No - New Patient This patient is new to me today: No - Critical Care Critical Care patient: No
[2017-12-31] MEDS: methylPREDNISolone NA SUCC 125 MG/2 ML VIAL IVPUSH SCH (17:36)
[2017-12-31] MEDS ORDERED: PT OWN MED DRAWER 7, Y5N ONE (19:42)
[2017-12-31] MEDS: BUDESONIDE/FORMETEROL FUMARATE 160/4.5 mcg INHALER IH SCH (21:38)
[2017-12-31] MEDS: MONTELUKAST NA 10 MG TABLET PO SCH (21:41)
[2017-12-31] MEDS: CHLORHEXIDINE GLUCONATE 4% CLEANSER FOR DECOLONIZATION TP SCH (21:41)
[2017-12-31] MEDS ORDERED: HEMOQUE TEST 1 EACH EACH ONE (23:37)
[2018-01-01] MEDS: methylPREDNISolone NA SUCC 125 MG/2 ML VIAL IVPUSH SCH ×3 (01:11→18:14)
[2018-01-01] MEDS: guaiFENesin 200 MG/10 ML 10 ML UNIT-DOSE CUPS PO PRN ×3 (02:00→22:11)
[2018-01-01] MEDS: HEPARIN NA (PORCINE) 5,000 UNITS/ML 1ML VIAL SQ SCH ×3 (05:44→22:16)
[2018-01-01] MEDS: INSULIN SLIDING SCALE (NOVOLOG) 1 VIAL SQ SCH ×3 (06:08→16:33)
[2018-01-01] MEDS: ALBUTEROL SO4 2.5/IPRATROPIUM 0.5 INH SOL 3 ML VIAL.NEB. NEB SCH ×5 (06:10→21:12)
[2018-01-01 06:21] LABS: HEMATOCRIT 38.6 % (32.4-45.2); HEMOGLOBIN 11.9 GM/dL (10.7-15.3); MCH 23.3 pg (25.7-33.7); MCHC 30.9 g/dl (32.0-36.0); MEAN CELL VOLUME 75.5 fl (80-96); MEAN PLT VOLUME 8.6 fl (7.5-11.1); PLATELET COUNT 273 K/MM3 (134-434); RBC 5.11 M/mm3 (3.60-5.2); RDW 16.9 % (11.6-15.6); WHITE BLOOD COUNT 11.7 K/mm3 (4.0-10.0)
[2018-01-01] MEDS ORDERED: PT OWN MED DRAWER 7, Y5N ONE ×4 (06:33→22:09)
[2018-01-01 06:55] LABS: ALBUMIN 3.1 g/dl (3.4-5.0); CALCIUM 8.8 mg/dL (8.5-10.1); CHLORIDE 100 mmol/L (98-107); POTASSIUM 4.3 mmol/L (3.5-5.1); SODIUM 138 mmol/L (136-145)
[2018-01-01 07:00] LABS: ALK PHOS 62 U/L (45-117); ANION GAP 4 (8-16); BILIRUBIN,TOTAL 0.4 mg/dL (0.2-1.0); BLOOD UREA NITROGEN 17 mg/dL (7-18); CO2 34 mmol/L (21-32); CREATININE 0.6 mg/dL (0.55-1.02); GLUCOSE,RANDOM 158 mg/dL (74-106); MAGNESIUM 2.2 mg/dL (1.8-2.4); PHOSPHOROUS 3.4 mg/dL (2.5-4.9); SGOT/AST 13 U/L (15-37); SGPT/ALT 35 U/L (12-78); TOT PROT 6.6 g/dl (6.4-8.2)
[2018-01-01] MEDS: MUPIROCIN 2% TOPICAL OINTMENT FOR DECOLONIZATION NS SCH (09:26)
[2018-01-01] MEDS: PANTOPRAZOLE SODIUM 40 MG VIAL IVPUSH SCH (09:27)
[2018-01-01] MEDS: BUDESONIDE/FORMETEROL FUMARATE 160/4.5 mcg INHALER IH SCH ×2 (09:34→22:10)
[2018-01-01] MEDS: TERBUTALINE SULFATE 2.5 MG TABLET PO SCH ×2 (09:59→22:14)
[2018-01-01 11:02] LABS: ACANTHOCYTES 0; ANISOCYTOSIS 0; HELMET CELLS 0; HOWELL-JOLLY BODIES 0; MACROCYTOSIS 0; OVALOCYTE 0; PLATELET ESTIMATE NORMAL; ROULEAU 0; SICKELED CELLS 0; TARGET CELLS 0; TEAR DROP CELLS 0; TOXIC GRANULATION 0
--- NOTE | 2018-01-01 11:49 | PN ---
Teaching Attending Note Name of Resident: Anahi Mark ATTENDING PHYSICIAN STATEMENT I saw and evaluated the patient. I reviewed the resident's note and discussed the case with the resident. I agree with the resident's findings and plan as documented. SUBJECTIVE: No fever or chills, has significant improvement in breathing. walked to bathroom and was SB . cont to have cough OBJECTIVE: NAD, cough CV: RRR. Lungs: scattered wheezing. prolonged exp phase. good air entry Ext: no edema . ASSESSMENT AND PLAN: 37 y/o lady with h/o severe Asthma, GED, Anxiety and bipolar who presented with SOB and was found to have acute hypoxic resp failure requiring intubation 1- Acute hypoxic resp failure, 2/2 asthma exacerbation. now improved - cont Nebs - cont singular - cont symbicort - decrease dose of solu-Medrol to 60 mg q8Hr - Cont Terbutaline - BIPAp at night 2- Acute bronchitis :received levaqin. repeat EKG with improvement in Qtc 3- DVT PX ( heparin ) and GI px ( PPI ) Critical Care Total Critical Care Time (in minutes): 30 Critical Care Statement: The care of this patient involved high complexity decision making to prevent further life threatening deterioration of the patient 's condition and/or to evaluate & treat vital organ system(s) failure or risk of failure.
--- NOTE | 2018-01-01 12:08 | PN ---
Teaching Attending Note Name of Resident: Jake Hankins ATTENDING PHYSICIAN STATEMENT I saw and evaluated the patient. I reviewed the resident's note and discussed the case with the resident. I agree with the resident's findings and plan as documented. SUBJECTIVE: Pt seen and examined in the ICU. Breathing continues to slowly improve. Tolerated terbutaline yesterday. Peak flow 170 this AM. Viral panel positive for rhinovirus. OBJECTIVE: Vital Signs Period Temp Pulse Resp BP Sys/Pate Pulse Ox Last 24 Hr 98 F-98.5 F 68-100 13-24 93-131/70-84 97-100 Intake & Output 12/29/17 12/30/17 12/31/17 01/01/18 23:59 23:59 23:59 23:59 Intake Total 877 346 3062 480 Output Total 1750 1200 500 Balance -914 -700 550 480 Weight 92.533 kg 90.265 kg 92.079 kg Gen: less tachypneic, less accessory muscle use Heart: RRR Lung: bilateral rhonchi, wheezes, better air movement Abd: soft, nontender Ext: no edema CBC, BMP 01/01/18 05:18 01/01/18 05:18 Active Medications Albuterol Sulfate (Ventolin 0.083% Nebulizer Soln -) 1 amp NEB Q1H PRN PRN Reason: WHEEZING Albuterol/Ipratropium (Duoneb -) 1 amp NEB Q4HWA [facility] Last Admin: 01/01/18 10:05 Dose: 1 amp Budesonide/Formoterol Fumarate (Symbicort 160/4.5mcg -) 2 puff IH BID [facility] Last Admin: 01/01/18 09:34 Dose: 2 puff Chlorhexidine Gluconate (Hibiclens For Decolonization -) 1 applic TP HS [facility] Last Admin: 12/31/17 21:41 Dose: 1 applic Guaifenesin (Robitussin -) 10 ml PO Q6H PRN PRN Reason: COUGH Last Admin: 01/01/18 09:27 Dose: 10 ml Heparin Sodium (Porcine) (Heparin -) 5,000 unit SQ TID [facility] Last Admin: 01/01/18 05:44 Dose: 5,000 unit Insulin Aspart (Novolog Vial Sliding Scale -) 1 vial SQ ACHS [facility]; Protocol Last Admin: 01/01/18 11:32 Dose: Not Given Methylprednisolone Sodium Succinate (Solu-Medrol -) 60 mg IVPUSH Q8H-IV [facility] Last Admin: 01/01/18 09:40 Dose: 60 mg Montelukast Sodium (Singulair -) 10 mg PO HS [facility] Last Admin: 12/31/17 21:41 Dose: 10 mg Mupirocin (Bactroban Ointment (For Decolonization) -) 1 applic NS BID [facility] Stop: 01/01/18 12:29 Last Admin: 01/01/18 09:26 Dose: 1 applic Pantoprazole Sodium (Protonix Iv) 40 mg IVPUSH DAILY [facility] Last Admin: 01/01/18 09:27 Dose: 40 mg Terbutaline Sulfate (Brethine -) 2.5 mg PO BID [facility] Last Admin: 01/01/18 09:59 Dose: 2.5 mg ASSESSMENT AND PLAN: Acute Hypercapneic Respiratory Failure Status Asthmaticus - agree with decreasing medrol today - inhaled bronchodilators standing and PRN - continue terbutaline trial - singulair - monitor peak flow - on empiric antibiotics - DVT/GI prophylaxis critical care time spent in reviewing chart, evaluating patient and formulating plan 35 min
--- NOTE | 2018-01-01 12:54 | PN ---
Physical Exam: SUBJECTIVE: Patient seen and examined at bedside. No acute events overnight. Pt states that she is feeling much better today, however is out of breath when she ambulates to the bathroom. Otherwise, asking for steroid taper. Denies fever, chills, chest pain or pressure, or changes in urinary or bowel function. OBJECTIVE: Vital Signs Period Temp Pulse Resp BP Sys/Pate Pulse Ox Last 24 Hr 98 F-98.5 F 68-100 13-24 93-131/70-84 97-100 GENERAL: The patient is on awake, alert, and fully oriented, in no acute distress. +45% venti mask HEAD: Normal with no signs of trauma. EYES: PERRL, extraocular movements intact, sclera anicteric, conjunctiva clear. ENT: Ears normal, nares patent, oropharynx clear without exudates, moist mucous membranes. NECK: Trachea midline, supple. LUNGS: +improved air entry, still with scattered wheezes however improved. without accessory m usage, or rhonchi, crackles HEART: Regular rate and rhythm, S1, S2 without murmur, rub or gallop. ABDOMEN: Soft, nontender, nondistended, normoactive bowel sounds, no guarding, no rebound EXTREMITIES: 2+ dp, pt pulses, warm, well-perfused, no edema. NEUROLOGICAL: Cranial nerves II through XII grossly intact. PSYCH: Normal mood, normal affect. SKIN: Warm, dry, normal turgor Laboratory Results 01/01/18 01/01/18 05:18 05:18 WBC 11.7 H Hgb 11.9 Hct 38.6 Plt Count 273 Sodium 138 Potassium 4.3 Chloride 100 Carbon Dioxide 34 H Anion Gap 4 L BUN 17 Creatinine 0.6 Random Glucose 158 H Active Medications Generic Name Dose Route Start Last Admin Trade Name Freq PRN Reason Stop Dose Admin Albuterol Sulfate 1 amp 12/31/17 11:41 Ventolin 0.083% Nebulizer Soln - NEB Q1H PRN WHEEZING Albuterol/Ipratropium 1 amp 12/31/17 11:45 01/01/18 10:05 Duoneb - NEB 1 amp Q4HWA [facility] Administration Budesonide/Formoterol Fumarate 2 puff 12/31/17 22:00 01/01/18 09:34 Symbicort 160/4.5mcg - IH 2 puff BID [facility] Administration Chlorhexidine Gluconate 1 applic 12/27/17 22:00 12/31/17 21:41 Hibiclens For Decolonization - TP 1 applic HS [facility] Administration Guaifenesin 10 ml 12/30/17 10:42 01/01/18 09:27 Robitussin - PO 10 ml Q6H PRN Administration COUGH Heparin Sodium (Porcine) 5,000 unit 12/27/17 06:00 01/01/18 05:44 Heparin - SQ 5,000 unit TID [facility] Administration Insulin Aspart 1 vial 12/30/17 22:00 01/01/18 11:32 Novolog Vial Sliding Scale - SQ Not Given ACHS [facility] Protocol Methylprednisolone Sodium Succinate 60 mg 01/01/18 10:00 01/01/18 09:40 Solu-Medrol - IVPUSH 60 mg Q8H-IV [facility] Administration Montelukast Sodium 10 mg 12/30/17 22:00 12/31/17 21:41 Singulair - PO 10 mg HS [facility] Administration Pantoprazole Sodium 40 mg 12/27/17 10:00 01/01/18 09:27 Protonix Iv IVPUSH 40 mg DAILY [facility] Administration Terbutaline Sulfate 2.5 mg 12/31/17 12:00 01/01/18 09:59 Brethine - PO 2.5 mg BID [facility] Administration Microbiology 12/27/17 16:43 Sputum - Endotrachea Suction/Ventilator Gram Stain - Final 12/27/17 16:43 Sputum - Endotrachea Suction/Ventilator Sputum Culture - Final [facility]AT[facility] 12/27/17 00:07 Nasopharyngeal Swab Respiratory Virus (PCR) - Final: + Rhinovirus 12/27/17 00:07 Nasopharyngeal Swab Influenza Types A,B Antigen - Final 12/27/17 00:07 Nasopharyngeal Swab - Final Imaging 12/27/17: CXR: Since prior CXR, ETT has been retraced from R mainstem bronchus and well above eliana at the level of the clavicular heads. Large heart. Lungs are clear. 12/29/17: CXR: since prior study of 12/27/17, the patient is rotated to the right with motion artifact and ET tube with tip well above the eliana. The mediastinum is not widened. the bones and soft tissues are intact. no acute pathology. 01/01/18: CXR: no evidence acute infiltrate, pulm vasc congestion or pleural effusion. There is no definable pneumothorax. No abnormal deviation of trachea. ASSESSMENT/PLAN: 37 y/o F with PMH GERD, anxiety, bipolar disorder, asthma (without hx intubation ), who presented with dyspnea and cough and was intubated in the ER. #Acute hypoxic resp failure 2/2 asthma exacerbation -s/p extubation (12/29/17 AM) - currently on 45% Fi02 venti mask, sat into high 90's -clinically improved, better aeration -recommend BiPAP at night to help w work of breathing -Viral PCR: Rhinovirus (+) -medrol 60mg IVPB TID (tapered from 80) -albuterol 1 amp neb RQID -albuterol neb 1 amp q1h PRN for additional SOB -Robitussin 10ml PO q6h PRN for cough -Singulair 10mg PO HS -Started on symbicort 2 puff IH BID, terbutaline 2.5 mg PO BID #hx anxiety #hx bipolar disorder -verified with pharmacy: abilify 15mg PO qd, lithium carbonate 600mg PO qd ( last filled 11/20/17- 30 day supply) -as per pt, she does not want to take these medications during her stay #Hallucinations -currently without complaint -will continue to monitor #?STI -without current complaint; team had discussed with YPD -rape kit sent- results pending #GERD -Continue protonix 40mg IVP qd #F/E/N -currently not on IVF; ortiz has been removed. -Continue to follow lytes -regular diet #Sepsis 2/2 acute bronchitis-resolved -levaquin 750mg IVPB qd -received five days - has been d/c d/t prolonged Qtc (in 500's), improved to 425 #PPX Hep 5000 SQ TID GI: protonix 40mg IVP qd ; as on steroids #Dispo cont'd ICU monitoring; improved air entry OOB to chair when able, PT Visit type - Emergency Visit Emergency Visit: No - New Patient This patient is new to me today: No - Critical Care Critical Care patient: Yes Total Critical Care Time (in minutes): 45 Critical Care Statement: The care of this patient involved high complexity decision making to prevent further life threatening deterioration of the patient 's condition and/or to evaluate & treat vital organ system(s) failure or risk of failure.
--- NOTE | 2018-01-01 13:18 | PN ---
Physical Exam: SUBJECTIVE: Patient seen and examined. PCR + for rhinovirus. Patient on ventimask. Says her breathing is better today. Peak flow at 170 this morning. OBJECTIVE: Vital Signs Period Temp Pulse Resp BP Sys/Pate Pulse Ox Last 24 Hr 98 F-98.5 F 68-100 13-24 93-131/70-84 97-100 GENERAL: comfortable in NAD EYES: PERRL, conjunctiva clear. ENT: oropharynx clear without exudates, moist mucous membranes. NECK: supple. LUNGS: scattered wheezing throughout b/l HEART: regular rate, rhythm, no murmurs appreciated ABDOMEN: Soft, nontender, nondistended, normoactive bowel sounds, no guarding, no rebound EXTREMITIES: 2+ pulses, warm, well-perfused, no edema. SKIN: Warm, dry, normal turgor, no rashes or lesions noted Laboratory Results - last 24 hr 12/31/17 12/31/17 12/31/17 11:10 16:42 22:58 WBC RBC Hgb Hct MCV MCH MCHC RDW Plt Count MPV Total Counted Neutrophils % Neutrophils % (Manual) Band Neutrophils % Lymphocytes % Lymphocytes % (Manual) Monocytes % (Manual) Eosinophils % (Manual) Basophils % (Manual) Myelocytes % (Man) Promyelocytes % (Man) Blast Cells % (Manual) Nucleated RBC % Metamyelocytes Hypochromia Toxic Granulation Dohle Bodies Platelet Estimate Polychromasia Poikilocytosis Basophilic Stippling Anisocytosis Microcytosis Macrocytosis Spherocytes Sickle Cells Target Cells Tear Drop Cells Ovalocytes Stomatocytes Helmet Cells [place] Bodies [place] Rings [place] Cells Acanthocytes (Spur) Rouleaux Fragmented RBCs Schistocytes Sodium Potassium Chloride Carbon Dioxide Anion Gap BUN Creatinine Creat Clearance w eGFR POC Glucometer [phone] Random Glucose Calcium Phosphorus Magnesium Total Bilirubin AST ALT Alkaline Phosphatase Total Protein Albumin 01/01/18 01/01/18 01/01/18 05:18 05:18 05:39 WBC 11.7 H RBC 5.11 Hgb 11.9 Hct 38.6 MCV 75.5 L MCH 23.3 L MCHC 30.9 L RDW 16.9 H Plt Count 273 MPV 8.6 Total Counted 99 Neutrophils % No Result Required. Neutrophils % (Manual) 92.9 H Band Neutrophils % 0.0 Lymphocytes % No Result Required. Lymphocytes % (Manual) 6.1 L Monocytes % (Manual) 0 L D Eosinophils % (Manual) 0.0 Basophils % (Manual) 0.0 Myelocytes % (Man) 0 Promyelocytes % (Man) 1 D Blast Cells % (Manual) 0 Nucleated RBC % 0 Metamyelocytes 0 Hypochromia 0 Toxic Granulation 0 Dohle Bodies 0 Platelet Estimate Normal Polychromasia 0 Poikilocytosis 0 Basophilic Stippling 0 Anisocytosis 0 Microcytosis 0 Macrocytosis 0 Spherocytes 0 Sickle Cells 0 Target Cells 0 Tear Drop Cells 0 Ovalocytes 0 Stomatocytes 0 Helmet Cells 0 [place] Bodies 0 [place] Rings 0 [place] Cells 0 Acanthocytes (Spur) 0 Rouleaux 0 Fragmented RBCs 0 Schistocytes 0 Sodium 138 Potassium 4.3 Chloride 100 Carbon Dioxide 34 H Anion Gap 4 L BUN 17 Creatinine 0.6 Creat Clearance w eGFR > 60 POC Glucometer 151.22414 Random Glucose 158 H Calcium 8.8 Phosphorus 3.4 Magnesium 2.2 Total Bilirubin 0.4 AST 13 L ALT 35 Alkaline Phosphatase 62 Total Protein 6.6 Albumin 3.1 L 01/01/18 11:28 WBC RBC Hgb Hct MCV MCH MCHC RDW Plt Count MPV Total Counted Neutrophils % Neutrophils % (Manual) Band Neutrophils % Lymphocytes % Lymphocytes % (Manual) Monocytes % (Manual) Eosinophils % (Manual) Basophils % (Manual) Myelocytes % (Man) Promyelocytes % (Man) Blast Cells % (Manual) Nucleated RBC % Metamyelocytes Hypochromia Toxic Granulation Dohle Bodies Platelet Estimate Polychromasia Poikilocytosis Basophilic Stippling Anisocytosis Microcytosis Macrocytosis Spherocytes Sickle Cells Target Cells Tear Drop Cells Ovalocytes Stomatocytes Helmet Cells [place] Bodies [place] Rings [place] Cells Acanthocytes (Spur) Rouleaux Fragmented RBCs Schistocytes Sodium Potassium Chloride Carbon Dioxide Anion Gap BUN Creatinine Creat Clearance w eGFR POC Glucometer 155.33775 Random Glucose Calcium Phosphorus Magnesium Total Bilirubin AST ALT Alkaline Phosphatase Total Protein Albumin Active Medications Generic Name Dose Route Start Last Admin Trade Name Freq PRN Reason Stop Dose Admin Albuterol Sulfate 1 amp 12/31/17 11:41 Ventolin 0.083% Nebulizer Soln - NEB Q1H PRN WHEEZING Albuterol/Ipratropium 1 amp 12/31/17 11:45 01/01/18 10:05 Duoneb - NEB 1 amp Q4HWA [facility] Administration Budesonide/Formoterol Fumarate 2 puff 12/31/17 22:00 01/01/18 09:34 Symbicort 160/4.5mcg - IH 2 puff BID [facility] Administration Chlorhexidine Gluconate 1 applic 12/27/17 22:00 12/31/17 21:41 Hibiclens For Decolonization - TP 1 applic HS [facility] Administration Guaifenesin 10 ml 12/30/17 10:42 01/01/18 09:27 Robitussin - PO 10 ml Q6H PRN Administration COUGH Heparin Sodium (Porcine) 5,000 unit 12/27/17 06:00 01/01/18 05:44 Heparin - SQ 5,000 unit TID [facility] Administration Insulin Aspart 1 vial 12/30/17 22:00 01/01/18 11:32 Novolog Vial Sliding Scale - SQ Not Given ACHS [facility] Protocol Methylprednisolone Sodium Succinate 60 mg 01/01/18 10:00 01/01/18 09:40 Solu-Medrol - IVPUSH 60 mg Q8H-IV [facility] Administration Montelukast Sodium 10 mg 12/30/17 22:00 12/31/17 21:41 Singulair - PO 10 mg HS [facility] Administration Pantoprazole Sodium 40 mg 12/27/17 10:00 01/01/18 09:27 Protonix Iv IVPUSH 40 mg DAILY [facility] Administration Terbutaline Sulfate 2.5 mg 12/31/17 12:00 01/01/18 09:59 Brethine - PO 2.5 mg BID [facility] Administration ASSESSMENT/PLAN: #PULM -Acute hypoxic respiratory failure due to asthma exacerbation -Sepsis due to likely acute bronchitis- improving -PCR positive for Rhinovirus -Decreasing medrol to 60mg TID -Tolerated Terbutaline -Duonebs q4h q4h -Albuterol q4h PRN -Singulair -monitor peak flow. Today 170 -Keep O2 >90% -O2 supplementation -IV abx: Levaquin day 6 -Robitussin for cough #Neuro -headaches -tylenol PRN #Endo -BGM -ISS #PPx -Protonix IV -Hep SQ #FEN -no iv fluids -wnl -regular diet Visit type - Emergency Visit Emergency Visit: Yes ED Registration Date: 12/27/17 Care time: The patient presented to the Emergency Department on the above date and was hospitalized for further evaluation of their emergent condition. - New Patient This patient is new to me today: No - Critical Care Critical Care patient: Yes Total Critical Care Time (in minutes): 40 Critical Care Statement: The care of this patient involved high complexity decision making to prevent further life threatening deterioration of the patient 's condition and/or to evaluate & treat vital organ system(s) failure or risk of failure.
--- NOTE | 2018-01-01 13:30 | EKG ---
Test Reason : Blood Pressure : / mmHG Vent. Rate : 084 BPM Atrial Rate : 084 BPM P-R Int : 132 ms QRS Dur : 074 ms QT Int : 360 ms P-R-T Axes : 036 071 058 degrees QTc Int : 425 ms NORMAL SINUS RHYTHM NORMAL ECG WHEN COMPARED WITH ECG OF 27-DEC-2017 00:00, VENT. RATE HAS DECREASED BY [address] ELEVATION NOW PRESENT IN INFERIOR LEADS NON-SPECIFIC CHANGE IN ST SEGMENT IN ANTEROLATERAL LEADS Confirmed by LINDA STEVEN MD ([id number]) on 01/01/2018 1:30:02 PM Referred By: ALESSANDRA VAZQUEZ Confirmed By:LINDA STEVEN MD
[2018-01-01] MEDS: MONTELUKAST NA 10 MG TABLET PO SCH (22:12)
[2018-01-01] MEDS: CHLORHEXIDINE GLUCONATE 4% CLEANSER FOR DECOLONIZATION TP SCH (22:17)
[2018-01-02] MEDS: methylPREDNISolone NA SUCC 125 MG/2 ML VIAL IVPUSH SCH ×3 (02:23→17:48)
[2018-01-02] MEDS: ALBUTEROL SO4 2.5/IPRATROPIUM 0.5 INH SOL 3 ML VIAL.NEB. NEB SCH ×5 (06:05→21:00)
[2018-01-02 06:19] LABS: BASO % 0.3 % (0-2.0); EOS % 0.1 % (0-4.5); HEMATOCRIT 36.3 % (32.4-45.2); HEMOGLOBIN 11.5 GM/dL (10.7-15.3); LYMPH % 7.2 % (8-40); MCH 23.4 pg (25.7-33.7); MCHC 31.7 g/dl (32.0-36.0); MEAN CELL VOLUME 73.8 fl (80-96); MEAN PLT VOLUME 8.6 fl (7.5-11.1); MONO % 4.2 % (3.8-10.2); NEUT % 88.2 % (42.8-82.8); PLATELET COUNT 265 K/MM3 (134-434); RBC 4.91 M/mm3 (3.60-5.2); RDW 16.7 % (11.6-15.6); WHITE BLOOD COUNT 12.2 K/mm3 (4.0-10.0)
[2018-01-02] MEDS: INSULIN SLIDING SCALE (NOVOLOG) 1 VIAL SQ SCH ×5 (06:31→21:34)
[2018-01-02] MEDS: HEPARIN NA (PORCINE) 5,000 UNITS/ML 1ML VIAL SQ SCH ×3 (06:33→21:31)
[2018-01-02 06:48] LABS: ANION GAP 8 (8-16); BLOOD UREA NITROGEN 19 mg/dL (7-18); CALCIUM 8.5 mg/dL (8.5-10.1); CHLORIDE 100 mmol/L (98-107); CO2 30 mmol/L (21-32); GLUCOSE,RANDOM 140 mg/dL (74-106); POTASSIUM 4.3 mmol/L (3.5-5.1); SODIUM 138 mmol/L (136-145)
[2018-01-02 06:51] LABS: CREATININE 0.6 mg/dL (0.55-1.02); PHOSPHOROUS 3.4 mg/dL (2.5-4.9)
[2018-01-02] MEDS ORDERED: PT OWN MED DRAWER 7, Y5N ONE (09:05)
[2018-01-02] MEDS: guaiFENesin 200 MG/10 ML 10 ML UNIT-DOSE CUPS PO PRN (09:57)
[2018-01-02] MEDS: BUDESONIDE/FORMETEROL FUMARATE 160/4.5 mcg INHALER IH SCH ×2 (09:58→21:36)
[2018-01-02] MEDS: TERBUTALINE SULFATE 2.5 MG TABLET PO SCH ×2 (09:58→21:30)
[2018-01-02] MEDS: PANTOPRAZOLE SODIUM 40 MG VIAL IVPUSH SCH (10:30)
--- NOTE | 2018-01-02 12:02 | PN ---
Teaching Attending Note Name of Resident: Jake Hankins ATTENDING PHYSICIAN STATEMENT I saw and evaluated the patient. I reviewed the resident's note and discussed the case with the resident. I agree with the resident's findings and plan as documented. SUBJECTIVE: Patient seen and examined in the ICU. Breathing continues to slowly improve. Did not use NIPPV overnight. Peak flow pending this AM. CXR: Clear / no foreign object noted Intake & Output 12/30/17 12/31/17 01/01/18 01/02/18 23:59 23:59 23:59 23:59 Intake Total 500 1050 480 590 Output Total 1200 500 Balance -700 550 480 590 Weight 199 lb 203 lb Last Vital Signs Temp Pulse Resp BP Pulse Ox 98.8 F 78 19 116/73 100 01/02/18 10:00 01/02/18 10:00 01/02/18 10:00 01/02/18 10:00 01/02/18 08:45 Active Medications Albuterol Sulfate (Ventolin 0.083% Nebulizer Soln -) 1 amp NEB Q1H PRN PRN Reason: WHEEZING Albuterol/Ipratropium (Duoneb -) 1 amp NEB Q4HWA [facility] Last Admin: 01/02/18 10:14 Dose: 1 amp Budesonide/Formoterol Fumarate (Symbicort 160/4.5mcg -) 2 puff IH BID [facility] Last Admin: 01/02/18 09:58 Dose: 2 puff Chlorhexidine Gluconate (Hibiclens For Decolonization -) 1 applic TP HS [facility] Last Admin: 01/01/18 22:17 Dose: 1 applic Guaifenesin (Robitussin -) 10 ml PO Q6H PRN PRN Reason: COUGH Last Admin: 01/02/18 09:57 Dose: 10 ml Heparin Sodium (Porcine) (Heparin -) 5,000 unit SQ TID [facility] Last Admin: 01/02/18 06:33 Dose: 5,000 unit Insulin Aspart (Novolog Vial Sliding Scale -) 1 vial SQ ACHS [facility]; Protocol Last Admin: 01/02/18 06:31 Dose: Not Given Methylprednisolone Sodium Succinate (Solu-Medrol -) 60 mg IVPUSH Q8H-IV [facility] Last Admin: 01/02/18 09:25 Dose: 60 mg Montelukast Sodium (Singulair -) 10 mg PO HS [facility] Last Admin: 01/01/18 22:12 Dose: 10 mg Pantoprazole Sodium (Protonix Iv) 40 mg IVPUSH DAILY [facility] Last Admin: 01/01/18 09:27 Dose: 40 mg Terbutaline Sulfate (Brethine -) 2.5 mg PO BID [facility] Last Admin: 01/02/18 09:58 Dose: 2.5 mg OBJECTIVE: Gen: less tachypneic, less accessory muscle use Heart: RRR Lung: bilateral rhonchi, wheezes, better air movement Abd: soft, nontender Ext: no edema Laboratory Results - last 24 hr 01/01/18 01/01/18 01/02/18 16:28 23:06 05:15 WBC 12.2 H RBC 4.91 Hgb 11.5 Hct 36.3 MCV 73.8 L MCH 23.4 L MCHC 31.7 L RDW 16.7 H Plt Count 265 MPV 8.6 Neutrophils % 88.2 H Lymphocytes % 7.2 L D Monocytes % 4.2 D Eosinophils % 0.1 D Basophils % 0.3 Nucleated RBC % 0 Sodium Potassium Chloride Carbon Dioxide Anion Gap BUN Creatinine POC Glucometer 153.02661 196.49434 Random Glucose Calcium Phosphorus Magnesium 01/02/18 01/02/18 05:15 06:08 WBC RBC Hgb Hct MCV MCH MCHC RDW Plt Count MPV Neutrophils % Lymphocytes % Monocytes % Eosinophils % Basophils % Nucleated RBC % Sodium 138 Potassium 4.3 Chloride 100 Carbon Dioxide 30 Anion Gap 8 BUN 19 H Creatinine 0.6 POC Glucometer 144.32135 Random Glucose 140 H Calcium 8.5 Phosphorus 3.4 Magnesium 2.0 ASSESSMENT AND PLAN: Acute Hypercapneic Respiratory Failure Status Asthmaticus R/O OSAS GERD Slow Medrol Taper Inhaled bronchodilators standing and PRN Terbutaline BID Singulair Monitor peak flow Noted ABX DVT/GI prophylaxis Os as needed Talia Fonseca Critical care time spent in reviewing chart, evaluating patient and formulating plan 35 min
--- NOTE | 2018-01-02 12:59 | PN ---
Teaching Attending Note Name of Resident: Anahi Mark ATTENDING PHYSICIAN STATEMENT I saw and evaluated the patient. I reviewed the resident's note and discussed the case with the resident. I agree with the resident's findings and plan as documented. SUBJECTIVE: Feels much better today. cont to have cough . OBJECTIVE: NAD, cough CV: RRR. Lungs: scattered wheezing. prolonged exp phase. good air entry Ext: no edema . ASSESSMENT AND PLAN: 37 y/o lady with h/o severe Asthma, GED, Anxiety and bipolar who presented with SOB and was found to have acute hypoxic resp failure requiring intubation 1- Acute hypoxic resp failure, 2/2 asthma exacerbation. now improved - cont Nebs - cont singular - cont symbicort - cont solu-Medrol 60 mg q8Hr - Cont Terbutaline - BIPAp at night 2- Acute bronchitis :off levaquin now 3- DVT PX ( heparin ) and GI px ( PPI ) tx to floor
--- NOTE | 2018-01-02 13:38 | PN ---
Physical Exam: SUBJECTIVE: Patient seen and examined. Says her breathing has improved and feels much better than yesterday. Peak flow pending. OBJECTIVE: Vital Signs Period Temp Pulse Resp BP Sys/Pate Pulse Ox Last 24 Hr 98.5 F-98.8 F 70-99 14-22 106-136/66-91 97-100 GENERAL: comfortable in NAD EYES: PERRL, conjunctiva clear. ENT: oropharynx clear without exudates, moist mucous membranes. NECK: supple. LUNGS: mild wheezing b/l. better air movement today. HEART: regular rate, rhythm, no murmurs appreciated ABDOMEN: Soft, nontender, nondistended, normoactive bowel sounds EXTREMITIES: 2+ pulses, warm, well-perfused, no edema. SKIN: Warm, dry, normal turgor, no rashes or lesions noted Laboratory Results - last 24 hr 01/01/18 01/01/18 01/02/18 16:28 23:06 05:15 WBC 12.2 H RBC 4.91 Hgb 11.5 Hct 36.3 MCV 73.8 L MCH 23.4 L MCHC 31.7 L RDW 16.7 H Plt Count 265 MPV 8.6 Neutrophils % 88.2 H Lymphocytes % 7.2 L D Monocytes % 4.2 D Eosinophils % 0.1 D Basophils % 0.3 Nucleated RBC % 0 Sodium Potassium Chloride Carbon Dioxide Anion Gap BUN Creatinine POC Glucometer 153.21136 196.84500 Random Glucose Calcium Phosphorus Magnesium 01/02/18 01/02/18 05:15 06:08 WBC RBC Hgb Hct MCV MCH MCHC RDW Plt Count MPV Neutrophils % Lymphocytes % Monocytes % Eosinophils % Basophils % Nucleated RBC % Sodium 138 Potassium 4.3 Chloride 100 Carbon Dioxide 30 Anion Gap 8 BUN 19 H Creatinine 0.6 POC Glucometer 144.57228 Random Glucose 140 H Calcium 8.5 Phosphorus 3.4 Magnesium 2.0 Active Medications Generic Name Dose Route Start Last Admin Trade Name Freq PRN Reason Stop Dose Admin Albuterol Sulfate 1 amp 12/31/17 11:41 Ventolin 0.083% Nebulizer Soln - NEB Q1H PRN WHEEZING Albuterol/Ipratropium 1 amp 12/31/17 11:45 01/02/18 10:14 Duoneb - NEB 1 amp Q4HWA [facility] Administration Budesonide/Formoterol Fumarate 2 puff 12/31/17 22:00 01/02/18 09:58 Symbicort 160/4.5mcg - IH 2 puff BID [facility] Administration Chlorhexidine Gluconate 1 applic 12/27/17 22:00 01/01/18 22:17 Hibiclens For Decolonization - TP 1 applic HS [facility] Administration Guaifenesin 10 ml 12/30/17 10:42 01/02/18 09:57 Robitussin - PO 10 ml Q6H PRN Administration COUGH Heparin Sodium (Porcine) 5,000 unit 12/27/17 06:00 01/02/18 06:33 Heparin - SQ 5,000 unit TID [facility] Administration Insulin Aspart 1 vial 12/30/17 22:00 01/02/18 06:31 Novolog Vial Sliding Scale - SQ Not Given ACHS [facility] Protocol Methylprednisolone Sodium Succinate 60 mg 01/01/18 10:00 01/02/18 09:25 Solu-Medrol - IVPUSH 60 mg Q8H-IV [facility] Administration Montelukast Sodium 10 mg 12/30/17 22:00 01/01/18 22:12 Singulair - PO 10 mg HS [facility] Administration Pantoprazole Sodium 40 mg 12/27/17 10:00 01/01/18 09:27 Protonix Iv IVPUSH 40 mg DAILY [facility] Administration Terbutaline Sulfate 2.5 mg 12/31/17 12:00 01/02/18 09:58 Brethine - PO 2.5 mg BID [facility] Administration ASSESSMENT/PLAN: #PULM -Acute hypoxic respiratory failure due to asthma exacerbation -Sepsis due to likely acute bronchitis- improving -s/p previous thermoplasty -PCR positive for Rhinovirus -Taper Medrol, currently 60mg q8h -Tolerated Terbutaline -Duonebs q4h q4h -Albuterol q4h PRN -Singulair -monitor peak flow. Yesterday 170 -Keep O2 >90% -O2 supplementation -Completed IV abx: Levaquin(7 Days) -Robitussin for cough -Sleep apnea screening #Neuro -headaches resolved -tylenol PRN #Endo -BGM -ISS #PPx -Protonix IV -Hep SQ #FEN -no iv fluids -wnl -regular diet Transfer to [facility]-surge Visit type - Emergency Visit Emergency Visit: Yes ED Registration Date: 12/27/17 Care time: The patient presented to the Emergency Department on the above date and was hospitalized for further evaluation of their emergent condition. - New Patient This patient is new to me today: No - Critical Care Critical Care patient: Yes Total Critical Care Time (in minutes): 40 Critical Care Statement: The care of this patient involved high complexity decision making to prevent further life threatening deterioration of the patient 's condition and/or to evaluate & treat vital organ system(s) failure or risk of failure.
[2018-01-02] MEDS ORDERED: ALBUTEROL SO4 0.083% IH SOL 2.5 MG/3 ML VIAL.NEB. NEB PRN (15:22)
--- NOTE | 2018-01-02 18:13 | PN ---
Physical Exam: SUBJECTIVE: Patient seen and examined at bedside. Overnight, pt with continued cough, however afebrile. Did not use BiPAP overnight. Today, pt states that she is feeling much better. Asking for steroid taper. Able to speak without using venti mask and has been OOB. For transfer out of ICU to med-surg. Denies HERRERA, fever, chills, chest pain, or changes in urinary or bowel function. OBJECTIVE: Vital Signs Period Temp Pulse Resp BP Sys/Pate Pulse Ox Last 24 Hr 97.6 F-98.8 F 70-89 14-22 106-133/70-97 98-100 GENERAL: The patient is awake, alert, and fully oriented, in no acute distress. +On venti mask HEAD: Normal with no signs of trauma. EYES: PERRL, extraocular movements intact, sclera anicteric, conjunctiva clear. ENT: Ears normal, nares patent NECK: Trachea midline, supple. LUNGS: +scattered wheezes appreciated, however improved air entry. without accessory m usage today. HEART: +tachycardic rate and rhythm, S1, S2 without murmur, rub or gallop. ABDOMEN: Soft, obese, nontender, nondistended, normoactive bowel sounds, no guarding EXTREMITIES: 2+ pt pulses, warm, no edema NEUROLOGICAL: Cranial nerves II through XII grossly intact. 5/5 motor strength upper and lower extremities. PSYCH: Positive mood, normal affect. SKIN: Warm, dry, normal turgor, no rashes or lesions noted Laboratory Results - last 24 hr 01/01/18 01/02/18 01/02/18 23:06 05:15 05:15 WBC 12.2 H RBC 4.91 Hgb 11.5 Hct 36.3 MCV 73.8 L MCH 23.4 L MCHC 31.7 L RDW 16.7 H Plt Count 265 MPV 8.6 Neutrophils % 88.2 H Lymphocytes % 7.2 L D Monocytes % 4.2 D Eosinophils % 0.1 D Basophils % 0.3 Nucleated RBC % 0 Sodium 138 Potassium 4.3 Chloride 100 Carbon Dioxide 30 Anion Gap 8 BUN 19 H Creatinine 0.6 POC Glucometer 196.03889 Random Glucose 140 H Calcium 8.5 Phosphorus 3.4 Magnesium 2.0 Active Medications Generic Name Dose Route Start Last Admin Trade Name Freq PRN Reason Stop Dose Admin Albuterol Sulfate 1 amp 01/02/18 15:22 Ventolin 0.083% Nebulizer Soln - NEB Q1H PRN WHEEZING Albuterol/Ipratropium 1 amp 01/02/18 18:00 Duoneb - NEB Q4HWA CAR[facility] Budesonide/Formoterol Fumarate 2 puff 01/02/18 22:00 Symbicort 160/4.5mcg - IH BID [facility] Guaifenesin 10 ml 01/02/18 15:22 Robitussin - PO Q6H PRN COUGH Heparin Sodium (Porcine) 5,000 unit 01/02/18 22:00 Heparin - SQ TID [facility] Insulin Aspart 1 vial 01/02/18 16:30 01/02/18 17:47 Novolog Vial Sliding Scale - SQ Not Given [facility]S [facility] Protocol Methylprednisolone Sodium Succinate 60 mg 01/02/18 18:00 01/02/18 17:48 Solu-Medrol - IVPUSH 60 mg Q8H-IV [facility] Administration Montelukast Sodium 10 mg 01/02/18 22:00 Singulair - PO HS [facility] Pantoprazole Sodium 40 mg 01/03/18 10:00 Protonix Iv IVPUSH DAILY [facility] Terbutaline Sulfate 2.5 mg 01/02/18 22:00 Brethine - PO Microbiology 12/27/17 16:43 Sputum - Endotrachea Suction/Ventilator Gram Stain - Final 12/27/17 16:43 Sputum - Endotrachea Suction/Ventilator Sputum Culture - Final NORMAL RESPIRATORY CLAUDIA 12/27/17 00:07 Nasopharyngeal Swab Respiratory Virus (PCR) - Final: + Rhinovirus 12/27/17 00:07 Nasopharyngeal Swab Influenza Types A,B Antigen - Final 12/27/17 00:07 Nasopharyngeal Swab - Final Imaging 12/27/17: CXR: Since prior CXR, ETT has been retraced from R mainstem bronchus and well above eliana at the level of the clavicular heads. Large heart. Lungs are clear. 12/29/17: CXR: since prior study of 12/27/17, the patient is rotated to the right with motion artifact and ET tube with tip well above the eliana. The mediastinum is not widened. the bones and soft tissues are intact. no acute pathology. 01/01/18: CXR: no evidence acute infiltrate, pulm vasc congestion or pleural effusion. There is no definable pneumothorax. No abnormal deviation of trachea. 01/02/18: CXR: no acute pathology ASSESSMENT/PLAN: 37 y/o F with PMH GERD, anxiety, bipolar disorder, asthma (without hx intubation ), who presented with dyspnea and cough and was intubated in the ER. #Acute hypoxic resp failure 2/2 asthma exacerbation -recommend BiPAP at night to help w work of breathing -noncompliant -Viral PCR: Rhinovirus (+) -continue medrol 60mg IVPB TID ; may require slower taper d/t severity of initial episode -albuterol 1 amp Q4HWA -albuterol neb 1 amp q1h PRN for additional SOB -Robitussin 10ml PO q6h PRN for cough -Singulair 10mg PO HS -symbicort 2 puff IH BID, terbutaline 2.5 mg PO BID #hx anxiety #hx bipolar disorder -verified with pharmacy: abilify 15mg PO qd, lithium carbonate 600mg PO qd ( last filled 11/20/17- 30 day supply) -as per pt, she does not want to take these medications during her stay #Hallucinations -currently without complaint -will continue to monitor #?STI -without current complaint; team had discussed with [facility] -rape kit sent- results pending #GERD -Continue protonix 40mg IVP qd #F/E/N -currently not on IVF; able to ambulate to bathroom -Continue to follow lytes -regular diet #Sepsis 2/2 acute bronchitis-resolved -levaquin 750mg IVPB qd -received five days - has been d/c d/t prolonged Qtc (in 500's), improved to 425 #PPX Hep 5000 SQ TID GI: protonix 40mg IVP qd ; as on steroids #Melissa has been transferred out of ICU to 8W Visit type - Emergency Visit Emergency Visit: No - New Patient This patient is new to me today: No - Critical Care Critical Care patient: No
[2018-01-02] MEDS: MONTELUKAST NA 10 MG TABLET PO SCH (21:31)
[2018-01-02] MEDS ORDERED: CHLORHEXIDINE GLUCONATE 4% CLEANSER FOR DECOLONIZATION TP SCH (22:00)
[2018-01-03] MEDS: methylPREDNISolone NA SUCC 125 MG/2 ML VIAL IVPUSH SCH ×3 (01:10→17:15)
[2018-01-03] MEDS: HEPARIN NA (PORCINE) 5,000 UNITS/ML 1ML VIAL SQ SCH ×3 (05:52→21:41)
[2018-01-03] MEDS: INSULIN SLIDING SCALE (NOVOLOG) 1 VIAL SQ SCH ×4 (06:03→21:46)
[2018-01-03] MEDS: ALBUTEROL SO4 2.5/IPRATROPIUM 0.5 INH SOL 3 ML VIAL.NEB. NEB SCH ×5 (06:06→22:08)
[2018-01-03 08:04] LABS: HEMATOCRIT 38.1 % (32.4-45.2); HEMOGLOBIN 11.9 GM/dL (10.7-15.3); MCH 23.4 pg (25.7-33.7); MCHC 31.2 g/dl (32.0-36.0); MEAN CELL VOLUME 74.8 fl (80-96); MEAN PLT VOLUME 8.3 fl (7.5-11.1); PLATELET COUNT 262 K/MM3 (134-434); RBC 5.08 M/mm3 (3.60-5.2); RDW 16.9 % (11.6-15.6); WHITE BLOOD COUNT 14.9 K/mm3 (4.0-10.0)
[2018-01-03 08:34] LABS: CHLORIDE 100 mmol/L (98-107); POTASSIUM 4.2 mmol/L (3.5-5.1); SODIUM 137 mmol/L (136-145)
[2018-01-03 08:49] LABS: ALBUMIN 2.9 g/dl (3.4-5.0); ALK PHOS 74 U/L (45-117); ANION GAP 9 (8-16); BILIRUBIN,TOTAL 0.3 mg/dL (0.2-1.0); BLOOD UREA NITROGEN 18 mg/dL (7-18); CO2 28 mmol/L (21-32); CREATININE 0.8 mg/dL (0.55-1.02); GLUCOSE,RANDOM 164 mg/dL (74-106); PHOSPHOROUS 3.3 mg/dL (2.5-4.9); SGOT/AST 25 U/L (15-37); SGPT/ALT 60 U/L (12-78); TOT PROT 6.4 g/dl (6.4-8.2)
[2018-01-03 09:06] LABS: CALCIUM 8.7 mg/dL (8.5-10.1)
--- NOTE | 2018-01-03 09:50 | PN ---
Progress Note, Physician History of Present Illness: pulmonary alert,feeling better,less dyspneic - Current Medication List Current Medications: Active Medications Albuterol Sulfate (Ventolin 0.083% Nebulizer Soln -) 1 amp NEB Q1H PRN PRN Reason: WHEEZING Albuterol/Ipratropium (Duoneb -) 1 amp NEB Q4HWA [facility] Last Admin: 01/03/18 06:06 Dose: 1 amp Budesonide/Formoterol Fumarate (Symbicort 160/4.5mcg -) 2 puff IH BID [facility] Last Admin: 01/02/18 21:36 Dose: 2 puff Guaifenesin (Robitussin -) 10 ml PO Q6H PRN PRN Reason: COUGH Heparin Sodium (Porcine) (Heparin -) 5,000 unit SQ TID [facility] Last Admin: 01/03/18 05:52 Dose: 5,000 unit Insulin Aspart (Novolog Vial Sliding Scale -) 1 vial SQ ACHS [facility]; Protocol Last Admin: 01/03/18 06:03 Dose: Not Given Methylprednisolone Sodium Succinate (Solu-Medrol -) 60 mg IVPUSH Q8H-IV [facility] Last Admin: 01/03/18 01:10 Dose: 60 mg Montelukast Sodium (Singulair -) 10 mg PO HS [facility] Last Admin: 01/02/18 21:31 Dose: 10 mg Pantoprazole Sodium (Protonix Iv) 40 mg IVPUSH DAILY [facility] Terbutaline Sulfate (Brethine -) 2.5 mg PO BID [facility] Last Admin: 01/02/18 21:30 Dose: 2.5 mg - Objective Vital Signs: Vital Signs Temperature 98.7 F 01/03/18 06:24 Pulse Rate 78 01/03/18 06:24 Respiratory Rate 18 01/03/18 06:24 Blood Pressure 112/72 01/03/18 06:24 O2 Sat by Pulse Oximetry (%) 97 01/02/18 22:26 Constitutional: Yes: Well Nourished, Calm Eyes: Yes: WNL HENT: Yes: WNL Neck: Yes: WNL Cardiovascular: Yes: Regular Rate and Rhythm, S1, S2 Respiratory: Yes: Wheezes (bilateral wheezes) Gastrointestinal: Yes: Normal Bowel Sounds, Soft Extremities: Yes: WNL Edema: No Labs: CBC, BMP 01/03/18 07:30 01/03/18 07:30 Problem List - Problems (1) Acute hypercapnic respiratory failure Code(s): J96.02 - ACUTE RESPIRATORY FAILURE WITH HYPERCAPNIA (2) Asthma with acute exacerbation Code(s): J45.901 - UNSPECIFIED ASTHMA WITH (ACUTE) EXACERBATION (3) Status asthmaticus Code(s): J45.902 - UNSPECIFIED ASTHMA WITH STATUS ASTHMATICUS Assessment/Plan ASSESSMENT AND PLAN: Acute Hypercapneic Respiratory Failure Status Asthmaticus - medrol same dose - inhaled bronchodilators standing and PRN - continue terbutaline - singulair - monitor peak flow DR ZAVALETA
[2018-01-03] MEDS: PANTOPRAZOLE SODIUM 40 MG VIAL IVPUSH SCH (10:29)
[2018-01-03] MEDS: TERBUTALINE SULFATE 2.5 MG TABLET PO SCH ×2 (10:30→21:41)
[2018-01-03] MEDS: BUDESONIDE/FORMETEROL FUMARATE 160/4.5 mcg INHALER IH SCH ×2 (10:31→21:47)
--- NOTE | 2018-01-03 13:21 | PN ---
Progress Note (short form) - Note Progress Note: Subjective: No fever or chills. No abd pain. breathing has much improved . cont ot have cough. responded to codeine before Objective: Vital Signs: Last Vital Signs Temp Pulse Resp BP Pulse Ox 98.1 F 82 18 116/73 96 01/03/18 10:00 01/03/18 10:00 01/03/18 10:00 01/03/18 10:00 01/03/18 09:30 Laboratory Results - last 24 hr 01/02/18 01/02/18 01/02/18 12:22 17:46 21:31 WBC RBC Hgb Hct MCV MCH MCHC RDW Plt Count MPV Sodium Potassium Chloride Carbon Dioxide Anion Gap BUN Creatinine Creat Clearance w eGFR POC Glucometer [phone] 202 Random Glucose Calcium Phosphorus Magnesium Total Bilirubin AST ALT Alkaline Phosphatase Total Protein Albumin 01/03/18 01/03/18 01/03/18 05:53 07:30 07:30 WBC 14.9 H RBC 5.08 Hgb 11.9 Hct 38.1 MCV 74.8 L MCH 23.4 L MCHC 31.2 L RDW 16.9 H Plt Count 262 MPV 8.3 Sodium 137 Potassium 4.2 Chloride 100 Carbon Dioxide 28 Anion Gap 9 BUN 18 Creatinine 0.8 Creat Clearance w eGFR > 60 POC Glucometer 176 Random Glucose 164 H Calcium 8.7 Phosphorus 3.3 Magnesium 2.0 Total Bilirubin 0.3 D AST 25 ALT 60 Alkaline Phosphatase 74 Total Protein 6.4 Albumin 2.9 L Physical Exam: NAD, cough CV: RRR. Lungs: scattered wheezing. prolonged exp phase. good air entry Ext: no edema . ASSESSMENT AND PLAN: 37 y/o lady with h/o severe Asthma, GED, Anxiety and bipolar who presented with SOB and was found to have acute hypoxic resp failure requiring intubation 1- Acute hypoxic resp failure, 2/2 asthma exacerbation. now improved - cont Nebs - add codeine for cough - cont singular - cont symbicort - cont solu-Medrol 60 mg q8Hr - Cont Terbutaline - BIPAp at night 2- Acute bronchitis :off levaquin now 3- DVT PX (heparin ) and GI px ( PPI ) Visit type - Emergency Visit Emergency Visit: Yes ED Registration Date: 12/27/17 Care time: The patient presented to the Emergency Department on the above date and was hospitalized for further evaluation of their emergent condition. - New Patient This patient is new to me today: No - Critical Care Critical Care patient: No
[2018-01-03] MEDS: guaiFENesin 200 MG/10 ML 10 ML UNIT-DOSE CUPS PO PRN ×2 (14:08→21:40)
[2018-01-03] MEDS: CODEINE SO4 30 MG TABLET PO PRN ×2 (14:08→21:40)
[2018-01-03] MEDS: MONTELUKAST NA 10 MG TABLET PO SCH (21:41)
[2018-01-04] MEDS: methylPREDNISolone NA SUCC 125 MG/2 ML VIAL IVPUSH SCH ×2 (01:53→10:28)
[2018-01-04] MEDS: INSULIN SLIDING SCALE (NOVOLOG) 1 VIAL SQ SCH ×4 (06:17→21:51)
[2018-01-04] MEDS: HEPARIN NA (PORCINE) 5,000 UNITS/ML 1ML VIAL SQ SCH ×3 (06:17→21:51)
[2018-01-04] MEDS: ALBUTEROL SO4 2.5/IPRATROPIUM 0.5 INH SOL 3 ML VIAL.NEB. NEB SCH ×2 (06:18→09:53)
[2018-01-04 08:41] LABS: BASO % 0.2 % (0-2.0); HEMATOCRIT 39.2 % (32.4-45.2); HEMOGLOBIN 12.2 GM/dL (10.7-15.3); LYMPH % 8.6 % (8-40); MCH 23.4 pg (25.7-33.7); MCHC 31.2 g/dl (32.0-36.0); MEAN CELL VOLUME 74.9 fl (80-96); MEAN PLT VOLUME 8.7 fl (7.5-11.1); MONO % 1.4 % (3.8-10.2); NEUT % 89.8 % (42.8-82.8); PLATELET COUNT 275 K/MM3 (134-434); RBC 5.23 M/mm3 (3.60-5.2); RDW 16.9 % (11.6-15.6); WHITE BLOOD COUNT 16.5 K/mm3 (4.0-10.0)
[2018-01-04 09:38] LABS: OVALOCYTE 1+; PLATELET ESTIMATE NORMAL; TEAR DROP CELLS 1+
[2018-01-04] MEDS: BUDESONIDE/FORMETEROL FUMARATE 160/4.5 mcg INHALER IH SCH ×2 (10:28→21:52)
[2018-01-04] MEDS: TERBUTALINE SULFATE 2.5 MG TABLET PO SCH ×2 (10:29→21:51)
--- NOTE | 2018-01-04 11:35 | PN ---
Progress Note, Physician History of Present Illness: pulmonary alert,feeling better ,less cough,less dyspneic. peak flow 240 - Current Medication List Current Medications: Active Medications Albuterol Sulfate (Ventolin 0.083% Nebulizer Soln -) 1 amp NEB Q1H PRN PRN Reason: WHEEZING Albuterol/Ipratropium (Duoneb -) 1 amp NEB Q4HWA [facility] Last Admin: 01/04/18 09:53 Dose: 1 amp Budesonide/Formoterol Fumarate (Symbicort 160/4.5mcg -) 2 puff IH BID [facility] Last Admin: 01/04/18 10:28 Dose: 2 puff Codeine Sulfate (Codeine Sulfate -) 30 mg PO Q6H PRN PRN Reason: COUGH Last Admin: 01/03/18 21:40 Dose: 30 mg Guaifenesin (Robitussin -) 10 ml PO Q6H PRN PRN Reason: COUGH Last Admin: 01/03/18 21:40 Dose: 10 ml Heparin Sodium (Porcine) (Heparin -) 5,000 unit SQ TID [facility] Last Admin: 01/04/18 06:17 Dose: 5,000 unit Insulin Aspart (Novolog Vial Sliding Scale -) 1 vial SQ ACHS [facility]; Protocol Last Admin: 01/04/18 06:17 Dose: Not Given Methylprednisolone Sodium Succinate (Solu-Medrol -) 60 mg IVPUSH Q8H-IV [facility] Last Admin: 01/04/18 10:28 Dose: 60 mg Montelukast Sodium (Singulair -) 10 mg PO HS [facility] Last Admin: 01/03/18 21:41 Dose: 10 mg Pantoprazole Sodium (Protonix Iv) 40 mg IVPUSH DAILY [facility] Last Admin: 01/03/18 10:29 Dose: 40 mg Terbutaline Sulfate (Brethine -) 2.5 mg PO BID [facility] Last Admin: 01/04/18 10:29 Dose: 2.5 mg - Objective Vital Signs: Vital Signs Temperature 98.5 F 01/04/18 06:14 Pulse Rate 84 01/04/18 06:14 Respiratory Rate 20 01/04/18 06:14 Blood Pressure 111/68 01/04/18 06:14 O2 Sat by Pulse Oximetry (%) 99 01/03/18 21:00 Constitutional: Yes: Well Nourished, Calm Eyes: Yes: WNL HENT: Yes: WNL Neck: Yes: WNL Cardiovascular: Yes: Regular Rate and Rhythm, S1, S2 Respiratory: Yes: Wheezes (bilateral wheezes) Gastrointestinal: Yes: Normal Bowel Sounds, Soft Extremities: Yes: WNL Edema: No Labs: CBC, BMP 01/04/18 06:30 Problem List - Problems (1) Acute hypercapnic respiratory failure Code(s): J96.02 - ACUTE RESPIRATORY FAILURE WITH HYPERCAPNIA (2) Asthma with acute exacerbation Code(s): J45.901 - UNSPECIFIED ASTHMA WITH (ACUTE) EXACERBATION (3) Status asthmaticus Code(s): J45.902 - UNSPECIFIED ASTHMA WITH STATUS ASTHMATICUS Assessment/Plan ASSESSMENT AND PLAN: Acute Hypercapneic Respiratory Failure improved Status Asthmaticus improving - medrol taper - start spiriva - inhaled bronchodilators standing and PRN - continue terbutaline - singulair - monitor peak flow DR ZAVALETA
[2018-01-04] MEDS: PANTOPRAZOLE SODIUM 40 MG VIAL IVPUSH SCH (11:48)
[2018-01-04] MEDS: TIOTROPIUM BROMIDE 18 MCG CAPSULES IH SCH (16:00)
--- NOTE | 2018-01-04 16:47 | PN ---
Progress Note (short form) - Note Progress Note: Subjective: no fever or chills . breathing is much better Objective: Vital Signs: Last Vital Signs Temp Pulse Resp BP Pulse Ox 98.2 F 89 17 121/69 99 01/04/18 14:23 01/04/18 14:23 01/04/18 14:23 01/04/18 14:23 01/04/18 10:00 Laboratory Results - last 24 hr 01/03/18 01/03/18 01/04/18 17:17 21:45 06:16 WBC RBC Hgb Hct MCV MCH MCHC RDW Plt Count MPV Neutrophils % Neutrophils % (Manual) Band Neutrophils % Lymphocytes % Lymphocytes % (Manual) Monocytes % Monocytes % (Manual) Eosinophils % Eosinophils % (Manual) Basophils % Basophils % (Manual) Myelocytes % (Man) Promyelocytes % (Man) Blast Cells % (Manual) Nucleated RBC % Metamyelocytes Platelet Estimate Tear Drop Cells Ovalocytes POC Glucometer 143 181 160 01/04/18 06:30 WBC 16.5 H RBC 5.23 H Hgb 12.2 Hct 39.2 MCV 74.9 L MCH 23.4 L MCHC 31.2 L RDW 16.9 H Plt Count 275 MPV 8.7 Neutrophils % 89.8 H Neutrophils % (Manual) 88.1 H Band Neutrophils % 1.0 Lymphocytes % 8.6 Lymphocytes % (Manual) 7.9 L D Monocytes % 1.4 L Monocytes % (Manual) 3 L D Eosinophils % 0.0 D Eosinophils % (Manual) 0.0 Basophils % 0.2 Basophils % (Manual) 0.0 Myelocytes % (Man) 0 Promyelocytes % (Man) 0 D Blast Cells % (Manual) 0 Nucleated RBC % 0 Metamyelocytes 0 Platelet Estimate Normal Tear Drop Cells 1+ Ovalocytes 1+ POC Glucometer Physical Exam: NAD, cough CV: RRR. Lungs: decreased wheezing. prolonged exp phase. good air entry Ext: no edema . ASSESSMENT AND PLAN: 37 y/o lady with h/o severe Asthma, GED, Anxiety and bipolar who presented with SOB and was found to have acute hypoxic resp failure requiring intubation 1- Acute hypoxic resp failure, 2/2 asthma exacerbation. now improved - cont Nebs - codeine for cough - cont singular - cont symbicort - solu-Medrol 40 mg q8Hr - Cont Terbutaline - BIPAp at night - spiriva added - check pre-post ambulatory pulse ox 2- Acute bronchitis :off abx 3- DVT PX (heparin ) and GI px ( PPI ) Visit type - Emergency Visit Emergency Visit: Yes ED Registration Date: 12/27/17 Care time: The patient presented to the Emergency Department on the above date and was hospitalized for further evaluation of their emergent condition. - New Patient This patient is new to me today: No - Critical Care Critical Care patient: No
[2018-01-04] MEDS: methylPREDNISolone NA SUCC 40 MG/1 ML VIAL IVPUSH SCH (16:59)
[2018-01-04] MEDS ORDERED: ACETAMINOPHEN 500 MG TABLET (FP) PO ONE (17:36)
[2018-01-04] MEDS: ALBUTEROL SO4 0.5 % INH SOLN 2.5 MG/0.5 ML VIAL.NEB. NEB PRN ×2 (17:38→20:53)
[2018-01-04] MEDS: MONTELUKAST NA 10 MG TABLET PO SCH (21:49)
[2018-01-04] MEDS: CODEINE SO4 30 MG TABLET PO PRN (21:49)
[2018-01-04] MEDS: guaiFENesin 200 MG/10 ML 10 ML UNIT-DOSE CUPS PO PRN (21:50)
[2018-01-05] MEDS: methylPREDNISolone NA SUCC 40 MG/1 ML VIAL IVPUSH SCH ×3 (01:51→10:53)
[2018-01-05] MEDS: INSULIN SLIDING SCALE (NOVOLOG) 1 VIAL SQ SCH ×2 (06:15→12:13)
[2018-01-05] MEDS: HEPARIN NA (PORCINE) 5,000 UNITS/ML 1ML VIAL SQ SCH ×2 (06:15→14:03)
[2018-01-05] MEDS ORDERED: PANTOPRAZOLE 40 MG TABLET (FP) PO SCH (10:00)
[2018-01-05] MEDS ORDERED: PT OWN MED DRAWER 7, Y5N ONE (10:08)
[2018-01-05] MEDS: guaiFENesin 200 MG/10 ML 10 ML UNIT-DOSE CUPS PO PRN (10:10)
[2018-01-05] MEDS: TIOTROPIUM BROMIDE 18 MCG CAPSULES IH SCH (10:10)
[2018-01-05] MEDS: TERBUTALINE SULFATE 2.5 MG TABLET PO SCH (10:11)
[2018-01-05] MEDS: BUDESONIDE/FORMETEROL FUMARATE 160/4.5 mcg INHALER IH SCH (10:13)
[2018-01-05] MEDS: ALBUTEROL SO4 0.5 % INH SOLN 2.5 MG/0.5 ML VIAL.NEB. NEB PRN (10:45)
[2018-01-05] MEDS ORDERED: predniSONE 20 MG TABLET (UD) PO ONE (12:00)
[2018-01-05] MEDS ORDERED: INSULIN (NOVOLOG) ASPART 100 UNITS/ML 10ML VIAL ONE (12:09)
[2018-01-05] MEDS ORDERED: DEXAMETHASONE 4 MG TABLET (FP) PO ONE (12:15)
--- NOTE | 2018-01-05 13:11 | PN ---
Progress Note, Physician History of Present Illness: pulmonary alert,feeling better,-resp distress,-tachypnea - Current Medication List Current Medications: Active Medications Albuterol Sulfate (Ventolin 0.5% -) 1 amp NEB Q4H PRN PRN Reason: SHORT OF BREATH/WHEEZING Last Admin: 01/05/18 10:45 Dose: 1 amp Budesonide/Formoterol Fumarate (Symbicort 160/4.5mcg -) 2 puff IH BID [facility] Last Admin: 01/05/18 10:13 Dose: 2 puff Codeine Sulfate (Codeine Sulfate -) 30 mg PO Q6H PRN PRN Reason: COUGH Last Admin: 01/04/18 21:49 Dose: 30 mg Guaifenesin (Robitussin -) 10 ml PO Q6H PRN PRN Reason: COUGH Last Admin: 01/05/18 10:10 Dose: 10 ml Heparin Sodium (Porcine) (Heparin -) 5,000 unit SQ TID [facility] Last Admin: 01/05/18 06:15 Dose: 5,000 unit Insulin Aspart (Novolog Vial Sliding Scale -) 1 vial SQ ACHS [facility]; Protocol Last Admin: 01/05/18 12:13 Dose: Not Given Montelukast Sodium (Singulair -) 10 mg PO HS [facility] Last Admin: 01/04/18 21:49 Dose: 10 mg Pantoprazole Sodium (Protonix -) 40 mg PO DAILY [facility] Last Admin: 01/05/18 10:10 Dose: 40 mg Terbutaline Sulfate (Brethine -) 2.5 mg PO BID [facility] Last Admin: 01/05/18 10:11 Dose: 2.5 mg Tiotropium [place] (Spiriva -) 1 puff IH DAILY [facility] Last Admin: 01/05/18 10:10 Dose: Not Given - Objective Vital Signs: Vital Signs Temperature 98.9 F 01/05/18 06:24 Pulse Rate 88 01/05/18 12:15 Respiratory Rate 20 01/05/18 06:24 Blood Pressure 124/72 01/05/18 06:24 O2 Sat by Pulse Oximetry (%) 95 01/05/18 12:18 Constitutional: Yes: Well Nourished, Calm Eyes: Yes: WNL HENT: Yes: WNL Neck: Yes: WNL Cardiovascular: Yes: Regular Rate and Rhythm, S1, S2 Respiratory: Yes: Wheezes (scattered enriqueta wheezes) Gastrointestinal: Yes: Normal Bowel Sounds, Soft Extremities: Yes: WNL Edema: No Labs: CBC, BMP Problem List - Problems (1) Acute hypercapnic respiratory failure Code(s): J96.02 - ACUTE RESPIRATORY FAILURE WITH HYPERCAPNIA (2) Asthma with acute exacerbation Code(s): J45.901 - UNSPECIFIED ASTHMA WITH (ACUTE) EXACERBATION (3) Status asthmaticus Code(s): J45.902 - UNSPECIFIED ASTHMA WITH STATUS ASTHMATICUS Assessment/Plan ASSESSMENT AND PLAN: Acute Hypercapneic Respiratory Failure improved Status Asthmaticus improved - decadron po - spiriva - inhaled bronchodilators standing and PRN - terbutaline - singulair - monitor peak flow DR ZAVALETA
--- NOTE | 2018-01-05 13:17 | PN ---
Teaching Attending Note Name of Resident: Anahi Mark ATTENDING PHYSICIAN STATEMENT I saw and evaluated the patient. I reviewed the resident's note and discussed the case with the resident. I agree with the resident's findings and plan as documented. SUBJECTIVE: No fever or chills. No abd pain , NO SOB . wheezing at base line OBJECTIVE: NAD, no cough today CV: RRR. Lungs: minimal wheezing. prolonged exp phase. good air entry Ext: no edema . ASSESSMENT AND PLAN: 37 y/o lady with h/o severe Asthma, GED, Anxiety and bipolar who presented with SOB and was found to have acute hypoxic resp failure requiring intubation 1- Acute hypoxic resp failure, 2/2 asthma exacerbation. now much improved - cont Nebs and inhalers . 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
[2018-01-05 14:32] VITALS: BP 124/78
[2018-01-05 15:00] VITALS: PULSE 95; TEMP 98.5
--- NOTE | 2018-01-05 18:59 | DS ---
Physical Exam: SUBJECTIVE: Patient seen and examined at bedside. Overnight, pt OOB ambulating. On 4L 02. Today, pt in good spirits without complaint. Off oxygen, states that she would like to go home. Denies HERRERA, fever, chills, SOB, or changes in urinary or bowel function. OBJECTIVE: Vital Signs Period Temp Pulse Resp BP Sys/Pate Pulse Ox Last 24 Hr 97.8 F-99.1 F 86-95 17-20 124-131/70-78 92-97 PHYSICAL EXAM GENERAL: The patient is in good spirits. Content to go home. awake, alert, and fully oriented, in no acute distress. HEAD: Normal with no signs of trauma. EYES: PERRL, extraocular movements intact, sclera anicteric, conjunctiva clear. ENT: Ears normal, nares patent, oropharynx clear without exudates, moist mucous membranes. NECK: Trachea midline, supple. LUNGS: +diminished scattered wheezes - appreciated posteriorly. otherwise, with good air entry. HEART: Regular rate and rhythm, S1, S2 without murmur, rub or gallop. ABDOMEN: Soft, nontender, nondistended, normoactive bowel sounds, no guarding, no rebound, no hepatosplenomegaly, no masses. EXTREMITIES: 2+ dp, pt pulses, warm, well-perfused, no edema. NEUROLOGICAL: Cranial nerves II through XII grossly intact. PSYCH: Normal mood, normal affect. SKIN: Warm, dry, normal turgor, no rashes or lesions noted. LABS White Count 12/26/17 12/27/17 12/28/17 23:15 09:38 05:30 WBC 15.8 H D 18.1 H 29.4 H D 12/29/17 12/30/17 12/31/17 05:20 05:25 06:00 WBC 21.2 H 16.2 H 9.8 D 01/01/18 01/02/18 01/03/18 05:18 05:15 07:30 WBC 11.7 H 12.2 H 14.9 H 01/04/18 06:30 WBC 16.5 H Blood gases/Lactic acid 12/26/17 12/26/17 12/26/17 23:15 23:15 23:30 VBG pH 7.36 POC VBG pCO2 41.4 POC VBG pO2 27.6 L Mixed VBG HCO3 23.1 Random Glucose 118 H Lactic Acid 2.6 H* 12/27/17 12/27/17 12/27/17 08:56 09:38 09:38 Puncture Site Left radial ABG pH 7.18 L* POC VBG pCO2 Random Glucose 223 H Lactic Acid 4.5 H* 12/29/17 06:50 Puncture Site Right radial ABG pH 7.33 L ABG pCO2 at Pt Temp 61.3 H* D ABG pO2 at Pt Temp 91.2 D ABG HCO3 31.1 H ABG O2 Sat (Measured) 97.1 ABG O2 Content 15.0 ABG Base Excess 4.3 H O2 Delivery Device Vent Oxygen Flow Rate 45% Vent Rate 10 PEEP 5.0 Pressure Support Vent 450 Biliary/LFTs 12/27/17 09:38 AST 14 L ALT 20 Alkaline Phosphatase 90 24 hr 01/04/18 01/04/18 06:16 06:30 WBC 16.5 H Hgb 12.2 Hct 39.2 Plt Count 275 Neutrophils % 89.8 H Lymphocytes % (Manual) 7.9 L D Monocytes % 1.4 L Monocytes % (Manual) 3 L D POC Glucometer 160 Microbiology 12/27/17 16:43 Sputum - Endotrachea Suction/Ventilator Gram Stain - Final 12/27/17 16:43 Sputum - Endotrachea Suction/Ventilator Sputum Culture - Final NORMAL RESPIRATORY CLAUDIA 12/27/17 00:07 Nasopharyngeal Swab Respiratory Virus (PCR) - Final : Rhinovirus (+) 12/27/17 00:07 Nasopharyngeal Swab Influenza Types A,B Antigen - Final 12/27/17 00:07 Nasopharyngeal Swab - Final Imaging 12/27/17: CXR: Since prior CXR, ETT has been retraced from R mainstem bronchus and well above eliana at the level of the clavicular heads. Large heart. Lungs are clear. 12/29/17: CXR: since prior study of 12/27/17, the patient is rotated to the right with motion artifact and ET tube with tip well above the eliana. The mediastinum is not widened. the bones and soft tissues are intact. no acute pathology. 01/01/18: CXR: no evidence acute infiltrate, pulm vasc congestion or pleural effusion. There is no definable pneumothorax. No abnormal deviation of trachea. 01/02/18: CXR: no acute pathology HOSPITAL COURSE: Date of Admission:12/27/17 Date of Discharge: 01/05/18 Admit diagnosis: acute hypoxic respiratory failure 2/2 asthma exacerbation Pt is a 37 y/o woman with PMH GERD, anxiety, bipolar disorder, asthma (severe; however without hx intubation), who presented to the ED with with acute exacerbation that was not responsive to home-dosed steroids, nebs. Pt was without sick prodrome. Pt admitted for acute hypoxic respiratory failure 2/2 asthma exacerbation. In the ED, pt failed NIPPV, IV steroids, nebulizer treatments, magnesium and SQ epinephrine. She was intubated without incident. ABG 7.2/56/100 Pt transferred to ICU. On arrival to ICU, pt's vent settings were adjusted and repeat ABG showed improvement to 7.37/41. Pt was continued on deep sedation without need for paralysis. While in the ICU, pt was extubated on 12/29/17. She was later transferred to the floor for step-down management, as her breathing status improved, with better air entry and less wheezing. During her hospitalization, concerning her asthma: - a slow steroid taper was performed from 80 q8h to 40 q8h on day of discharge. She is being sent home on dexamethasone 4mg 4x/day for a two week course. She will follow-up with her private pulm doctor, Dr. Olivares from [facility] to discuss whether this needs to be changed -pt was also continued on albuterol 1 amp every four hours standing, and nebs every 1hr as needed for additional SOB -robitussin 10ml every six hours as needed for cough -singulair 10mg at night -symbicort 2 puffs twice a day, terbutaline 2.5 mg PO twice a day -she will continue her home dose of theophylline at home -will discuss nucala, a new biologic treatment for tx-resistant asthma with Dr. Olivares -she had an initial elevated white count, peak ~20 possible 2/2 infectious process such as bronchitis. Received five days of levaquin 750mg IV daily, and was discontinued due to prolonged QTc in 500's. repeat QTc 425 -tested (+) for rhinovirus infection -she improved greatly; on d/c, performed a pre and post oxygen test, without requiring it -for her anxiety and bipolar disorder, pt refused to take home doses of abilify and lithium carbonate ,however agrees to continue to take them on discharge and with physician follow-up Minutes to complete discharge: 45 Discharge Summary Reason For Visit: ASTHMATIC BRONCHITIS, HYPOXIA Condition: Improved - Instructions Diet, Activity, Other Instructions: You were in the hospital due to a severe asthma exacerbation. You were intubated and managed in the intensive care unit (ICU). You were extubated (the breathing tube was removed) on 12/29 and moved to a medicine floor for further management. We are sending you home on the following: -steroid course: dexamethasone 4mg by mouth, four times a day for the next two weeks as recommended by your camp nurse and Dr. Bryant. You will see Dr. Olivares in one week to discuss whether this should be changed. -please continue the following for your asthma: -singulair 10mg every night -symbicort 2 puffs twice a day -duoneb 1 amp every four hours scheduled -terbutaline 2.5mg twice a day -ventolin 1 amp every hour as needed -protonix 40mg once a day (this is for your stomach. important to take while you are on steroid course) -continue theophylline -You may continue your other home medications such as lithium and abilify as you were taking before. -please follow up with your pulmonary doctor, Dr. Olivares within the week. You may discuss a new treatment called Lakshmi with him, and he can adjust your dexamethasone. This may help your asthma from becoming as severe. You can also follow up with Dr. Bryant, the pulmonary doctor that saw you in the hospital. -We would also like you to follow up with your primary care physician, Dr. Perez in a week. If you develop shortness of breath, or chest pain, please go to the hospital. We hope you feel better soon. all Meds sent to pharmacy Referrals: Cristhian Olivares MD [Other] - 1 Week Noel Bryant MD [Staff Physician] - 1 Week Christie Perez [Non Staff, Medical] - 1 Week Disposition: HOME - Home Medications Comprehensive Discharge Medication List: Ambulatory Orders Guaifenesin AC [Robitussin AC -] 5 ml PO TID PRN #60 liquid MDD 15 09/21/17 Albuterol 0.083% Nebulizer [place] [Ventolin 0.083% Nebulizer Soln -] 1 amp NEB Q1H PRN #1 inhaler 01/05/18 Albuterol 2.5/Ipratropium 0.5 [Duoneb -] 1 amp NEB Q4HWA #1 inh 01/05/18 Aripiprazole [Abilify -] 15 mg PO DAILY #30 tablet 01/05/18 Budesonide/Formeterol Fumarate [SYMBICORT 160/4.5mcg -] 2 puff IH BID #1 inhaler 01/05/18 Dexamethasone 4 mg PO Q6H #56 tablet 01/05/18 Gann Carbonate [Eskalith -] 600 mg PO DAILY #30 capsule 01/05/18 Montelukast Na [Singulair -] 10 mg PO HS #30 tablet 01/05/18 Pantoprazole Sodium [Protonix -] 40 mg PO DAILY #30 tablet.ec 01/05/18 Terbutaline Sulfate [Brethine -] 2.5 mg PO BID #28 tablet 01/05/18 Theophylline Anhydrous [Imtiaz-24] 200 mg PO BID@0800,1700 #30 cap.er.24h This patient is new to me today: No Emergency Visit: No Critical Care patient: No - Discharge Referral Referred to [facility] No
== END 2018-01-05 15:22 | disposition home or self-care (01) | DRG 208 ==
LOC: JER 22:09 → JERBED 12-27 02:03 → JSAMEDAYSX 12-27 09:35 → JICU 12-27 09:45 → J8W 01-02 15:02
PROVIDERS: ADMIT Internal Medicine; ATTEND Internal Medicine
PROC: 5A1945Z Respiratory Ventilation, 24-96 Consecutive Hours (ICD-10-PCS; principal; 2017-12-27)
PROC: 0BH17EZ Insertion of Endotracheal Airway into Trachea, Via Natural or Artificial Opening (ICD-10-PCS; 2017-12-27)
DX: J45.51 Severe persistent asthma with (acute) exacerbation (principal); J96.01 Acute respiratory failure with hypoxia; J96.02 Acute respiratory failure with hypercapnia; A41.9 Sepsis, unspecified organism; E87.2 Acidosis; F41.9 Anxiety disorder, unspecified; F31.9 Bipolar disorder, unspecified; K21.9 Gastro-esophageal reflux disease without esophagitis; J20.9 Acute bronchitis, unspecified; E83.41 Hypermagnesemia; F28 Other psychotic disorder not due to a substance or known physiological condition
CPT/HCPCS: 36415; 36600; 71045-TC-FY; 80048; 80053; 82803; 82962; 83605; 83735; 84100; 84703; 85025; 85027; 87070; 87205; 87633; 87804; 93005; 93010; 94150; 94640; 94660; 94761; 97116-GP; 97161-GP; 99284-25; J0131; J1644; J7620